=== PATIENT | female | born 1940 | race Caucasian/White ===

== ENCOUNTER → 2019-11-22 11:28 | Outpatient (BNVA) | payer MEDICARE, MEDICAID, SELFPAY | PROVIDERS: PCP Internal Medicine; Referring Provider Internal Medicine; Visit Provider Nurse Practitioner | DX: K52.9 Noninfective gastroenteritis and colitis, unspecified (principal); N18.30 Chronic kidney disease, stage 3 unspecified | CPT/HCPCS: 99213 ==

== ENCOUNTER → 2020-02-03 08:48 | Outpatient (BNVA) | payer MEDICARE, MEDICAID, SELFPAY | PROVIDERS: PCP Internal Medicine; Visit Provider Nurse Practitioner | DX: Z13.89 Encounter for screening for other disorder (principal) | CPT/HCPCS: Q3014 ==

== ENCOUNTER → 2020-04-05 08:42 | Outpatient (BNVA) | payer MEDICARE, MEDICAID, SELFPAY | PROVIDERS: PCP Internal Medicine; Visit Provider Nurse Practitioner | DX: Z76.89 Persons encountering health services in other specified circumstances (principal) | CPT/HCPCS: Q3014 ==

== ENCOUNTER → 2020-05-14 12:57 | Outpatient (BNVA) | payer MEDICARE, MEDICAID, SELFPAY | PROVIDERS: PCP Internal Medicine; Visit Provider Internal Medicine Cardiovascular Disease | DX: I48.0 Paroxysmal atrial fibrillation (principal); I25.10 Atherosclerotic heart disease of native coronary artery without angina pectoris; Z79.899 Other long term (current) drug therapy | CPT/HCPCS: 99212 ==

== ENCOUNTER 2020-06-15 06:22 | Emergency (ER) | payer MEDICARE, MEDICAID, SELFPAY ==
--- NOTE | ~2020-06-15 | US_ITS ---
EXAMINATION: US ABDOMEN LIMITED CLINICAL INFORMATION: Evaluate gallbladder only. Pain. COMPARISON: CT abdomen from earlier today. TECHNIQUE: Real-time imaging of the gallbladder. FINDINGS: Gallbladder is distended, there is debris/gravel/calculi within the gallbladder lumen. Gallbladder wall measures 0.25 cm. No pericholecystic fluid. Sonographic Roche's sign could not be evaluated, patient on pain medications. CBD measures 0.7 cm. US/US abdomen limited IMPRESSION: Distended gallbladder containing debris/gravel/calculi. No gallbladder wall thickening or pericholecystic fluid. Sonographic Roche's sign could not be evaluated, patient on pain medications. Sonographic findings are equivocal. Early or evolving cholecystitis cannot be excluded. Please clinically correlate. Consider short-term follow up ultrasound or HIDA scan for further evaluation as clinically warranted.
--- NOTE | ~2020-06-15 | CT_ITS ---
EXAMINATION: CT OF THE CHEST, ABDOMEN AND PELVIS WITHOUT CONTRAST CLINICAL INFORMATION: Difficulty swallowing. Abdominal and chest pain. Nausea and vomiting. COMPARISON: Previous CT of the abdomen and pelvis September 2014 and renal ultrasound June 2015 and CTA of the chest July 2013 TECHNIQUE: Axial images through the chest, abdomen and pelvis without oral or IV contrast. Sagittal and coronal reconstructions on the technologist workstation were performed. Patient dose 396+102 0 mg/cm. This CT examination was performed using dose optimization techniques as appropriate, variously including the following: *Automated exposure control *Adjustment of mA and/or kV according to patient size (this includes techniques or standardized protocols for targeted exams where dose is matched to indication/reason for exam; i.e. extremities or head) *Use of iterative reconstruction technique FINDINGS: Chest: There is a small calcified right upper lobe nodule measuring 2 mm axial image 99 series 8 that is stable. The lungs are otherwise clear. The heart is enlarged. There is coronary artery and aortic valve calcification. There is mitral annular calcification. There is no pericardial effusion. The thoracic aorta is normal in caliber. There are no enlarged hilar or mediastinal lymph nodes. The esophagus is unremarkable. There is no pleural effusion or pleural thickening. No chest wall mass or enlarged axillary lymph nodes are seen. Abdomen and pelvis: The liver is unremarkable. The gallbladder is distended. There are small gallstones in the gallbladder. The gallbladder wall appears slightly indistinct. Possible cholecystitis should be considered. No pericholecystic fluid is seen. Intra and extrahepatic bile ducts are normal in caliber. Lesion is unremarkable. There is a fatty infiltration and atrophic changes of the pancreas. The pancreas is otherwise unremarkable. The adrenal glands are unremarkable. There is mild left hydronephrosis. There is a small 2 mm stone in the lower pole of the left kidney. There is mild left proximal ureteral dilatation. There is bilateral perinephric stranding. This is slightly greater on the left. There is a small 3 mm calcification in the bladder probably representing a recently passed stone. There is diverticulosis of the colon. Small and large bowel is otherwise unremarkable. There is a 2.7 cm left adnexal cyst. This is unchanged from 2015 exam. The uterus and adnexa are otherwise unremarkable. There is evidence of atherosclerotic disease. No aneurysm is seen. No ascites or adenopathy is seen. There is a small umbilical hernia containing fat. There are degenerative changes of the spine. There is a left hip replacement. There is a mild lumbar scoliosis. There is a lucent lesion in the T11 vertebral body probably representing a hemangioma. CT/CT abdomen pelvis wo con IMPRESSION: Chest: No acute findings. Enlarged heart, coronary artery artery and aortic valve calcification. Abdomen and pelvis: Mild left hydronephrosis. Small 2 to 3 mm calcification in the bladder probably representing a recently passed stone. Small nonobstructing left lower pole renal stone. Distended gallbladder and gallstones. The gallbladder wall appears indistinct. Possible cholecystitis should be considered. If there is clinical suspicion of cholecystitis, gallbladder ultrasound or HIDA scan should be considered. Diverticulosis of the colon. No evidence of diverticulitis. Stable 2.7 cm left adnexal cyst.
--- NOTE | 2020-06-15 06:36 | ED.ABDPAIN ---
HPI - Abdominal Pain General Chief Complaint: Abdominal Pain Stated Complaint: NAUSEA/ABD PAIN Time Seen by Provider: 06/15/20 06:36 Source: patient and family Mode of arrival: EMS Limitations: no limitations History of Present Illness MD elicited complaint: abdominal pain and other (nausea, diff swallowing) Pertinent past history: other (IBS) Onset (ago): week(s) (2) Pain Consistency: intermittent Location: diffuse Severity: moderate Quality: cramping Radiation: none Migration to: no migration Exacerbating factors: eating Relieving factors: nothing Context: other (reports 10lb weight loss) Associated symptoms: nausea, vomiting and diarrhea Related Data Home Medications Medication Instructions Recorded Confirmed atenolol 100 mg tablet 100 mg PO DAILY 11/19/19 06/15/20 blood sugar diagnostic #10 ea 11/19/19 05/14/20 isosorbide mononitrate 30 mg 30 mg PO QAM 11/19/19 05/14/20 tablet,extended release 24 hr lisinopril 10 mg tablet 10 mg PO DAILY 11/19/19 05/14/20 lorazepam 0.5 mg tablet 0.5 mg PO TID PRN 11/19/19 05/14/20 loperamide 2 mg tablet 2 mg PO Q6H PRN 11/22/19 05/14/20 insulin glargine 100 unit/mL (3 unit SUBCUT 04/05/20 05/14/20 mL) subcutaneous pen mecobalamin (vitamin B12) 1,000 1,000 mcg PO BID tab 04/05/20 05/14/20 mcg chewable tablet metformin 850 mg tablet 850 mg PO BID tab 04/05/20 05/14/20 oxycodone-acetaminophen 5 mg-325 1 tab PO BID PRN 04/05/20 05/14/20 mg tablet pen needle, diabetic 31 gauge x #50 ea 04/05/20 05/14/20 1/ Previous Rx's Medication Instructions Recorded rivaroxaban 15 mg tablet 15 mg PO DAILY #90 tab 03/23/20 simethicone 180 mg capsule 180 mg PO TID PRN 30 Days #90 cap 04/05/20 eluxadoline 75 mg tablet 75 mg PO BID #60 tab 06/04/20 ondansetron 4 mg PO Q8H PRN #20 tab 06/15/20 Allergies Allergy/AdvReac Type Severity Reaction Status Date / Time No Known Allergies Allergy Verified 06/15/20 06:43 [No Known Allergies*] Review of Systems Review of Systems Constitutional : No Weight loss, No Fever, No Chills ENT/Mouth : No sore throat, No Rhinorrhea Eyes: No Swelling, No Redness Cardiovascular : No Chest Pain, No SOB, NoEdema Respiratory : No Cough, No Sputum, No Wheezing Gastrointestinal : Positive Nausea, Positive Vomiting, positive Diarrhea, positive abdominal Pain, No Hematochezia, No Melena Genitourinary : No Dysuria, No Urinary Frequency, No Hematuria, No Urgency Musculoskeletal : No joint pain, No Myalgias, No Joint Swelling Skin : No Skin Lesions, No rash Neuro : No Weakness, No Numbness, No Dizziness, No Headache Psych : No Anxiety/Panic, No Depression Heme/Lymph: No Bruising, No Lymphadenopathy Endocrine : No Polyuria, No Polydipsia All other systems reviewed and are negative. Physical Exam Vital Signs: Vital Signs: Last Vital Signs Temp 97.8 F 06/15/20 06:40 Pulse 64 06/15/20 12:50 Resp 16 06/15/20 12:50 BP 145/51 H 06/15/20 12:50 Pulse Ox 99 06/15/20 12:50 Body Mass Index 36.6 Appearance: Alert. Oriented X3. No acute distress. Eyes: Pupils equal, round and reactive to light. ENT: Pharynx normal. Neck: Normal inspection. Neck supple. CVS: Normal heart rate and rhythm. Pulses normal. Respiratory: No respiratory distress. Breath sounds normal. Abdomen: Soft and mildly distended ttp no rebound or guarding Skin: Skin warm and dry. Normal skin color. Normal skin turgor. Extremities: No lower extremity edema. No calf ttp Neuro: Oriented X 3. No motor deficit. No sensory deficit. Course Course Course Narrative: call to Dr. Bueno given US and CT scan findings, patient does have RUQ ttp with palpation and + Roche;s sign but feels much better with IV morphine Dr. Bueno did see the patient the patient wants to go home, declines admission MDM - Abdominal Pain MDM Narrative Medical decision making narrative: 79 yo female with DM, afib on xarelto, HTN, HPL here with c/o 2 weeks of 10lb weight loss, n/v/d x 7 stools a day, labs, CT scan of abdomen/chest to r/o mass, IV morphine for pain, dispo per resuls and improvement Differential Diagnosis Differential diagnosis: Likely abdominal pain, renal colic and small bowel obstruction Lab Data Result diagrams: 06/15/20 07:36 06/15/20 07:36 Labs: Lab Results 06/15/20 06/15/20 06/15/20 Range/Units 07:36 07:36 07:36 WBC 11.7 H (4.8-10.8) X10*3/uL RBC 4.21 (4.20-5.50) X10*6/uL Hgb 12.3 (12.0-16.0) g/dl Hct 38.5 (37-47) % MCV 91.4 (80-98) fL MCH 29.2 (27.0-33.0) pg MCHC 31.9 (31.0-35.0) g/dl RDW 14.5 (11.0-16.0) % Plt Count 248 (160-400) X10*3/uL MPV 10.3 (9.4-12.3) fL Immature Gran % (Auto) 0.4 (0.0-0.4) % Neut % (Auto) 76.4 H (45-73) % Lymph % (Auto) 12.9 L (20-40) % [place] % (Auto) 8.5 (2-11) % Eos % (Auto) 1.6 (0-4) % Baso % (Auto) 0.2 (0-2) % Lymph # (Auto) 1.5 (1.2-4.9) X10*3/uL [place] # (Auto) 1.0 (0.1-1.2) X10*3/uL Eos # (Auto) 0.2 (0.0-0.4) X10*3/uL Baso # (Auto) 0.0 (0.0-0.2) X10*3/uL Abs Immat Gran (auto) 0.05 H (0.00-0.03) X10*3/uL Absolute Neuts (auto) 9.0 H (2.0-8.3) X10*3/uL Absolute Nucleated RBC 0.000 (0.0-0.012) X10*3/uL Nucleated RBC % (auto) 0.0 (0.0-0.2) /100WBC PT (10.8-13.0) SEC INR (0.9-1.1) APTT (24.1-38.0) SEC Sodium 140 (135-145) mmol/L Potassium 5.0 (3.3-5.1) mmol/L Chloride 106 (96-108) mmol/L Carbon Dioxide 25 (22-29) mmol/L Anion Gap 14 (12-20) BUN 30 H (9-16) mg/dL Creatinine 1.33 (0.5-1.4) mg/dL Estim Creat Clear Calc 35.3 Estimated GFR 38 Random Glucose 136 H (60-115) mg/dL Calcium 9.2 (8.4-10.2) mg/dL Magnesium (1.6-2.6) mg/dL Total Bilirubin (0.0-1.0) mg/dL Direct Bilirubin (0.0-0.5) mg/dL AST (5-31) U/L ALT (0-31) U/L Alkaline Phosphatase (39-117) U/L Total Protein (6.5-8.0) g/dL Albumin (3.5-5.0) g/dL Lipase (8-78) U/L Urine Color Urine Appearance Urine pH (5.0-8.0) Ur Specific [place] (1.005-1.025) Urine Protein (NEG-TRACE) MG/DL Urine Glucose (UA) (NEG) MG/DL Urine Ketones (NEG) MG/DL Urine Blood (NEG) Urine Nitrite (NEG) Ur Leukocyte Esterase (NEG) COVID-19 (BECKY) Negative (Negative) COVID-19 Clin Com See Note 06/15/20 06/15/20 06/15/20 Range/Units 07:36 07:36 13:53 WBC (4.8-10.8) X10*3/uL RBC (4.20-5.50) X10*6/uL Hgb (12.0-16.0) g/dl Hct (37-47) % MCV (80-98) fL MCH (27.0-33.0) pg MCHC (31.0-35.0) g/dl RDW (11.0-16.0) % Plt Count (160-400) X10*3/uL MPV (9.4-12.3) fL Immature Gran % (Auto) (0.0-0.4) % Neut % (Auto) (45-73) % Lymph % (Auto) (20-40) % [place] % (Auto) (2-11) % Eos % (Auto) (0-4) % Baso % (Auto) (0-2) % Lymph # (Auto) (1.2-4.9) X10*3/uL [place] # (Auto) (0.1-1.2) X10*3/uL Eos # (Auto) (0.0-0.4) X10*3/uL Baso # (Auto) (0.0-0.2) X10*3/uL Abs Immat Gran (auto) (0.00-0.03) X10*3/uL Absolute Neuts (auto) (2.0-8.3) X10*3/uL Absolute Nucleated RBC (0.0-0.012) X10*3/uL Nucleated RBC % (auto) (0.0-0.2) /100WBC PT 19.5 H (10.8-13.0) SEC INR 1.6 H (0.9-1.1) APTT 39.2 H (24.1-38.0) SEC Sodium (135-145) mmol/L Potassium (3.3-5.1) mmol/L Chloride (96-108) mmol/L Carbon Dioxide (22-29) mmol/L Anion Gap (12-20) BUN (9-16) mg/dL Creatinine (0.5-1.4) mg/dL Estim Creat Clear Calc Estimated GFR Random Glucose (60-115) mg/dL Calcium (8.4-10.2) mg/dL Magnesium 1.7 (1.6-2.6) mg/dL Total Bilirubin 0.9 (0.0-1.0) mg/dL Direct Bilirubin 0.3 (0.0-0.5) mg/dL AST 13 (5-31) U/L ALT 8 (0-31) U/L Alkaline Phosphatase 55 (39-117) U/L Total Protein 5.9 L (6.5-8.0) g/dL Albumin 3.8 (3.5-5.0) g/dL Lipase 6 L (8-78) U/L Urine Color YELLOW Urine Appearance HAZY Urine pH 5.5 (5.0-8.0) Ur Specific [place] 1.025 (1.005-1.025) Urine Protein NEG (NEG-TRACE) MG/DL Urine Glucose (UA) NEG (NEG) MG/DL Urine Ketones NEG (NEG) MG/DL Urine Blood NEG (NEG) Urine Nitrite NEG (NEG) Ur Leukocyte Esterase NEG (NEG) COVID-19 (BECKY) (Negative) COVID-19 Clin Com ECG Data Attestation: I personally reviewed and interpreted this ECG as follows: ECG interpretation date: 06/15/20 ECG interpretation time: 07:46 Interpretation: Rate: 75 Rhythm: NSR [place]: left Normal P waves. Normal SRINIVASA. Normal QRS complex. ST T wave : normal, no FELISA qTC: normal prior studies: no acute ischemia The study has been interpreted contemporaneously by me. . Discharge Plan Discharge Clinical Impression: Abdominal pain, Vomiting, Biliary colic Patient Disposition: Home, Self-Care Instructions: Biliary Colic (ED), Acute Nausea and Vomiting (ED) Additional Instructions: return to ED for any worsening symptoms or concerns if you change your mind come back at any time Prescriptions: New ondansetron 4 mg tablet,disintegrating 4 mg PO Q8H PRN (Reason: nausea and vomiting) Qty: 20 RF: 0 No Action rivaroxaban 15 mg tablet 15 mg PO DAILY Qty: 90 RF: 1 Viberzi 75 mg tablet 75 mg PO BID Qty: 60 RF: 0 lisinopril 10 mg tablet 10 mg PO DAILY RF: 0 lorazepam 0.5 mg tablet 0.5 mg PO TID PRN (Reason: Anxiety) RF: 0 isosorbide mononitrate 30 mg tablet extended release 24 hr 30 mg PO QAM RF: 0 atenolol 100 mg tablet 100 mg PO DAILY RF: 0 (DME) [employer] Ultra Blue Test Strip Strip See Rx Instructions strip .ROUTE TID Qty: 10 RF: 0 loperamide [Imodium A-D] 2 mg tablet 2 mg PO Q6H PRN (Reason: Diarrhea) RF: 0 metformin 850 mg tablet 850 mg PO BID RF: 0 Lantus Solostar U-100 Insulin 100 unit/mL (3 mL) insulin pen subcut RF: 0 oxycodone-acetaminophen 5-325 mg tablet 1 tab PO BID PRN (Reason: Pain) RF: 0 (DME) pen needle, diabetic 31 gauge x 1/4 needle See Rx Instructions ea .ROUTE DAILY Qty: 50 RF: 0 mecobalamin (vitamin B12) 1,000 mcg tablet,chewable 1,000 mcg PO BID RF: 0 simethicone 180 mg capsule 180 mg PO TID PRN (Reason: abdominal distention) 30 Days Qty: 90 RF: 3 Referrals: Sandra Bueno MD [Physician] - 1 week [facility] Past Medical History Attestation statement: The following information was validated with the patient. Medical History CAD (coronary artery disease) CKD (chronic kidney disease) stage 3, GFR 30-59 ml/min GERD (gastroesophageal reflux disease) High cholesterol Hypertension Irritable bowel syndrome with diarrhea Paroxysmal atrial fibrillation Surgical History History of cardiac cath Hx of colonoscopy Family History Family History Father No problems noted. Mother Diabetes Sister Diabetes Daughter Anemia Diabetes Social History Social History Alcohol intake: never Smoking Status: Never smoker Use of substances other than those prescribed or required for medical reasons: No Advance Directives: No Advance Directives Information Provided: No
[2020-06-15 06:40] VITALS: BP 115/80; PULSE 78; RESP 19; TEMP 36.6; O2SAT 97; BMI 36.6
--- NOTE | 2020-06-15 06:42 | ECG_ITS ---
Test Reason : CHEST PAIN Blood Pressure : / mmHG Vent. Rate : 075 BPM Atrial Rate : 075 BPM P-R Int : 128 ms QRS Dur : 086 ms QT Int : 394 ms P-R-T Axes : -09 -46 025 degrees QTc Int : 439 ms Normal sinus rhythm Left anterior fascicular block Abnormal ECG When compared with ECG of 09-AUG-2013 09:37, Premature atrial complexes are no longer Present Referred By: Raven Rivera Electronically Signed By:JUAN STILL MD
[2020-06-15] MEDS: Morphine Sulfate 4 MG/ML CARTRIDGE IVPUSH (07:47)
[2020-06-15] MEDS: ondansetron HCL 4 MG/2 ML VIAL IVPUSH (07:47)
[2020-06-15 07:48] LABS: MANUAL DIFF FLAG NO
[2020-06-15 07:52] LABS: Basophils Percent Auto 0.2 % (0-2); Eosinophils Absolute Auto 0.2 X10*3/uL (0.0-0.4); Eosinophils Percent Auto 1.6 % (0-4); Hematocrit 38.5 % (37-47); Hemoglobin 12.3 g/dl (12.0-16.0); Imm Gran Abs Auto 0.05 X10*3/uL (0.00-0.03); Imm Gran Pct Auto 0.4 % (0.0-0.4); Lymphocytes Absolute Auto 1.5 X10*3/uL (1.2-4.9); Lymphocytes Percent Auto 12.9 % (20-40); Mean Corpuscular HGB Conc 31.9 g/dl (31.0-35.0); Mean Corpuscular Hemoglobin 29.2 pg (27.0-33.0); Mean Corpuscular Volume 91.4 fL (80-98); Mean Platelet Volume 10.3 fL (9.4-12.3); Monocytes Percent Auto 8.5 % (2-11); Neutrophils Percent Auto 76.4 % (45-73); Platelet Count 248 X10*3/uL (160-400); Red Blood Count 4.21 X10*6/uL (4.20-5.50); Red Cell Distribution Width 14.5 % (11.0-16.0); White Blood Count 11.7 X10*3/uL (4.8-10.8)
[2020-06-15 07:56] LABS: INTERNATIONAL NORM RATIO 1.6 (0.9-1.1); Prothrombin Time 19.5 SEC (10.8-13.0)
[2020-06-15 08:02] LABS: Partial Thromboplastin Time 39.2 SEC (24.1-38.0)
[2020-06-15 08:07] LABS: COVID-19 Test Negative (Negative)
[2020-06-15 08:17] LABS: Anion Gap 14 (12-20); Blood Urea Nitrogen 30 mg/dL (9-16); Calcium 9.2 mg/dL (8.4-10.2); Carbon Dioxide 25 mmol/L (22-29); Chloride 106 mmol/L (96-108); Creatinine Clr Calc Pharmacy 35.3; Estimated Glomerular Filt Rate 38; Glucose Random 136 mg/dL (60-115); Sodium 140 mmol/L (135-145)
[2020-06-15 08:20] LABS: Alanine Aminotransferase 8 U/L (0-31); Albumin Level 3.8 g/dL (3.5-5.0); Alkaline Phosphatase 55 U/L (39-117); Aspartate Amino Transferase 13 U/L (5-31); Bilirubin Direct 0.3 mg/dL (0.0-0.5); Bilirubin Total 0.9 mg/dL (0.0-1.0); Lipase 6 U/L (8-78); Magnesium 1.7 mg/dL (1.6-2.6); Total Protein 5.9 g/dL (6.5-8.0)
[2020-06-15 11:38] VITALS: BP 145/51; PULSE 64; RESP 16; O2SAT 99
[2020-06-15 12:50] VITALS: BP 145/51; PULSE 64; RESP 16; O2SAT 99
[2020-06-15 14:02] LABS: Glucose Urine UA NEG (NEG); Leukocyte Esterase Urine NEG (NEG); Nitrite Urine NEG (NEG); PH 5.5 (5.0-8.0); Specific Gravity - Urine 1.025 (1.005-1.025); Urine Blood NEG (NEG); Urine Ketones NEG (NEG); Urine Protein NEG (NEG-TRACE)
[2020-06-15 14:03] LABS: Appearance Urine HAZY; Color Urine YELLOW
[2020-06-15 14:42] VITALS: BP 176/75; PULSE 71; RESP 16; O2SAT 95
--- NOTE | 2020-06-15 15:00 | P.CONGS_ITS ---
History of Present Illness Consult details Consult date: 06/15/20 Reason for consult: gallstones Requesting physician: Raven Rivera Narrative: This is an 79 y/o female who presented to the emergency department early this morning for evaluation of severe left lower quadrant abdominal pain. She reports a several day history of left lower quadrant pain that became acutely worse and radiated across the midline toward the right early today. She did not have fever, chills, dysuria or urinary frequency. She does give a history of kidney stones. She also reports a 2 month history of difficulty eating. Her appetite has been poor. She has frequent episodes of nausea associated with eating and has lost about 10 lb. She has a long history of irritable bowel syndrome and is scheduled to see Sofía Edward NP, on June 26. Workup in the emergency room revealed mild left hydronephrosis and mild dilatation of the left proximal ureter. A 2 mm stone was noted in the lower pole of the left kidney. The gallbladder was distended and contained stones raising the possibility of acute cholecystitis. An ultrasound was obtained subsequently and revealed similar findings of distended gallbladder with stones. There was no thickening of the gallbladder wall and no pericholecystic fluid. Assessment for sonographic Roche sign was not completed as she had received morphine prior to her examination. White blood count was mildly elevated at 11.7. Liver function studies were normal except for a slightly low total protein level of 5.9. Currently, she reports that her abdominal pain essentially has resolved. She has some very mild generalized discomfort. Past history is significant for diabetes mellitus, irritable bowel syndrome, atrial fibrillation chronically anticoagulated on Xarelto. Review of Systems Constitutional: Constitutional: Reports poor appetite and Reports weight loss Eyes: Eyes: Reports requires corrective lenses Cardiovascular: Cardiovascular: Denies chest pain and Reports dyspnea on exertion Respiratory: Respiratory: Denies cough, Reports dyspnea on exertion and Denies wheezing Gastrointestinal: Gastrointestinal: Reports as per HPI and Reports loose stools Genitourinary: Genitourinary: Denies dysuria, Denies flank pain and Denies urinary incontinence Musculoskeletal: Musculoskeletal: Reports arthralgias (Generalized, bilateral knee pain is most bothersome) Psychiatric: Psychiatric: Reports anxiety Endocrine: Endocrine: Reports cold intolerance Hematologic/Lymphatic: Comments: on Xarelto Allergic/Immunologic: Allergic/Immunologic: Denies wheezing PMFSH Past Medical History Medical History CAD (coronary artery disease) CKD (chronic kidney disease) stage 3, GFR 30-59 ml/min GERD (gastroesophageal reflux disease) High cholesterol Hypertension Irritable bowel syndrome with diarrhea Paroxysmal atrial fibrillation Family History Family History Father No problems noted. Mother Diabetes Sister Diabetes Daughter Anemia Diabetes Surgical History Surgical History (Updated 06/15/20 @ 15:11 by Sandra Bueno MD) History of cardiac cath History of total left knee replacement Hx of colonoscopy Social History Social History Alcohol intake: never Smoking Status: Never smoker Use of substances other than those prescribed or required for medical reasons: No Advance Directives: No Advance Directives Information Provided: No Meds Allergies Allergy/AdvReac Type Severity Reaction Status Date / Time No Known Allergies Allergy Verified 06/15/20 06:43 [No Known Allergies*] Home Medications Medication Instructions Recorded Confirmed Last Taken Type atenolol 100 mg tablet 100 mg PO DAILY 11/19/19 06/15/20 Unknown History blood sugar diagnostic #10 ea 11/19/19 05/14/20 Unknown History isosorbide mononitrate 30 mg 30 mg PO QAM 11/19/19 05/14/20 Unknown History tablet,extended release 24 hr lisinopril 10 mg tablet 10 mg PO DAILY 11/19/19 05/14/20 Unknown History lorazepam 0.5 mg tablet 0.5 mg PO TID PRN 11/19/19 05/14/20 Unknown History loperamide 2 mg tablet 2 mg PO Q6H PRN 11/22/19 05/14/20 Unknown History insulin glargine 100 unit/mL (3 unit SUBCUT 04/05/20 05/14/20 Unknown History mL) subcutaneous pen mecobalamin (vitamin B12) 1,000 1,000 mcg PO BID tab 04/05/20 05/14/20 Unknown History mcg chewable tablet metformin 850 mg tablet 850 mg PO BID tab 04/05/20 05/14/20 Unknown History oxycodone-acetaminophen 5 mg-325 1 tab PO BID PRN 04/05/20 05/14/20 Unknown History mg tablet pen needle, diabetic 31 gauge x #50 ea 04/05/20 05/14/20 Unknown History 02/19 Physical Exam Vital Signs: Vital Signs: Last Vital Signs Temp 97.8 F 06/15/20 06:40 Pulse 71 06/15/20 14:42 Resp 16 06/15/20 14:42 BP 176/75 H 06/15/20 14:42 Pulse Ox 95 06/15/20 14:42 Body Mass Index 36.6 Const: General: cooperative, alert and awake HENMT: Head: Yes normocephalic and Yes atraumatic Eyes: Conjunctivae: conjunctivae normal Sclerae: sclerae normal Neck: Neck: Yes trachea midline and Yes supple Carotids: no bruits Resp: Effort & Inspection: normal respiratory effort Auscultation: clear to auscultation bilaterally Cardio: Rate: regular rate Rhythm: regular rhythm Peripheral pulses: dorsalis pedis present bilateral GI: Other: Nondistended, active bowel sounds, mild generalized tenderness, negative Roche sign, no obvious organomegaly Rectal Exam - Female: deferred Skin: Other: Normal color, warm and dry Extrem: General: No edema Results Labs Result diagrams: 06/15/20 07:36 06/15/20 07:36 Labs: Abnormal lab results 06/15/20 06/15/20 06/15/20 Range/Units 07:36 07:36 07:36 WBC 11.7 H (4.8-10.8) X10*3/uL Neut % (Auto) 76.4 H (45-73) % Lymph % (Auto) 12.9 L (20-40) % Abs Immat Gran (auto) 0.05 H (0.00-0.03) X10*3/uL Absolute Neuts (auto) 9.0 H (2.0-8.3) X10*3/uL PT 19.5 H (10.8-13.0) SEC INR 1.6 H (0.9-1.1) APTT 39.2 H (24.1-38.0) SEC BUN 30 H (9-16) mg/dL Random Glucose 136 H (60-115) mg/dL Total Protein (6.5-8.0) g/dL Lipase (8-78) U/L 06/15/20 Range/Units 07:36 WBC (4.8-10.8) X10*3/uL Neut % (Auto) (45-73) % Lymph % (Auto) (20-40) % Abs Immat Gran (auto) (0.00-0.03) X10*3/uL Absolute Neuts (auto) (2.0-8.3) X10*3/uL PT (10.8-13.0) SEC INR (0.9-1.1) APTT (24.1-38.0) SEC BUN (9-16) mg/dL Random Glucose (60-115) mg/dL Total Protein 5.9 L (6.5-8.0) g/dL Lipase 6 L (8-78) U/L Short CBC 06/15/20 Range/Units 07:36 WBC 11.7 H (4.8-10.8) X10*3/uL Hgb 12.3 (12.0-16.0) g/dl Hct 38.5 (37-47) % Plt Count 248 (160-400) X10*3/uL BMP 06/15/20 07:36 Sodium 140 Potassium 5.0 Chloride 106 Carbon Dioxide 25 BUN 30 H Creatinine 1.33 Calcium 9.2 Liver Function 06/15/20 Range/Units 07:36 Total Bilirubin 0.9 (0.0-1.0) mg/dL Direct Bilirubin 0.3 (0.0-0.5) mg/dL AST 13 (5-31) U/L ALT 8 (0-31) U/L Alkaline Phosphatase 55 (39-117) U/L Albumin 3.8 (3.5-5.0) g/dL Urine 06/15/20 Range/Units 13:53 Urine Color YELLOW Urine Appearance HAZY Urine pH 5.5 (5.0-8.0) Ur Specific [place] 1.025 (1.005-1.025) Urine Protein NEG (NEG-TRACE) MG/DL Urine Glucose (UA) NEG (NEG) MG/DL All other labs normal. Assessment and Plan (1) Abdominal pain: Qualifiers: Abdominal location: generalized Qualified Code(s): R10.84 - Generalized abdominal pain Status: Acute 79-year-old female presenting with recent onset left lower quadrant abdominal pain, now resolved. She has mild hydronephrosis and proximal hydroureter on the left and may have passed a kidney stone. Workup also revealed a distended gallbladder and gallstones. She has a 2 month history of poor appetite, nausea associated with eating and weight loss. This may be be related to gallbladder disease, but further evaluation with Gastroenterology would be helpful. We discussed admission based upon her symptoms, but as she is feeling better, she has elected to be discharged home. She will follow up in the office with Sofía Edward NP and with surgery if needed depending upon her GI evaluation. She will return to the emergency department if she has recurrence of severe pain.
== END 2020-06-15 15:08 | disposition home or self-care (01) ==
PROVIDERS: Emergency Provider Emergency Medicine; PCP Internal Medicine
DX: K80.50 Calculus of bile duct without cholangitis or cholecystitis without obstruction (principal); R11.2 Nausea with vomiting, unspecified; R10.84 Generalized abdominal pain; Z20.822 Contact with and (suspected) exposure to COVID-19; E11.9 Type 2 diabetes mellitus without complications; I48.91 Unspecified atrial fibrillation; I10 Essential (primary) hypertension; E78.5 Hyperlipidemia, unspecified; Z79.01 Long term (current) use of anticoagulants
CPT/HCPCS: 36415; 71250; 74176; 76705; 80048; 80076; 81003; 83690; 83735; 85025; 85610; 85730; 87635; 93005; 96374; 96375; 99285; J2270; J2405

== ENCOUNTER → 2020-06-26 14:44 | Outpatient (BNVA) | payer MEDICARE, MEDICAID, SELFPAY | PROVIDERS: PCP Internal Medicine; Visit Provider Nurse Practitioner | DX: R14.0 Abdominal distension (gaseous) (principal); R19.7 Diarrhea, unspecified; K80.20 Calculus of gallbladder without cholecystitis without obstruction; N20.0 Calculus of kidney | CPT/HCPCS: 99212 ==

== ENCOUNTER → 2020-07-19 10:32 | Outpatient (REF) | payer MEDICARE, MEDICAID, SELFPAY ==
--- NOTE | ~2020-07-19 | NM_ITS ---
EXAMINATION: HIDA SCAN WITH CCK. CLINICAL INFORMATION: Calculus of gallbladder without cholecystitis. COMPARISON: None TECHNIQUE: Following intravenous administration of 5 mCi of 99m technetium mebrofenin, imaging over the right upper quadrant was obtained. Subsequently 1.8 mcg of CCK was administered at 2 hours with imaging obtained up to 30 minutes. FINDINGS: On initial scan there is normal hepatic uptake with no focal defects seen. There is slow excretion of isotope activity after 60 minutes with visualization of gallbladder and small bowel. Post CCK at 30 minutes imaging, the gallbladder ejection fraction is 21%. NM/NM hepatobiliary w pharm IMPRESSION: Normal hepatic uptake. Delayed visualization of gallbladder after 60 minutes. The common bile duct is patent. Dyskinetic gallbladder with ejection fraction of 21% at 30 minutes post CCK.
== END ==
LOC: HO.NUCMED 10:32
PROVIDERS: Visit Provider Nurse Practitioner
DX: K80.20 Calculus of gallbladder without cholecystitis without obstruction (principal)
CPT/HCPCS: 78227; A9537; J2805

== ENCOUNTER 2020-08-01 06:38 | Inpatient (IN) | payer MEDICARE, MEDICAID, SELFPAY ==
[2020-08-01] VITALS (13 sets, daily range): BP systolic 148–226; BP diastolic 67–92; PULSE 68–104; RESP 18–20; TEMP 35.7–37; O2SAT 94–97; BMI 35.4
--- NOTE | ~2020-08-01 | CT_ITS ---
EXAMINATION: CT CHEST WITH CONTRAST CLINICAL INFORMATION: EVAL FOR POSSIBLE MASS W 2/2 VARICES; COMPARISON: CT chest 06/15/2020 TECHNIQUE: Multidetector volumetric CT imaging of the chest was obtained after the administration of 65 mL of Omnipaque 350 intravenous contrast without immediate adverse reactions. Axial MIP volume rendering provided. Sagittal and coronal reformatted images were obtained. This CT examination was performed using dose optimization techniques as appropriate, variously including the following: *Automated exposure control *Adjustment of mA and/or kV according to patient size (this includes techniques or standardized protocols for targeted exams where dose is matched to indication/reason for exam; i.e. extremities or head) *Use of iterative reconstruction technique DLP: 202 mGy-cm FINDINGS: LUNGS: No acute airways disease. No interstitial lung disease. No bronchiectasis. The central bronchial airways are open. There is linear parenchymal scarring at lung bases. Lung nodules: No suspicious lung nodules. MEDIASTINUM: No mediastinal mass or significant lymphadenopathy. Heart size is normal. There are heavy calcification of coronary arteries. There are calcifications of the mitral valve annulus. There are vascular wall calcifications of thoracic aorta and origin of great vessels. There is no aneurysm of aorta. PLEURA: There is no pleural effusion. No pleural mass or thickening. AXILLA: No lymphadenopathy. UPPER ABDOMEN: There are vascular calcifications of aorta and splenic artery. No suspicious lesion the visualized portions of liver, spleen, pancreas, kidneys or the adrenal glands. OSSEOUS STRUCTURES: Multilevel degenerative spondylosis of spine. CT/CT chest w con IMPRESSION: 1. No acute abnormality of chest. 2. No suspicious lung nodules.
--- NOTE | 2020-08-01 07:17 | ED.ABDPAIN ---
HPI - Abdominal Pain General Chief Complaint: Abdominal Pain Stated Complaint: dizziness, abd pain for months Time Seen by Provider: 08/01/20 07:17 Source: patient, family and old records reviewed Mode of arrival: ambulatory Limitations: no limitations History of Present Illness HPI narrative: 79 yo female with hx of longstanding hard to control IBS, DM, HTN, PAF on xarelto comes in with persistent complaints of months of weight loss, pain, diarrhea, nausea and vomiting had HIDA scan that showed biliary dyskinesia came today becasue she can no longer stand the nausea and pain at this time, followed by JOHNNIE Edward MD elicited complaint: abdominal pain Pertinent past history: other (IBS) Onset (ago): year(s) Pain Consistency: constant Location: diffuse Severity: moderate Quality: cramping and fullness Migration to: no migration Exacerbating factors: eating Relieving factors: nothing Context: history of similar episodes and other (recent HIDA scan abnormal ) Associated symptoms: nausea, vomiting, diarrhea and anorexia Treatments prior to arrival: other (on multiple medications from GI) Related Data Home Medications Medication Instructions Recorded Confirmed atenolol 100 mg tablet 100 mg PO DAILY 11/19/19 08/01/20 blood sugar diagnostic #10 ea 11/19/19 05/14/20 isosorbide mononitrate 30 mg 30 mg PO QAM 11/19/19 08/01/20 tablet,extended release 24 hr lisinopril 10 mg tablet 10 mg PO DAILY 11/19/19 08/01/20 lorazepam 0.5 mg tablet 0.5 mg PO BID PRN 11/19/19 08/01/20 insulin glargine 100 unit/mL (3 30 unit SUBCUT BEDTIME 04/05/20 08/01/20 mL) subcutaneous pen mecobalamin (vitamin B12) 1,000 1,000 mcg PO DAILY tab 04/05/20 08/01/20 mcg chewable tablet metformin 850 mg tablet 850 mg PO BID tab 04/05/20 08/01/20 oxycodone-acetaminophen 5 mg-325 1 tab PO BID PRN 04/05/20 08/01/20 mg tablet pen needle, diabetic 31 gauge x #50 ea 04/05/20 05/14/20 1/4 omega-3 fatty acids 1,000 mg 1,000 mg PO DAILY 06/26/20 08/01/20 capsule eluxadoline [Viberzi] 75 mg PO QD-BID 08/01/20 08/01/20 [id number] [Creon] 1 cap PO TID-QID 08/01/20 08/01/20 rivaroxaban 15 mg PO QPM 08/01/20 08/01/20 Allergies Allergy/AdvReac Type Severity Reaction Status Date / Time No Known Allergies Allergy Verified 07/27/20 13:22 [No Known Allergies*] Review of Systems Review of Systems Constitutional : pos Weight loss, No Fever, No Chills, pos fatigue, pos malaise ENT/Mouth : No sore throat, No Rhinorrhea Eyes: No Swelling, No Redness Cardiovascular : No Chest Pain, No SOB, NoEdema Respiratory : No Cough, No Sputum, No Wheezing Gastrointestinal : Positive Nausea, Positive Vomiting, positive Diarrhea, positive abdominal Pain, No Hematochezia, No Melena Genitourinary : No Dysuria, No Urinary Frequency, No Hematuria, No Urgency Musculoskeletal : No joint pain, No Myalgias, No Joint Swelling Skin : No Skin Lesions, No rash Neuro : pos Weakness, No Numbness, No Dizziness, No Headache Psych : No Anxiety/Panic, No Depression Heme/Lymph: No Bruising, No Lymphadenopathy Endocrine : No Polyuria, No Polydipsia All other systems reviewed and are negative. Physical Exam Vital Signs: Vital Signs: Last Vital Signs Temp 97.8 F 08/01/20 10:57 Pulse 71 08/01/20 12:17 Resp 18 08/01/20 12:17 BP 148/67 H 08/01/20 12:17 Pulse Ox 96 08/01/20 08:50 Body Mass Index 35.4 Appearance: Alert. Oriented X3. No acute distress. Anxious, visibly frustrated Eyes: Pupils equal, round and reactive to light. ENT: Pharynx normal. Neck: Normal inspection. Neck supple. CVS: Normal heart rate and rhythm. Pulses normal. Respiratory: No respiratory distress. Breath sounds normal. Abdomen: Soft and diffuse ttp, localized more so LLQ Skin: Skin warm and dry. pale skin color. Normal skin turgor. Extremities: No lower extremity edema. No calf ttp Neuro: Oriented X 3. No motor deficit. No sensory deficit. Course Course Course Narrative: call to surgery regarding HIDA scan 928am Dr. Hays feels she needs EGD and GI workup, offered hospitalist admission patient only agrees to admission if EGD done, texts sent out to [facility] [employer] group discussion with Dr. Levi about possible admission for EGD tomorrow 159pm - okay to admit, will add her on EGD schedule hold xarelto, will repeat labs tomorrow, clears and prep overnight for scoping MDM - Abdominal Pain MDM Narrative Medical decision making narrative: 79 yo female with hx of longstanding hard to control IBS, DM, HTN, PAF on xarelto comes in with persistent complaints of months of weight loss, pain, diarrhea, nausea and vomiting had HIDA scan that showed biliary dyskinesia came today because she can no longer stand the nausea and pain at this time, followed by JOHNNIE Edward at this time the patient will need repeat labs, IVF, symptom control, has had US and CT scan alongside HIDA concerning for biliary dyskinesia - at this time will likely discuss with surgery, I do not see a need to repeat imaging on her unless there is significant lab abnormalities, likely admit Lab Data Result diagrams: 08/01/20 07:42 08/01/20 07:42 Labs: Lab Results 08/01/20 08/01/20 08/01/20 Range/Units 07:42 07:42 07:42 WBC 7.9 (4.8-10.8) X10*3/uL RBC 4.24 (4.20-5.50) X10*6/uL Hgb 12.2 (12.0-16.0) g/dl Hct 38.3 (37-47) % MCV 90.3 (80-98) fL MCH 28.8 (27.0-33.0) pg MCHC 31.9 (31.0-35.0) g/dl RDW 14.3 (11.0-16.0) % Plt Count 283 (160-400) X10*3/uL MPV 10.5 (9.4-12.3) fL Immature Gran % (Auto) 0.3 (0.0-0.4) % Neut % (Auto) 56.1 (45-73) % Lymph % (Auto) 30.8 (20-40) % [place] % (Auto) 8.7 (2-11) % Eos % (Auto) 3.7 (0-4) % Baso % (Auto) 0.4 (0-2) % Lymph # (Auto) 2.4 (1.2-4.9) X10*3/uL [place] # (Auto) 0.7 (0.1-1.2) X10*3/uL Eos # (Auto) 0.3 (0.0-0.4) X10*3/uL Baso # (Auto) 0.0 (0.0-0.2) X10*3/uL Abs Immat Gran (auto) 0.02 (0.00-0.03) X10*3/uL Absolute Neuts (auto) 4.4 (2.0-8.3) X10*3/uL Absolute Nucleated RBC 0.000 (0.0-0.012) X10*3/uL Nucleated RBC % (auto) 0.0 (0.0-0.2) /100WBC PT 17.3 H (10.8-13.0) SEC INR 1.5 H (0.9-1.1) APTT 40.7 H (24.1-38.0) SEC Sodium (135-145) mmol/L Potassium (3.3-5.1) mmol/L Chloride (96-108) mmol/L Carbon Dioxide (22-29) mmol/L Anion Gap (12-20) BUN (9-16) mg/dL Creatinine (0.5-1.4) mg/dL Estim Creat Clear Calc Estimated GFR Random Glucose (60-115) mg/dL Calcium (8.4-10.2) mg/dL Magnesium (1.6-2.6) mg/dL Total Bilirubin (0.0-1.0) mg/dL Direct Bilirubin (0.0-0.5) mg/dL AST (5-31) U/L ALT (0-31) U/L Alkaline Phosphatase (39-117) U/L Total Protein (6.5-8.0) g/dL Albumin (3.5-5.0) g/dL Lipase (8-78) U/L Urine Color Urine Appearance Urine pH (5.0-8.0) Ur Specific [place] (1.005-1.025) Urine Protein (NEG-TRACE) MG/DL Urine Glucose (UA) (NEG) MG/DL Urine Ketones (NEG) MG/DL Urine Blood (NEG) Urine Nitrite (NEG) Ur Leukocyte Esterase (NEG) COVID-19 (BECKY) Negative (Negative) COVID-19 Clin Com See Note 08/01/20 08/01/20 Range/Units 07:42 08:56 WBC (4.8-10.8) X10*3/uL RBC (4.20-5.50) X10*6/uL Hgb (12.0-16.0) g/dl Hct (37-47) % MCV (80-98) fL MCH (27.0-33.0) pg MCHC (31.0-35.0) g/dl RDW (11.0-16.0) % Plt Count (160-400) X10*3/uL MPV (9.4-12.3) fL Immature Gran % (Auto) (0.0-0.4) % Neut % (Auto) (45-73) % Lymph % (Auto) (20-40) % [place] % (Auto) (2-11) % Eos % (Auto) (0-4) % Baso % (Auto) (0-2) % Lymph # (Auto) (1.2-4.9) X10*3/uL [place] # (Auto) (0.1-1.2) X10*3/uL Eos # (Auto) (0.0-0.4) X10*3/uL Baso # (Auto) (0.0-0.2) X10*3/uL Abs Immat Gran (auto) (0.00-0.03) X10*3/uL Absolute Neuts (auto) (2.0-8.3) X10*3/uL Absolute Nucleated RBC (0.0-0.012) X10*3/uL Nucleated RBC % (auto) (0.0-0.2) /100WBC PT (10.8-13.0) SEC INR (0.9-1.1) APTT (24.1-38.0) SEC Sodium 139 (135-145) mmol/L Potassium 4.6 (3.3-5.1) mmol/L Chloride 107 (96-108) mmol/L Carbon Dioxide 23 (22-29) mmol/L Anion Gap 14 (12-20) BUN 20 H (9-16) mg/dL Creatinine 1.07 (0.5-1.4) mg/dL Estim Creat Clear Calc 43.2 Estimated GFR 49 Random Glucose 104 (60-115) mg/dL Calcium 9.2 (8.4-10.2) mg/dL Magnesium 1.5 L (1.6-2.6) mg/dL Total Bilirubin 0.9 (0.0-1.0) mg/dL Direct Bilirubin 0.3 (0.0-0.5) mg/dL AST 14 (5-31) U/L ALT 7 (0-31) U/L Alkaline Phosphatase 68 D (39-117) U/L Total Protein 5.8 L (6.5-8.0) g/dL Albumin 3.7 (3.5-5.0) g/dL Lipase 5 L (8-78) U/L Urine Color YELLOW Urine Appearance HAZY Urine pH 6.0 (5.0-8.0) Ur Specific [place] 1.015 (1.005-1.025) Urine Protein NEG (NEG-TRACE) MG/DL Urine Glucose (UA) NEG (NEG) MG/DL Urine Ketones NEG (NEG) MG/DL Urine Blood NEG (NEG) Urine Nitrite NEG (NEG) Ur Leukocyte Esterase NEG (NEG) COVID-19 (BECKY) (Negative) COVID-19 Clin Com ECG Data Attestation: I personally reviewed and interpreted this ECG as follows: ECG interpretation date: 08/01/20 ECG interpretation time: 08:27 Interpretation: Rate: 72 Rhythm: NSR [place]: left Normal P waves. Normal SRINIVASA. Normal QRS complex. ST T wave : normal no FELISA qTC: normal prior studies: no acute ischemia The study has been interpreted contemporaneously by me. . Discharge Plan Discharge Clinical Impression: Abdominal pain, Nausea & vomiting, Hypomagnesemia, Biliary dyskinesia Prescriptions: No Action Creon 24,000-76,000 -120,000 unit capsule,delayed release(DR/EC) 1 cap PO TID-QID RF: 0 rivaroxaban 15 mg tablet 15 mg PO QPM RF: 0 Viberzi 75 mg tablet 75 mg PO QD-BID RF: 0 lisinopril 10 mg tablet 10 mg PO DAILY RF: 0 lorazepam 0.5 mg tablet 0.5 mg PO BID PRN (Reason: Anxiety) RF: 0 isosorbide mononitrate 30 mg tablet extended release 24 hr 30 mg PO QAM RF: 0 atenolol 100 mg tablet 100 mg PO DAILY RF: 0 (DME) OneTouch Ultra Blue Test Strip Strip See Rx Instructions strip .ROUTE TID Qty: 10 RF: 0 metformin 850 mg tablet 850 mg PO BID RF: 0 Lantus Solostar U-100 Insulin 100 unit/mL (3 mL) insulin pen 30 unit subcut BEDTIME RF: 0 oxycodone-acetaminophen 5-325 mg tablet 1 tab PO BID PRN (Reason: Pain) RF: 0 (DME) pen needle, diabetic 31 gauge x 1/4 needle See Rx Instructions ea .ROUTE DAILY Qty: 50 RF: 0 mecobalamin (vitamin B12) 1,000 mcg tablet,chewable 1,000 mcg PO DAILY RF: 0 PMFSH Past Medical History Attestation statement: The following information was validated with the patient. Medical History CAD (coronary artery disease) CKD (chronic kidney disease) stage 3, GFR 30-59 ml/min GERD (gastroesophageal reflux disease) High cholesterol Hypertension Irritable bowel syndrome with diarrhea Paroxysmal atrial fibrillation Surgical History History of cardiac cath History of total left knee replacement Hx of colonoscopy Family History Family History Father No problems noted. Mother Diabetes Sister Diabetes Daughter Anemia Diabetes Social History Social History Alcohol intake: never Patient Tobacco Use Status: Never used Tobacco Second Hand Smoke Exposure: No Use of substances other than those prescribed or required for medical reasons: No Advance Directives: No Advance Directives Information Provided: No
--- NOTE | 2020-08-01 07:32 | ECG_ITS ---
Test Reason : AB PAIN Blood Pressure : / mmHG Vent. Rate : 072 BPM Atrial Rate : 072 BPM P-R Int : 136 ms QRS Dur : 088 ms QT Int : 410 ms P-R-T Axes : 052 -41 020 degrees QTc Int : 448 ms Normal sinus rhythm Left axis deviation Abnormal ECG When compared with ECG of 15-JUN-2020 07:29, No significant change was found Referred By: Raven Rivera Electronically Signed By:CARLYN MCKEON
[2020-08-01 07:47] LABS: MANUAL DIFF FLAG NO
[2020-08-01] MEDS: Metoclopramide HCl 10 MG/2 ML VIAL 5 MG IVPUSH (07:48)
[2020-08-01] MEDS: diphenhydrAMINE HCL 50 MG/ML VIAL 25 MG IVPUSH (07:48)
[2020-08-01] MEDS: 0.9 % Sodium Chloride 500 ML IV (07:48)
[2020-08-01 07:52] LABS: Basophils Percent Auto 0.4 % (0-2); Eosinophils Absolute Auto 0.3 X10*3/uL (0.0-0.4); Eosinophils Percent Auto 3.7 % (0-4); Hematocrit 38.3 % (37-47); Hemoglobin 12.2 g/dl (12.0-16.0); Imm Gran Abs Auto 0.02 X10*3/uL (0.00-0.03); Imm Gran Pct Auto 0.3 % (0.0-0.4); Lymphocytes Absolute Auto 2.4 X10*3/uL (1.2-4.9); Lymphocytes Percent Auto 30.8 % (20-40); Mean Corpuscular HGB Conc 31.9 g/dl (31.0-35.0); Mean Corpuscular Hemoglobin 28.8 pg (27.0-33.0); Mean Corpuscular Volume 90.3 fL (80-98); Mean Platelet Volume 10.5 fL (9.4-12.3); Monocytes Absolute Auto 0.7 X10*3/uL (0.1-1.2); Monocytes Percent Auto 8.7 % (2-11); Neutrophils Absolute Auto 4.4 X10*3/uL (2.0-8.3); Neutrophils Percent Auto 56.1 % (45-73); Platelet Count 283 X10*3/uL (160-400); Red Blood Count 4.24 X10*6/uL (4.20-5.50); Red Cell Distribution Width 14.3 % (11.0-16.0); White Blood Count 7.9 X10*3/uL (4.8-10.8)
[2020-08-01 07:59] LABS: INTERNATIONAL NORM RATIO 1.5 (0.9-1.1); Prothrombin Time 17.3 SEC (10.8-13.0)
[2020-08-01 08:02] LABS: Partial Thromboplastin Time 40.7 SEC (24.1-38.0)
[2020-08-01 08:09] LABS: COVID-19 Test Negative (Negative); IDNOW Serial# 9DD0AD1C
[2020-08-01 08:15] LABS: Alanine Aminotransferase 7 U/L (0-31); Albumin Level 3.7 g/dL (3.5-5.0); Alkaline Phosphatase 68 U/L (39-117); Aspartate Amino Transferase 14 U/L (5-31); Bilirubin Direct 0.3 mg/dL (0.0-0.5); Bilirubin Total 0.9 mg/dL (0.0-1.0); Lipase 5 U/L (8-78); Magnesium 1.5 mg/dL (1.6-2.6); Total Protein 5.8 g/dL (6.5-8.0)
--- NOTE | 2020-08-01 08:44 | PC.NURSE ---
pt reports feeling a little better the nausea subsided.
--- NOTE | 2020-08-01 08:47 | PHA.MEDREC ---
Pharmacy Consult ? Medication Reconciliation Pharmacy has completed the medication reconciliation .
[2020-08-01] MEDS: Magnesium Sulfate/H2O 2 GM/50 ML PIGGYBACK IV (08:49)
[2020-08-01 09:15] LABS: Glucose Urine UA NEG (NEG); Leukocyte Esterase Urine NEG (NEG); Nitrite Urine NEG (NEG); Specific Gravity - Urine 1.015 (1.005-1.025); Urine Blood NEG (NEG); Urine Ketones NEG (NEG); Urine Protein NEG (NEG-TRACE)
[2020-08-01 09:16] LABS: Appearance Urine HAZY; Color Urine YELLOW
[2020-08-01 09:31] LABS: Anion Gap 14 (12-20); Blood Urea Nitrogen 20 mg/dL (9-16); Calcium 9.2 mg/dL (8.4-10.2); Carbon Dioxide 23 mmol/L (22-29); Chloride 107 mmol/L (96-108); Creatinine Clr Calc Pharmacy 43.2; Estimated Glomerular Filt Rate 49; Glucose Random 104 mg/dL (60-115); Potassium 4.6 mmol/L (3.3-5.1); Sodium 139 mmol/L (135-145)
--- NOTE | 2020-08-01 12:18 | PC.NURSE ---
pt resting comfortably awaiting the general surgeon to come down and see the pt bp improved, still having the abd pain but nausea improved
--- NOTE | 2020-08-01 13:05 | PC.NURSE ---
dr hobbs at bedside evaluating pt
--- NOTE | 2020-08-01 14:43 | P.CONGS_ITS ---
History of Present Illness Consult details Consult date: 08/01/20 Narrative: [age] year female who came to the emergency room this morning because of vague abdominal pains and dizziness. She says that she has had this periodic abdominal pain for several months now. She describes this as mostly on the left side extending to the left side of the back. She also says that she has early satiety with meals and states that she has been losing weight steadily. She claims have poor appetite as well She says that she has been following the gastroenterology office and a CT scan and HIDA scan were done in the past showing what appears to be sludge in the gallbladder. She also had a HIDA scan showing some low ejection fraction. She states that she really has not seen a supervisor blueprinting and photocopy in person as she says that all her appointments have been by telehealth visit. She states that she has been wanting to be seen in person to able to discuss her symptoms in detail. She has a little frustrated about this. She denies vomiting although says that once in a while she may have some nausea. She denies any pain on the right upper quadrant. She also says she has had IBS for about 15 years. She denies any bloody bowel movements. Review of Systems Constitutional: Constitutional: Denies chills, Denies fever(s), Reports poor appetite and Reports weight loss Cardiovascular: Cardiovascular: Denies chest pain, Denies dyspnea and Denies dyspnea on exertion Respiratory: Respiratory: Denies cough, Denies dyspnea and Denies dyspnea on exertion Gastrointestinal: Gastrointestinal: Denies hematochezia and Denies change in bowel habits Genitourinary: Genitourinary: Denies hematuria Musculoskeletal: Musculoskeletal: Denies back pain and Denies limited range of motion Neurologic: Denies focal weakness and Denies convulsions Psychiatric: Psychiatric: Denies depression and Denies mood swings [facility] Past Medical History Medical History CAD (coronary artery disease) CKD (chronic kidney disease) stage 3, GFR 30-59 ml/min GERD (gastroesophageal reflux disease) High cholesterol Hypertension Irritable bowel syndrome with diarrhea Paroxysmal atrial fibrillation Family History Family History Father No problems noted. Mother Diabetes Sister Diabetes Daughter Anemia Diabetes Surgical History Surgical History History of cardiac cath History of total left knee replacement Hx of colonoscopy Social History Social History Alcohol intake: never Patient Tobacco Use Status: Never used Tobacco Second Hand Smoke Exposure: No Use of substances other than those prescribed or required for medical reasons: No Advance Directives: No Advance Directives Information Provided: No Meds Allergies Allergy/AdvReac Type Severity Reaction Status Date / Time No Known Allergies Allergy Verified 07/27/20 13:22 [No Known Allergies*] Active Medications: Current Medications Generic Name Dose Route Start Last Admin Trade Name Freq PRN Reason Stop Dose Admin Pharmacy Consult 1 each 08/01/20 07:32 Consult Rx Perform Med Rec MISCELLANE ONCE PRN Consult order Home Medications Medication Instructions Recorded Confirmed Last Taken Type atenolol 100 mg tablet 100 mg PO DAILY 11/19/19 08/01/20 07/31/20 History blood sugar diagnostic #10 ea 11/19/19 05/14/20 Unknown History isosorbide mononitrate 30 mg 30 mg PO QAM 11/19/19 08/01/20 07/31/20 History tablet,extended release 24 hr lisinopril 10 mg tablet 10 mg PO DAILY 11/19/19 08/01/20 07/31/20 History lorazepam 0.5 mg tablet 0.5 mg PO BID PRN 11/19/19 08/01/20 Unknown History insulin glargine 100 unit/mL (3 30 unit SUBCUT BEDTIME 04/05/20 08/01/20 07/31/20 History mL) subcutaneous pen mecobalamin (vitamin B12) 1,000 1,000 mcg PO DAILY tab 04/05/20 08/01/20 Unknown History mcg chewable tablet metformin 850 mg tablet 850 mg PO BID tab 04/05/20 08/01/20 07/31/20 History oxycodone-acetaminophen 5 mg-325 1 tab PO BID PRN 04/05/20 08/01/20 Unknown History mg tablet pen needle, diabetic 31 gauge x #50 ea 04/05/20 05/14/20 Unknown History 1/4 omega-3 fatty acids 1,000 mg 1,000 mg PO DAILY 06/26/20 08/01/20 Unknown History capsule eluxadoline [Viberzi] 75 mg PO QD-BID 08/01/20 08/01/20 07/31/20 History [id number] [Creon] 1 cap PO TID-QID 08/01/20 08/01/20 07/31/20 Hist ory rivaroxaban 15 mg PO QPM 08/01/20 08/01/20 07/31/20 History Physical Exam Vital Signs: Vital Signs: Last Vital Signs Temp 97.8 F 08/01/20 10:57 Pulse 71 08/01/20 12:17 Resp 18 08/01/20 12:17 BP 148/67 H 08/01/20 12:17 Pulse Ox 96 08/01/20 08:50 Body Mass Index 35.4 Const: Other: Appears anxious General: no acute distress O rientation/consciousness: patient oriented x3 Neck: Neck: Yes no lymphadenopathy Resp: Auscultation: clear to auscultation bilaterally Cardio: Rhythm: regular rhythm GI: Other: No tenderness on the right upper quadrant Palpation (GI): Soft to palpation, nontender and no guarding Neuro: General: patient oriented x3 Results Labs Result diagrams: 08/01/20 07:42 08/01/20 07:42 Labs: Abnormal lab results 08/01/20 08/01/20 Range/Units 07:42 07:42 PT 17.3 H (10.8-13.0) SEC INR 1.5 H (0.9-1.1) APTT 40.7 H (24.1-38.0) SEC BUN 20 H (9-16) mg/dL Magnesium 1.5 L (1.6-2.6) mg/dL Total Protein 5.8 L (6.5-8.0) g/dL Lipase 5 L (8-78) U/L Short CBC 08/01/20 Range/Units 07:42 WBC 7.9 (4.8-10.8) X10*3/uL Hgb 12.2 (12.0-16.0) g/dl Hct 38.3 (37-47) % Plt Count 283 (160-400) X10*3/uL BMP 08/01/20 07:42 Sodium 139 Potassium 4.6 Chloride 107 Carbon Dioxide 23 BUN 20 H Creatinine 1.07 Calcium 9.2 Liver Function 08/01/20 Range/Units 07:42 Total Bilirubin 0.9 (0.0-1.0) mg/dL Direct Bilirubin 0.3 (0.0-0.5) mg/dL AST 14 (5-31) U/L ALT 7 (0-31) U/L Alkaline Phosphatase 68 D (39-117) U/L Albumin 3.7 (3.5-5.0) g/dL Urine 08/01/20 Range/Units 08:56 Urine Color YELLOW Urine Appearance HAZY Urine pH 6.0 (5.0-8.0) Ur Specific [place] 1.015 (1.005-1.025) Urine Protein NEG (NEG-TRACE) MG/DL Urine Glucose (UA) NEG (NEG) MG/DL All other labs normal. Imaging Abdomen CT scan report/results: report reviewed and image reviewed CT scan - pelvis: report reviewed and image reviewed Assessment and Plan (1) Abdominal pain: Qualifiers: Abdominal location: generalized Qualified Code(s): R10.84 - Generalized abdominal pain Status: Acute She describes vague abdominal pains for the past few months now. She does state that this seems to be more prominent on the left flank area the way to the left back. She describes weight loss with early satiety as well. Despite her imaging study showing sludge in the gallbladder and a low ejection fraction, it does not appear that her symptoms are secondary to a gallbladder disease at this time. She actually stated that she supposed to see me few weeks ago but cancel this as she did not feel that it was her gallbladder that was bothering her. I would recommend Gastroenterology to see her. She may need to have an EGD and gastric emptying studies in view of her symptoms. She does have diabetes for many years so she may have gastroparesis as among her differentials. She does not have acute cholecystitis at this time. Her blood tests are all within normal. If she gets admitted to the hospital, I will follow along. She understands the plan and is agreeable to this. Her daughter was with her during our discussion. I spent about 40 minutes with the patient during this interview in the emergency room. Procedures Date of Service Date of Service: 08/01/20
--- NOTE | 2020-08-01 15:11 | PC.NURSE ---
hospitalist at bedside
--- NOTE | 2020-08-01 15:30 | P.HPHOSP_ITS ---
History of Present Illness Date of Service: 08/01/20 Chief Complaint: Weight loss, decreased appetite, abdominal pain, intractable nausea An 79 years old lady with PMH of diabetes, AFib, HTN, anxiety who presents to the hospital with complaints of intractable nausea and decreased oral intake. The patient reports that her symptoms started months ago with feeling of early satiety associated with nausea and reflux. The patient has lost almost 15 lb over the last 2 months secondary to grease oral intake. Her symptoms associated with burning and reflux feeling up on eating small amount of food or drinking some water. That has been associated with left lower quadrant cramping pain on occasions mainly after having food associated with watery diarrhea as well. She denies any fever, chills, rash, shortness of breath or chest pain. Images were done previously concerning for possible gallbladder source of abd ominal pain. Evaluated by surgical team today in the emergency who did not feel the patient pain sources the gallbladder. Discussed with Gastroenterology who will do upper and lower endoscopy tomorrow for further evaluation and treatment. Admitted for further evaluation. Review of Systems Review of Systems: No fever, chills but reports feeling dizzy upon standing No chest pain, palpitation No shortness of breath or coughing Lower abdominal pain, associated with nausea or vomiting No urinary symptoms No any rash or wounds PMFSH Medical History CAD (coronary artery disease) CKD (chronic kidney disease) stage 3, GFR 30-59 ml/min GERD (gastroesophageal reflux disease) High cholesterol Hypertension Irritable bowel syndrome with diarrhea Paroxysmal atrial fibrillation Family History Father No problems noted. Mother Diabetes Sister Diabetes Daughter Anemia Diabetes Surgical History History of cardiac cath History of total left knee replacement Hx of colonoscopy Social History Alcohol intake: never Patient Tobacco Use Status: Never used Tobacco Second Hand Smoke Exposure: No Use of substances other than those prescribed or required for medical reasons: No Advance Directives: No Advance Directives Information Provided: No Meds Allergies Allergy/AdvReac Type Severity Reaction Status Date / Time No Known Allergies Allergy Verified 07/27/20 13:22 [No Known Allergies*] Active Medications: Current Medications Generic Name Dose Route Start Last Admin Trade Name Samir PRN Reason Stop Dose Admin Pharmacy Consult 1 each 08/01/20 07:32 Consult Rx Perform Med Rec MISCELLANE ONCE PRN Consult order Home Medications Medication Instructions Recorded Confirmed Last Taken Type atenolol 100 mg tablet 100 mg PO DAILY 11/19/19 08/01/20 07/31/20 History blood sugar diagnostic #10 ea 11/19/19 05/14/20 Unknown History isosorbide mononitrate 30 mg 30 mg PO QAM 11/19/19 08/01/20 07/31/20 History tablet,extended release 24 hr lisinopril 10 mg tablet 10 mg PO DAILY 11/19/19 08/01/20 07/31/20 History lorazepam 0.5 mg tablet 0.5 mg PO BID PRN 11/19/19 08/01/20 Unknown History insulin glargine 100 unit/mL (3 30 unit SUBCUT BEDTIME 04/05/20 08/01/20 07/31/20 History mL) subcutaneous pen mecobalamin (vitamin B12) 1,000 1,000 mcg PO DAILY tab 04/05/20 08/01/20 Unknown History mcg chewable tablet metformin 850 mg tablet 850 mg PO BID tab 04/05/20 08/01/20 07/31/20 History oxycodone-acetaminophen 5 mg-325 1 tab PO BID PRN 04/05/20 08/01/20 Unknown History mg tablet pen needle, diabetic 31 gauge x #50 ea 04/05/20 05/14/20 Unknown History 1/4 omega-3 fatty acids 1,000 mg 1,000 mg PO DAILY 06/26/20 08/01/20 Unknown History capsule eluxadoline [Viberzi] 75 mg PO QD-BID 08/01/20 08/01/20 07/31/20 History petzvt-txfloxor-cgmange [Creon] 1 cap PO TID-QID 08/01/20 08/01/20 07/31/20 History rivaroxaban 15 mg PO QPM 08/01/20 08/01/20 07/31/20 History Physical Exam Vital Signs and Narrative: Vital Signs: Last Vital Signs Temp 97.8 F 08/01/20 10:57 Pulse 74 06/16/21 15:25 Resp 18 08/01/20 15:25 BP 198/80 H 08/01/20 15:25 Pulse Ox 94 08/01/20 15:25 Body Mass Index 35.4 Const: Other: Constitutional : Alert, oriented, not in distress Neck : Normal inspection, Supple Cardiovascular : RRR, S1 S2, no lower extremity edema Respiratory : Good bilateral air entry, no crackles, wheezes or rhonchi Gastrointestinal: soft, lax, Normal bowel sounds, no tenderness noted on exam Skin : Warm/Dry, No rash Neurological : Alert & oriented x3, No focal deficit Results Labs CBC and Chem 7: 08/01/20 07:42 08/01/20 07:42 Labs: Laboratory Results - last 24 hr 08/01/20 08/01/20 08/01/20 07:42 07:42 07:42 MCV 90.3 MCH 28.8 MCHC 31.9 RDW 14.3 Plt Count 283 MPV 10.5 Immature Gran % (Auto) 0.3 Neut % (Auto) 56.1 Lymph % (Auto) 30.8 [place] % (Auto) 8.7 Eos % (Auto) 3.7 Baso % (Auto) 0.4 Lymph # (Auto) 2.4 [place] # (Auto) 0.7 Eos # (Auto) 0.3 Baso # (Auto) 0.0 Abs Immat Gran (auto) 0.02 Absolute Neuts (auto) 4.4 Absolute Nucleated RBC 0.000 Nucleated RBC % (auto) 0.0 PT 17.3 H INR 1.5 H APTT 40.7 H Anion Gap Estim Creat Clear Calc Estimated GFR Random Glucose Calcium Magnesium Total Bilirubin Direct Bilirubin AST ALT Alkaline Phosphatase Total Protein Albumin Lipase Urine Color Urine Appearance Urine pH Ur Specific [place] Urine Protein Urine Glucose (UA) Urine Ketones Urine Blood Urine Nitrite Ur Leukocyte Esterase COVID-19 (BECKY) Negative COVID-19 Clin Com See Note 08/01/20 08/01/20 07:42 08:56 MCV MCH MCHC RDW Plt Count MPV Immature Gran % (Auto) Neut % (Auto) Lymph % (Auto) [place] % (Auto) Eos % (Auto) Baso % (Auto) Lymph # (Auto) [place] # (Auto) Eos # (Auto) Baso # (Auto) Abs Immat Gran (auto) Absolute Neuts (auto) Absolute Nucleated RBC Nucleated RBC % (auto) PT INR APTT Anion Gap 14 Estim Creat Clear Calc 43.2 Estimated GFR 49 Random Glucose 104 Calcium 9.2 Magnesium 1.5 L Total Bilirubin 0.9 Direct Bilirubin 0.3 AST 14 ALT 7 Alkaline Phosphatase 68 D Total Protein 5.8 L Albumin 3.7 Lipase 5 L Urine Color YELLOW Urine Appearance HAZY Urine pH 6.0 Ur Specific [place] 1.015 Urine Protein NEG Urine Glucose (UA) NEG Urine Ketones NEG Urine Blood NEG Urine Nitrite NEG Ur Leukocyte Esterase NEG COVID-19 (BECKY) COVID-19 Clin Com Assessment and Plan (1) Abdominal pain: Qualifiers: Abdominal location: generalized Qualified Code(s): R10.84 - Generalized abdominal pain Status: Acute (2) Nausea & vomiting: Qualifiers: Vomiting Intractability: intractable Vomiting type: unspecified Qualified Code(s): R11.2 - Nausea with vomiting, unspecified Status: Acute (3) Weight loss: Status: Acute (4) Hypomagnesemia: Status: Acute An 79 years old lady with PMH of diabetes, AFib, HTN, anxiety who presents to the hospital with complaints of intractable nausea and decreased oral intake. Intractable nausea Early satiety Symptoms could be secondary to gastritis, gastroparesis Plan to do endoscopy To do lower endoscopy Consider gastric emptying study Use Maalox as needed Lower abdominal pain Diarrhea, Weight loss Patient reports history of IBS, with weight loss is more concerning for possible celiac disease or IBD Gastroenterology consulted Plan for colonoscopy, to prepare with G[place] Hypomagnesemia Replacement given Type 2 diabetes decrease insulin Lantus 15 Hold metformin Atrial fibrillation Hold Xarelto continue atenolol DVT PPX SCDs Quality Stroke Does the patient have a stroke diagnosis?: No VTE Prior VTE?: No VTE Risk Level:: Medical - moderate - high VTE Device Contraindication: N/A - Device Ordered VTE Drug Contraindication: Treatment Not Indicated
--- NOTE | 2020-08-01 15:42 | P.CNGI_ITS ---
History of Present Illness Data of Consult Service Date: 08/01/20 Requesting physician: Ela Aviles Primary Care Provider: Kam Grady MD HPI Reason for consult: nausea, abdominal pain 79 yo female with hx of IBS, DM, HTN, PAF on xarelto who I am asked to see for assessment for abdominal pain. She has had 2-3 months of crampy lower abdominal pain 7/10 in severity worse with food. She also noted worsening nausea and bilious non bloody emesis. She also has early satiety and poor appetite with weight loss of 15#. She has noted tete difficulty in swallowing even fluids. She denies any fever, chills, rash, shortness of breath or chest pain. She has longstanding diarrhea with 5-6 loose stools daily attributed to 'IBS'. She is on daily oxycodone for back pain and metformin and tried on creon and viberzi for diarrhea with variable effect. She did have work up by Sofía Edward in the GI office with imaging suggestive of chronic cholecystitis and GB dyskinsia, mild hydronephrosis, enlarged heart and coronary calcification. Review of Systems Review of Systems: Constitutional : + Weight loss, No Fever, No Chills ENT/Mouth : No sore throat, No Rhinorrhea Eyes: No Swelling, No Redness Cardiovascular : No Chest Pain, No SOB, No Edema Respiratory : No Cough, No Sputum, No Wheezing Gastrointestinal : see HPI Genitourinary : NO Dysuria, No Urinary Frequency, No Hematuria, No Urgency Musculoskeletal :+ joint pain, No Myalgias, No Joint Swelling Skin : No Skin Lesions, No rash Neuro : No Weakness, No Numbness, No Dizziness, No Headache Psych : No Anxiety/Panic, No Depression Heme/Lymph: No Bruising, No Lymphadenopathy Endocrine : No Polyuria, No Polydipsia All other systems reviewed and are negative. Constitutional: Constitutional: Denies chills, Denies fever(s), Reports poor appetite and Reports weight loss Cardiovascular: Cardiovascular: Denies chest pain, Denies dyspnea and Denies dyspnea on exertion Respiratory: Respiratory: Denies cough, Denies dyspnea and Denies dyspnea on exertion Gastrointestinal: Gastrointestinal: Denies hematochezia and Denies change in bowel habits Musculoskeletal: Musculoskeletal: Denies back pain and Denies limited range of motion Neurologic: Denies focal weakness and Denies convulsions Psychiatric: Psychiatric: Denies depression and Denies mood swings [facility] Past Medical History Medical History CAD (coronary artery disease) CKD (chronic kidney disease) stage 3, GFR 30-59 ml/min GERD (gastroesophageal reflux disease) High cholesterol Hypertension Irritable bowel syndrome with diarrhea Paroxysmal atrial fibrillation Family History Family History Father No problems noted. Mother Diabetes Sister Diabetes Daughter Anemia Diabetes Surgical History Surgical History History of cardiac cath History of total left knee replacement Hx of colonoscopy Social History Social History Alcohol intake: never Patient Tobacco Use Status: Never used Tobacco Second Hand Smoke Exposure: No Use of substances other than those prescribed or required for medical reasons: No Advance Directives: No Advance Directives Information Provided: No Meds Allergies Allergy/AdvReac Type Severity Reaction Status Date / Time No Known Allergies Allergy Verified 07/27/20 13:22 [No Known Allergies*] Active Medications: Current Medications Generic Name Dose Route Start Last Admin Trade Name Freq PRN Reason Stop Dose Admin Acetaminophen 650 mg 08/01/20 15:30 Acetaminophen 325 Mg Tablet PO Q6H PRN Pain, Mild (Pain Scale 1-3) Al Hydroxide/Mg Hydroxide 30 ml 08/01/20 15:30 Magnesium Hydrox/Alum Hydrox 30 Ml Oral.Susp PO Q4H PRN Heartburn/Nausea Lipase/Protease/Amylase 1 cap 08/01/20 17:00 Lipase/Prot/Amylase 24/76/120k 1 Cap Capsule. PO QIDWMHS DIONI Atenolol 100 mg 08/02/20 09:00 Atenolol 100 Mg Tablet PO DAILY [facility] Protocol Sodium Chloride 1,000 mls @ 60 mls/hr 08/01/20 15:30 Ns IVCONT .[id number] DIONI Insulin Glargine 15 unit 08/01/20 21:00 Insulin Glargine,Hum.Rec.Anlog 100 Unit/Ml 10 Ml Vial SUBCUT BEDTIME [facility] Isosorbide Mononitrate 30 mg 08/01/20 15:30 Isosorbide Mononitrate 30 Mg Tab.Er.24h PO DAILY [facility] Protocol Lorazepam 0.5 mg 08/01/20 16:00 Lorazepam 0.5 Mg Tablet PO RQ8H [facility] Ondansetron HCl 4 mg 08/01/20 15:30 Ondansetron Hcl 4 Mg/2 Ml Vial IVPUSH Q8H PRN Nausea and Vomiting Pharmacy Consult 1 each 08/01/20 07:32 Consult Rx Perform Med Rec MISCELLANE ONCE PRN Consult order Sodium Chloride 3 ml 08/01/20 16:00 0.9 % Sodium Chloride Flush 3 Ml Syringe IVFLUSH QSHIFT [facility] Home Medications Medication Instructions Recorded Confirmed Last Taken Type atenolol 100 mg tablet 100 mg PO DAILY 11/19/19 08/01/20 07/31/20 History blood sugar diagnostic #10 ea 11/19/19 05/14/20 Unknown History isosorbide mononitrate 30 mg 30 mg PO QAM 11/19/19 08/01/20 07/31/20 History tablet,extended release 24 hr lisinopril 10 mg tablet 10 mg PO DAILY 11/19/19 08/01/20 07/31/20 History lorazepam 0.5 mg tablet 0.5 mg PO BID PRN 11/19/19 08/01/20 Unknown History insulin glargine 100 unit/mL (3 30 unit SUBCUT BEDTIME 04/05/20 08/01/20 07/31/20 History mL) subcutaneous pen mecobalamin (vitamin B12) 1,000 1,000 mcg PO DAILY tab 04/05/20 08/01/20 Unknown History mcg chewable tablet metformin 850 mg tablet 850 mg PO BID tab 04/05/20 08/01/20 07/31/20 History oxycodone-acetaminophen 5 mg-325 1 tab PO BID PRN 04/05/20 08/01/20 Unknown History mg tablet pen needle, diabetic 31 gauge x #50 ea 04/05/20 05/14/20 Unknown History 1/4 omega-3 fatty acids 1,000 mg 1,000 mg PO DAILY 06/26/20 08/01/20 Unknown History capsule eluxadoline [Viberzi] 75 mg PO QD-BID 08/01/20 08/01/20 07/31/20 History xzouny-nvaqlwhz-hjyexfv [Creon] 1 cap PO TID-QID 08/01/20 08/01/20 07/31/20 History rivaroxaban 15 mg PO QPM 08/01/20 08/01/20 07/31/20 History Physical Exam Vital Signs: Vital Signs: Last Vital Signs Temp 97.8 F 08/01/20 10:57 Pulse 74 08/01/20 15:25 Resp 18 08/01/20 15:25 BP 198/80 H 08/01/20 15:25 Pulse Ox 94 08/01/20 15:25 Body Mass Index 35.4 Const: Other: EXAM: GENERAL: The patient is well developed and nontoxic. VITAL SIGNS:see workflow HEENT: Nonicteric sclerae, PERRLA, EOMI. Oropharynx clear. Moist mucous membranes. Conjunctivae appear well perfused. No thyroid mass. CHEST: Chest wall is nontender. HEART: Regular rate and rhythm without murmurs. LUNGS: Clear to auscultation bilaterally. ABDOMEN: Soft, positive bowel sounds, tender lower abdomen, no organomegaly.no flank tenderness SKIN: No rash, no excessive bruising, petechiae, or purpura. NEUROLOGIC: Cranial nerves II-XII intact without motor/sensory deficit. General: no acute distress Orientation/consciousness: patient oriented x3 Neck: Neck: Yes no lymphadenopathy Resp: Auscultation: clear to auscultation bilaterally Cardio: Rhythm: regular rhythm GI: Other: No tenderness on the right upper quadrant Palpation (GI): Soft to palpation, nontender and no guarding Neuro: General: patient oriented x3 Results Labs CBC & Chem 7: 08/01/20 07:42 08/01/20 07:42 Labs: Short CBC 08/01/20 Range/Units 07:42 WBC 7.9 (4.8-10.8) X10*3/uL Hgb 12.2 (12.0-16.0) g/dl Hct 38.3 (37-47) % Plt Count 283 (160-400) X10*3/uL BMP 08/01/20 07:42 Sodium 139 Potassium 4.6 Chloride 107 Carbon Dioxide 23 BUN 20 H Creatinine 1.07 Calcium 9.2 Liver Function 08/01/20 Range/Units 07:42 Total Bilirubin 0.9 (0.0-1.0) mg/dL Direct Bilirubin 0.3 (0.0-0.5) mg/dL AST 14 (5-31) U/L ALT 7 (0-31) U/L Alkaline Phosphatase 68 D (39-117) U/L Albumin 3.7 (3.5-5.0) g/dL Urine 08/01/20 Range/Units 08:56 Urine Color YELLOW Urine Appearance HAZY Urine pH 6.0 (5.0-8.0) Ur Specific [place] 1.015 (1.005-1.025) Urine Protein NEG (NEG-TRACE) MG/DL Urine Glucose (UA) NEG (NEG) MG/DL Assessment and Plan (1) Abdominal pain: Qualifiers: Abdominal location: generalized Qualified Code(s): R10.84 - Generalized abdominal pain Status: Acute (2) Nausea & vomiting: Qualifiers: Vomiting Intractability: intractable Vomiting type: unspecified Qualified Code(s): R11.2 - Nausea with vomiting, unspecified Status: Acute (3) Weight loss: Status: Acute (4) Hypomagnesemia: Status: Acute 1/ Worsening GI symptoms with weight loss, diarrhea, nausea and abdominal pain, need to exclude neoplasia ddx: crohns, microscopic colitis, celiac disease, panc insuff, medication SE from opiate use and metformin or DM itself causing gastroparesis, SIBO, bile acid malabsorption. SHE may have overlap between these and may have more than etiology to her sx Plan: 1/ Stool studies incl c diff and calprotectin, fecal fat, stool elastae 2/ EGD and colonoscopy with bx, clears today with prep tonight, half dose of bedtime insulin 3/ hold xarelto 4/ may need gastric emptying study Procedures Date of Service Date of Service: 08/01/20
[2020-08-01] MEDS: 0.9 % Sodium Chloride 1,000 ML 60 ML IVCONT (16:29)
[2020-08-01] MEDS: Isosorbide Mononitrate 30 MG TAB.ER.24H PO (16:30)
[2020-08-01] MEDS: LORazepam 0.5 MG TABLET PO (16:30)
[2020-08-01] MEDS: 0.9 % Sodium Chloride Flush 3 ML SYRINGE IVFLUSH (16:38)
[2020-08-01] MEDS: PEG 3350/Na Sulf,Bicarb,Cl/KCL 4,000 ML SOLN.RECON 4000 ML PO (16:53)
--- NOTE | 2020-08-01 18:12 | MHC.CM.PN ---
CM met with pt pending bed assignment. Pt Admitted. IMM reviewed and signed per protocol. No HCP on file. HCP reviewed, completed, and signed per protocol. Uploaded into [employer] [facility]. HCP/daughter Margarita Chowdary cell([phone]) and home ([phone]). Pt lives with daughter. Uses a cane and wheeled walker. Does not have any home services. Expect d/c home without services. Transportation by daughter. CM to follow for d/c needs.
[2020-08-01 20:56] LABS: Glucose, Whole Blood 110 mg/dL (60-115)
[2020-08-01] MEDS: lisinopriL 10 MG TABLET PO (21:23)
[2020-08-01] MEDS: Lipase/Prot/Amylase 24/76/120K 1 CAP CAPSULE.DR PO (21:23)
[2020-08-01] MEDS: hydrALAZINE HCl 20 MG/ML VIAL 5 MG IVPUSH (21:24)
[2020-08-01] MEDS: Insulin Glargine,Hum.rec.anlog 100 UNIT/ML 10 ML VIAL 15 UNIT SUBCUT (21:24)
[2020-08-02] VITALS (8 sets, daily range): BP systolic 113–198; BP diastolic 48–89; PULSE 64–97; RESP 16–19; TEMP 36.1–36.8; O2SAT 92–97
[2020-08-02] MEDS: LORazepam 0.5 MG TABLET PO ×3 (00:46→17:09)
[2020-08-02 06:21] LABS: MANUAL DIFF FLAG NO
[2020-08-02 07:01] LABS: Basophils Absolute Auto 0.1 X10*3/uL (0.0-0.2); Basophils Percent Auto 0.5 % (0-2); Eosinophils Absolute Auto 0.2 X10*3/uL (0.0-0.4); Imm Gran Abs Auto 0.03 X10*3/uL (0.00-0.03); Imm Gran Pct Auto 0.3 % (0.0-0.4); Lymphocytes Absolute Auto 2.4 X10*3/uL (1.2-4.9); Lymphocytes Percent Auto 24.5 % (20-40); Mean Corpuscular HGB Conc 32.5 g/dl (31.0-35.0); Mean Corpuscular Hemoglobin 28.7 pg (27.0-33.0); Mean Corpuscular Volume 88.3 fL (80-98); Mean Platelet Volume 10.6 fL (9.4-12.3); Monocytes Absolute Auto 0.9 X10*3/uL (0.1-1.2); Monocytes Percent Auto 9.4 % (2-11); Neutrophils Absolute Auto 6.1 X10*3/uL (2.0-8.3); Neutrophils Percent Auto 63.3 % (45-73); Platelet Count 289 X10*3/uL (160-400); Red Blood Count 4.53 X10*6/uL (4.20-5.50); Red Cell Distribution Width 14.1 % (11.0-16.0); White Blood Count 9.7 X10*3/uL (4.8-10.8)
[2020-08-02 07:06] LABS: Anion Gap 13 (12-20); Blood Urea Nitrogen 13 mg/dL (9-16); Carbon Dioxide 26 mmol/L (22-29); Chloride 107 mmol/L (96-108); Creatinine Clr Calc Pharmacy 54.3; Estimated Glomerular Filt Rate > 60; Glucose Random 105 mg/dL (60-115); Potassium 4.6 mmol/L (3.3-5.1); Sodium 141 mmol/L (135-145)
[2020-08-02 07:10] LABS: INTERNATIONAL NORM RATIO 1.2 (0.9-1.1); Prothrombin Time 14.1 SEC (10.8-13.0)
[2020-08-02] MEDS: ondansetron HCL 4 MG/2 ML VIAL IVPUSH (07:24)
[2020-08-02] MEDS: atenoloL 100 MG TABLET PO (07:25)
[2020-08-02] MEDS: Isosorbide Mononitrate 30 MG TAB.ER.24H PO (07:25)
[2020-08-02] MEDS: lisinopriL 10 MG TABLET PO (07:25)
[2020-08-02 08:10] LABS: Glucose, Whole Blood 116 mg/dL (60-115)
[2020-08-02] MEDS: 0.9 % Sodium Chloride 1,000 ML 60 ML IVCONT (08:32)
[2020-08-02 11:04] LABS: Glucose, Whole Blood 150 mg/dL (60-115)
[2020-08-02 13:16] LABS: Glucose, Whole Blood 135 mg/dL (60-115)
--- NOTE | 2020-08-02 13:22 | P.PNIM_ITS ---
Subjective Subjective Date of Service: 08/02/20 <Ela Aviles MD - Last Filed: 08/02/20 13:25> 08/02/20 <Jose Alfredo Chiang MD - Last Filed: 08/02/20 13:25> Interval History: the patient was seen and evaluated this morning Laying in bed, feels comfortable Abdominal pain and nausea improved Denies any fever, chills or shortness of breath No reported other overnight events. <Ela Aviles MD - Last Filed: 08/02/20 13:25> Review of Systems No fever, chills but reports feeling dizzy upon standing No chest pain, palpitation No shortness of breath or coughing Lower abdominal pain, associated with nausea or vomiting No urinary symptoms No any rash or wounds <Ela Aviles MD - Last Filed: 08/02/20 13:25> Physical Exam Vital Signs: Vital Signs: Last Vital Signs Temp 98.3 F 08/02/20 13:00 Pulse 73 08/02/20 13:00 Resp 18 08/02/20 13:00 BP 183/80 H 08/02/20 13:08 Pulse Ox 96 08/02/20 13:00 Body Mass Index 35.4 <Ela Aviles MD - Last Filed: 08/02/20 13:25> Const: Other: Constitutional : Alert, oriented, not in distress Neck : Normal inspection, Supple Cardiovascular : RRR, S1 S2, no lower extremity edema Respiratory : Good bilateral air entry, no crackles, wheezes or rhonchi Gastrointestinal: soft, lax, Normal bowel sounds, no tenderness noted on exam Skin : Warm/Dry, No rash Neurological : Alert & oriented x3, No focal deficit <Ela Aviles MD - Last Filed: 08/02/20 13:25> Objective Data Current Medications Generic Name Dose Route Start Last Admin Trade Name Freq PRN Reason Stop Dose Admin Acetaminophen 650 mg 08/01/20 15:30 Acetaminophen 325 Mg Tablet PO Q6H PRN Pain, Mild (Pain Scale 1-3) Al Hydroxide/Mg Hydroxide 30 ml 08/01/20 15:30 Magnesium Hydrox/Alum Hydrox 30 Ml Oral.Susp PO Q4H PRN Heartburn/Nausea Lipase/Protease/Amylase 1 cap 08/01/20 17:00 08/02/20 11:38 Lipase/Prot/Amylase 24/76/120k 1 Cap Capsule.Dr PO Not Given QIDWMHS [facility] Atenolol 100 mg 08/02/20 09:00 08/02/20 07:25 Atenolol 100 Mg Tablet PO 100 mg DAILY [facility] Administration Protocol Sodium Chloride 1,000 mls @ 60 mls/hr 08/01/20 15:30 08/02/20 08:32 Ns IVCONT 60 mls/hr .[id number] [facility] Administration Insulin Glargine 15 unit 08/01/20 21:00 08/01/20 21:24 Insulin Glargine,Hum.Rec.Anlog 100 Unit/Ml 10 Ml Vial SUBCUT 15 unit BEDTIME [facility] Administration Isosorbide Mononitrate 30 mg 08/01/20 15:30 08/02/20 07:25 Isosorbide Mononitrate 30 Mg Tab.Er.24h PO 30 mg DAILY [facility] Administration Protocol Lisinopril 10 mg 08/01/20 21:00 08/02/20 07:25 Lisinopril 10 Mg Tablet PO 10 mg DAILY [facility] Administration Protocol Lorazepam 0.5 mg 08/01/20 16:00 08/02/20 07:25 Lorazepam 0.5 Mg Tablet PO 0.5 mg RQ8H [facility] Administration Ondansetron HCl 4 mg 08/01/20 15:30 08/02/20 07:24 Ondansetron Hcl 4 Mg/2 Ml Vial IVPUSH 4 mg Q8H PRN Administration Nausea and Vomiting Oxycodone HCl 1 mg 08/01/20 20:58 Oxycodone Hcl Immed Release 5 Mg Tablet PO BID PRN Pain Pharmacy Consult 1 each 08/01/20 07:32 Consult Rx Perform Med Rec MISCELLANE ONCE PRN Consult order Rivaroxaban 15 mg 08/01/20 21:00 08/01/20 21:25 Rivaroxaban 15 Mg Tablet PO Not Given DAILY@1700 [facility] Sodium Chloride 3 ml 08/01/20 16:00 08/02/20 07:27 0.9 % Sodium Chloride Flush 3 Ml Syringe IVFLUSH Not Given QSHIFT [facility] <Ela Aviles MD - Last Filed: 08/02/20 13:25> Labs CBC & Chem 7: : 08/02/20 05:49 08/02/20 05:49 <Ela Aviles MD - Last Filed: 08/02/20 13:25> Labs: Laboratory Results - last 24 hr 08/01/20 08/02/20 08/02/20 20:52 05:49 05:49 WBC 9.7 RBC 4.53 Hgb 13.0 Hct 40.0 MCV 88.3 MCH 28.7 MCHC 32.5 RDW 14.1 Plt Count 289 MPV 10.6 Immature Gran % (Auto) 0.3 Neut % (Auto) 63.3 Lymph % (Auto) 24.5 [place] % (Auto) 9.4 Eos % (Auto) 2.0 Baso % (Auto) 0.5 Lymph # (Auto) 2.4 [place] # (Auto) 0.9 Eos # (Auto) 0.2 Baso # (Auto) 0.1 Abs Immat Gran (auto) 0.03 Absolute Neuts (auto) 6.1 Absolute Nucleated RBC 0.000 Nucleated RBC % (auto) 0.0 PT 14.1 H INR 1.2 H Sodium Potassium Chloride Carbon Dioxide Anion Gap BUN Creatinine Estim Creat Clear Calc Estimated GFR POC Glucose 110 Random Glucose Calcium 08/02/20 08/02/20 08/02/20 05:49 07:32 11:00 WBC RBC Hgb Hct MCV MCH MCHC RDW Plt Count MPV Immature Gran % (Auto) Neut % (Auto) Lymph % (Auto) [place] % (Auto) Eos % (Auto) Baso % (Auto) Lymph # (Auto) [place] # (Auto) Eos # (Auto) Baso # (Auto) Abs Immat Gran (auto) Absolute Neuts (auto) Absolute Nucleated RBC Nucleated RBC % (auto) PT INR Sodium 141 Potassium 4.6 Chloride 107 Carbon Dioxide 26 Anion Gap 13 BUN 13 Creatinine 0.85 Estim Creat Clear Calc 54.3 Estimated GFR > 60 POC Glucose 116 H 150 H Random Glucose 105 Calcium 9.0 08/02/20 13:11 WBC RBC Hgb Hct MCV MCH MCHC RDW Plt Count MPV Immature Gran % (Auto) Neut % (Auto) Lymph % (Auto) [place] % (Auto) Eos % (Auto) Baso % (Auto) Lymph # (Auto) [place] # (Auto) Eos # (Auto) Baso # (Auto) Abs Immat Gran (auto) Absolute Neuts (auto) Absolute Nucleated RBC Nucleated RBC % (auto) PT INR Sodium Potassium Chloride Carbon Dioxide Anion Gap BUN Creatinine Estim Creat Clear Calc Estimated GFR POC Glucose 135 H Random Glucose Calcium <Ela Aviles MD - Last Filed: 08/02/20 13:25> Quality Stroke Does the patient have a stroke diagnosis?: No <Ela Aviles MD - Last Filed: 08/02/20 13:25> VTE Prior VTE?: No <Ela Aviles MD - Last Filed: 08/02/20 13:25> VTE Risk Level:: Medical - moderate - high <Ela Aviles MD - Last Filed: 08/02/20 13:25> VTE Device Contraindication: N/A - Device Ordered <Ela Aviles MD - Last Filed: 08/02/20 13:25> VTE Drug Contraindication: Treatment Not Indicated <Ela Aviles MD - Last Filed: 08/02/20 13:25> Assessment and Plan (1) Abdominal pain: Status: Acute <Ela Aviles MD - Last Filed: 08/02/20 13:25> (2) Nausea & vomiting: Status: Acute <Ela Aviles MD - Last Filed: 08/02/20 13:25> (3) Weight loss: Status: Acute <Ela Aviles MD - Last Filed: 08/02/20 13:25> (4) Hypomagnesemia: Status: Acute <Ela Aviles MD - Last Filed: 08/02/20 13:25> Assessment and Plan: An 79 years old lady with PMH of diabetes, AFib, HTN, anxiety who presents to the hospital with complaints of intractable nausea and decreased oral intake. Intractable nausea Early satiety Symptoms could be secondary to gastritis, gastroparesis Plan to do endoscopy and colonoscopy today Consider gastric emptying study Use Maalox as needed GI input appreciated, stool studies ordered Lower abdominal pain Diarrhea, Weight loss Patient reports history of IBS, with weight loss is more concerning for possible celiac disease or IBD Gastroenterology input appreciated Plan for colonoscopy Hypomagnesemia Replacement given Type 2 diabetes decrease insulin Lantus 15 Hold metformin Atrial fibrillation Hold Xarelto continue atenolol DVT PPX SCDs <Ela Aviles MD - Last Filed: 08/02/20 13:25>
--- NOTE | 2020-08-02 13:25 | HO.ANESPROP2 ---
[facility] Active Problems Active Problems: All Active Problems (Updated 08/01/20 @ 15:36 by Ela Aviles MD) Weight loss (Acute) Abdominal pain (Acute) Nausea & vomiting (Acute) Hypomagnesemia (Acute) Biliary dyskinesia (Acute) Dyskinesia of gallbladder (Acute) Nephrolithiasis (Acute) Gallstones (Acute) Paroxysmal atrial fibrillation (Acute) Abdominal bloating (Acute) Diarrhea (Acute) Nephrolithiasis (Acute) NIDDY (non-insulin dependent diabetes mellitus in young) (Acute) Past Medical History Medical History CAD (coronary artery disease) CKD (chronic kidney disease) stage 3, GFR 30-59 ml/min GERD (gastroesophageal reflux disease) High cholesterol Hypertension Irritable bowel syndrome with diarrhea Paroxysmal atrial fibrillation Family History Family History Father No problems noted. Mother Diabetes Sister Diabetes Daughter Anemia Diabetes Surgical History Surgical History History of cardiac cath History of total left knee replacement Hx of colonoscopy Social History Social History Household Members: Family Housing: House Do you presently have visiting nurse or other home services: No Alcohol intake: never Patient Tobacco Use Status: Never used Tobacco Second Hand Smoke Exposure: No Advance Directives Date on File: 08/01/20 service: No Current occupational status: retired [employer] Allergies Allergy/AdvReac Type Severity Reaction Status Date / Time No Known Allergies Allergy Verified 07/27/20 13:22 [No Known Allergies*] Active Medications: Current Medications Generic Name Dose Route Start Last Admin Trade Name Freq PRN Reason Stop Dose Admin Acetaminophen 650 mg 08/01/20 15:30 Acetaminophen 325 Mg Tablet PO Q6H PRN Pain, Mild (Pain Scale 1-3) Al Hydroxide/Mg Hydroxide 30 ml 08/01/20 15:30 Magnesium Hydrox/Alum Hydrox 30 Ml Oral.Susp PO Q4H PRN Heartburn/Nausea Lipase/Protease/Amylase 1 cap 08/01/20 17:00 08/02/20 11:38 Lipase/Prot/Amylase 24/76/120k 1 Cap Capsule.Dr PO Not Given QIDWMHS [facility] Atenolol 100 mg 08/02/20 09:00 08/02/20 07:25 Atenolol 100 Mg Tablet PO 100 mg DAILY [facility] Administration Protocol Sodium Chloride 1,000 mls @ 60 mls/hr 08/01/20 15:30 08/02/20 08:32 Ns IVCONT 60 mls/hr .[id number] [facility] Administration Insulin Glargine 15 unit 08/01/20 21:00 08/01/20 21:24 Insulin Glargine,Hum.Rec.Anlog 100 Unit/Ml 10 Ml Vial SUBCUT 15 unit BEDTIME [facility] Administration Isosorbide Mononitrate 30 mg 08/01/20 15:30 08/02/20 07:25 Isosorbide Mononitrate 30 Mg Tab.Er.24h PO 30 mg DAILY [facility] Administration Protocol Lisinopril 10 mg 08/01/20 21:00 08/02/20 07:25 Lisinopril 10 Mg Tablet PO 10 mg DAILY [facility] Administration Protocol Lorazepam 0.5 mg 08/01/20 16:00 08/02/20 07:25 Lorazepam 0.5 Mg Tablet PO 0.5 mg RQ8H [facility] Administration Ondansetron HCl 4 mg 08/01/20 15:30 08/02/20 07:24 Ondansetron Hcl 4 Mg/2 Ml Vial IVPUSH 4 mg Q8H PRN Administration Nausea and Vomiting Oxycodone HCl 1 mg 08/01/20 20:58 Oxycodone Hcl Immed Release 5 Mg Tablet PO BID PRN Pain Pharmacy Consult 1 each 08/01/20 07:32 Consult Rx Perform Med Rec MISCELLANE ONCE PRN Consult order Rivaroxaban 15 mg 08/01/20 21:00 08/01/20 21:25 Rivaroxaban 15 Mg Tablet PO Not Given DAILY@1700 [facility] Sodium Chloride 3 ml 08/01/20 16:00 08/02/20 07:27 0.9 % Sodium Chloride Flush 3 Ml Syringe IVFLUSH Not Given QSHIFT [facility] Home Medications Medication Instructions Recorded Confirmed Last Taken Type atenolol 100 mg tablet 100 mg PO DAILY 11/19/19 08/01/20 07/31/20 History blood sugar diagnostic #10 ea 11/19/19 05/14/20 Unknown History isosorbide mononitrate 30 mg 30 mg PO QAM 11/19/19 08/01/20 07/31/20 History tablet,extended release 24 hr lisinopril 10 mg tablet 10 mg PO DAILY 11/19/19 08/01/20 07/31/20 History lorazepam 0.5 mg tablet 0.5 mg PO BID PRN 11/19/19 08/01/20 Unknown History insulin glargine 100 unit/mL (3 30 unit SUBCUT BEDTIME 04/05/20 08/01/20 07/31/20 History mL) subcutaneous pen mecobalamin (vitamin B12) 1,000 1,000 mcg PO DAILY tab 04/05/20 08/01/20 Unknown History mcg chewable tablet metformin 850 mg tablet 850 mg PO BID tab 04/05/20 08/01/20 07/31/20 History oxycodone-acetaminophen 5 mg-325 1 tab PO BID PRN 04/05/20 08/01/20 Unknown History mg tablet pen needle, diabetic 31 gauge x #50 ea 04/05/20 05/14/20 Unknown History 1/4 omega-3 fatty acids 1,000 mg 1,000 mg PO DAILY 06/26/20 08/01/20 Unknown History capsule eluxadoline [Viberzi] 75 mg PO QD-BID 08/01/20 08/01/20 07/31/20 History [id number] [Creon] 1 cap PO TID-QID 08/01/20 08/01/20 07/31/20 History rivaroxaban 15 mg PO QPM 08/01/20 08/01/20 07/31/20 History Exam Exam Date and Time: August 02, 2020 1325 Height,Weight and Vital Signs: Height 5 ft 2 in Weight 194 lb Last Vital Signs Temp 98.3 F 08/02/20 13:00 Pulse 73 08/02/20 13:00 Resp 18 08/02/20 13:00 BP 183/80 H 08/02/20 13:08 Pulse Ox 96 08/02/20 13:00 Pertinent Lab Results Pertinent Lab Results: Laboratory Tests 08/01/20 08/01/20 08/01/20 07:42 07:42 07:42 WBC 7.9 RBC 4.24 Hgb 12.2 Hct 38.3 MCV 90.3 MCH 28.8 MCHC 31.9 RDW 14.3 Plt Count 283 MPV 10.5 Immature Gran % (Auto) 0.3 Neut % (Auto) 56.1 Lymph % (Auto) 30.8 [place] % (Auto) 8.7 Eos % (Auto) 3.7 Baso % (Auto) 0.4 Lymph # (Auto) 2.4 [place] # (Auto) 0.7 Eos # (Auto) 0.3 Baso # (Auto) 0.0 Abs Immat Gran (auto) 0.02 Absolute Neuts (auto) 4.4 Absolute Nucleated RBC 0.000 Nucleated RBC % (auto) 0.0 PT 17.3 H INR 1.5 H APTT 40.7 H Sodium Potassium Chloride Carbon Dioxide Anion Gap BUN Creatinine Estim Creat Clear Calc Estimated GFR POC Glucose Random Glucose Calcium Magnesium Total Bilirubin Direct Bilirubin AST ALT Alkaline Phosphatase Total Protein Albumin Lipase Urine Color Urine Appearance Urine pH Ur Specific [place] Urine Protein Urine Glucose (UA) Urine Ketones Urine Blood Urine Nitrite Ur Leukocyte Esterase COVID-19 (BECKY) Negative COVID-19 Clin Com See Note 08/01/20 08/01/20 08/01/20 07:42 08:56 20:52 WBC RBC Hgb Hct MCV MCH MCHC RDW Plt Count MPV Immature Gran % (Auto) Neut % (Auto) Lymph % (Auto) [place] % (Auto) Eos % (Auto) Baso % (Auto) Lymph # (Auto) [place] # (Auto) Eos # (Auto) Baso # (Auto) Abs Immat Gran (auto) Absolute Neuts (auto) Absolute Nucleated RBC Nucleated RBC % (auto) PT INR APTT Sodium 139 Potassium 4.6 Chloride 107 Carbon Dioxide 23 Anion Gap 14 BUN 20 H Creatinine 1.07 Estim Creat Clear Calc 43.2 Estimated GFR 49 POC Glucose 110 Random Glucose 104 Calcium 9.2 Magnesium 1.5 L Total Bilirubin 0.9 Direct Bilirubin 0.3 AST 14 ALT 7 Alkaline Phosphatase 68 D Total Protein 5.8 L Albumin 3.7 Lipase 5 L Urine Color YELLOW Urine Appearance HAZY Urine pH 6.0 Ur Specific [place] 1.015 Urine Protein NEG Urine Glucose (UA) NEG Urine Ketones NEG Urine Blood NEG Urine Nitrite NEG Ur Leukocyte Esterase NEG COVID-19 (BECKY) COVID-19 Clin Com 08/02/20 08/02/2008/02/21 05:49 05:49 05:49 WBC 9.7 RBC 4.53 Hgb 13.0 Hct 40.0 MCV 88.3 MCH 28.7 MCHC 32.5 RDW 14.1 Plt Count 289 MPV 10.6 Immature Gran % (Auto) 0.3 Neut % (Auto) 63.3 Lymph % (Auto) 24.5 [place] % (Auto) 9.4 Eos % (Auto) 2.0 Baso % (Auto) 0.5 Lymph # (Auto) 2.4 [place] # (Auto) 0.9 Eos # (Auto) 0.2 Baso # (Auto) 0.1 Abs Immat Gran (auto) 0.03 Absolute Neuts (auto) 6.1 Absolute Nucleated RBC 0.000 Nucleated RBC % (auto) 0.0 PT 14.1 H INR 1.2 H APTT Sodium 141 Potassium 4.6 Chloride 107 Carbon Dioxide 26 Anion Gap 13 BUN 13 Creatinine 0.85 Estim Creat Clear Calc 54.3 Estimated GFR > 60 POC Glucose Random Glucose 105 Calcium 9.0 Magnesium Total Bilirubin Direct Bilirubin AST ALT Alkaline Phosphatase Total Protein Albumin Lipase Urine Color Urine Appearance Urine pH Ur Specific [place] Urine Protein Urine Glucose (UA) Urine Ketones Urine Blood Urine Nitrite Ur Leukocyte Esterase COVID-19 (BECKY) COVID-19 [place] Com 08/02/20 08/02/20 08/02/20 07:32 11:00 13:11 WBC RBC Hgb Hct MCV MCH MCHC RDW Plt Count MPV Immature Gran % (Auto) Neut % (Auto) Lymph % (Auto) [place] % (Auto) Eos % (Auto) Baso % (Auto) Lymph # (Auto) [place] # (Auto) Eos # (Auto) Baso # (Auto) Abs Immat Gran (auto) Absolute Neuts (auto) Absolute Nucleated RBC Nucleated RBC % (auto) PT INR APTT Sodium Potassium Chloride Carbon Dioxide Anion Gap BUN Creatinine Estim Creat Clear Calc Estimated GFR POC Glucose 116 H 150 H 135 H Random Glucose Calcium Magnesium Total Bilirubin Direct Bilirubin AST ALT Alkaline Phosphatase Total Protein Albumin Lipase Urine Color Urine Appearance Urine pH Ur Specific [place] Urine Protein Urine Glucose (UA) Urine Ketones Urine Blood Urine Nitrite Ur Leukocyte Esterase COVID-19 (BECKY) COVID-19 Clin Com Airway Mallampati Class: II TM Dist: >3cm Neck ROM: Full Partial: Upper and Lower Loose/Missing/Broken Teeth: Yes Heart: afib Assessment and Plan Assessment Anesthesia Assessment: Anesthesia Plan Discussed and Chart Reviewed Final Anesthetic Review NPO: Yes ASA Class: III Final Preanesthetic Review: No Changes in Pt Med Stat, Meds/Allgs Chart Reviewed, Consent Obtained/Reviewed and Anes Risks/Benef Reviewed Patient Risk: Intermediate Procedure Risk: Low Anesthetic Plan Disposition: Standard PACU
--- NOTE | 2020-08-02 14:13 | P.BOP_ITS ---
Brief Operative Note Date of Service: 08/02/20 Pre-op diagnosis: nausea, vomiting, abdominal pain Post-op diagnosis: same Procedure: see op note Surgeon: Soy Levi MD Anesthesia: MAC Was an Telemarketer used for this Procedure?: No Estimated blood loss (mL): 0 Condition: stable Disposition: PACU
--- NOTE | 2020-08-02 14:13 | MHC.SHP ---
Pre-Procedural Eval Section A The patient is an INPATIENT: Yes The History & Physical has been completed within 30 days and I have reviewed it.: Yes Section B Chief Complaint: Wt loss, Nausea, Abd Pain Allergies: Allergies Allergy/AdvReac Type Severity Reaction Status Date / Time No Known Allergies Allergy Verified 07/27/20 13:22 [No Known Allergies*] Plan Diagnosis/Plan: Unchanged I have reviewed the history and physical and performed a pertinent physical examination on my patient. No changes have occurred unless specified.
--- NOTE | 2020-08-02 14:36 | P.OP_ITS ---
Operative Note Operative Note Date of Service: 08/02/20 Narrative: Operative Information Procedure Description: EGD, Colonoscopy FLEXIBLE TRANSORAL UPPER GASTROINTESTINAL ENDOSCOPY AND COLONOSCOPY PROCEDURE NOTE UPPER ENDOSCOPY Consent: Indications for the procedure and potential complications of bleeding, perforation, reaction to medications and missed diagnosis were discussed with the patient and informed consent was obtained. Instrument: Olympus GIF H 190 J mid size upper endoscope Monitoring: Vital signs and clinical assessment, continuous EKG monitoring, Pulse oximetry, Carbon Dioxide monitoring and blood pressure monitoring were done throughout the procedure. Procedure: The patient was placed in the left lateral decubitis position and pre-procedure medications were administered and a bite block was placed. The endoscope was inserted into the mouth and advanced under direct vision to the third part of duodenum. A careful inspection was made as the upper endoscope was withdrawn including a retroflexed examination of the proximal stomach; Findings and interventions are described below. Findings: Larynx:normal Esophagus: GE junction at 37 cm, diaphragm hiatus at 37 cm, isolated upper esophageal varices noted Stomach:Atrophic gastritis. Biopsies were obtained. Grade 2 flap valve on retroflexed examination of the cardia. Duodenum: Moderate severe erosive duodenitis with many erosions noted, and erythema of descending duodenum compatible with peptic injury, bx taken Intervention: Biopsies as noted above COLONOSCOPY Instrument: Olympus variable stiffness pediatric scope 190L Colonoscopy Monitoring: Vital signs and clinical assessment, continuous EKG monitoring, Pulse oximetry, Carbon Dioxide monitoring and blood pressure monitoring were done throughout the procedure. Colon withdrawal time was 17 minutes. Procedure: The patient was placed in the left lateral decubitis position and pre-procedure medications were administered. After a digital rectal examination of the ano-rectum, the video colonoscope was inserted into the rectum and advanced through the colon to the cecum/TI. The colonoscope was slowly withdrawn in a retrograde panoramic fashion and the colon mucosa was carefully examined including a retroflexed view of the rectum. Findings and interventions are described below. Procedure Difficulty:easy Findings: scattered diverticulosis thru out colon TI and random colon bx taken Terminal Ileum-normal Cecum:normal Ascending Colon: normal Transverse Colon -normal Descending Colon: 6-8 mm sessile polyp removed with forceps Sigmoid Colon: normal Rectum: Retroflexion with moderate sized internal hemorrhoids, grade 1. There was a polpyoid lesion, with inflammation, on a stalk right at the anal rectal junction prolapsing into the anal and visible on external view. This was biopsied. Anorectum - Inflammed irregular tissue at the anal outlet noted. Colon preparation: [place] Bowel Preparation Scale Right colon; 3 Transverse colon: 3 Left colon; 3 (0 = Unprepared colon segment with mucosa not seen due to solid stool that cannot be cleared. 1 = Portion of mucosa of the colon segment seen, but other areas of the colon segment not well seen due to staining, residual stool and/or opaque liquid. 2 = Minor amount of residual staining, small fragments of stool and/or opaque liquid, but mucosa of colon segment seen well. 3 = Entire mucosa of colon segment seen well with no residual staining, small fragments of stool or opaque liquid) Impression and Post Procedure Diagnosis: Endoscopy Findings: erosive duodenitis atrophic gastritis upper esophageal varices Colonoscopy Findings: polyps internal hemorrhoids diverticular disease anal rectal lesion, ?inflammed skin tag, papilloma , neoplasia or adenoma Plan: Await Pathology results May need colorectal assessment depending on bx as lesions v close to anal verge hard to remove endoscopically. High fiber diet leaflet avoid straining at stool, epsom salts and sitz bath, anusol supps or cream High dose PPI e.g pantoprazole [address] chest with contrast if possible and r/o any intra thoracic mass or lesions Above findings were reviewed with the patient and relevant handouts were provided if indicated.
[2020-08-02 16:23] LABS: Glucose, Whole Blood 149 mg/dL (60-115)
[2020-08-02] MEDS: iohexoL 350 MG/ML 100 ML INFUS..BTL 65 ML IV (16:54)
[2020-08-02] MEDS: Lipase/Prot/Amylase 24/76/120K 1 CAP CAPSULE.DR PO (17:09)
[2020-08-02] MEDS: Rivaroxaban 15 MG TABLET PO (17:09)
--- NOTE | 2020-08-02 17:34 | P.DS_ITS ---
DS: Providers Provider Date of Service: 08/02/20 Date of admission: 08/01/20 15:29 Primary care physician: Kam Grady MD Consults: 08/01/20 14:06 Consult to Gastroenterology Stat Consulting Provider: Soy Levi Reason for consultation: abdominal pain n/v Has provider been notified: Yes DS: Diagnosis Discharge Diagnosis (1) Abdominal pain: Status: Acute (2) Nausea & vomiting: Status: Acute (3) Weight loss: Status: Acute (4) Hypomagnesemia: Status: Acute (5) Varices, esophageal: Status: Acute (6) Atrophic gastritis: Status: Acute (7) Duodenitis: Status: Acute (8) Anal lesion: Status: Acute DS: Medications Discharge Medications Home Medications: Home Medications Medication Instructions Recorded Confirmed atenolol 100 mg tablet 100 mg PO DAILY 11/19/19 08/01/20 blood sugar diagnostic #10 ea 11/19/19 05/14/20 isosorbide mononitrate 30 mg 30 mg PO QAM 11/19/19 08/01/20 tablet,extended release 24 hr lisinopril 10 mg tablet 10 mg PO DAILY 11/19/19 08/01/20 lorazepam 0.5 mg tablet 0.5 mg PO BID PRN 11/19/19 08/01/20 mecobalamin (vitamin B12) 1,000 1,000 mcg PO DAILY tab 04/05/20 08/01/20 mcg chewable tablet metformin 850 mg tablet 850 mg PO BID tab 04/05/20 08/01/20 oxycodone-acetaminophen 5 mg-325 1 tab PO BID PRN 04/05/20 08/01/20 mg tablet pen needle, diabetic 31 gauge x #50 ea 04/05/20 05/14/2002/19 omega-3 fatty acids 1,000 mg 1,000 mg PO DAILY 06/26/20 08/01/20 capsule Creon 1 cap PO TID-QID 08/01/20 08/01/20 Viberzi 75 mg PO QD-BID 08/01/20 08/01/20 rivaroxaban 15 mg PO QPM 08/01/20 08/01/20 Previous Rx's Medication Instructions Recorded insulin glargine 15 unit SUBCUT BEDTIME #0 ml 08/02/20 pantoprazole 40 mg PO BID #60 tab 08/02/20 DS: Summary Hospital Course Hospital Course: Admission note HPI An 79 years old lady with PMH of diabetes, AFib, HTN, anxiety who presents to the hospital with complaints of intractable nausea and decreased oral intake. The patient reports that her symptoms started months ago with feeling of early satiety associated with nausea and reflux. The patient has lost almost 15 lb over the last 2 months secondary to grease oral intake. Her symptoms associated with burning and reflux feeling up on eating small amount of food or drinking some water. That has been associated with left lower quadrant cramping pain on occasions mainly after having food associated with watery diarrhea as well. She denies any fever, chills, rash, shortness of breath or chest pain. Images were done previously concerning for possible gallbladder source of abdominal pain. Evaluated by surgical team today in the emergency who did not feel the patient pain sources the gallbladder. Discussed with Gastroenterology who will do upper and lower endoscopy tomorrow for further evaluation and treatment. Admitted for further evaluation. Hospital course The patient was admitted to the hospital and treated with antiemetic and fluids with good response. She was evaluated by merchandise executive who did endoscopy and colonoscopy. endoscopy showing inflammation of your esophagus, stomach and duodenum. Colonoscopy was also done showing polyps, internal hemorrhoids and corrected lesion. Biopsies were taken from multiple areas And results to be followed by GI clinic. A CT scan of the chest was done for a concern of varices of the esophagus but the test was negative for any acute findings or mass. Discharge plan Start pantoprazole 40 mg twice Daily To follow-up with for biopsy results Hold metformin for 1 day and started Thursday morning Decrease your Lantus insulin to 15 units at bedtime and monitor your readings for the next week. Time Spent with Patient Time attestation: Total time spent providing and/or coordinating discharge services: Discharge coordination time: Greater than 30 minutes Quality: Stroke Does the patient have a stroke diagnosis?: No Physical Exam Vital Signs: Vital Signs: Last Vital Signs Temp 97.0 F 08/02/20 15:45 Pulse 73 08/02/20 15:45 Resp 19 08/02/20 15:45 BP 136/80 08/02/20 15:45 Pulse Ox 95 08/02/20 15:45 Body Mass Index 35.4 Const: Other: Constitutional : Alert, oriented, not in distress Neck : Normal inspection, Supple Cardiovascular : RRR, S1 S2, no lower extremity edema Respiratory : Good bilateral air entry, no crackles, wheezes or rhonchi Gastrointestinal: soft, lax, Normal bowel sounds, no tenderness noted on exam Skin : Warm/Dry, No rash Neurological : Alert & oriented x3, No focal deficit DS: Data Data Completed and Pending Pending studies at discharge: Pending at discharge 08/02/20 14:41 Surgical [PTH] Routine Labs on day of discharge: Laboratory Results - last 24 hr 08/01/20 08/02/20 08/02/20 20:52 05:49 05:49 WBC 9.7 RBC 4.53 Hgb 13.0 Hct 40.0 MCV 88.3 MCH 28.7 MCHC 32.5 RDW 14.1 Plt Count 289 MPV 10.6 Immature Gran % (Auto) 0.3 Neut % (Auto) 63.3 Lymph % (Auto) 24.5 Chester % (Auto) 9.4 Eos % (Auto) 2.0 Baso % (Auto) 0.5 Lymph # (Auto) 2.4 Chester # (Auto) 0.9 Eos # (Auto) 0.2 Baso # (Auto) 0.1 Abs Immat Gran (auto) 0.03 Absolute Neuts (auto) 6.1 Absolute Nucleated RBC 0.000 Nucleated RBC % (auto) 0.0 PT 14.1 H INR 1.2 H Sodium Potassium Chloride Carbon Dioxide Anion Gap BUN Creatinine Estim Creat Clear Calc Estimated GFR POC Glucose 110 Random Glucose Calcium 08/02/20 08/02/20 08/02/20 05:49 07:32 11:00 WBC RBC Hgb Hct MCV MCH MCHC RDW Plt Count MPV Immature Gran % (Auto) Neut % (Auto) Lymph % (Auto) Chester % (Auto) Eos % (Auto) Baso % (Auto) Lymph # (Auto) Chester # (Auto) Eos # (Auto) Baso # (Auto) Abs Immat Gran (auto) Absolute Neuts (auto) Absolute Nucleated RBC Nucleated RBC % (auto) PT INR Sodium 141 Potassium 4.6 Chloride 107 Carbon Dioxide 26 Anion Gap 13 BUN 13 Creatinine 0.85 Estim Creat Clear Calc 54.3 Estimated GFR > 60 POC Glucose 116 H 150 H Random Glucose 105 Calcium 9.0 08/02/20 08/02/20 13:11 16:20 WBC RBC Hgb Hct MCV MCH MCHC RDW Plt Count MPV Immature Gran % (Auto) Neut % (Auto) Lymph % (Auto) Chester % (Auto) Eos % (Auto) Baso % (Auto) Lymph # (Auto) Chester # (Auto) Eos # (Auto) Baso # (Auto) Abs Immat Gran (auto) Absolute Neuts (auto) Absolute Nucleated RBC Nucleated RBC % (auto) PT INR Sodium Potassium Chloride Carbon Dioxide Anion Gap BUN Creatinine Estim Creat Clear Calc Estimated GFR POC Glucose 135 H 149 H Random Glucose Calcium Discharge Plan Discharge Patient Disposition: Home, Self-Care Discharge Diagnosis: Erosive duodenitis Atrophic gastritis Esophageal varices Polyps Internal hemorrhoids Referrals: Kam Grady MD [Primary Care Provider] - 1 Week Discharge Medications: New pantoprazole 40 mg tablet,delayed release (DR/EC) 40 mg PO BID Qty: 60 RF: 1 Continued Creon 24,000-76,000 -120,000 unit capsule,delayed release(DR/EC) 1 cap PO TID-QID RF: 0 rivaroxaban 15 mg tablet 15 mg PO QPM RF: 0 Viberzi 75 mg tablet 75 mg PO QD-BID RF: 0 lisinopril 10 mg tablet 10 mg PO DAILY RF: 0 lorazepam 0.5 mg tablet 0.5 mg PO BID PRN (Reason: Anxiety) RF: 0 isosorbide mononitrate 30 mg tablet extended release 24 hr 30 mg PO QAM RF: 0 atenolol 100 mg tablet 100 mg PO DAILY RF: 0 (DME) blood sugar diagnostic Strip See Rx Instructions strip .ROUTE TID Qty: 10 RF: 0 metformin 850 mg tablet 850 mg PO BID RF: 0 oxycodone-acetaminophen 5-325 mg tablet 1 tab PO BID PRN (Reason: Pain) RF: 0 (DME) pen needle, diabetic 31 gauge x 1/4 needle See Rx Instructions ea .ROUTE DAILY Qty: 50 RF: 0 mecobalamin (vitamin B12) 1,000 mcg tablet,chewable 1,000 mcg PO DAILY RF: 0 Changed insulin glargine 100 unit/mL (3 mL) insulin pen 15 unit subcut BEDTIME Qty: 0 RF: 0 Discharge Orders: Discharge Order (Routine); Ordered 08/02/20 Ordered By: Khaled Abuhashmeh Diet: advance to usual diet Activity on Discharge: As tolerated Stand Alone Forms: Patient Portal Discharge page Care Plan Goals: Read below Health Concerns: Read below Plan of Treatment: You were admitted to the hospital for evaluation of abdominal pain, nausea and vomiting. You were evaluated by upper endoscopy showing inflammation of your esophagus, stomach and duodenum. Colonoscopy was also done showing polyps, i nternal hemorrhoids and corrected lesion. Biopsies were taken from multiple areas and will need few days for results to come back. A CT scan of your chest was done showing no acute abnormalities. Assessment: Start pantoprazole 40 mg twice Daily To follow-up with for biopsy results Hold metformin for 1 day and started Thursday morning Decrease your Lantus insulin to 15 units at bedtime and monitor your readings for the next week.
== END 2020-08-02 17:58 | disposition home or self-care (01) | DRG 392 ==
LOC: HO.ED 14:41 → HO.EDOVER 16:08 → HO.S3 19:21
PROVIDERS: Internal Medicine Gastroenterology; Admitting Provider Student in an Organized Health Care Education/Training Program; Emergency Provider Emergency Medicine; PCP Internal Medicine; Visit Provider Student in an Organized Health Care Education/Training Program
PROC: 0DB98ZX Excision of Duodenum, Via Natural or Artificial Opening Endoscopic, Diagnostic (ICD-10-PCS; principal; 2020-08-02 14:20)
DX: K29.80 Duodenitis without bleeding (principal); I85.00 Esophageal varices without bleeding; E83.42 Hypomagnesemia; E11.9 Type 2 diabetes mellitus without complications; I48.0 Paroxysmal atrial fibrillation; I25.10 Atherosclerotic heart disease of native coronary artery without angina pectoris; F41.9 Anxiety disorder, unspecified; K62.9 Disease of anus and rectum, unspecified; K29.40 Chronic atrophic gastritis without bleeding; K44.9 Diaphragmatic hernia without obstruction or gangrene; K64.0 First degree hemorrhoids; Z20.822 Contact with and (suspected) exposure to COVID-19; Z79.4 Long term (current) use of insulin; Z79.01 Long term (current) use of anticoagulants; Z79.891 Long term (current) use of opiate analgesic; Z79.899 Other long term (current) drug therapy
CPT/HCPCS: 36415; 71260; 80048; 80076; 81003; 82947; 83690; 83735; 85025; 85610; 85730; 87635; 88305; 88342; 93005; 99285; J1200; J2405; J2765; J3475; Q9967

== ENCOUNTER → 2020-08-03 15:08 | Outpatient (BNVA) | payer MEDICARE, MEDICAID, SELFPAY | PROVIDERS: PCP Internal Medicine; Visit Provider Nurse Practitioner | DX: K80.20 Calculus of gallbladder without cholecystitis without obstruction (principal); K58.0 Irritable bowel syndrome with diarrhea; R11.2 Nausea with vomiting, unspecified; R10.84 Generalized abdominal pain | CPT/HCPCS: Q3014 ==

== ENCOUNTER 2020-08-07 08:32 | Outpatient (REF) | payer MEDICARE, MEDICAID, SELFPAY ==
[2020-08-07 09:23] LABS: MANUAL DIFF FLAG NO
[2020-08-07 09:39] LABS: Basophils Percent Auto 0.5 % (0-2); Eosinophils Absolute Auto 0.3 X10*3/uL (0.0-0.4); Eosinophils Percent Auto 3.1 % (0-4); Hematocrit 38.3 % (37-47); Hemoglobin 12.3 g/dl (12.0-16.0); Imm Gran Abs Auto 0.03 X10*3/uL (0.00-0.03); Imm Gran Pct Auto 0.3 % (0.0-0.4); Lymphocytes Percent Auto 22.9 % (20-40); Mean Corpuscular HGB Conc 32.1 g/dl (31.0-35.0); Mean Corpuscular Hemoglobin 28.8 pg (27.0-33.0); Mean Corpuscular Volume 89.7 fL (80-98); Mean Platelet Volume 10.7 fL (9.4-12.3); Monocytes Absolute Auto 0.6 X10*3/uL (0.1-1.2); Monocytes Percent Auto 7.3 % (2-11); Neutrophils Absolute Auto 5.7 X10*3/uL (2.0-8.3); Neutrophils Percent Auto 65.9 % (45-73); Platelet Count 258 X10*3/uL (160-400); Red Blood Count 4.27 X10*6/uL (4.20-5.50); Red Cell Distribution Width 14.5 % (11.0-16.0); White Blood Count 8.6 X10*3/uL (4.8-10.8)
[2020-08-07 09:55] LABS: Estimated Average Glucose 154 mg/dL
[2020-08-07 10:09] LABS: Creatinine Urine 144.29 mg/dL
[2020-08-07 10:16] LABS: Alanine Aminotransferase 10 U/L (0-31); Albumin Level 3.8 g/dL (3.5-5.0); Alkaline Phosphatase 64 U/L (39-117); Anion Gap 13 (12-20); Aspartate Amino Transferase 13 U/L (5-31); Blood Urea Nitrogen 22 mg/dL (9-16); Carbon Dioxide 23 mmol/L (22-29); Chloride 109 mmol/L (96-108); Cholesterol 161 mg/dL; Estimated Glomerular Filt Rate 43; Glucose Fasting 176 mg/dL (60-99); HDL Cholesterol 31 mg/dL; LDL Cholesterol Calculated 110 mg/dl; Potassium 4.5 mmol/L (3.3-5.1); Sodium 140 mmol/L (135-145); Total Protein 5.8 g/dL (6.5-8.0); Triglycerides 104 mg/dL
[2020-08-07 10:21] LABS: Thyroid Stimulating Hormone 0.61 uIU/mL (0.32-4.0)
== END 2020-08-07 08:33 | disposition home or self-care (01) ==
LOC: HO.LAB 08:32
PROVIDERS: PCP Internal Medicine; Visit Provider Internal Medicine
DX: Z00.00 Encounter for general adult medical examination without abnormal findings (principal); E03.9 Hypothyroidism, unspecified; E11.9 Type 2 diabetes mellitus without complications
CPT/HCPCS: 36415; 80053; 80061; 82043; 83036; 84443; 85025

== ENCOUNTER → 2020-08-27 10:17 | Outpatient (BNVA) | payer MEDICARE, MEDICAID, SELFPAY | PROVIDERS: PCP Internal Medicine; Visit Provider Internal Medicine Gastroenterology | CPT/HCPCS: Q3014 ==

== ENCOUNTER 2020-09-13 14:10 | Outpatient (REF) | payer MEDICARE, MEDICAID, SELFPAY ==
--- NOTE | ~2020-09-13 | XR_ITS ---
EXAMINATION: XR CHEST CLINICAL INFORMATION: Cough COMPARISON: Previous chest CT TECHNIQUE: 2 views of the chest were obtained. FINDINGS: The cardiac and mediastinal contours are normal. The lungs are clear. There is no pleural effusion or pneumothorax. There are degenerative changes of the spine. XR/XR chest 2V IMPRESSION: Unremarkable examination.
[2020-09-13 14:54] LABS: Estimated Average Glucose 174 mg/dL; Hemoglobin A1c % 7.7 %
[2020-09-13 15:01] LABS: Cholesterol 151 mg/dL; HDL Cholesterol 30 mg/dL; LDL Cholesterol Calculated 96 mg/dl; Triglycerides 125 mg/dL
== END 2020-09-13 14:11 | disposition home or self-care (01) ==
LOC: HO.LAB 14:10
PROVIDERS: PCP Internal Medicine; Visit Provider Internal Medicine
DX: Z20.822 Contact with and (suspected) exposure to COVID-19 (principal); R05 Cough; R09.89 Other specified symptoms and signs involving the circulatory and respiratory systems; E11.9 Type 2 diabetes mellitus without complications
CPT/HCPCS: 71046; 80061; 83036; U0003; U0005

== ENCOUNTER → 2020-09-18 09:43 | Outpatient (BNVA) | payer MEDICARE, MEDICAID, SELFPAY | PROVIDERS: PCP Internal Medicine; Referring Provider Internal Medicine; Visit Provider Urology | DX: N20.0 Calculus of kidney (principal) | CPT/HCPCS: 99202 ==

== ENCOUNTER 2020-11-14 10:50 | Outpatient (REF) | payer MEDICARE, MEDICAID, SELFPAY ==
[2020-11-14 11:39] LABS: Appearance Urine CLEAR; Color Urine YELLOW; Glucose Urine UA NEG (NEG); Leukocyte Esterase Urine NEG (NEG); Nitrite Urine NEG (NEG); Specific Gravity - Urine 1.025 (1.005-1.025); Urine Blood NEG (NEG); Urine Ketones NEG (NEG); Urine Protein NEG (NEG-TRACE)
[2020-11-14 11:49] LABS: MANUAL DIFF FLAG NO
[2020-11-14 11:54] LABS: Basophils Percent Auto 0.5 % (0-2); Eosinophils Absolute Auto 0.3 X10*3/uL (0.0-0.4); Eosinophils Percent Auto 3.2 % (0-4); Hematocrit 37.4 % (37-47); Hemoglobin 11.8 g/dl (12.0-16.0); Imm Gran Abs Auto 0.02 X10*3/uL (0.00-0.03); Imm Gran Pct Auto 0.2 % (0.0-0.4); Lymphocytes Absolute Auto 2.4 X10*3/uL (1.2-4.9); Lymphocytes Percent Auto 29.7 % (20-40); Mean Corpuscular HGB Conc 31.6 g/dl (31.0-35.0); Mean Corpuscular Hemoglobin 28.9 pg (27.0-33.0); Mean Corpuscular Volume 91.7 fL (80-98); Mean Platelet Volume 10.7 fL (9.4-12.3); Monocytes Absolute Auto 0.8 X10*3/uL (0.1-1.2); Monocytes Percent Auto 9.9 % (2-11); Neutrophils Absolute Auto 4.6 X10*3/uL (2.0-8.3); Neutrophils Percent Auto 56.5 % (45-73); Platelet Count 258 X10*3/uL (160-400); Red Blood Count 4.08 X10*6/uL (4.20-5.50); Red Cell Distribution Width 14.8 % (11.0-16.0); White Blood Count 8.1 X10*3/uL (4.8-10.8)
[2020-11-14 12:09] LABS: Creatinine Urine 99.32 mg/dL
[2020-11-14 12:22] LABS: Anion Gap 13 (12-20); Blood Urea Nitrogen 23 mg/dL (9-16); Calcium 9.2 mg/dL (8.4-10.2); Carbon Dioxide 24 mmol/L (22-29); Chloride 107 mmol/L (96-108); Cholesterol 159 mg/dL; Estimated Glomerular Filt Rate 43; Glucose Random 112 mg/dL (60-115); HDL Cholesterol 33 mg/dL; LDL Cholesterol Calculated 108 mg/dl; Potassium 4.8 mmol/L (3.3-5.1); Sodium 139 mmol/L (135-145); Triglycerides 90 mg/dL
== END 2020-11-14 10:51 | disposition home or self-care (01) ==
LOC: HO.LAB 10:50
PROVIDERS: PCP Internal Medicine; Visit Provider Internal Medicine
DX: I48.0 Paroxysmal atrial fibrillation (principal); E11.9 Type 2 diabetes mellitus without complications; I10 Essential (primary) hypertension; I25.10 Atherosclerotic heart disease of native coronary artery without angina pectoris; E66.9 Obesity, unspecified; Z68.34 Body mass index [BMI] 34.0-34.9, adult; Z79.01 Long term (current) use of anticoagulants; Z79.899 Other long term (current) drug therapy
CPT/HCPCS: 36415; 80048; 80061; 81003; 82043; 84443; 85025; 99212

== ENCOUNTER 2020-12-04 09:26 | Outpatient (REF) | payer MEDICARE, MEDICAID, SELFPAY ==
[2020-12-05 13:36] LABS: IgA 117 mg/dL (70-320); IgG 731 mg/dL (600-1540); IgM 36 mg/dL (50-300)
[2020-12-06 07:16] LABS: Transglutaminase Ab IgG <1.0 U/mL; Transglutaminase IgA <1.0 U/mL
[2020-12-07 17:42] LABS: Histamine Plasma <1.5 ng/mL (< OR = 1.8)
== END 2020-12-04 09:27 | disposition home or self-care (01) ==
LOC: HO.LAB 09:26
PROVIDERS: PCP Internal Medicine; Referring Provider Internal Medicine; Visit Provider Internal Medicine Gastroenterology
DX: R10.33 Periumbilical pain (principal); G89.29 Other chronic pain; R19.7 Diarrhea, unspecified
CPT/HCPCS: 36415; 82784; 83088; 83516; 83520; 86003; 99212

== ENCOUNTER 2020-12-06 12:44 | Outpatient (REF) | payer MEDICARE, MEDICAID, SELFPAY ==
[2020-12-06 14:45] LABS: CDiff Gene PCR NEGATIVE (Negative)
[2020-12-11 18:57] LABS: Pancreatic Elastase-1 156 mcg/g
[2020-12-11 22:16] LABS: Calprotectin, Fecal 90 mcg/g
== END 2020-12-06 12:45 | disposition home or self-care (01) ==
LOC: HO.LNP 12:44
PROVIDERS: Visit Provider Internal Medicine Gastroenterology
DX: R19.7 Diarrhea, unspecified (principal)
CPT/HCPCS: 82656; 83993; 87329; 87493

== ENCOUNTER → 2021-03-05 09:45 | Outpatient (BNVA) | payer MEDICARE, MEDICAID, SELFPAY | PROVIDERS: PCP Internal Medicine; Referring Provider Internal Medicine; Visit Provider Internal Medicine Gastroenterology | DX: K29.80 Duodenitis without bleeding (principal); K29.40 Chronic atrophic gastritis without bleeding | CPT/HCPCS: 99212 ==

== ENCOUNTER 2021-03-07 11:03 | Outpatient (REF) | payer MEDICARE, MEDICAID, SELFPAY ==
--- NOTE | ~2021-03-07 | US_ITS ---
EXAMINATION: US RETROPERITONEAL LIMITED (RENAL ONLY) CLINICAL INFORMATION: Calculus of kidney. COMPARISON: Ultrasound abdomen limited 06/15/2020. Renal ultrasound 06/19/2015. CT chest, abdomen and pelvis 06/15/2020. TECHNIQUE: Real-time imaging of the kidneys. FINDINGS: RIGHT KIDNEY: 9.9 x 5.8 x 6.0 cm (SAG x AP x TRV). The kidney is normal in size, contour, and echogenicity. Renal cortical thickness is normal. No calculi or focal parenchymal lesions. No hydronephrosis. Multiple tiny echogenic foci probably tiny nonobstructing stones. LEFT KIDNEY: 10.3 x 5.0 x 4.4 cm (SAG x AP x TRV). The kidney is normal in size, contour, and echogenicity. Renal cortical thickness is normal. No focal parenchymal lesions or hydronephrosis. Echogenic 4 mm structure lower pole probably nonobstructing stone. Several other smaller echogenic foci present. US/US renal BI IMPRESSION: *There are bilateral small echogenic foci probably nonobstructing stones. *No ultrasound evidence of renal obstruction or hydronephrosis..
== END 2021-03-07 11:04 | disposition home or self-care (01) ==
LOC: HO.US 11:03
PROVIDERS: PCP Internal Medicine; Visit Provider Urology
DX: N20.0 Calculus of kidney (principal)
CPT/HCPCS: 76775

== ENCOUNTER → 2021-03-21 11:19 | Outpatient (BNVA) | payer MEDICARE, MEDICAID, SELFPAY | PROVIDERS: PCP Internal Medicine; Visit Provider Urology | DX: Z13.89 Encounter for screening for other disorder (principal) | CPT/HCPCS: Q3014 ==

== ENCOUNTER → 2021-05-02 12:13 | Outpatient (BNVA) | payer MEDICARE, MEDICAID, SELFPAY | PROVIDERS: PCP Internal Medicine; Referring Provider Internal Medicine; Visit Provider Internal Medicine Cardiovascular Disease | DX: I25.10 Atherosclerotic heart disease of native coronary artery without angina pectoris (principal); I48.0 Paroxysmal atrial fibrillation; I10 Essential (primary) hypertension; R06.02 Shortness of breath | CPT/HCPCS: 99212 ==

== ENCOUNTER 2021-05-07 10:36 | Outpatient (REF) | payer MEDICARE, MEDICAID, SELFPAY ==
[2021-05-07 12:00] LABS: Hematocrit 36.9 % (37.0-47.0); Hemoglobin 11.7 g/dl (12.0-16.0); Mean Corpuscular HGB Conc 31.7 g/dl (31.0-35.0); Mean Corpuscular Hemoglobin 29.5 pg (27.0-33.0); Mean Corpuscular Volume 92.9 fL (80.0-98.0); Mean Platelet Volume 10.8 fL (9.4-12.3); Platelet Count 307 X10*3/uL (160-400); Red Blood Count 3.97 X10*6/uL (4.20-5.50); Red Cell Distribution Width 14.8 % (11.0-16.0)
[2021-05-07 12:34] LABS: Anion Gap 15 (12-20); Blood Urea Nitrogen 17 mg/dL (9-16); Calcium 9.7 mg/dL (8.4-10.2); Carbon Dioxide 24 mmol/L (22-29); Chloride 106 mmol/L (96-108); Estimated Glomerular Filt Rate 40; Glucose Random 127 mg/dL (60-115); Potassium 5.5 mmol/L (3.3-5.1); Sodium 139 mmol/L (135-145)
[2021-05-07 12:42] LABS: B Type Natriuretic Peptide 296 pg/mL (<100)
== END 2021-05-07 10:37 | disposition home or self-care (01) ==
LOC: HO.LAB 10:36
PROVIDERS: PCP Internal Medicine; Visit Provider Internal Medicine Cardiovascular Disease
DX: R06.02 Shortness of breath (principal)
CPT/HCPCS: 36415; 80048; 83880; 85027

== ENCOUNTER 2021-05-14 10:01 | Outpatient (REF) | payer MEDICARE, MEDICAID, SELFPAY ==
[2021-05-14 10:15] LABS: MANUAL DIFF FLAG NO
[2021-05-14 10:33] LABS: Basophils Percent Auto 0.5 % (0-2); Eosinophils Absolute Auto 0.2 X10*3/uL (0.0-0.4); Hematocrit 35.7 % (37.0-47.0); Hemoglobin 11.3 g/dl (12.0-16.0); Imm Gran Abs Auto 0.03 X10*3/uL (0.00-0.03); Imm Gran Pct Auto 0.4 % (0.0-0.4); Lymphocytes Absolute Auto 2.5 X10*3/uL (1.2-4.9); Lymphocytes Percent Auto 33.6 % (20-40); Mean Corpuscular HGB Conc 31.7 g/dl (31.0-35.0); Mean Corpuscular Volume 91.8 fL (80.0-98.0); Mean Platelet Volume 10.7 fL (9.4-12.3); Monocytes Absolute Auto 0.6 X10*3/uL (0.1-1.2); Monocytes Percent Auto 8.1 % (2-11); Neutrophils Absolute Auto 4.1 x10*3/uL (2.0-8.3); Neutrophils Percent Auto 54.4 % (45-73); Platelet Count 264 X10*3/uL (160-400); Red Blood Count 3.89 X10*6/uL (4.20-5.50); Red Cell Distribution Width 15.3 % (11.0-16.0); White Blood Count 7.6 X10*3/uL (4.8-10.8)
[2021-05-14 11:02] LABS: Alanine Aminotransferase 46 U/L (0-31); Albumin Level 3.6 g/dL (3.5-5.0); Alkaline Phosphatase 219 U/L (39-117); Anion Gap 13 (12-20); Aspartate Amino Transferase 29 U/L (5-31); Bilirubin Total 0.9 mg/dL (0.0-1.0); Blood Urea Nitrogen 20 mg/dL (9-16); Calcium 9.3 mg/dL (8.4-10.2); Carbon Dioxide 23 mmol/L (22-29); Chloride 110 mmol/L (96-108); Cholesterol 145 mg/dL; Estimated Glomerular Filt Rate 38; Glucose Fasting 148 mg/dL (60-99); HDL Cholesterol 30 mg/dL; LDL Cholesterol Calculated 97 mg/dl; Potassium 5.6 mmol/L (3.3-5.1); Sodium 140 mmol/L (135-145); Total Protein 5.9 g/dL (6.5-8.0); Triglycerides 90 mg/dL
== END 2021-05-14 10:02 | disposition home or self-care (01) ==
LOC: HO.LAB 10:01
PROVIDERS: PCP Internal Medicine; Visit Provider Internal Medicine Cardiovascular Disease
DX: Z00.00 Encounter for general adult medical examination without abnormal findings (principal); R51.9 Headache, unspecified; E11.9 Type 2 diabetes mellitus without complications; Z13.0 Encounter for screening for diseases of the blood and blood-forming organs and certain disorders involving the immune mechanism
CPT/HCPCS: 36415; 80053; 80061; 84443; 85025

== ENCOUNTER 2021-05-14 15:17 | Outpatient (REF) | payer MEDICARE, MEDICAID, SELFPAY ==
[2021-05-14 15:49] LABS: Creatinine Urine 93.48 mg/dL; Microalbum/Creatinine Ratio Ur 19.2 ug/mg cr
== END 2021-05-14 15:18 | disposition home or self-care (01) ==
LOC: HO.LNP 15:17
PROVIDERS: Visit Provider Internal Medicine
DX: Z00.00 Encounter for general adult medical examination without abnormal findings (principal); R51.9 Headache, unspecified; E11.9 Type 2 diabetes mellitus without complications; Z13.0 Encounter for screening for diseases of the blood and blood-forming organs and certain disorders involving the immune mechanism
CPT/HCPCS: 36415; 80053; 80061; 82043; 84443; 85025

== ENCOUNTER 2021-05-23 10:48 | Outpatient (REF) | payer MEDICARE, MEDICAID, SELFPAY ==
[2021-05-23 12:15] LABS: Anion Gap 11 (12-20); Blood Urea Nitrogen 28 mg/dL (9-16); Calcium 9.4 mg/dL (8.4-10.2); Carbon Dioxide 26 mmol/L (22-29); Chloride 106 mmol/L (96-108); Estimated Glomerular Filt Rate 39; Glucose Random 134 mg/dL (60-115); Potassium 5.5 mmol/L (3.3-5.1); Sodium 137 mmol/L (135-145)
== END 2021-05-23 10:49 | disposition home or self-care (01) ==
LOC: HO.LAB 10:48
PROVIDERS: Absent Provider Internal Medicine; PCP Internal Medicine; Visit Provider Internal Medicine Cardiovascular Disease
DX: I25.10 Atherosclerotic heart disease of native coronary artery without angina pectoris (principal)
CPT/HCPCS: 36415; 80048

== ENCOUNTER → 2021-06-10 12:27 | Outpatient (REF) | payer MEDICARE, MEDICAID, SELFPAY ==
--- NOTE | 2021-06-10 12:31 | CA_ITS ---
Transthoracic Echocardiogram Patient (Last, First, Middle): Shirlene Chowdary, Gender: Female Date of : 1940 Age: 80 Procedure Date: 06/10/2021 Procedure Type: Transthoracic Echocardiogram Location: OP Height: 154.94 cm Weight: 82.56 kg BSA: 1.81 m2 Heart Rate: bpm BP: 147 / 66 mmHg Podiatry Assistant: STEPHANIE Referring MD: Fransisco Doss MD Symptoms: R06.02 - Shortness of breath Study Quality: Adequate ECG Rhythm: Sinus Conclusions: - The left ventricular systolic function is normal. The calculated ejection fraction is 67% by biplane method. - Evidence suggests grade III (severe) diastolic dysfunction. - Mildly increased right ventricular cavity size. - The left atrium is moderately dilated. - There is mild calcification of the aortic valve. - Moderate pulmonary hypertension is present. - Small plaque is seen in the sino tubular ridge. Findings Left Ventricle Normal left ventricular cavity size. There is normal left ventricular wall thickness. The left ventricular systolic function is normal. The calculated ejection fraction is 67% by biplane method. E/E prime ratio is >15, consistent with elevated filling pressures. Evidence suggests grade III (severe) diastolic dysfunction. LV peak GLS -14.5%. Right Ventricle Mildly increased right ventricular cavity size. There is normal right ventricular systolic function. Atria The left atrium is moderately dilated. The right atrium is normal in size. Aortic Valve There is a normal trileaflet aortic valve. There is mild calcification of the aortic valve. There is no aortic valve stenosis. There is no aortic valve regurgitation. Mitral Valve There is severe mitral annular calcification. There is no mitral valve regurgitation. There is no mitral valve stenosis. Pulmonic Valve The pulmonic valve was not well visualized. There is trace pulmonic valve regurgitation. Tricuspid Valve There is mild tricuspid valve regurgitation. The right ventricular systolic pressure is 55 mmHg. Moderate pulmonary hypertension is present. Great Vessels The aortic annulus, sinuses of valsalva, and asc aorta are normal in size. Small plaque is seen in the sino tubular ridge. Venous The inferior vena cava is normal in size and collapses greater than 50% with inspiration. Pericardium/Pleural There is no evidence of pericardial effusion. Prior Study Comparison Changes noted compared to prior study dated: 10/13/2017. Progression of diastolic dysfunction. Measurements 2D Linear Measurements IVSd: 1.20 0.6-0.9/0.6-1.0 cm LVIDd: 4.88 3.9-5.3/4.2-5.9 cm LVIDd Index: 2.70 2.4-3.2/2.2-3.1 cm/m2 LVIDs: 3.27 2.0-3.6 cm LVPWd: 0.81 0.7-1.1 cm LA Diam: 4.30 2.7-3.8/3.0-4.0 cm LAIDs Index: 2.38 1.5-2.3 cm/m2 LV Mass: 218.71 67-162/88-224 g LV Mass Index: 120.83 43-95/49-115 g/m2 LVOT Diam: 2.40 3.0+(-)1.3 cm 2D Systolic Function EF 4C: 75.40 >55% EF 2C: 52.80 >55% EF BiP: 66.90 >55% Mitral Valve MV VTI: 0.37 MV Pk Ronnie: 1.42 MV Mn Ronnie: 0.67 MV Pk Grad: 8.00 MV Mn Grad: 2.00 MV Pk E: 1.54 MV PK A: 0.65 MV Decel Time: 178.00 E/A: 2.40 E'Lateral: 8.49 E'Medial: 4.79 E/E' Med: 32.20 E/E' Lat: 18.10 PHT: 52.00 MVA PHT: 4.23 MVA Continuity: 3.11 Decel Patrick: 8.62 Aortic Valve AoV Pk Ronnie: 1.41 AoV Mn Ronnie: 0.94 AoV VTI: 0.32 AoV Pk Grad: 8.00 Aov Mn Grad: 4.00 KENDELL Cont.VTI: 3.53 LVOT LVOT Pk Ronnie: 0.98 LVOT Mn Ronnie: 0.66 LVOT VTI: 0.25 LVOT Pk Grad: 4.00 LVOT Mn Grad: 2.00 LVOT Diam: 2.40 LVOT Area: 4.52 Diastolic Function MV Pk E: 1.54 MV Pk A: 0.65 E/A: 2.40 E'Medial: 4.79 E/E' Med: 32.20 E' Laterial: 8.49 E/E' Lat: 18.10 Right Ventricle TAPSE (mm): 23.90 TVS' Ronnie: 13.50 Tricuspid Valve TR Pk Ronnie: 3.62 TR Pk Grad: 52.00 RA Press: 3.00 RVSP: 55.00 Great Vessels Aorta Sinus of Valsalva: 2.90 2.0-3.[address] Ridge: 2.50 1.7-3.4 cm Ao Asc: 2.90 2.1-3.4 cm Pulmonary Veins Pulm Vein S/D 0.70 Pulmonary Valve PV Pk Ronnie: 0.66 Peak PV Grad: 2.00 Updated in Other Vendor System with Status of Final Adryan Moreno MD electronically signed on 06/11/2021 11:58:59 AM with status of Final
== END ==
LOC: HO.CARD 12:27
PROVIDERS: PCP Internal Medicine; Visit Provider Internal Medicine Cardiovascular Disease
DX: R06.02 Shortness of breath (principal)
CPT/HCPCS: 93306

== ENCOUNTER 2021-08-27 10:35 | Outpatient (REF) | payer MEDICARE, MEDICAID, SELFPAY ==
[2021-08-27 11:17] LABS: Estimated Average Glucose 154 mg/dL
[2021-08-27 11:56] LABS: Anion Gap 12 (12-20); Blood Urea Nitrogen 22 mg/dL (9-16); Carbon Dioxide 22 mmol/L (22-29); Chloride 111 mmol/L (96-108); Estimated Glomerular Filt Rate 40; Glucose Random 111 mg/dL (60-115); Potassium 4.5 mmol/L (3.3-5.1); Sodium 140 mmol/L (135-145)
== END 2021-08-27 10:36 | disposition home or self-care (01) ==
LOC: HO.LAB 10:35
PROVIDERS: PCP Internal Medicine; Visit Provider Internal Medicine
DX: E11.9 Type 2 diabetes mellitus without complications (principal); R51.9 Headache, unspecified
CPT/HCPCS: 36415; 80048; 83036

== ENCOUNTER 2021-09-02 10:57 | Outpatient (REF) | payer MEDICARE, MEDICAID, SELFPAY ==
--- NOTE | ~2021-09-02 | US_ITS ---
EXAMINATION: US RETROPERITONEAL LIMITED (RENAL ONLY) CLINICAL INFORMATION: Calculus of kidney. COMPARISON: Renal ultrasound 03/07/2021 and 06/19/2015. CT abdomen and pelvis 06/15/2020. TECHNIQUE: Real-time imaging of the kidneys. FINDINGS: RIGHT KIDNEY: 10 x 5.7 x 4.8 cm (SAG x AP x TRV). The kidney is normal in size, contour, and echogenicity. Renal cortical thickness is normal. No focal parenchymal lesions or hydronephrosis. Nonobstructive 0.7 cm calculus in the lower pole. LEFT KIDNEY: 10.8 x 4.7 x 5.1 cm (SAG x AP x TRV). The kidney is normal in size, contour, and echogenicity. Renal cortical thickness is normal. No calculi or focal parenchymal lesions. No hydronephrosis. Multiple sub-5 mm echogenic foci in the cortex could represent stones and/or vascular calcifications. US/US renal BI IMPRESSION: 1. Nonobstructive 0.7 cm calculus in the right kidney. 2. Multiple sub-5 mm echogenic foci in the left kidney, likely stones with vascular calcifications as well. 3. No hydronephrosis.
== END 2021-09-02 10:58 | disposition home or self-care (01) ==
LOC: HO.US 10:57
PROVIDERS: Visit Provider Urology
DX: N20.0 Calculus of kidney (principal)
CPT/HCPCS: 76775

== ENCOUNTER 2021-09-06 08:38 | Outpatient (REF) | payer MEDICARE, MEDICAID, SELFPAY ==
[2021-09-06 10:40] LABS: Iron 78 mcg/dL (30-160); Magnesium 1.3 mg/dL (1.6-2.6); Percent Iron Saturation 30 % (15-50); Total Iron Binding Capacity 258 mcg/dL (228-428); Unsaturated Iron Binding 180 ug/dL
[2021-09-06 10:42] LABS: Ferritin 92 ng/mL (10-250); Vitamin D 25-OH Total 19.8 ng/mL (>30)
[2021-09-06 11:52] LABS: Folate 11.2 ng/mL (> or = 4.0); Vitamin B12 > 2000 pg/mL (200-900)
[2021-09-11 12:52] LABS: Zinc 71 mcg/dL (60-130)
[2021-09-11 17:22] LABS: Vitamin C 0.2 mg/dL (0.3-2.7)
[2021-09-12 19:12] LABS: Nicotinamide <20 ng/mL; Vit B3 - Nicotinic Acid <20 ng/mL; Vitamin B5 (Pantothenic Acid) 48 ng/mL (<275)
[2021-09-14 04:51] LABS: Vitamin B6 77.7 ng/mL (2.1-21.7)
== END 2021-09-06 08:39 | disposition home or self-care (01) ==
LOC: HO.LAB 08:38
PROVIDERS: PCP Internal Medicine; Referring Provider Internal Medicine; Visit Provider Internal Medicine Gastroenterology
DX: K58.0 Irritable bowel syndrome with diarrhea (principal); K29.40 Chronic atrophic gastritis without bleeding; R19.7 Diarrhea, unspecified
CPT/HCPCS: 36415; 82180; 82306; 82607; 82728; 82746; 83540; 83735; 84207; 84591; 84630; 99212

== ENCOUNTER → 2021-09-20 10:33 | Outpatient (BNVA) | payer MEDICARE, MEDICAID, SELFPAY | PROVIDERS: PCP Internal Medicine; Visit Provider Urology | DX: N20.0 Calculus of kidney (principal) | CPT/HCPCS: 99212 ==

== ENCOUNTER → 2021-10-29 12:41 | Outpatient (BNVA) | payer MEDICARE, MEDICAID, SELFPAY | PROVIDERS: PCP Internal Medicine; Referring Provider Internal Medicine; Visit Provider Internal Medicine Cardiovascular Disease | DX: I51.89 Other ill-defined heart diseases (principal); I25.10 Atherosclerotic heart disease of native coronary artery without angina pectoris; I50.30 Unspecified diastolic (congestive) heart failure; I48.0 Paroxysmal atrial fibrillation; Z79.01 Long term (current) use of anticoagulants; Z79.899 Other long term (current) drug therapy | CPT/HCPCS: 36415; 80048; 83735; 85027; 93005; 99212 ==

== ENCOUNTER 2021-10-29 13:25 | Outpatient (REF) | payer MEDICARE, MEDICAID, SELFPAY ==
[2021-10-29 14:46] LABS: Hematocrit 35.6 % (37.0-47.0); Hemoglobin 11.4 g/dl (12.0-16.0); Mean Corpuscular Hemoglobin 30.2 pg (27.0-33.0); Mean Corpuscular Volume 94.2 fL (80.0-98.0); Mean Platelet Volume 11.1 fL (9.4-12.3); Platelet Count 298 X10*3/uL (160-400); Red Blood Count 3.78 X10*6/uL (4.20-5.50); Red Cell Distribution Width 15.5 % (11.0-16.0); White Blood Count 10.2 X10*3/uL (4.8-10.8)
[2021-10-29 15:25] LABS: Anion Gap 14 (12-20); Blood Urea Nitrogen 17 mg/dL (9-16); Calcium 9.2 mg/dL (8.4-10.2); Carbon Dioxide 23 mmol/L (22-29); Chloride 108 mmol/L (96-108); Estimated Glomerular Filt Rate 41; Glucose Random 124 mg/dL (60-115); Magnesium 1.4 mg/dL (1.6-2.6); Potassium 4.9 mmol/L (3.3-5.1); Sodium 140 mmol/L (135-145)
== END 2021-10-29 13:26 | disposition home or self-care (01) ==
LOC: HO.LAB 13:25
PROVIDERS: PCP Internal Medicine; Visit Provider Internal Medicine Cardiovascular Disease
DX: Z13.89 Encounter for screening for other disorder (principal)
CPT/HCPCS: 36415; 80048; 83735; 85027

== ENCOUNTER 2021-11-13 09:17 | Outpatient (REF) | payer MEDICARE, MEDICAID, SELFPAY ==
[2021-11-13 10:19] LABS: Anion Gap 13 (12-20); Blood Urea Nitrogen 25 mg/dL (9-16); Calcium 9.3 mg/dL (8.4-10.2); Carbon Dioxide 26 mmol/L (22-29); Chloride 105 mmol/L (96-108); Estimated Glomerular Filt Rate 41; Glucose Random 136 mg/dL (60-115); Potassium 5.2 mmol/L (3.3-5.1); Sodium 139 mmol/L (135-145)
== END 2021-11-13 09:18 | disposition home or self-care (01) ==
LOC: HO.LAB 09:17
PROVIDERS: PCP Internal Medicine; Visit Provider Internal Medicine Cardiovascular Disease
DX: I48.0 Paroxysmal atrial fibrillation (principal)
CPT/HCPCS: 36415; 80048

== ENCOUNTER → 2022-02-21 11:22 | Outpatient (BNVA) | payer MEDICARE, MEDICAID, SELFPAY | PROVIDERS: PCP Internal Medicine; Visit Provider Internal Medicine Gastroenterology | DX: K29.80 Duodenitis without bleeding (principal); K29.70 Gastritis, unspecified, without bleeding; R19.7 Diarrhea, unspecified | CPT/HCPCS: 99212 ==

== ENCOUNTER 2022-03-17 12:38 | Outpatient (REF) | payer MEDICARE, MEDICAID, SELFPAY ==
--- NOTE | ~2022-03-17 | US_ITS ---
EXAMINATION: US RETROPERITONEAL LIMITED (RENAL ONLY) CLINICAL INFORMATION: Calculus of kidney. COMPARISON: Ultrasound renal 09/02/2021 and 03/07/2021. CT abdomen pelvis 06/15/2020. TECHNIQUE: Real-time imaging of the kidneys. FINDINGS: RIGHT KIDNEY: 9.4 x 5.0 x 5.8 cm (SAG x AP x TRV). The kidney is normal in size, contour, and echogenicity. Renal cortical thickness is normal. No calculi or focal parenchymal lesions. Previously seen right lower pole 7 mm calculus is not seen on the current study. No hydronephrosis. LEFT KIDNEY: 9.2 x 5.1 x 5.0 cm (SAG x AP x TRV). The kidney is normal in size, contour, and echogenicity. Renal cortical thickness is normal. No renal calculi or hydronephrosis. There is a tiny 7 mm lateral renal cyst present, which contains a tiny bit of echogenic material posteriorly, possibly milk of calcium or adjacent vascular interface. Incidental note made of a distended gallbladder containing sludge and stones. US/US renal BI IMPRESSION: Previously seen right lower pole renal calculus is not seen on the current study. Tiny benign left renal cyst. Incidental note made of a distended gallbladder with sludge and stones.
== END 2022-03-17 12:39 | disposition home or self-care (01) ==
LOC: HO.US 12:38
PROVIDERS: PCP Internal Medicine; Visit Provider Urology
DX: N20.0 Calculus of kidney (principal)
CPT/HCPCS: 76775

== ENCOUNTER → 2022-03-25 11:09 | Outpatient (BNVA) | payer MEDICARE, MEDICAID, SELFPAY | PROVIDERS: PCP Internal Medicine; Visit Provider Urology | DX: N20.0 Calculus of kidney (principal); Z79.01 Long term (current) use of anticoagulants | CPT/HCPCS: Q3014 ==

== ENCOUNTER 2022-05-06 12:24 | Outpatient (REF) | payer MEDICARE, MEDICAID, SELFPAY ==
[2022-05-06 14:32] LABS: Anion Gap 15 (12-20); Blood Urea Nitrogen 27 mg/dL (9-16); Calcium 8.8 mg/dL (8.4-10.2); Carbon Dioxide 24 mmol/L (22-29); Chloride 108 mmol/L (96-108); Estimated Glomerular Filt Rate 36; Glucose Random 197 mg/dL (60-115); Potassium 5.4 mmol/L (3.3-5.1); Sodium 142 mmol/L (135-145)
== END 2022-05-06 12:25 | disposition home or self-care (01) ==
LOC: HO.LAB 12:24
PROVIDERS: PCP Internal Medicine; Referring Provider Internal Medicine; Visit Provider Internal Medicine Cardiovascular Disease
DX: I48.0 Paroxysmal atrial fibrillation (principal); I51.89 Other ill-defined heart diseases; I25.10 Atherosclerotic heart disease of native coronary artery without angina pectoris; Z79.899 Other long term (current) drug therapy
CPT/HCPCS: 36415; 80048; 99212

== ENCOUNTER 2022-06-11 11:01 | Outpatient (REF) | payer MEDICARE, MEDICAID, SELFPAY ==
--- NOTE | 2022-06-11 12:38 | ECG_ITS ---
Test Reason : preproc Blood Pressure : / mmHG Vent. Rate : 064 BPM Atrial Rate : 064 BPM P-R Int : 150 ms QRS Dur : 090 ms QT Int : 422 ms P-R-T Axes : 048 -45 039 degrees QTc Int : 435 ms Normal sinus rhythm Left anterior fascicular block Abnormal ECG When compared with ECG of 01-AUG-2020 08:16, No significant change was found Referred By: Salima Aponte Electronically Signed By:Randall Lr
[2022-06-11 12:43] LABS: Anion Gap 11 (12-20); Blood Urea Nitrogen 25 mg/dL (9-16); Calcium 8.8 mg/dL (8.4-10.2); Carbon Dioxide 26 mmol/L (22-29); Chloride 108 mmol/L (96-108); Estimated Glomerular Filt Rate 40; Glucose Random 175 mg/dL (60-115); Potassium 5.2 mmol/L (3.3-5.1); Sodium 140 mmol/L (135-145)
[2022-06-11 13:56] LABS: INTERNATIONAL NORM RATIO 1.6 (0.9-1.1); Prothrombin Time 18.8 SEC (10.0-13.1)
[2022-06-11 14:01] LABS: Hematocrit 35.1 % (37.0-47.0); Hemoglobin 10.9 g/dl (12.0-16.0); Mean Corpuscular HGB Conc 31.1 g/dl (31.0-35.0); Mean Corpuscular Hemoglobin 28.9 pg (27.0-33.0); Mean Corpuscular Volume 93.1 fL (80.0-98.0); Mean Platelet Volume 10.7 fL (9.4-12.3); Platelet Count 261 X10*3/uL (160-400); Red Blood Count 3.77 X10*6/uL (4.20-5.50); Red Cell Distribution Width 14.6 % (11.0-16.0)
[2022-06-11 14:12] LABS: Estimated Average Glucose 148 mg/dL; Hemoglobin A1c % 6.8 %
== END 2022-06-11 11:02 | disposition home or self-care (01) ==
LOC: HO.LAB 11:01
PROVIDERS: Absent Provider Nurse Practitioner Family; PCP Internal Medicine; Visit Provider Internal Medicine Cardiovascular Disease
DX: Z01.818 Encounter for other preprocedural examination (principal); E87.5 Hyperkalemia
CPT/HCPCS: 36415; 80048; 83036; 85027; 85610; 93005

== ENCOUNTER 2022-06-13 15:18 | Outpatient (REF) | payer MEDICARE, MEDICAID, SELFPAY ==
--- NOTE | ~2022-06-13 | XR_ITS ---
EXAMINATION: XR knee LT 4V CLINICAL INFORMATION: Reason for Exam M25.562 - Pain in left knee COMPARISON: None available at the time of this dictation. TECHNIQUE: frontal, lateral, tunnel and patella sunrise views FINDINGS: BONES: No fracture or dislocation is present. JOINTS: Narrowing of joint spaces and developed osteophytes from the edges of articular surfaces suggest degenerative osteoarthritis. SOFT TISSUE: There are heavy vascular calcifications. XR/XR knee LT 4V IMPRESSION: Early advanced tricompartment degenerative osteoarthritis. Heavy vascular calcifications.
== END 2022-06-13 15:19 | disposition home or self-care (01) ==
LOC: HO.HMGCX 15:18
PROVIDERS: PCP Internal Medicine; Visit Provider Physician Assistant Medical
DX: M25.562 Pain in left knee (principal)
CPT/HCPCS: 73564

== ENCOUNTER 2022-08-22 10:44 | Outpatient (REF) | payer MEDICARE, MEDICAID, SELFPAY ==
[2022-08-26 18:29] LABS: Vitamin K1 60 pg/mL (130-1500)
[2022-08-27 00:52] LABS: Zinc 65 mcg/dL (60-130)
[2022-08-27 05:17] LABS: Alpha-Tocopherol 11.7 mg/L (5.7-19.9); Beta-Gamma Tocopherol <1.0 mg/L (<=4.3)
[2022-08-27 11:38] LABS: Vitamin B6 33.7 ng/mL (2.1-21.7)
[2022-08-27 13:34] LABS: Vitamin A 10 mcg/dL (38-98)
[2022-08-27 14:53] LABS: Vitamin B1 6 nmol/L (8-30)
[2022-08-28 17:27] LABS: Vitamin C 1.2 mg/dL (0.3-2.7)
[2022-08-28 23:38] LABS: Nicotinamide <20 ng/mL; Vit B3 - Nicotinic Acid <20 ng/mL
[2022-09-03 11:33] LABS: Vitamin B5 (Pantothenic Acid) 61 ng/mL (<275)
== END 2022-08-22 10:45 | disposition home or self-care (01) ==
LOC: CF 10:44
PROVIDERS: PCP Internal Medicine; Visit Provider Internal Medicine Gastroenterology
DX: K29.40 Chronic atrophic gastritis without bleeding (principal); K86.81 Exocrine pancreatic insufficiency; R19.7 Diarrhea, unspecified; R14.0 Abdominal distension (gaseous); E66.9 Obesity, unspecified; I15.2 Hypertension secondary to endocrine disorders; E11.59 Type 2 diabetes mellitus with other circulatory complications; E11.69 Type 2 diabetes mellitus with other specified complication
CPT/HCPCS: 36415; 80053; 80061; 82180; 82306; 82607; 82728; 82746; 82947; 83036; 83735; 84207; 84425; 84446; 84590; 84591; 84597; 84630; 85025; 99212

== ENCOUNTER 2022-09-10 13:20 | Inpatient (IN) | payer MEDICARE, MEDICAID, SELFPAY ==
--- NOTE | ~2022-09-10 | MR_ITS ---
EXAMINATION: MR ABDOMEN WITHOUT CONTRAST CLINICAL INFORMATION: Irregular distal common bile duct, follow-up. COMPARISON: CT scan of the abdomen and pelvis dated 09/10/2022. TECHNIQUE: MRI of the abdomen before and after the IV administration of 6 mL of Gadavist was obtained using routine sequences. MRCP was also performed with 3-D reconstructed images on a separate workstation. FINDINGS: Inferior chest: Unremarkable. Liver: Unremarkable. Biliary: Mild to moderate intra and nectar hepatic biliary ductal dilatation is seen. The common hepatic duct measures up to 1.7 cm (image 8, series 3). In the common bile duct measures up to 1.3 cm. 2 low signal intraluminal filling defects distally measuring 1.2 cm and 0.6 cm (image 10, series 3). At this level is a focal stricture with luminal narrowing decreased to 0.5 cm from 1.3 cm proximally (image 10, series 3). Moderate bladder distention with mild dependent sludge towards the neck. The cystic duct appears patent. Pancreas: Generalized mild to moderate atrophy. No focal mass. The pancreatic duct is not dilated. No peripancreatic abnormality. Spleen: Unremarkable. Adrenal glands: Unremarkable. Kidneys/proximal ureters: Unremarkable. Bowel: The stomach, visualized small bowel and visualized colon are unremarkable. Vascular: Unremarkable. Lymph Nodes: No lymphadenopathy. Musculoskeletal: Moderate to severe multilevel degenerative changes in the lumbar spine. Mild grade 1 anterolisthesis of L4 over L5. Probable vertebral body hemangioma superiorly in T11. No acute/suspicious abnormality. Soft tissues: Small fat-containing umbilical hernia without associated abnormality. MRCP: See biliary comments detailed above. MR/MR MRCP IMPRESSION: 1. Probable choledocholithiasis with 2 calculi distally in the common bile duct as detailed above. There is a focal stricture in this region as well at the level the pancreatic head is smooth margins, possibly benign. Associated biliary ductal and gallbladder dilatation. Mild sludge in the gallbladder without evidence for acute cholecystitis. GI consultation is recommended. 2. Mild to moderate generalized pancreatic atrophy without overt focal abnormality.
--- NOTE | ~2022-09-10 | CT_ITS ---
EXAMINATION: CT ABDOMEN AND PELVIS WITH CONTRAST CLINICAL INFORMATION: Jaundice, diarrhea, nausea/vomiting. COMPARISON: CT abdomen/pelvis 06/15/2020. TECHNIQUE: Multidetector volumetric images were obtained from the superior aspect of the liver through the pubic symphysis following administration 85 mL of Omnipaque 350 intravenous contrast. Sagittal and coronal reformatted images were obtained on the technologist's workstation. Oral contrast: No This CT examination was performed using dose optimization techniques as appropriate, variously including the following: *Automated exposure control *Adjustment of mA and/or kV according to patient size (this includes techniques or standardized protocols for targeted exams where dose is matched to indication/reason for exam; i.e. extremities or head) *Use of iterative reconstruction technique DLP: 793 mGy-cm FINDINGS: LUNG BASES: No focal consolidation or pleural effusion. Partially imaged extensive coronary artery calcifications as well as aortic and mitral valve calcifications. LIVER, GALLBLADDER, AND BILIARY TREE: The liver is normal in size, shape and attenuation without discrete focal mass. There is moderate to severe intra and extrahepatic biliary ductal dilatation, transitioning into abrupt luminal narrowing at the level of the lower/periduodenal CBD, where there is irregular heterogeneous enhancement with mild surrounding fat stranding. The gallbladder is hydropic with trace pericholecystic free fluid. There is a noncalcified 0.8 cm hyperattenuating observation on the posterior aspect of the gallbladder axial image 41, series 3 that could represent a stone, sludge or a polyp. PANCREAS: Atrophic. No significant peripancreatic fat stranding or free fluid. The main pancreatic duct is nondilated. SPLEEN: Unremarkable. ADRENAL GLANDS: No adrenal mass. KIDNEYS AND URETERS: Combination of nonobstructive bilateral renal calculi and vascular calcifications. Symmetric nephrograms. No hydronephrosis. Mild symmetric perinephric fat stranding. A few too small to characterize cortical hypodensities bilaterally are statistically likely to represent simple cysts, for which no imaging follow-up is recommended. BLADDER: Partially obscured by streak artifacts from a left hip arthroplasty without discrete focal abnormality. GASTROINTESTINAL TRACT: Multiple hyperemic and wall thickened loops of the small bowel, for instance as identified in the left abdomen on coronal image 37 series 7 with associated mild diffuse mesenteric fatty haziness and mesenteric vasculature engorgement. Normal appendix. Background of colonic diverticulosis without significant pericolonic fat stranding. No evidence of bowel obstruction. No pneumoperitoneum. ABDOMINAL WALL: Mild anasarca. Small umbilical hernia containing fat, trace volume of free fluid and some engorged vessels. LYMPH NODES: Periportal and proximal peripancreatic lymphadenopathy. Retroperitoneal lymphadenopathy, for instance a 1.3 cm aortocaval lymph node on axial image 40 series 3. VASCULAR: Advanced atherosclerotic disease. Abdominal aorta is normal in caliber. PELVIC VISCERA: Significant uterine and adnexal vascular calcifications, as well as myometrial calcifications that are likely associated with degenerative fibroids. There is a 1.4 cm water density cyst in the left ovary, stable compared to 06/15/2020, almost certainly benign and for which no imaging follow-up is recommended. OSSEOUS STRUCTURES: Left hip replacement. Advanced thoracolumbar spondylosis. Stable heterogeneity of the bone marrow as well as lytic osseous lesions, for instance at L4 and T11 compared to 06/15/2020. CT/CT abdomen pelvis w IV con IMPRESSION: Moderate to severe intra and extrahepatic biliary ductal dilatation, transitioning into abrupt luminal narrowing at the level of the lower/periduodenal CBD, where there is irregular heterogeneous enhancement with mild surrounding fat stranding. There is associated periportal, peripancreatic and retroperitoneal lymphadenopathy. Constellation of findings are worrisome for a malignant stricture or malignant biliary/periampullary neoplasm. GI oncology consultation and evaluation with MRCP/ERCP is recommended. Gallbladder is hydropic with trace pericholecystic free fluid. Findings are nonspecific and could be related with upstream obstruction in the setting of the lower CBD narrowing, however acute cholecystitis cannot be excluded for which clinical correlation is advised. A 0.8 cm hyperattenuating focus in the posterior gallbladder wall could be related with sludge, stone or polyp. Further evaluation could be obtained with an abdominal ultrasound. Multiple hyperemic and wall thickened loops of small bowel with associated mesenteric fatty haziness and engorgement of the mesenteric vasculature, raising the possibility of an infectious/inflammatory enteritis. No evidence of bowel obstruction. This critical result was discussed with JASPER Padgett at 09/10/2022 7:36 PM and it was ascertained that the content and urgency of the report was understood at the time of direct communication.
--- NOTE | ~2022-09-10 | FL_ITS ---
PROCEDURE: INTRAOPERATIVE FLUOROSCOPY INDICATION: ERCP FLUOROSCOPY: Fluoroscopy Time: 372.7 seconds Dose/air kerma: 142.41 mGy Images saved: 9 FINDINGS: Multiple fluoroscopic images are submitted status post reported ERCP performed by the gastroenterology services. Correlation with operative report. FL/FL guidance in OR IMPRESSION: Status post reported ERCP. Fluoroscopy was provided by radiology for this procedure. Please refer to the full gastroenterology report.
[2022-09-10 13:34] VITALS: BP 176/77; PULSE 75; RESP 18; TEMP 36.8; O2SAT 97; BMI 32.1
--- NOTE | 2022-09-10 13:35 | ED_ITS ---
HPI - Nausea/Vomiting/Diarrhea General Chief complaint: Nausea/Vomiting/Diarrhea Stated complaint: yellow skin, trouble urinating, vomiting Time Seen by Provider: 09/10/22 16:04 Source: patient, family, RN notes reviewed and old records reviewed Mode of arrival: wheelchair History of Present Illness HPI Narrative: 82-year-old female with a past medical history of CHF, CAD, HTN, obesity, diabetes, IBS with diarrhea, atrophic gastritis, chronic cholecystitis and gallbladder dyskinesia, AFib on Xarelto, presenting to the ED complaining of acute on chronic nonbloody diarrhea, worsening nausea and decreased p.o. intake x 2 weeks. Reports jaundice x1 week and 30 lb weight loss over the past year. Patient recently saw outpatient GI on 08/22, they did outpatient labs which showed transaminitis. Also reports low-grade fever. Denies abdominal pain, chills, vomiting, dysuria/hematuria, CP/SOB, new or worsening pedal edema, recent travel, suspicious food intake. Reports chronic dark stools from taking Pepto-Bismol, unchanged MD elicited complaint: nausea and diarrhea Pertinent past history: anorexia Related Data Home Medications Medication Instructions Recorded Confirmed mecobalamin (vitamin B12) 1,000 1,000 mcg PO DAILY 04/05/20 09/10/22 mcg chewable tablet omega-3 fatty acids 1,000 mg 1,000 mg PO DAILY 06/26/20 09/10/22 capsule (Fish Oil Concentrate) cholecalciferol (vitamin D3) 25 25 mcg PO DAILY 02/21/22 09/10/22 mcg (1,000 unit) tablet Lactobacillus rhamnosus GG 10 1 cap PO DAILY PRN Diarrhea 09/10/22 09/10/22 billion cell capsule (Culturelle) latanoprostene bunod 0.024 % eye 1 drp ophthalmic (eye) DAILY 09/10/22 09/10/22 drops (Vyzulta) loperamide 2 mg capsule 2 mg PO Q4H PRN Loose Stool 09/10/22 09/10/22 magnesium 250 mg tablet 250 mg PO DAILY 09/10/22 09/10/22 Previous Rx's Medication Instructions Recorded pen needle, diabetic 31 gauge x #100 ea 05/14/21 1/4 ascorbate calcium (vitamin C) 500 1 g PO DAILY #90 tabs 09/17/21 mg tablet amlodipine 5 mg tablet 5 mg PO DAILY #90 tabs 10/31/21 isosorbide mononitrate 30 mg 30 mg PO QAM #90 tabs 11/12/21 tablet,extended release 24 hr blood sugar diagnostic (OneTouch #100 ea 02/17/22 Ultra Test strips) atenolol 100 mg tablet 100 mg PO DAILY #90 tabs 02/20/22 rivaroxaban 15 mg tablet 15 mg PO QPM 90 days #90 tabs 03/12/22 pyridoxine (vitamin B6) 50 mg 50 mg PO DAILY 90 days #90 tabs 03/25/22 tablet pantoprazole 40 mg tablet,delayed 40 mg PO BID #180 tabs 06/04/22 release lorazepam 0.5 mg tablet 0.5 mg PO BID PRN Anxiety #60 tabs 06/13/22 insulin glargine 100 unit/mL (3 15 unit (0.15 mL) subcut BEDTIME 07/12/22 mL) subcutaneous pen 30 days #5 mL metformin 850 mg tablet 850 mg PO BID #120 tabs 07/12/22 eluxadoline 75 mg tablet (Viberzi) 75 mg PO BID 30 days #60 tabs 07/25/22 oxycodone 5 mg tablet 5 mg PO BID PRN pain #20 tabs 08/20/22 Allergies Allergy/AdvReac Type Severity Reaction Status Date / Time No Known Allergies Allergy Verified 09/10/22 13:34 [No Known Allergies*] Review of Systems Review of Systems: Constitutional: + Weight loss, + Fever, No Chills, No Fatigue, No Malaise ENT/Mouth: No Hearing loss, No Ear Pain, No Nasal Congestion, No sore throat, No Rhinorrhea, No Swallowing Difficulty Eyes: No Eye Pain, No Swelling, No Redness,o Vision Changes Cardiovascular: No Chest Pain, No SOB, No Edema, No Palpitations Respiratory: No Cough, No Sputum, No Wheezing, No Smoke Exposure, No Dyspnea Gastrointestinal: + Nausea, No Vomiting, No Diarrhea, No Constipation, No Abdominal pain, No Hematochezia, No Melena Genitourinary: No irregular bleeding, No Dysuria, No Hematuria, No Flank Pain Musculoskeletal: No joint pain, No Myalgias, No Joint Swelling Skin: No Skin Lesions, No rash Neuro: No Weakness, No Numbness, No Headache Yes all other systems are reviewed and are negative Constitutional: Constitutional: Reports as per [facility] Past Medical History Attestation statement: The following information was validated with the patient. Source: old records reviewed Medical History Biliary dyskinesia CAD (coronary artery disease) CKD (chronic kidney disease) stage 3, GFR 30-59 ml/min Diabetes mellitus with coincident hypertension GERD (gastroesophageal reflux disease) High cholesterol Hypertension Hypertension Irritable bowel syndrome with diarrhea Obesity Obesity, diabetes, and hypertension syndrome Paroxysmal atrial fibrillation Weight loss Surgical History H/O bilateral hip replacements History of cardiac cath History of esophagogastroduodenoscopy (EGD) Hx of colonoscopy Family History Family History Father No problems noted. Mother Diabetes Sister Diabetes Daughter Anemia Diabetes Social History Social History Household Members: Family Housing: House Do you presently have visiting nurse or other home services: No Alcohol intake: never Patient Tobacco Use Status: Never used Tobacco Smoked in Last 30 Days: No e-Cigarette/Vaping Use: Never Used Second Hand Smoke Exposure: No Use of substances other than those prescribed or required for medical reasons: No Advance Directives: Yes Advance Directives on File: Yes Advance Directives Date on File: 08/01/20 service: No Current occupational status: retired Cognitive needs: No Hearing needs: No Vision needs: Yes Physical Exam Vital Signs: Vital Signs: Last Vital Signs Temp 98.6 F 09/10/22 23:33 Pulse 69 09/10/22 23:33 Resp 17 09/10/22 23:33 BP 144/68 H 09/10/22 23:33 Pulse Ox 97 09/10/22 23:33 O2 Del Method Room Air 09/10/22 23:33 BMI result Body Mass Index 32.1 Const: Other: Jaundice, scleral icterus General: cooperative and no acute distress Orientation/consciousness: patient oriented x3 Limitations: no limitations HEENT: Head: Yes normal to inspection and Yes atraumatic Ears: hearing grossly normal bilaterally General nose exam: Normal external nose present Face and sinus: Yes normal facial exam Eyes: General: appearance normal, both eyes and all related structures EOM: EOMs intact bilaterally Neck: Neck: Yes normal visual inspection and Yes no meningeal signs Resp: Effort & Inspection: normal respiratory effort and no respiratory distress Auscultation: clear to auscultation bilaterally and no wheezes Cardio: Rate: regular rate Heart sounds: S1 normal heart sound present and S2 normal heart sound present GI: Inspection: Yes normal to inspection Palpation (GI): Soft to palpation, nontender, no guarding and not rigid Skin: Rashes: no rashes Wounds: no wounds Neuro: General: patient oriented x3, tone normal and no meningeal signs Extrem: Other: Chronic bilateral LE nonpitting edema > LLE (baseline per patient from prior hip replacement) Course Course Course Narrative: RME - 82 yo female iwth history of DM, HTN, CAD, paroxysmal afib on Xarelto, CKD, IBS w/ diarrhea who is currently being seen by Dr. Levi in GI here - found to have chronic cholecystitis, gallbladder dyskinsia, weight loss who pre sents to the ER for evaluation of ongoing nausea, intermittent diarrhea, poor PO intake for the last 2 weeks. Had labs done on 08/22 but was never called with the results. (showed elevated LFTs). She is jaundice in triage. Plan: repeat labs, needs abd imaging, CT with con vs U/S depending on renal f unction -mild leukocytosis of 14.4. H&H at patient's baseline, + significantly elevated T and D bilirubin, AST/ALT, and alk-phos. Lipase WNL CT abdomen pelvis w IV con IMPRESSION: Moderate to severe intra and extrahepatic biliary ductal dilatation, transitioning into abrupt luminal narrowing at the level of the lower/periduodenal CBD, where there is irregular heterogeneous enhancement with mild surrounding fat stranding. There is associated periportal, peripancreatic and retroperitoneal lymphadenopathy. Constellation of findings are worrisome for a malignant stricture or malignant biliary/periampullary neoplasm. GI oncology consultation and evaluation with MRCP/ERCP is recommended. ? Gallbladder is hydropic with trace pericholecystic free fluid. Findings are nonspecific and could be related with upstream obstruction in the setting of the lower CBD narrowing, however acute cholecystitis cannot be excluded for which clinical correlation is advised. ? A 0.8 cm hyperattenuating focus in the posterior gallbladder wall could be related with sludge, stone or polyp. Further evaluation could be obtained with an abdominal ultrasound. ? Multiple hyperemic and wall thickened loops of small bowel with associated mesenteric fatty haziness and engorgement of the mesenteric vasculature, raising the possibility of an infectious/inflammatory enteritis. No evidence of bowel obstruction. ? This critical result was discussed with? JASPER Padgett at 09/10/2022 7:36 PM and it was ascertained that the content and urgency of the report was understood at the time of direct communication. >193-- GI, Dr. Cipriano owen, recommended MRCP tonight, likely ERCP in the morning, NPO at midnight and admission. Case discussed with hospitalist Dr. Ryan Medications Administered Generic Name Dose Route Start Last Admin Trade Name Freq PRN Reason Stop Dose Admin Insulin Glargine 15 unit 09/10/22 22:45 09/10/22 23:23 Insulin Glargine,Hum.Rec.Anlog 100 Unit/Ml 10 Ml Vial SUBCUT 15 unit BEDTIME DIONI Administration Sodium Chloride 3 ml 09/11/22 00:00 09/11/22 01:01 0.9 % Sodium Chloride Flush 3 Ml Syringe IVFLUSH Not Given QSHIFT DIONI Discontinued Medications Generic Name Dose Route Start Last Admin Trade Name Freq PRN Reason Stop Dose Admin Sodium Chloride 1,000 mls @ 999 mls/hr 09/10/22 16:30 09/10/22 18:38 Ns IV 09/10/22 17:30 Infused .Q1H1M DIONI Infusion Iohexol 85 ml 09/10/22 17:24 09/10/22 17:25 Iohexol 350 Mg/Ml 100 Ml Infus..Btl IV 09/10/22 17:25 85 ml ONCE ONE Administration Ketorolac Tromethamine 15 mg 09/10/22 16:56 09/10/22 17:49 Ketorolac Tromethamine 15 Mg/Ml Vial IVPUSH 09/10/22 16:57 15 mg ONCE ONE Administration Medical Decision Making Medical Decision Making MDM Narrative: 82-year-old female with a past medical history of CHF, CAD, HTN, obesity, diabetes, IBS with diarrhea, atrophic gastritis, chronic cholecystitis and gallbladder dyskinesia, AFib on Xarelto, presenting to the ED complaining of acute on chronic nonbloody diarrhea, worsening nausea and decreased p.o. intake x 2 weeks. Reports jaundice x1 week and 30 lb weight loss over the past year. On exam vital signs stable, NAD, nontoxic appearing, abdomen soft/nontender, jaundice with scleral icterus. Concern for pancreatic mass/malignancy vs obstructing stone/pathology vs cholangitis vs cholecystitis/lithiasis or choledocholithiasis. Low suspicion for severe sepsis at this time Plan: Labs including hepatitis panel and acetaminophen, UA, CT AP, admission Please refer to course for remaining clinical decision making, interpretation of labs/imaging results, and discussions with consultants and/or family members. Differential Diagnosis Differential Diagnoses: The differential diagnosis associated with the presentation includes As above Admission/Observation Consideration of admission/observation: Escalation of care including admission/observation considered Consult Healthcare Provider Management of the patient was discussed with: [employer]er Lab Data MDM Lab Attestation statement: I reviewed the patient's lab results. 09/10/22 13:53 09/10/22 Unknown Labs: Lab Results 09/10/22 09/10/22 09/10/22 Range/Units 13:53 13:53 19:04 WBC 14.4 H (4.8-10.8) X10*3/uL RBC 3.56 L (4.20-5.50) X10*6/uL Hgb 10.5 L (12.0-16.0) g/dl Hct 30.8 L (37.0-47.0) % MCV 86.5 (80.0-98.0) fL MCH 29.5 (27.0-33.0) pg MCHC 34.1 (31.0-35.0) g/dl RDW 18.7 H (11.0-16.0) % Plt Count 355 (160-400) X10*3/uL MPV 11.5 (9.4-12.3) fL Immature Gran % (Auto) 1.3 H (0.0-0.4) % Neut % (Auto) 86.5 H (45-73) % Lymph % (Auto) 5.0 L (20-40) % [place] % (Auto) 7.0 (2-11) % Eos % (Auto) 0.0 (0-4) % Baso % (Auto) 0.2 (0-2) % Lymph # (Auto) 0.7 L (1.2-4.9) X10*3/uL [place] # (Auto) 1.0 (0.1-1.2) X10*3/uL Eos # (Auto) 0.0 (0.0-0.4) X10*3/uL Baso # (Auto) 0.0 (0.0-0.2) X10*3/uL Abs Immat Gran (auto) 0.19 H (0.00-0.03) X10*3/uL Absolute Neuts (auto) 12.5 H (2.0-8.3) x10*3/uL Absolute Nucleated RBC 0.000 (0.0-0.012) X10*3/uL Nucleated RBC % (auto) 0.0 (0.0-0.2) /100WBC PT 26.8 H (11.1-13.3) SEC INR 2.2 H (0.9-1.1) APTT 36.1 (26.0-36.4) SEC Urine Color Dark Yellow Urine Appearance Clear Urine pH 5.5 (5.0-9.0) Ur Specific [place] >= 1.030 H (1.005-1.025) Urine Protein Trace (Neg-Trace) mg/dL Urine Glucose (UA) Negative (Negative) mg/dL Urine Ketones Negative (Negative) mg/dL Urine Blood Negative (Negative) Urine Nitrite Negative (Negative) Ur Leukocyte Esterase Negative (Negative) Radiology Impression Discussion of test interpretation with radiology: I have reviewed the radiologist's reading. Independent Historian Clinical information obtained from an independent historian. History obtained from or confirmed by: Other (sister) External Record Review External record reviewed: Inpatient record, Office record, Outpatient record, Prior outpatient labs, Prior outpatient radiology, Primary care record and Outside ED record Tests considered The following testing was considered but not selected: As above Prescription Management I considered prescription management with: Pain Medication and Antibiotic Chronic Conditions Patient?s care impacted by: Diabetes Critical Care Time Critical Care Time Critical Care Time: Yes Total Critical Care Time: 40 Attestation: I have personally provided critical care time exclusive of time spent on separately billable procedures. Time includes review of lab data, radiology results, discussion with consultants, and monitoring for potential decompensation. Intervention performed as documented. Discharge Plan Discharge Clinical Impression: Dilated intrahepatic bile duct, Painless jaundice, Transaminitis Patient Disposition: Admitted As Inpatient
[2022-09-10 14:34] LABS: INTERNATIONAL NORM RATIO 2.2 (0.9-1.1); Prothrombin Time 26.8 SEC (11.1-13.3)
[2022-09-10 14:37] LABS: Partial Thromboplastin Time 36.1 SEC (26.0-36.4)
[2022-09-10 14:53] LABS: MANUAL DIFF FLAG NO
[2022-09-10 15:01] LABS: Basophils Percent Auto 0.2 % (0-2); Hematocrit 30.8 % (37.0-47.0); Hemoglobin 10.5 g/dl (12.0-16.0); Imm Gran Abs Auto 0.19 X10*3/uL (0.00-0.03); Imm Gran Pct Auto 1.3 % (0.0-0.4); Lymphocytes Absolute Auto 0.7 X10*3/uL (1.2-4.9); Mean Corpuscular HGB Conc 34.1 g/dl (31.0-35.0); Mean Corpuscular Hemoglobin 29.5 pg (27.0-33.0); Mean Corpuscular Volume 86.5 fL (80.0-98.0); Mean Platelet Volume 11.5 fL (9.4-12.3); Neutrophils Absolute Auto 12.5 x10*3/uL (2.0-8.3); Neutrophils Percent Auto 86.5 % (45-73); Platelet Count 355 X10*3/uL (160-400); Red Blood Count 3.56 X10*6/uL (4.20-5.50); Red Cell Distribution Width 18.7 % (11.0-16.0); White Blood Count 14.4 X10*3/uL (4.8-10.8)
[2022-09-10 15:35] LABS: Alanine Aminotransferase 73 U/L (0-31); Alkaline Phosphatase 741 U/L (39-117); Anion Gap 12 (12-20); Aspartate Amino Transferase 125 U/L (5-31); Bilirubin Direct 7.5 mg/dL (0.0-0.5); Bilirubin Total 9.6 mg/dL (0.0-1.0); Blood Urea Nitrogen 19 mg/dL (9-16); Carbon Dioxide 22 mmol/L (22-29); Chloride 107 mmol/L (96-108); Creatinine Clr Calc Pharmacy 38.6; Estimated Glomerular Filt Rate 48; Glucose Random 257 mg/dL (60-115); Lipase < 4 U/L (8-78); Magnesium 1.6 mg/dL (1.6-2.6); Potassium 5.1 mmol/L (3.3-5.1); Sodium 136 mmol/L (135-145); Total Protein 5.9 g/dL (6.5-8.0)
[2022-09-10 15:57] VITALS: BP 176/57; PULSE 70; RESP 18; TEMP 37.6; O2SAT 98
[2022-09-10 16:00] VITALS: BP 152/60; PULSE 70; RESP 16; O2SAT 97
[2022-09-10] MEDS: 0.9 % Sodium Chloride 1,000 ML 999 ML IV (16:41)
--- NOTE | 2022-09-10 17:22 | PHA.MEDREC ---
Pharmacy Consult ? Medication Reconciliation Pharmacy has completed the medication reconciliation. Patient has update list of medication,. Reports hasn't take OTC medication in 2 week due to not feeling well. Velia Vasquez, PharmD
[2022-09-10] MEDS: iohexoL 350 MG/ML 100 ML INFUS..BTL 85 ML IV (17:25)
[2022-09-10] MEDS: Ketorolac Tromethamine 15 MG/ML VIAL IVPUSH (17:49)
[2022-09-10 19:02] VITALS: BP 136/55; PULSE 77; RESP 18; TEMP 37.2; O2SAT 95
[2022-09-10 19:14] LABS: Appearance Urine Clear; Color Urine Dark Yellow; Glucose Urine UA Negative (Negative); Leukocyte Esterase Urine Negative (Negative); Nitrite Urine Negative (Negative); PH 5.5 (5.0-9.0); Specific Gravity - Urine >= 1.030 (1.005-1.025); Urine Blood Negative (Negative); Urine Ketones Negative (Negative); Urine Protein Trace mg/dL (Neg-Trace)
--- NOTE | 2022-09-10 21:40 | P.HPHOSP_ITS ---
History of Present Illness Date of Service: 09/10/22 Chief Complaint: Nausea, poor oral intake, This is an 82 year old female with past medical history of CAD, CKD, GERD, diabetes, HLD, HTN, IBS for 20 years, paroxysmal AFib, history of duodenitis, comes into the hospital with complaints of nausea, vomiting,, poor oral intake, decreased urine output, change in color of urine, noisy stomache, diarrhea, for the past 1 week. Patient reports that she has also experienced more than 30 lb weight loss over the last year. She denies any abdominal pain or discomfort, reports no fever or chills, no chest pain, no dysuria or urgency. No lower extremity edema. She states that she follows up with Gastroenterology, had a colonoscopy about 4 years ago with no significant findings. All other review of system negative On arrival to the ED patient hemodynamically stable with no significant abnormal vitals Labs are significant for WBC count of 14.4, hemoglobin of 10.5, hematocrit 30.8, INR of 2.2, BUN of 19, creatinine of 1.08, bilirubin of 9.6 which increased from 2.7 on 08/22, direct bili of 7.5, AST of 125, ALT of 73, which is slightly lower than 7 7, alk-phos of 741, lipase negative, albumin of 3.0, UA negative Abdominal pelvic CT shows multiple abnormalities including moderate to severe intra and extrahepatic biliary ductal dilatation, transitioning into abrupt luminal narrowing at the level of the low. Duodenal CBD this is concerning for malignant stricture or malignant biliary cl[place] ampullary neoplasm Patient will be admitted for further management Review of Systems Review of Systems: Yes all other systems are reviewed and are negative [facility] Medical History Biliary dyskinesia CAD (coronary artery disease) CKD (chronic kidney disease) stage 3, GFR 30-59 ml/min Diabetes mellitus with coincident hypertension GERD (gastroesophageal reflux disease) High cholesterol Hypertension Hypertension Irritable bowel syndrome with diarrhea Obesity Obesity, diabetes, and hypertension syndrome Paroxysmal atrial fibrillation Weight loss Family History Father No problems noted. Mother Diabetes Sister Diabetes Daughter Anemia Diabetes Surgical History H/O bilateral hip replacements History of cardiac cath History of esophagogastroduodenoscopy (EGD) Hx of colonoscopy Social History Household Members: Family Housing: House Do you presently have visiting nurse or other home services: No Alcohol intake: never Patient Tobacco Use Status: Never used Tobacco Smoked in Last 30 Days: No e-Cigarette/Vaping Use: Never Used Second Hand Smoke Exposure: No Use of substances other than those prescribed or required for medical reasons: No Advance Directives: Yes Advance Directives on File: Yes Advance Directives Date on File: 08/01/20 service: No Current occupational status: retired Cognitive needs: No Hearing needs: No Vision needs: Yes Meds Allergies Allergy/AdvReac Type Severity Reaction Status Date / Time No Known Allergies Allergy Verified 09/10/22 13:34 [No Known Allergies*] Home Medications Medication Instructions Recorded Confirmed Last Taken Type mecobalamin (vitamin B12) 1,000 1,000 mcg PO DAILY 04/05/20 09/10/22 2 Weeks Ago History mcg chewable tablet ~08/27/22 omega-3 fatty acids 1,000 mg 1,000 mg PO DAILY 06/26/20 09/10/22 2 Weeks Ago History capsule (Fish Oil Concentrate) ~08/27/22 cholecalciferol (vitamin D3) 25 25 mcg PO DAILY 02/21/22 09/10/22 2 Weeks Ago History mcg (1,000 unit) tablet ~08/27/22 Lactobacillus rhamnosus GG 10 1 cap PO DAILY PRN Diarrhea 09/10/22 09/10/22 Unknown History billion cell capsule (Culturelle) latanoprostene bunod 0.024 % eye 1 drp ophthalmic (eye) DAILY 09/10/22 09/10/22 09/10/22 History drops (Vyzulta) loperamide 2 mg capsule 2 mg PO Q4H PRN Loose Stool 09/10/22 09/10/22 Unknown History magnesium 250 mg tablet 250 mg PO DAILY 09/10/22 09/10/22 2 Weeks Ago History ~08/27/22 Physical Exam Vital Signs and Narrative: Vital Signs: Last Vital Signs Temp 99.0 F 09/10/22 19:02 Pulse 77 09/10/22 19:02 Resp 18 09/10/22 19:02 BP 136/55 L 09/10/22 19:02 Pulse Ox 95 09/10/22 19:02 O2 Del Method Room Air 09/10/22 19:02 BMI result Body Mass Index 32.1 Const: General: cooperative and no acute distress Orientation/consciousness: patient oriented x3 Eyes: General: appearance normal, both eyes and all related structures Resp: Effort & Inspection: normal respiratory effort Auscultation: clear to auscultation bilaterally Cardio: Rate: regular rate Rhythm: regular rhythm GI: Other: Abdomen is soft, nontender, no rebound or guarding Palpation (GI): Soft to palpation Auscultation: normal bowel sounds Skin: General skin exam: no rashes or lesions noted Neuro: General: patient oriented x3 Cognition (Neuro): normal cognition Extrem: General: Yes normal to inspection and Yes no pedal edema Results Labs 09/10/22 13:53 09/10/22 Unknown Labs: Laboratory Results - last 24 hr 09/10/22 09/10/22 09/10/22 13:53 13:53 19:04 MCV 86.5 MCH 29.5 MCHC 34.1 RDW 18.7 H Plt Count 355 MPV 11.5 Immature Gran % (Auto) 1.3 H Neut % (Auto) 86.5 H Lymph % (Auto) 5.0 L [place] % (Auto) 7.0 Eos % (Auto) 0.0 Baso % (Auto) 0.2 Lymph # (Auto) 0.7 L [place] # (Auto) 1.0 Eos # (Auto) 0.0 Baso # (Auto) 0.0 Abs Immat Gran (auto) 0.19 H Absolute Neuts (auto) 12.5 H Absolute Nucleated RBC 0.000 Nucleated RBC % (auto) 0.0 PT 26.8 H INR 2.2 H APTT 36.1 Anion Gap Estim Creat Clear Calc Estimated GFR Random Glucose Calcium Magnesium Total Bilirubin Direct Bilirubin AST ALT Alkaline Phosphatase Total Protein Albumin Lipase Urine Color Dark Yellow Urine Appearance Clear Urine pH 5.5 Ur Specific [place] >= 1.030 H Urine Protein Trace Urine Glucose (UA) Negative Urine Ketones Negative Urine Blood Negative Urine Nitrite Negative Ur Leukocyte Esterase Negative 09/10/22 Unknown MCV MCH MCHC RDW Plt Count MPV Immature Gran % (Auto) Neut % (Auto) Lymph % (Auto) [place] % (Auto) Eos % (Auto) Baso % (Auto) Lymph # (Auto) [place] # (Auto) Eos # (Auto) Baso # (Auto) Abs Immat Gran (auto) Absolute Neuts (auto) Absolute Nucleated RBC Nucleated RBC % (auto) PT INR APTT Anion Gap 12 Estim Creat Clear Calc 38.6 Estimated GFR 48 Random Glucose 257 H Calcium 9.0 Magnesium 1.6 Total Bilirubin 9.6 H Direct Bilirubin 7.5 H AST 125 H ALT 73 H Alkaline Phosphatase 741 H Total Protein 5.9 L Albumin 3.0 L Lipase < 4 L Urine Color Urine Appearance Urine pH Ur Specific [place] Urine Protein Urine Glucose (UA) Urine Ketones Urine Blood Urine Nitrite Ur Leukocyte Esterase Imaging Radiologist's Impressions: Impressions Abdomen/Pelvis CT 09/10/22 17:32 IMPRESSION: Moderate to severe intra and extrahepatic biliary ductal dilatation, transitioning into abrupt luminal narrowing at the level of the lower/periduodenal CBD, where there is irregular heterogeneous enhancement with mild surrounding fat stranding. There is associated periportal, peripancreatic and retroperitoneal lymphadenopathy. Constellation of findings are worrisome for a malignant stricture or malignant biliary/periampullary neoplasm. GI oncology consultation and evaluation with MRCP/ERCP is recommended. Gallbladder is hydropic with trace pericholecystic free fluid. Findings are nonspecific and could be related with upstream obstruction in the setting of the lower CBD narrowing, however acute cholecystitis cannot be excluded for which clinical correlation is advised. A 0.8 cm hyperattenuating focus in the posterior gallbladder wall could be related with sludge, stone or polyp. Further evaluation could be obtained with an abdominal ultrasound. Multiple hyperemic and wall thickened loops of small bowel with associated mesenteric fatty haziness and engorgement of the mesenteric vasculature, raising the possibility of an infectious/inflammatory enteritis. No evidence of bowel obstruction. This critical result was discussed with JASPER Padgett at 09/10/2022 7:36 PM and it was ascertained that the content and urgency of the report was understood at the time of direct communication. Assessment and Plan (1) Dilated intrahepatic bile duct: Status: Acute (2) Painless jaundice: Status: Acute (3) Transaminitis: Status: Acute (4) Diarrhea: Qualifiers: Diarrhea type: unspecified type Qualified Code(s): R19.7 - Diarrhea, unspecified Status: Acute (5) Malignancy: Status: Acute Plan 82-year-old female with mentioned past medical history above who presents the hospital with various acute complaints including poor oral intake, yeah, nausea vomiting, and jaundice found to have significant abnormality # dilated intrahepatic bile duct, with structure the seen in CT abdomen concerning for malignancy - has elevated LFTs - with more than 30 lb weight loss within the last 6 months - history of IBS - MRCP ordered - likely ERCP in the morning, GI consult, patient will be made NPO after midnight # transaminitis - likely secondary to above with concern for malignant stricture/malignant biliary periampullary neoplasm - liver panel daily - GI consulted # diarrhea - secondary to above - will rule out infectious etiology, C diff and GI panel order # persistent AFib - continue anticoagulation, continue rate control meds # diabetes - hold oral antihyperglycemics - will add low-dose sliding scale insulin - diabetic diet - continue home insulin # hypertension - stable - continue home antihypertensives DVT prophylaxis: Eliquis Given patient's need for further workup patient require minimum 2 nights inpatient hospital stay for further management and monitoring Time Spent With Patient Time: Total time managing care of this patient today ____ minutes. Quality Stroke Does the patient have a stroke diagnosis?: No VTE Prior VTE?: No VTE Risk Level:: Medical - moderate - high VTE Device Contraindication: Treatment Not Indicated VTE Drug Contraindication: N/A - Med Ordered
[2022-09-10] MEDS: Insulin Glargine,Hum.rec.anlog 100 UNIT/ML 10 ML VIAL 15 UNIT SUBCUT (23:23)
[2022-09-10 23:28] LABS: Glucose, Whole Blood 150 mg/dL (60-115)
[2022-09-10 23:33] VITALS: BP 144/68; PULSE 69; RESP 17; TEMP 37; O2SAT 97
[2022-09-11] VITALS (8 sets, daily range): BP systolic 135–196; BP diastolic 61–94; PULSE 66–83; RESP 17–18; TEMP 36.1–36.7; O2SAT 95–99; BMI 32.1
[2022-09-11 04:46] LABS: MANUAL DIFF FLAG NO
[2022-09-11 04:49] LABS: Basophils Percent Auto 0.2 % (0-2); Eosinophils Absolute Auto 0.1 X10*3/uL (0.0-0.4); Eosinophils Percent Auto 1.2 % (0-4); Hematocrit 27.4 % (37.0-47.0); Hemoglobin 9.2 g/dl (12.0-16.0); Imm Gran Abs Auto 0.09 X10*3/uL (0.00-0.03); Imm Gran Pct Auto 0.7 % (0.0-0.4); Lymphocytes Absolute Auto 1.5 X10*3/uL (1.2-4.9); Lymphocytes Percent Auto 12.5 % (20-40); Mean Corpuscular HGB Conc 33.6 g/dl (31.0-35.0); Mean Corpuscular Hemoglobin 28.9 pg (27.0-33.0); Mean Corpuscular Volume 86.2 fL (80.0-98.0); Mean Platelet Volume 11.4 fL (9.4-12.3); Monocytes Absolute Auto 1.2 X10*3/uL (0.1-1.2); Monocytes Percent Auto 10.1 % (2-11); Neutrophils Absolute Auto 9.1 x10*3/uL (2.0-8.3); Neutrophils Percent Auto 75.3 % (45-73); Platelet Count 307 X10*3/uL (160-400); Red Blood Count 3.18 X10*6/uL (4.20-5.50); Red Cell Distribution Width 18.7 % (11.0-16.0); White Blood Count 12.1 X10*3/uL (4.8-10.8)
[2022-09-11 05:04] LABS: Anion Gap 14 (12-20); Blood Urea Nitrogen 17 mg/dL (9-16); Calcium 8.4 mg/dL (8.4-10.2); Carbon Dioxide 20 mmol/L (22-29); Chloride 107 mmol/L (96-108); Creatinine Clr Calc Pharmacy 46.2; Estimated Glomerular Filt Rate 60; Glucose Random 118 mg/dL (60-115); Potassium 4.5 mmol/L (3.3-5.1); Sodium 136 mmol/L (135-145)
[2022-09-11] MEDS: Omeprazole 20 MG CAPSULE.DR PO ×2 (05:39→17:41)
[2022-09-11] MEDS: LORazepam 0.5 MG TABLET PO (05:43)
--- NOTE | 2022-09-11 06:04 | PC.NURSE ---
pt oob with standby assist to the bathroom, medicated with 0.5mg of ativan po
[2022-09-11 07:30] LABS: Glucose, Whole Blood 89 mg/dL (60-115)
[2022-09-11 08:05] LABS: Alanine Aminotransferase 61 U/L (0-31); Albumin Level 2.5 g/dL (3.5-5.0); Alkaline Phosphatase 600 U/L (39-117); Aspartate Amino Transferase 95 U/L (5-31); Bilirubin Direct 6.9 mg/dL (0.0-0.5); Lipase < 4 U/L (8-78)
--- NOTE | 2022-09-11 08:10 | P.CNHO_ITS ---
Subjective - Subjective Chief complaint: Consult for: Biliary obstruction. Patient: new to practice Consult date: 09/11/22 Requesting Physician: Selvin Primary Care Provider: Unknown Physician Medical Summary: DIAGNOSIS: Biliary obstruction. HPI - Consult Narrative Reason for consult: Consult for: Biliary obstruction, ? Malignancy. Narrative: Shirlene Chowdary is a 82 year old lady, who presented to the hospital with abdominal pain, nausea, vomiting, poor oral intake, decreased urine output, change in color of urine, noisy stomach, and diarrhea, for the past week. Patient reports that she has also experienced more than 30 lb weight loss over the last year. She denies any abdominal pain or discomfort, reports no fever or chills, no chest pain, no dysuria or urgency. No lower extremity edema. She states that she follows up with Gastroenterology. She actually had LFTs checked on 08/22: 2.7/378/199/133. She had a colonoscopy about 4 years ago with no significant findings. On arrival to the ED she was hemodynamically stable with no abnormal vitals. Labs were significant for: WBC count of 14.4, hemoglobin of 10.5, hematocrit 30.8, INR of 2.2, BUN of 19, creatinine of 1.08. LFTs: bilirubin of 9.6 which increased from 2.7 on 08/22, direct bili of 7.5, AST of 125, ALT of 73, alk-phos of 741. Lipase negative, Albumin of 3.0. UA negative Abdominal pelvic CT shows: Moderate to severe intra and extrahepatic biliary ductal dilatation, transitioning into abrupt luminal narrowing at the level of the low. Duodenal CBD this is concerning for malignant stricture or malignant biliary clinton ampullary neoplasm. Past medical history of: CAD, CKD, GERD, diabetes, HLD, HTN, IBS for 20 years, Paroxysmal AFib, History of duodenitis. FAMILY HISTORY: Several family members including Mom have diabetes. No known cancer in the family. 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 She is . She has 2 daughters. She denies smoking. Denies alcohol. ROS: Lately she has been very tired. She has had fevers and chills over the past week or so. She did not have an appetite. She lost weight. She lost 30 lb over the past year. Denies headache no dizziness. No chest pain or trouble breathing. She has had abdominal pain and nausea. She felt crappy. She did not feel like eating. She has IBS so has diarrhea ultimate and leave accompanied by constipation. She has been noted to have jaundice over the past week. Urine color has been dark. The she has joint pains. She has rheumatoid arthritis. She denies any skin rashes or pruritus. Review of Systems - Constitutional Reports system reviewed and no additional complaints, except as documented, Reports anorexia, Reports fatigue, Reports lack of energy, Reports malaise, Reports poor appetite, Reports weight loss - Eyes Reports system reviewed and no additional complaints, except as documented - ENT Reports system reviewed and no additional complaints, except as documented - Cardiovascular Reports system reviewed and no additional complaints, except as documented - Respiratory Reports no additional respiratory complaints - Gastrointestinal Reports system reviewed and no additional complaints, except as documented - Genitourinary Reports no additional female genitourinary complaints - Musculoskeletal Reports system reviewed and no additional complaints, except as documented - Integumentary/Breasts Skin/Breast: Reports no additional skin complaints - Neurologic Reports system reviewed and no additional complaints, except as documented - Psychiatric Reports system reviewed and no additional complaints, except as documented - Endocrine Reports no additional endocrine complaints - Hematologic/Lymphatic Reports system reviewed and no additional complaints, except as documented - Allergic/Immunologic Reports system reviewed and no additional complaints, except as documented Oncology Screenings - ECOG Performance Status ECOG Performance Status: 1 [facility] Medical History: Medical History (Last Reviewed 09/10/22 @ 22:40 by Aneudy Ryan MD) Biliary dyskinesia CAD (coronary artery disease) CKD (chronic kidney disease) stage 3, GFR 30-59 ml/min Diabetes mellitus with coincident hypertension GERD (gastroesophageal reflux disease) High cholesterol Hypertension Hypertension Irritable bowel syndrome with diarrhea Obesity Obesity, diabetes, and hypertension syndrome Paroxysmal atrial fibrillation Weight loss Functional capacity: uses cane/walker Patient : No Family History: Family History (Last Reviewed 09/10/22 @ 22:40 by Aneudy Ryan MD) Father No problems noted. Mother Diabetes Sister Diabetes Daughter Anemia Diabetes Surgical History: Surgical History (Last Updated 09/12/22 @ 09:00 by Gilda Ruiz) History of cardiac cath History of esophagogastroduodenoscopy (EGD) History of hip replacement, total Hx of colonoscopy Social History: Social History (Last Reviewed 09/10/22 @ 22:40 by Aneudy Ryan MD) Living Situation History: Household Members: Children Household Members Other:: daughter and her fiancee Housing: House Do you presently have visiting nurse or other home services: No Tobacco History: Patient Tobacco Use Status: Never used Tobacco e-Cigarette/Vaping Use: Never Used Second Hand Smoke Exposure: No Advance Directives: Advance Directives Date on File: 08/01/20 Occupation Assessmet: service: No Current occupational status: retired Home Medications and Allergies Current Medications: Current Medications Acetaminophen (Acetaminophen 325 Mg Tablet) 650 mg PO Q6H PRN PRN Reason: Pain, Mild (Pain Scale 1-3) Amlodipine Besylate (Amlodipine Besylate 5 Mg Tablet) 5 mg PO DAILY [facility]IONI; Protocol Atenolol (Atenolol 100 Mg Tablet) 100 mg PO DAILY [facility]; Protocol Cyanocobalamin (Cyanocobalamin (Vitamin B-12) 1,000 Mcg Tablet) 1,000 mcg PO DAILY [facility] Dextrose (Dextrose 50 % 25 Gm/50 Ml Syringe) 25 gm IVPUSH Q15M PRN; Protocol PRN Reason: per Hypoglycemia Standing Ord. Glucose (Glucose Gel 15 Gm Gel..Gram.) 15 gm PO Q15M PRN; Protocol PRN Reason: per Hypoglycemia Standing Ord. Insulin Glargine (Insulin Glargine,Hum.Rec.Anlog 100 Unit/Ml 10 Ml Vial) 15 unit SUBCUT BEDTIME DIONI Last Admin: 09/10/22 23:23 Dose: 15 unit Insulin Human Lispro (Insulin Lispro 100 Unit/Ml 3 Ml Vial) 0 unit SUBCUT QIDACHS [facility]; Protocol Last Admin: 09/11/22 07:41 Dose: Not Given Isosorbide Mononitrate (Isosorbide Mononitrate 30 Mg Tab.Er.24h) 30 mg PO DAILY [facility]; Protocol Lorazepam (Lorazepam 0.5 Mg Tablet) 0.5 mg PO BID PRN PRN Reason: Anxiety Last Admin: 09/11/22 05:43 Dose: 0.5 mg Non-Formulary Medication (Eluxadoline [Viberzi]) 75 mg PO BID [facility] Non-Formulary Medication (Latanoprostene Bunod [Vyzulta]) 1 drop EYE-BOTH DAILY [facility] Omeprazole (Omeprazole 20 Mg Capsule.Dr) 20 mg PO BID@0630,1630 [facility] Last Admin: 09/11/22 05:39 Dose: 20 mg Ondansetron HCl (Ondansetron Hcl 4 Mg/2 Ml Vial) 4 mg IVPUSH Q8H PRN PRN Reason: Nausea and Vomiting Oxycodone HCl (Oxycodone Hcl Immed Release 5 Mg Tablet) 5 mg PO BID PRN PRN Reason: Pain, Severe (Pain Scale 7-10) Pyridoxine HCl (Pyridoxine Hcl (Vitamin B6) 50 Mg Tablet) 50 mg PO DAILY [facility] Rivaroxaban (Rivaroxaban 15 Mg Tablet) 15 mg PO DAILY [facility] Sodium Chloride (0.9 % Sodium Chloride Flush 3 Ml Syringe) 3 ml IVFLUSH QSHIFT [facility] Last Admin: 09/11/22 01:01 Dose: Not Given Home Medications Medication Instructions Recorded Confirmed Type mecobalamin (vitamin B12) 1,000 1,000 mcg PO DAILY 04/05/20 09/10/22 History mcg chewable tablet omega-3 fatty acids 1,000 mg 1,000 mg PO DAILY 06/26/20 09/10/22 History capsule (Fish Oil Concentrate) cholecalciferol (vitamin D3) 25 25 mcg PO DAILY 02/21/22 09/10/22 History mcg (1,000 unit) tablet Lactobacillus rhamnosus GG 10 1 cap PO DAILY PRN Diarrhea 09/10/22 09/10/22 History billion cell capsule (Culturelle) latanoprostene bunod 0.024 % eye 1 drp ophthalmic (eye) DAILY 09/10/22 09/10/22 History drops (Vyzulta) loperamide 2 mg capsule 2 mg PO Q4H PRN Loose Stool 09/10/22 09/10/22 History magnesium 250 mg tablet 250 mg PO DAILY 09/10/22 09/10/22 History Allergies Allergy/AdvReac Type Severity Reaction Status Date / Time No Known Allergies Allergy Verified 09/12/22 09:00 [No Known Allergies*] Physical Exam Vital signs: Vital Signs Temp 97.6 F 09/11/22 06:02 Pulse 74 09/11/22 06:02 Resp 18 09/11/22 06:02 BP 154/74 H 09/11/22 06:02 Pulse Ox 96 09/11/22 06:02 O2 Del Method Room Air 09/11/22 06:02 Intake & Output 09/10/22 09/11/22 09/11/22 18:59 06:59 18:59 Intake Total 1000 / 1000 Balance 1000 / 1000 Intake: Intake, IV Amount 1000 / 1000 0.9 % Sodium Chloride 1,000 ml 1000 / 1000 @ 999 mls/hr IV .Q1H1M [facility] Rx#: [id number] Other: Weight 79.7 kg Weight 79.7 kg - Constitutional Present: mild distress - Routine HEENT Exam Head: Present: normal inspection, normocephalic ENT: Present: mucous membranes moist - Routine Neck Exam Present: supple - Routine Respiratory Exam Present: CTAB - Routine Cardiovascular Exam Cardiovascular: Present: RRR, S1, S2 - Routine Abdominal Exam Present: soft, tenderness. Absent: nontender - Routine Extremities Exam Present: nontender Hem/Onc Consult Result - Labs CBC & Chem 7: 09/13/22 06:04 09/12/22 05:35 Labs: Short CBC 09/10/22 09/11/22 Range/Units 13:53 04:18 WBC 14.4 H 12.1 H (4.8-10.8) X10*3/uL Hgb 10.5 L 9.2 L (12.0-16.0) g/dl Hct 30.8 L 27.4 L (37.0-47.0) % Plt Count 355 307 (160-400) X10*3/uL BMP 09/10/22 09/11/22 Unknown 04:18 Sodium 136 136 Potassium 5.1 4.5 Chloride 107 107 Carbon Dioxide 22 20 L BUN 19 H 17 H Creatinine 1.08 0.90 Calcium 9.0 8.4 D Liver Function 09/10/22 09/11/22 Range/Units Unknown 04:18 Total Bilirubin 9.6 H 9.0 H (0.0-1.0) mg/dL Direct Bilirubin 7.5 H 6.9 H (0.0-0.5) mg/dL AST 125 H 95 H (5-31) U/L ALT 73 H 61 H (0-31) U/L Alkaline Phosphatase 741 H 600 H (39-117) U/L Albumin 3.0 L 2.5 L (3.5-5.0) g/dL Urine 09/10/22 Range/Units 19:04 Urine Color Dark Yellow Urine Appearance Clear Urine pH 5.5 (5.0-9.0) Ur Specific [place] >= 1.030 H (1.005-1.025) Urine Protein Trace (Neg-Trace) mg/dL Urine Glucose (UA) Negative (Negative) mg/dL Assessment and Plan Patient Active problem list reviewed?: Yes (1) Biliary tract neoplasm Status: Acute Assessment and plan: This is a pleasant 82-year-old lady who presented with abdominal pain nausea vomiting, failure to thrive, weight loss and jaundice. LFTs: 9.6/741/125/73. LFTs today: 9/600/95/61. Cat Scan of the abdomen revealed: Moderate to severe intra and extrahepatic biliary ductal dilatation, transitioning into abrupt luminal narrowing at the level of the lower/periduodenal CBD, where there is irregular heterogeneous enhancement with mild surrounding fat stranding. There is associated periportal, peripancreatic and retroperitoneal lymphadenopathy. Constellation of findings are worrisome for a malignant stricture or malignant biliary/periampullary neoplasm. GI oncology consultation and evaluation with MRCP/ERCP is recommended. Gallbladder is hydropic with trace pericholecystic free fluid. Findings are nonspecific and could be related with upstream obstruction in the setting of the lower CBD narrowing, however acute cholecystitis cannot be excluded for which clinical correlation is advised. A 0.8 cm hyperattenuating focus in the posterior gallbladder wall could be related with sludge, stone or polyp. Further evaluation could be obtained with an abdominal ultrasound. Multiple hyperemic and wall thickened loops of small bowel with associated mesenteric fatty haziness and engorgement of the mesenteric vasculature, raising the possibility of an infectious/inflammatory enteritis. No evidence of bowel obstruction. PLAN: MRI/MRCP of the abdomen to look for any associated pancreatic mass. This was done on 09/11 and revealed: 1. Probable choledocholithiasis with 2 calculi distally in the common bile duct as detailed above. There is a focal stricture in this region as well at the level the pancreatic head is smooth margins, possibly benign. Associated biliary ductal and gallbladder dilatation. Mild sludge in the gallbladder without evidence for acute cholecystitis. GI consultation is recommended. 2. Mild to moderate generalized pancreatic atrophy without overt focal abnormality. To proceed with ERCP for definitive diagnosis and stenting. This was done on 09/12 and revealed: Stones in the CBD and a stricture. Sphincterotomy was done. Brushings taken from the distal CBD. (results pending.) LFTs improved. Will check tumor marker: CA 19-9. Further plan will be made in light of the above findings. Thank you for the consult, I will follow along with you, Cc: Dr. Cota. - Time Spent With Patient Time Spent with Patient (in minutes): 30
--- NOTE | 2022-09-11 09:22 | PC.NURSE ---
pt off unit to MRI
--- NOTE | 2022-09-11 09:48 | MHC.CM.PN ---
Attempted to meet with patient in regards to discharge planning. Patient is currently in MRI. No family present. Will attempt to meet again. Continue to monitor for d/c needs.
--- NOTE | 2022-09-11 09:52 | PM.EVENT ---
Event Note Date of Service: 09/12/22 Event Note: GI consult dictated ERCP planned for 09/12 to evaluate biliary obstruction. (last dose of Xarelto 09/09 PM per pt, need >48 hrs off it prior to sphincterotomy) MRI to better evaluate distal cbd pathology, no definite pancreatic mass on CT. Reg diet ok for today, NPO after 2400. INR elevated, vit k ordered. Time Spent With Patient Time: Total time managing care of this patient today ____ minutes.
[2022-09-11] MEDS: atenoloL 100 MG TABLET PO (11:17)
[2022-09-11] MEDS: amLODIPine Besylate 5 MG TABLET PO (11:18)
[2022-09-11] MEDS: Isosorbide Mononitrate 30 MG TAB.ER.24H PO (11:18)
[2022-09-11] MEDS: 0.9 % Sodium Chloride Flush 3 ML SYRINGE IVFLUSH ×3 (11:19→21:35)
[2022-09-11 12:21] LABS: Glucose, Whole Blood 114 mg/dL (60-115)
--- NOTE | 2022-09-11 12:41 | CONS_ITS ---
DATE OF SERVICE: 09/11/2022 REFERRING PHYSICIAN: Mary Padgett REASON FOR CONSULTATION: Biliary obstruction. HISTORY OF PRESENT ILLNESS: The patient is a pleasant 82-year-old woman who was admitted to the hospital after presenting to the emergency room complaining of about 2 weeks of nausea, vomiting, and diarrhea. Symptoms began gradually over this time. She describes feeling of anorexia with nausea and intermittent nonbloody vomiting as well as some chronic diarrheal symptoms and a diagnosis of underlying irritable bowel syndrome. She also reports about 30 pounds of weight loss over a year. She noticed her urine turned dark 3 days prior to admission and because of her symptoms, came to the emergency department. She denies any fevers, chills, or right upper quadrant pain. Evaluation in the emergency department showed elevated liver function tests and obstructive pattern, and she subsequently underwent CT scanning, which is reviewed and appears to show a distal biliary obstruction, suggestive of neoplasm. No definite pancreatic mass is identified. Gallbladder hydrops was also noted. PAST MEDICAL HISTORY: 1. Irritable bowel syndrome with diarrhea. 2. Atrial fibrillation, on Xarelto, last dose 25 p.m. 3. Coronary artery disease. 4. Chronic kidney disease. 5. Diabetes. 6. Hypertension. 7. Elevated body mass. 8. Hyperlipidemia. CURRENT MEDICATIONS: Her current medication list is reviewed in the chart. ALLERGIES: THERE ARE NONE REPORTED. FAMILY HISTORY: This is reviewed with the patient and is negative for GI malignancy. SOCIAL HISTORY: There is no current tobacco, alcohol, or substance abuse. REVIEW OF SYSTEMS: SKIN: No pruritus. HEENT: Negative. CARDIOPULMONARY: No shortness of breath or chest pain. GASTROINTESTINAL: As above. GENITOURINARY: Negative. NEUROPSYCHIATRIC: Negative. PHYSICAL EXAMINATION: GENERAL: Shows a pleasant female, sitting in a chair in the emergency department. VITAL SIGNS: Reviewed in the electronic medical record and are stable. There has been no recorded fever. SKIN: Mildly icteric. HEENT: Shows mild scleral icterus. Neck is without lymphadenopathy or thyromegaly. LUNGS: Clear. HEART: Shows an irregular S1, S2. No murmur. ABDOMEN: Soft without focal masses or tenderness. Bowel sounds are present. No organomegaly is noted. EXTREMITIES: Without edema. LABORATORY DATA: Including CT scanning and chemistries are reviewed. Previous abdominal ultrasound from 2020 showed gallbladder debris/gravel/calculi. IMPRESSION: Biliary obstruction. Her CT findings are concerning for biliary stricture, which would likely require ERCP with stent placement. No definite pancreatic mass is identified, but a small lesion in the proximal pancreas at the periampullary region could be missed. MRI has been ordered for further evaluation and to try to better define her anatomy. I have tentatively scheduled her for ERCP tomorrow as she needs to be off Xarelto for more than 48 hours and her last dose was Thursday evening by her report. I would recommend correcting her elevated INR with vitamin K. she can have a regular diet today and then nothing after midnight for her procedure tomorrow. The patient expressed some equivocation about undergoing further evaluation based on her age and we will discuss this following the results of her MRI. CA 19-9 has been ordered. Thanks for asking me to see her. I will follow her in the hospital with you. MD CHASTITY Carvajal/QUE / [id number] MTDD
[2022-09-11] MEDS: Phytonadione (Vit K1) 10 MG in 0.9 % Sodium Chloride 50 ML 51 MG IV (14:25)
--- NOTE | 2022-09-11 15:11 | HO.PM.IMPN ---
Subjective Subjective Date of Service: 09/11/22 Interval History: seen and examined this morning follow up for jaundice MRCP showing probable choledocholithiasis with 2 calculi distally in the CBD as well as a focal stricture denies abdominal pain Review of Systems Review of Systems: Yes all other systems are reviewed and are negative Constitutional Constitutional: Denies chills and Denies fever(s) Cardiovascular Cardiovascular: Denies chest pain, Denies palpitations and Denies dyspnea Respiratory Respiratory: Denies cough and Denies dyspnea Gastrointestinal Gastrointestinal: Denies abdominal pain Endocrine Endocrine: Denies palpitations Physical Exam Vital Signs: Vital Signs: Last Vital Signs Temp 97.2 F 09/11/22 12:11 Pulse 83 09/11/22 12:11 Resp 17 09/11/22 12:11 BP 196/94 H 09/11/22 12:11 Pulse Ox 97 09/11/22 12:11 O2 Del Method Room Air 09/11/22 12:11 BMI result Body Mass Index 32.1 Const: General: cooperative, comfortable, no acute distress, alert and awake Nutritional Appearance: overweight Orientation/consciousness: patient oriented x3 Eyes: Sclerae: scleral abnormal (scleral icterus ) Resp: Effort & Inspection: normal respiratory effort, able to speak in complete sentences, no respiratory distress and no use of accessory muscles Cardio: Rate: regular rate Heart sounds: S1 normal heart sound present and S2 normal heart sound present GI: Inspection: No distended Palpation (GI): Soft to palpation Skin: General skin exam: jaundice Neuro: General: patient oriented x3, moves all extremities and CN's II-XI intact bilaterally Extrem: General: Yes no pedal edema Objective Data Active Medications Acetaminophen (Acetaminophen 325 Mg Tablet) 650 mg PO Q6H PRN PRN Reason: Pain, Mild (Pain Scale 1-3) Amlodipine Besylate (Amlodipine Besylate 5 Mg Tablet) 5 mg PO DAILY [facility]; Protocol Last Admin: 09/11/22 11:18 Dose: 5 mg Documented By: LIZ Atenolol (Atenolol 100 Mg Tablet) 100 mg PO DAILY [facility]; Protocol Last Admin: 09/11/22 11:17 Dose: 100 mg Documented By: LIZ Cyanocobalamin (Cyanocobalamin (Vitamin B-12) 1,000 Mcg Tablet) 1,000 mcg PO DAILY [facility] Last Admin: 09/11/22 11:16 Dose: Not Given Documented By: LIZ Non-Admin Reason: Patient Refused Dextrose (Dextrose 50 % 25 Gm/50 Ml Syringe) 25 gm IVPUSH Q15M PRN; Protocol PRN Reason: per Hypoglycemia Standing Ord. Glucose (Glucose Gel 15 Gm Gel..Gram.) 15 gm PO Q15M PRN; Protocol PRN Reason: per Hypoglycemia Standing Ord. Insulin Glargine (Insulin Glargine,Hum.Rec.Anlog 100 Unit/Ml 10 Ml Vial) 15 unit SUBCUT BEDTIME [facility] Last Admin: 09/10/22 23:23 Dose: 15 unit Documented By: ISABELA Insulin Human Lispro (Insulin Lispro 100 Unit/Ml 3 Ml Vial) 0 unit SUBCUT QIDACHS [facility]; Protocol Last Admin: 09/11/22 14:21 Dose: Not Given Documented By: JORGE A Non-Admin Reason: not given in the ER Isosorbide Mononitrate (Isosorbide Mononitrate 30 Mg Tab.Er.24h) 30 mg PO DAILY [facility]; Protocol Last Admin: 09/11/22 11:18 Dose: 30 mg Documented By: LIZ Lorazepam (Lorazepam 0.5 Mg Tablet) 0.5 mg PO BID PRN PRN Reason: Anxiety Last Admin: 09/11/22 05:43 Dose: 0.5 mg Documented By: ISABELA Non-Formulary Medication (Latanoprostene Bunod [Vyzulta]) 1 drop EYE-BOTH DAILY [facility] Omeprazole (Omeprazole 20 Mg Capsule.Dr) 20 mg PO BID@0630,1630 [facility] Last Admin: 09/11/22 05:39 Dose: 20 mg Documented By: ISABELA Ondansetron HCl (Ondansetron Hcl 4 Mg/2 Ml Vial) 4 mg IVPUSH Q8H PRN PRN Reason: Nausea and Vomiting Oxycodone HCl (Oxycodone Hcl Immed Release 5 Mg Tablet) 5 mg PO BID PRN PRN Reason: Pain, Severe (Pain Scale 7-10) Pyridoxine HCl (Pyridoxine Hcl (Vitamin B6) 50 Mg Tablet) 50 mg PO DAILY [facility] Last Admin: 09/11/22 11:16 Dose: Not Given Documented By: LIZ Non-Admin Reason: Patient Refused Rivaroxaban (Rivaroxaban 15 Mg Tablet) 15 mg PO DAILY [facility] Last Admin: 09/11/22 10:17 Dose: Not Given Documented By: LIZ Non-Admin Reason: Physician Held Med Sodium Chloride (0.9 % Sodium Chloride Flush 3 Ml Syringe) 3 ml IVFLUSH QSHIFT [facility] Last Admin: 09/11/22 11:19 Dose: 3 ml Documented By: LIZ Labs 09/11/22 04:18 09/11/22 04:18 Labs: Laboratory Results - last 24 hr 09/10/22 09/10/22 09/10/22 19:04 23:10 Unknown MCV MCH MCHC RDW Plt Count MPV Immature Gran % (Auto) Neut % (Auto) Lymph % (Auto) [place] % (Auto) Eos % (Auto) Baso % (Auto) Lymph # (Auto) [place] # (Auto) Eos # (Auto) Baso # (Auto) Abs Immat Gran (auto) Absolute Neuts (auto) Absolute Nucleated RBC Nucleated RBC % (auto) Anion Gap 12 Estim Creat Clear Calc 38.6 Estimated GFR 48 POC Glucose 150 H Random Glucose 257 H Calcium 9.0 Magnesium 1.6 Total Bilirubin 9.6 H Direct Bilirubin 7.5 H AST 125 H ALT 73 H Alkaline Phosphatase 741 H Total Protein 5.9 L Albumin 3.0 L Lipase < 4 L Urine Color Dark Yellow Urine Appearance Clear Urine pH 5.5 Ur Specific [place] >= 1.030 H Urine Protein Trace Urine Glucose (UA) Negative Urine Ketones Negative Urine Blood Negative Urine Nitrite Negative Ur Leukocyte Esterase Negative 09/11/22 09/11/22 09/11/22 04:18 04:18 07:27 MCV 86.2 MCH 28.9 MCHC 33.6 RDW 18.7 H Plt Count 307 MPV 11.4 Immature Gran % (Auto) 0.7 H Neut % (Auto) 75.3 H Lymph % (Auto) 12.5 L [place] % (Auto) 10.1 Eos % (Auto) 1.2 Baso % (Auto) 0.2 Lymph # (Auto) 1.5 [place] # (Auto) 1.2 Eos # (Auto) 0.1 Baso # (Auto) 0.0 Abs Immat Gran (auto) 0.09 H Absolute Neuts (auto) 9.1 H Absolute Nucleated RBC 0.000 Nucleated RBC % (auto) 0.0 Anion Gap 14 Estim Creat Clear Calc 46.2 Estimated GFR 60 POC Glucose 89 Random Glucose 118 H Calcium 8.4 D Magnesium Total Bilirubin 9.0 H Direct Bilirubin 6.9 H AST 95 H ALT 61 H Alkaline Phosphatase 600 H Total Protein 5.0 L Albumin 2.5 L Lipase < 4 L Urine Color Urine Appearance Urine pH Ur Specific [place] Urine Protein Urine Glucose (UA) Urine Ketones Urine Blood Urine Nitrite Ur Leukocyte Esterase 09/11/22 12:16 MCV MCH MCHC RDW Plt Count MPV Immature Gran % (Auto) Neut % (Auto) Lymph % (Auto) [place] % (Auto) Eos % (Auto) Baso % (Auto) Lymph # (Auto) [place] # (Auto) Eos # (Auto) Baso # (Auto) Abs Immat Gran (auto) Absolute Neuts (auto) Absolute Nucleated RBC Nucleated RBC % (auto) Anion Gap Estim Creat Clear Calc Estimated GFR POC Glucose 114 Random Glucose Calcium Magnesium Total Bilirubin Direct Bilirubin AST ALT Alkaline Phosphatase Total Protein Albumin Lipase Urine Color Urine Appearance Urine pH Ur Specific [place] Urine Protein Urine Glucose (UA) Urine Ketones Urine Blood Urine Nitrite Ur Leukocyte Esterase Assessment and Plan (1) Choledocholithiasis: Status: Acute Plan 82-year-old female with mentioned past medical history above who presents the hospital with various acute complaints including poor oral intake, nausea vomiting, and jaundice found to have elevated LFTs and changes on CT concerning for malignancy choledocolithiasis without evidence of cholangitis dilated intrahepatic bile duct, with structure seen on CT abdomen concerning for malignancy MRCP showing focal stricture and likely 2 stones seen by GI, needs to be off xarelto x 48 hours - ERCP in the morning, GI consult,NPO after midnight trend LFTs diarrhea seems to be chronic h/o IBD with diarrhea on Viberzi at baseline, NF med on hold paroxysmal AFib hold xarelto for planned procedure continue BB diabetes hba1c from earlier this month 6.2 hold metformin hold baseline Lantus due to decreased po intake and planned procedure in am SSI, POCs hypertension continue atenolol, norvasc CAD continue imdur DVT prophylaxis: on xarelto at baseline, will d/c due to planned procedure in am. attending - dr. delgado Given patient's need for further workup patient require minimum 2 nights inpatient hospital stay for further management and monitoring Time Spent With Patient Time: Total time managing care of this patient today ____ minutes. Quality Stroke Does the patient have a stroke diagnosis?: No VTE Prior VTE?: No VTE Risk Level:: Medical - moderate - high VTE Device Contraindication: Treatment Not Indicated VTE Drug Contraindication: N/A - Med Ordered
[2022-09-11 16:19] LABS: Glucose, Whole Blood 142 mg/dL (60-115)
[2022-09-11] MEDS: Indomethacin 50 MG SUPP.RECT 100 MG PR (16:58)
[2022-09-11 20:51] LABS: Glucose, Whole Blood 200 mg/dL (60-115)
[2022-09-11] MEDS: Insulin Lispro 100 UNIT/ML 3 ML VIAL SUBCUT (21:32)
[2022-09-12] VITALS (10 sets, daily range): BP systolic 118–186; BP diastolic 64–85; PULSE 62–82; RESP 16–20; TEMP 36–36.8; O2SAT 96–100
[2022-09-12] MEDS: Omeprazole 20 MG CAPSULE.DR PO ×2 (05:03→16:32)
[2022-09-12 06:20] LABS: MANUAL DIFF FLAG NO
[2022-09-12 06:23] LABS: Basophils Percent Auto 0.4 % (0-2); Eosinophils Absolute Auto 0.3 X10*3/uL (0.0-0.4); Eosinophils Percent Auto 2.5 % (0-4); Hematocrit 30.6 % (37.0-47.0); Hemoglobin 10.6 g/dl (12.0-16.0); Imm Gran Abs Auto 0.11 X10*3/uL (0.00-0.03); Imm Gran Pct Auto 1.1 % (0.0-0.4); Lymphocytes Absolute Auto 1.5 X10*3/uL (1.2-4.9); Lymphocytes Percent Auto 15.2 % (20-40); Mean Corpuscular HGB Conc 34.6 g/dl (31.0-35.0); Mean Corpuscular Hemoglobin 29.4 pg (27.0-33.0); Mean Platelet Volume 11.4 fL (9.4-12.3); Monocytes Absolute Auto 0.8 X10*3/uL (0.1-1.2); Monocytes Percent Auto 8.5 % (2-11); Neutrophils Absolute Auto 7.2 x10*3/uL (2.0-8.3); Neutrophils Percent Auto 72.3 % (45-73); Platelet Count 352 X10*3/uL (160-400); Red Cell Distribution Width 18.8 % (11.0-16.0); White Blood Count 9.9 X10*3/uL (4.8-10.8)
[2022-09-12 06:28] LABS: INTERNATIONAL NORM RATIO 1.2 (0.9-1.1); Prothrombin Time 14.2 SEC (11.1-13.3)
[2022-09-12 06:46] LABS: Alanine Aminotransferase 55 U/L (0-31); Albumin Level 2.8 g/dL (3.5-5.0); Alkaline Phosphatase 620 U/L (39-117); Anion Gap 14 (12-20); Aspartate Amino Transferase 71 U/L (5-31); Bilirubin Direct 6.4 mg/dL (0.0-0.5); Bilirubin Total 8.3 mg/dL (0.0-1.0); Blood Urea Nitrogen 19 mg/dL (9-16); Calcium 8.8 mg/dL (8.4-10.2); Carbon Dioxide 21 mmol/L (22-29); Chloride 105 mmol/L (96-108); Creatinine Clr Calc Pharmacy 44.8; Estimated Glomerular Filt Rate 58; Glucose Random 129 mg/dL (60-115); Potassium 4.4 mmol/L (3.3-5.1); Sodium 136 mmol/L (135-145); Total Protein 5.6 g/dL (6.5-8.0)
--- NOTE | 2022-09-12 07:09 | PC.NURSE ---
pt is sitting in chair and refused chair alarm she was educated of importance - safety but she stated she dosnt want to be treated like a child
[2022-09-12] MEDS: 0.9 % Sodium Chloride Flush 3 ML SYRINGE IVFLUSH ×3 (07:11→23:52)
[2022-09-12 07:24] LABS: Glucose, Whole Blood 135 mg/dL (60-115)
--- NOTE | 2022-09-12 07:31 | PC.NURSE ---
refusing fall risk interventions and alarms, agrees to ring appropriately for assistance.
[2022-09-12] MEDS: Isosorbide Mononitrate 30 MG TAB.ER.24H PO (07:45)
[2022-09-12] MEDS: amLODIPine Besylate 5 MG TABLET PO (07:46)
[2022-09-12] MEDS: atenoloL 100 MG TABLET PO (07:46)
[2022-09-12 09:17] LABS: Glucose, Whole Blood 154 mg/dL (60-115)
--- NOTE | 2022-09-12 10:02 | PC.NURSE ---
Dr. Cota aware that patient received Indomethacin NE yesterday on the floor. This medication still requested for todays procedure. Pharmacy made aware and medication brought to preop. Clarice FRONT END [employer]UPAL DEVELOPER made aware.
--- NOTE | 2022-09-12 10:33 | MHC.CLN ---
NUTRITION REVIEW OF WEIGHT HX DOES NOT SHOW SIGNIFICANT WEIGHT LOSS. WEIGHT LOSS X 6 MONTHS=-3.5%; WEIGHT LOSS X ONE YEAR=-4%; WEIGHT LOSS X 2 YEARS=-10%. CURRENTLY NPO FOR PROCEDURE. REPORTED HX OF POOR PO PRIOR TO ADMIT.
--- NOTE | 2022-09-12 12:24 | P.BOP_ITS ---
Brief Operative Note Date of Service: 09/12/22 Pre-op diagnosis: biliary obstruction Post-op diagnosis: same Procedure: ercp Surgeon: Orestes Cota Anesthesia: GETA Was an [employer] Specialist used for this Procedure?: No Estimated blood loss (mL): 5 Pathology: other Condition: stable Disposition: PACU
--- NOTE | 2022-09-12 12:25 | PM.EVENT ---
Event Note Date of Service: 09/12/22 Event Note: ERCP note dictated 2 CBD stones extracted with balloons and sphinctertome after sphincterotomy distal biliary stricture, cytology brushings taken 10F 5cm stent placed with good drainage of dark bile. Rec: advance diet f/u brushings recheck lfts Time Spent With Patient Time: Total time managing care of this patient today ____ minutes.
[2022-09-12 13:29] LABS: Glucose, Whole Blood 219 mg/dL (60-115)
--- NOTE | 2022-09-12 13:36 | PC.NURSE ---
Pt back from ERCP, A&Ox3, no c/o pain, no resp distress, BP elevated, PA notified, did not want lunch, no c/o n/v, call acevedo within reach, will continue to monitor for needs.
--- NOTE | 2022-09-12 14:33 | HO.PM.IMPN ---
Subjective Subjective Date of Service: 09/12/22 Interval History: seen and examined this morning follow up for choledocolithiasis seen after ERCP tired, appears frustrated. denies abdominal pain Review of Systems Review of Systems: Yes all other systems are reviewed and are negative Constitutional Constitutional: Denies chills and Denies fever(s) Cardiovascular Cardiovascular: Denies chest pain and Denies palpitations Gastrointestinal Gastrointestinal: Denies abdominal pain Endocrine Endocrine: Denies palpitations Physical Exam Vital Signs: Vital Signs: Last Vital Signs Temp 97.6 F 09/12/22 13:32 Pulse 82 09/12/22 13:32 Resp 16 09/12/22 13:32 BP 182/80 H 09/12/22 13:32 Pulse Ox 97 09/12/22 13:32 O2 Del Method Room Air 09/12/22 13:32 O2 Flow Rate 3 09/12/22 12:28 BMI result Body Mass Index 32.1 Const: General: cooperative, comfortable, no acute distress, alert and awake Nutritional Appearance: overweight Orientation/consciousness: patient oriented x3 Eyes: Sclerae: scleral abnormal (scleral icterus ) Resp: Effort & Inspection: normal respiratory effort, able to speak in complete sentences, no respiratory distress and no use of accessory muscles Cardio: Rate: regular rate Heart sounds: S1 normal heart sound present and S2 normal heart sound present GI: Inspection: No distended Palpation (GI): Soft to palpation Skin: General skin exam: jaundice Neuro: General: patient oriented x3, moves all extremities and CN's II-XI intact bilaterally Extrem: General: Yes no pedal edema Objective Data Active Medications Acetaminophen (Acetaminophen 325 Mg Tablet) 650 mg PO Q6H PRN PRN Reason: Pain, Mild (Pain Scale 1-3) Amlodipine Besylate (Amlodipine Besylate 5 Mg Tablet) 5 mg PO DAILY [facility]; Protocol Last Admin: 09/12/22 07:46 Dose: 5 mg Documented By: JORGE A Atenolol (Atenolol 100 Mg Tablet) 100 mg PO DAILY [facility]; Protocol Last Admin: 09/12/22 07:46 Dose: 100 mg Documented By: JORGE A Cyanocobalamin (Cyanocobalamin (Vitamin B-12) 1,000 Mcg Tablet) 1,000 mcg PO DAILY [facility] Last Admin: 09/12/22 07:50 Dose: Not Given Documented By: JORGE A Non-Admin Reason: hold per op Dextrose (Dextrose 50 % 25 Gm/50 Ml Syringe) 25 gm IVPUSH Q15M PRN; Protocol PRN Reason: per Hypoglycemia Standing Ord. Glucose (Glucose Gel 15 Gm Gel..Gram.) 15 gm PO Q15M PRN; Protocol PRN Reason: per Hypoglycemia Standing Ord. Insulin Glargine (Insulin Glargine,Hum.Rec.Anlog 100 Unit/Ml 10 Ml Vial) 15 unit SUBCUT BEDTIME [facility] Last Admin: 09/10/22 23:23 Dose: 15 unit Documented By: ISABELA Insulin Human Lispro (Insulin Lispro 100 Unit/Ml 3 Ml Vial) 0 unit SUBCUT QIDACHS [facility]; Protocol Last Admin: 09/12/22 13:33 Dose: Not Given Documented By: JORGE A Non-Admin Reason: Does not want to have lunch. Isosorbide Mononitrate (Isosorbide Mononitrate 30 Mg Tab.Er.24h) 30 mg PO DAILY [facility]; Protocol Last Admin: 09/12/22 07:45 Dose: 30 mg Documented By: JORGE A Lorazepam (Lorazepam 0.5 Mg Tablet) 0.5 mg PO BID PRN PRN Reason: Anxiety Last Admin: 09/11/22 05:43 Dose: 0.5 mg Documented By: ISABELA Non-Formulary Medication (Latanoprostene Bunod [Vyzulta]) 1 drop EYE-BOTH DAILY [facility] Omeprazole (Omeprazole 20 Mg Capsule.Dr) 20 mg PO BID@0630,1630 [facility] Last Admin: 09/12/22 05:03 Dose: 20 mg Documented By: JESUS Ondansetron HCl (Ondansetron Hcl 4 Mg/2 Ml Vial) 4 mg IVPUSH Q8H PRN PRN Reason: Nausea and Vomiting Oxycodone HCl (Oxycodone Hcl Immed Release 5 Mg Tablet) 5 mg PO BID PRN PRN Reason: Pain, Severe (Pain Scale 7-10) Pyridoxine HCl (Pyridoxine Hcl (Vitamin B6) 50 Mg Tablet) 50 mg PO DAILY [facility] Last Admin: 09/12/22 07:50 Dose: Not Given Documented By: JORGE A Non-Admin Reason: hold pre op Sodium Chloride (0.9 % Sodium Chloride Flush 3 Ml Syringe) 3 ml IVFLUSH QSHIFT [facility] Last Admin: 09/12/22 07:11 Dose: 3 ml Documented By: JORGE A Labs 09/12/22 05:35 09/12/22 05:35 Labs: Laboratory Results - last 24 hr 09/11/22 09/11/22 09/12/22 16:15 20:43 05:35 MCV MCH MCHC RDW Plt Count MPV Immature Gran % (Auto) Neut % (Auto) Lymph % (Auto) [place] % (Auto) Eos % (Auto) Baso % (Auto) Lymph # (Auto) [place] # (Auto) Eos # (Auto) Baso # (Auto) Abs Immat Gran (auto) Absolute Neuts (auto) Absolute Nucleated RBC Nucleated RBC % (auto) PT 14.2 H D INR 1.2 H Anion Gap Estim Creat Clear Calc Estimated GFR POC Glucose 142 H 200 H Random Glucose Calcium Total Bilirubin Direct Bilirubin AST ALT Alkaline Phosphatase Total Protein Albumin 09/12/22 09/12/22 09/12/22 05:35 05:35 07:20 MCV 85.0 MCH 29.4 MCHC 34.6 RDW 18.8 H Plt Count 352 MPV 11.4 Immature Gran % (Auto) 1.1 H Neut % (Auto) 72.3 Lymph % (Auto) 15.2 L [place] % (Auto) 8.5 Eos % (Auto) 2.5 Baso % (Auto) 0.4 Lymph # (Auto) 1.5 [place] # (Auto) 0.8 Eos # (Auto) 0.3 Baso # (Auto) 0.0 Abs Immat Gran (auto) 0.11 H Absolute Neuts (auto) 7.2 Absolute Nucleated RBC 0.000 Nucleated RBC % (auto) 0.0 PT INR Anion Gap 14 Estim Creat Clear Calc 44.8 Estimated GFR 58 POC Glucose 135 H Random Glucose 129 H Calcium 8.8 Total Bilirubin 8.3 H Direct Bilirubin 6.4 H AST 71 H ALT 55 H Alkaline Phosphatase 620 H Total Protein 5.6 L Albumin 2.8 L 09/12/22 09/12/22 09:14 13:24 MCV MCH MCHC RDW Plt Count MPV Immature Gran % (Auto) Neut % (Auto) Lymph % (Auto) [place] % (Auto) Eos % (Auto) Baso % (Auto) Lymph # (Auto) [place] # (Auto) Eos # (Auto) Baso # (Auto) Abs Immat Gran (auto) Absolute Neuts (auto) Absolute Nucleated RBC Nucleated RBC % (auto) PT INR Anion Gap Estim Creat Clear Calc Estimated GFR POC Glucose 154 H 219 H Random Glucose Calcium Total Bilirubin Direct Bilirubin AST ALT Alkaline Phosphatase Total Protein Albumin Assessment and Plan (1) Choledocholithiasis: Status: Acute Plan 82-year-old female with mentioned past medical history above who presents the hospital with various acute complaints including poor oral intake, nausea vomiting, and jaundice found to have elevated LFTs and changes on CT concerning for malignancy choledocolithiasis without evidence of cholangitis dilated intrahepatic bile duct, with structure seen on CT abdomen concerning for malignancy MRCP showing focal stricture and likely 2 stones s/p ERCP with removal of stones and stent placement - follow up pathology of biliary brushing advance diet trend LFTs diarrhea seems to be chronic h/o IBD with diarrhea on Viberzi at baseline, NF med on hold paroxysmal AFib hold xarelto for planned procedure - resume when safe from GI perspective continue BB diabetes hba1c from earlier this month 6.2 hold metformin resume baseline Lantus SSI, POCs hypertension bp elevated continue atenolol, norvasc follow bp, consider increasing norvasc if remains high CAD continue imdur DVT prophylaxis: on xarelto at baseline, on hold for ERCP attending - dr. delgado Requires ongoing inpatient hospitalization for management of choledocholithiasis, monitoring of LFTs Time Spent With Patient Time: Total time managing care of this patient today ____ minutes. Quality Stroke Does the patient have a stroke diagnosis?: No VTE Prior VTE?: No VTE Risk Level:: Medical - moderate - high VTE Device Contraindication: Treatment Not Indicated VTE Drug Contraindication: N/A - Med Ordered
--- NOTE | 2022-09-12 16:26 | MHC.CM.PN ---
PT REPORTS SHE LIVES WITH HER DAUGHTER AND IS INDEPENDENT WITH CARE SHE HAS NO SERVICES AND USES A CANE TO AMBULATE PT BELIEVES SHE MAY HAVE COMPLETED A HCP IN THE PAST BUT DOES NOT WANT TO DISCUSS ONE NOW PCP: SANDY NICKERSON IMM DELIVERED DCP: HOME NO SERVICES DAUGHTER TO TRANSPORT
[2022-09-12 16:28] LABS: Glucose, Whole Blood 277 mg/dL (60-115)
[2022-09-12] MEDS: Insulin Lispro 100 UNIT/ML 3 ML VIAL SUBCUT ×2 (16:33→21:16)
[2022-09-12 20:49] LABS: Glucose, Whole Blood 285 mg/dL (60-115)
[2022-09-12] MEDS: Insulin Glargine,Hum.rec.anlog 100 UNIT/ML 10 ML VIAL 15 UNIT SUBCUT (21:17)
[2022-09-12] MEDS: LORazepam 0.5 MG TABLET PO (21:17)
--- NOTE | 2022-09-12 22:43 | PC.NURSE ---
Patient continues to refuse bed alarm; high fall risk precautions. Patient re-educated on importance of high fall risk safety precautions. Patient agrees to use callbell for assistance when necessary. Callbell within reach. All needs met at this time.
--- NOTE | 2022-09-12 22:51 | OP_ITS ---
DATE OF SERVICE: 09/12/2022 SURGEON: Orestes Cota MD PREOPERATIVE DIAGNOSIS: POSTOPERATIVE DIAGNOSIS: PROCEDURE PERFORMED: ERCP with sphincterotomy, extraction of common duct stones and stent placement. Cytology brushings were also obtained. ESTIMATED BLOOD LOSS: COMPLICATIONS: ANESTHESIA: General anesthesia. ASSISTANTS: SPECIMENS: DESCRIPTION OF PROCEDURE: A history and physical were performed. The risks and benefits of the procedure were explained to the patient. Informed consent was obtained. The patient was placed in the prone position with a wedge under the right shoulder. The Olympus therapeutic duodenoscope was introduced into the esophagus, stomach, and duodenum. Examination was performed. The scope was removed. She tolerated the procedure well and was taken to recovery area in stable condition. FINDINGS: Limited examination. The esophagus, stomach and duodenum were normal. There was a moderate-sized periampullary diverticulum, which made the procedure challenging. The major papilla was identified with bile staining in the duodenum. No mass or lesion was identified. Cholangiography was performed after access to the common bile duct was obtained with a guidewire passed through a sphincterotome. This showed 2 filling defects in the distal common duct with stricturing over the last 2 cm of the common bile duct. The stones were soft and were able to be extracted with a sphincterotome and balloon catheter. Multiple sweeps of the duct showed no further filling defects. A cytology brush was advanced into the distal common bile duct and cytology brushings were obtained to rule out malignancy. Attempts to advance a biopsy forceps into the distal common bile duct were unsuccessful. Following this, a 10-Kazakh 5 cm biliary stent was placed with no immediate complications and excellent drainage of dark bile. No pancreatogram was attempted or obtained. IMPRESSION: 1. Common bile duct stones. 2. Biliary stricture. RECOMMENDATIONS: 1. Follow up the brushing results. 2. Monitor LFTs. 3. She will need eventual removal of the plastic stent and either replacement with a metal stent or balloon dilation if the stricture is benign. MD CHASTITY Carvajal/CASSIL / [id number]
[2022-09-13 04:00] VITALS: BP 142/69; PULSE 73; RESP 18; TEMP 36; O2SAT 98
[2022-09-13] MEDS: Omeprazole 20 MG CAPSULE.DR PO (05:15)
[2022-09-13 06:19] LABS: Hematocrit 29.2 % (37.0-47.0); Hemoglobin 10.2 g/dl (12.0-16.0); Mean Corpuscular HGB Conc 34.9 g/dl (31.0-35.0); Mean Corpuscular Hemoglobin 29.3 pg (27.0-33.0); Mean Corpuscular Volume 83.9 fL (80.0-98.0); Mean Platelet Volume 11.1 fL (9.4-12.3); Platelet Count 322 X10*3/uL (160-400); Red Blood Count 3.48 X10*6/uL (4.20-5.50); Red Cell Distribution Width 18.5 % (11.0-16.0); White Blood Count 11.1 X10*3/uL (4.8-10.8)
[2022-09-13 06:42] LABS: Alanine Aminotransferase 42 U/L (0-31); Albumin Level 2.5 g/dL (3.5-5.0); Alkaline Phosphatase 497 U/L (39-117); Aspartate Amino Transferase 43 U/L (5-31); Bilirubin Direct 3.2 mg/dL (0.0-0.5); Total Protein 5.3 g/dL (6.5-8.0)
--- NOTE | 2022-09-13 07:04 | PC.NURSE ---
Patient refusing bed alarm despite education on protocols and risk. Does ring but does not wait long before getting herself up. Also does not allow staff to assist in BR.
[2022-09-13 07:43] LABS: Glucose, Whole Blood 264 mg/dL (60-115)
[2022-09-13] MEDS: Insulin Lispro 100 UNIT/ML 3 ML VIAL SUBCUT (07:57)
[2022-09-13 08:00] VITALS: BP 158/70; PULSE 72; RESP 16; TEMP 36; O2SAT 99
[2022-09-13] MEDS: Isosorbide Mononitrate 30 MG TAB.ER.24H PO (09:04)
[2022-09-13] MEDS: atenoloL 100 MG TABLET PO (09:04)
[2022-09-13] MEDS: Cyanocobalamin (Vitamin B-12) 1,000 MCG TABLET 1000 MCG PO (09:04)
[2022-09-13] MEDS: Pyridoxine HCl (Vitamin B6) 50 MG TABLET PO (09:04)
[2022-09-13] MEDS: 0.9 % Sodium Chloride Flush 3 ML SYRINGE IVFLUSH (09:04)
[2022-09-13] MEDS: amLODIPine Besylate 5 MG TABLET PO (09:04)
--- NOTE | 2022-09-13 10:28 | PM.DS ---
DS: Providers Provider Date of Service: 09/13/22 Date of admission: 09/10/22 21:32 Date of discharge: 09/13/22 Primary care physician: Unknown Physician Consults: 09/10/22 20:09 Consult to Gastroenterology Stat Consulting Provider: Soy Levi Reason for consultation: Suspected new malignancy Has provider been notified: No 09/10/22 21:36 Consult to Hematology / Oncology Routine Consulting Provider: Sue Starr Reason for consultation: New malignancy Has provider been notified: No Attending physician on discharge: Ela Aviles Discharging clinician: Sarah Montalvo DS: Diagnosis Discharge Diagnosis (1) Choledocholithiasis: Status: Acute DS: Summary Hospital Course Hospital Course: From H&P on the day of admission This is an 82 year old female with past medical history of CAD, CKD, GERD, diabetes, HLD, HTN, IBS for 20 years, paroxysmal AFib, history of duodenitis, comes into the hospital with complaints of nausea, vomiting,, poor oral intake, decreased urine output, change in color of urine, noisy stomache, diarrhea, for the past 1 week.? Patient reports that she has also experienced more than 30 lb weight loss over the last year.? She denies any abdominal pain or discomfort, reports no fever or chills, no chest pain, no dysuria or urgency.? No lower extremity edema.? She states that she follows up with Gastroenterology, had a colonoscopy about 4 years ago with no significant findings.? All other review of system negative On arrival to the ED patient hemodynamically stable with no significant abnormal vitals Labs are significant for WBC count of 14.4, hemoglobin of 10.5, hematocrit 30.8, INR of 2.2, BUN of 19, creatinine of 1.08, bilirubin of 9.6 which increased from 2.7 on 08/22, direct bili of 7.5, AST of 125, ALT of 73, which is slightly lower than 7 7, alk-phos of 741, lipase negative, albumin of 3.0, UA negative Abdominal pelvic CT shows multiple abnormalities including moderate to severe intra and extrahepatic biliary ductal dilatation, transitioning into abrupt luminal narrowing at the level of the low.? Duodenal CBD this is concerning for malignant stricture or malignant biliary clinton ampullary neoplasm Patient will be admitted for further management choledocolithiasis no evidence of cholangitis. Initial CT scan showed dilated intrahepatic bile duct, with structure concerning for malignancy. MRCP was obtained showing focal stricture and likely 2 stones. She underwent ERCP on 09/[address] Cota with removal of 2 stones and stent placement? - biliary brushings were obtained to rule out malignancy and are pending at the time of discharge. following stone removal, or LFTs have begun to trend down. Patient is tolerating a regular diet. She will need outpatient follow-up with GI to review results of biliary brushings and will need eventual plastic stent removal with metal stent replacement versus balloon dilation if strictures benign. CA 19-9 is pending at the time of discharge. Repeat LFTs will be ordered for next week. Time Spent with Patient Time attestation: Total time managing care of this patient today ____ minutes. Discharge coordination time: Greater than 30 minutes Quality: Safe Use of Opioids Does Pt have an Active Cancer Diagnosis on the Problem List?: No Quality: Stroke Does the patient have a stroke diagnosis?: No Physical Exam Vital Signs: Vital Signs: Last Vital Signs Temp 96.8 F 09/13/22 08:00 Pulse 72 09/13/22 08:00 Resp 16 09/13/22 08:00 BP 158/70 H 09/13/22 08:00 Pulse Ox 99 09/13/22 08:00 O2 Del Method Room Air 09/13/22 08:00 O2 Flow Rate 3 09/12/22 12:28 BMI result Body Mass Index 32.1 Const: General: cooperative, comfortable, no acute distress, alert and awake Nutritional Appearance: overweight Orientation/consciousness: patient oriented x3 Resp: Effort & Inspection: normal respiratory effort, able to speak in complete sentences, no respiratory distress and no use of accessory muscles Cardio: Rate: regular rate Heart sounds: S1 normal heart sound present and S2 normal heart sound present GI: Inspection: No distended Palpation (GI): Soft to palpation Skin: General skin exam: jaundice (mild, improving ) Neuro: General: patient oriented x3, moves all extremities and CN's II-XI intact bilaterally Extrem: General: Yes no pedal edema DS: Data Data Completed and Pending Completed studies during hospitalization [Text1]: Procedures Excision of Descending Colon, Via Natural or Artificial Opening Endoscopic, Diagnostic (08/01/20) Excision of Duodenum, Via Natural or Artificial Opening Endoscopic, Diagnostic (08/01/20) Excision of Ileum, Via Natural or Artificial Opening Endoscopic, Diagnostic (08/01/20) Excision of Rectum, Via Natural or Artificial Opening Endoscopic, Diagnostic (08/01/20) Excision of Stomach, Pylorus, Via Natural or Artificial Opening Endoscopic, Diagnostic (08/01/20) Labs on day of discharge: Laboratory Results - last 24 hr 09/12/22 09/12/22 09/12/22 13:24 16:17 20:39 WBC RBC Hgb Hct MCV MCH MCHC RDW Plt Count MPV Absolute Nucleated RBC Nucleated RBC % (auto) POC Glucose 219 H 277 H 285 H Total Bilirubin Direct Bilirubin AST ALT Alkaline Phosphatase Total Protein Albumin 09/13/22 09/13/22 09/13/22 06:04 06:04 07:40 WBC 11.1 H RBC 3.48 L Hgb 10.2 L Hct 29.2 L MCV 83.9 MCH 29.3 MCHC 34.9 RDW 18.5 H Plt Count 322 MPV 11.1 Absolute Nucleated RBC 0.000 Nucleated RBC % (auto) 0.0 POC Glucose 264 H Total Bilirubin 5.0 H Direct Bilirubin 3.2 H AST 43 H ALT 42 H Alkaline Phosphatase 497 H Total Protein 5.3 L Albumin 2.5 L Discharge Plan Discharge Anticipated Discharge Date/Time: 09/13/22 10:18 Patient Disposition: Home, Self-Care Discharge Diagnosis: choledocolithiasis biliary stricture elevated LFTs Referrals: Orestes Cota [Physician] - 1 Week Physician,Navjot J [Primary Care Provider] - 1 Week Discharge Medications: Continued ascorbate calcium (vitamin C) 500 mg tablet 1 g PO DAILY Qty: 90 1RF amlodipine 5 mg tablet 5 mg PO DAILY Qty: 90 3RF isosorbide mononitrate 30 mg tablet extended release 24 hr 30 mg PO QAM Qty: 90 8RF rivaroxaban 15 mg tablet 15 mg PO QPM 90 Days Qty: 90 2RF Rx Instructions: with supper pantoprazole 40 mg tablet,delayed release (DR/EC) 40 mg PO BID Qty: 180 1RF lorazepam 0.5 mg tablet 0.5 mg PO BID PRN (Reason: Anxiety) Qty: 60 2RF metformin 850 mg tablet 850 mg PO BID Qty: 120 8RF insulin glargine 100 unit/mL (3 mL) insulin pen 15 unit subcut BEDTIME 30 Days Qty: 5 8RF Viberzi 75 mg tablet 75 mg PO BID 30 Days Qty: 60 1RF Rx Instructions: must administer with a meal/food loperamide 2 mg Capsule 2 mg PO Q4H PRN (Reason: Loose Stool) Rx Instructions: administer after each loose stool until symptoms controlled; do not exceed 8 mg per 24 hrs magnesium 250 mg Tablet 250 mg PO DAILY Culturelle 10 billion cell Capsule 1 cap PO DAILY PRN (Reason: Diarrhea) Vyzulta 0.024 % drops 1 drp ophthalmic (eye) DAILY atenolol 100 mg tablet 100 mg PO DAILY Qty: 90 3RF oxycodone 5 mg tablet 5 mg PO BID PRN (Reason: pain) Qty: 20 0RF Rx Instructions: Partial Fill upon patient request. mecobalamin (vitamin B12) 1,000 mcg tablet,chewable 1,000 mcg PO DAILY omega-3 fatty acids [Fish Oil Concentrate] 1,000 mg capsule 1,000 mg PO DAILY cholecalciferol (vitamin D3) 25 mcg (1,000 unit) tablet 25 mcg PO DAILY pyridoxine (vitamin B6) 50 mg tablet 50 mg PO DAILY 90 Days Qty: 90 3RF No Action (DME) pen needle, diabetic 31 gauge x 1/4 needle See Rx Instructions .Route Qty: 100 8RF Rx Instructions: Once a day (DME) OneTouch Ultra Test Strip See Rx Instructions .Route Qty: 100 1RF Rx Instructions: Test 3 times daily Discharge Orders: Discharge Order (Routine); Ordered 09/13/22 Ordered By: Sarah Montalvo Activity on Discharge: As tolerated Stand Alone Forms: Patient Portal Discharge page Other Ambulatory Orders: Liver Panel (Routine) Timeframe: [id number] Facility: [facility] - Location: Laboratory Ordered By: Sarah Montalvo Care Plan Goals: see below Health Concerns: common bile duct stones biliary stricture Plan of Treatment: you had ERCP during hospitalization - common bile duct stones were removed and a plastic stent was placed in the common bile duct, cytology brushings were obtained you will need outpatient follow up with GI to review results of cytology brushings - depending on results further work up may be necessary you will need eventual removal of plastic stent call to schedule follow up appointment in GI office repeat liver function tests next week to make sure levels continue to trend down Assessment: see discharge summary
--- NOTE | 2022-09-13 12:47 | MHC.CM.PN ---
PT CLEARED TO DC HOME TODAY WITH NO SERVICES DAUGHTER TO TRANSPORT
--- NOTE | 2022-09-13 12:50 | HO.POSTANES ---
Post Anesthesia Evaluation Post Anesthesia Evaluation Date of Service: 09/13/22 Vital Signs: Vital Signs Temp Pulse Resp BP Pulse Ox O2 Del Method 09/13/22 08:00 96.8 F 72 16 158/70 H 99 Room Air 09/13/22 04:00 96.8 F 73 18 142/69 H 98 Room Air Anesthesia: General Endotracheal-GETA Mental Status: Awake Pain Control: Satisfactory Nausea/Vomiting: None Hydration: Adequate Anesthesia-Related Issues: No Anes. Related Issues
[2022-09-16 11:33] LABS: Carbohydrate Antigen 19-9 180 U/mL (<34)
== END 2022-09-13 12:27 | disposition home or self-care (01) | DRG 436 ==
LOC: HO.ED 20:13 → HO.EDOVER 21:48 → HO.S3 09-11 11:05
PROVIDERS: Internal Medicine Gastroenterology; Physician Assistant; Admitting Provider Internal Medicine; Emergency Provider Internal Medicine; PCP Internal Medicine; Visit Provider Physician Assistant Medical
PROC: 0F798DZ Dilation of Common Bile Duct with Intraluminal Device, Via Natural or Artificial Opening Endoscopic (ICD-10-PCS; CPT 43260; principal; 2022-09-12 09:40)
DX: C24.0 Malignant neoplasm of extrahepatic bile duct (principal); I48.19 Other persistent atrial fibrillation; K80.50 Calculus of bile duct without cholangitis or cholecystitis without obstruction; I25.10 Atherosclerotic heart disease of native coronary artery without angina pectoris; K58.0 Irritable bowel syndrome with diarrhea; Z79.01 Long term (current) use of anticoagulants; Z79.84 Long term (current) use of oral hypoglycemic drugs; Z79.899 Other long term (current) drug therapy
CPT/HCPCS: 36415; 74177; 74181; 80048; 80076; 81003; 82947; 83690; 83735; 85025; 85027; 85610; 85730; 86301; 88112; 88305; 99285; C1769; C2617; J1100; J1610; J1885; J1956; J2250; J2370; J2371; J3010; J3430; Q9967

== ENCOUNTER → 2022-09-10 21:32 | Outpatient (BNV) | payer MEDICARE, MEDICAID, SELFPAY | PROVIDERS: Admitting Provider Internal Medicine; Emergency Provider Internal Medicine; Visit Provider Internal Medicine | DX: K80.50 Calculus of bile duct without cholangitis or cholecystitis without obstruction (principal) | CPT/HCPCS: 99223; 99233; 99239 ==

== ENCOUNTER → 2022-09-10 21:32 | Outpatient (BNV) | payer MEDICARE, MEDICAID, SELFPAY | PROVIDERS: Admitting Provider Internal Medicine; Emergency Provider Internal Medicine; Visit Provider Internal Medicine Medical Oncology | DX: D37.6 Neoplasm of uncertain behavior of liver, gallbladder and bile ducts (principal) | CPT/HCPCS: 99222 ==

== ENCOUNTER 2022-09-16 13:56 | Outpatient (AMB) | payer MEDICARE, MEDICAID, SELFPAY ==
--- NOTE | 2022-09-16 13:50 | MHC.PC.OV ---
Vital Signs 09/16/22 13:51 Height 5 ft 2 in Weight 172 lb 5 oz BMI 31.5 BP 120/59 L Position Sitting Pulse 70 Pulse Source Pulse Oximeter Intake Visit Reasons: Discharge f/u 09/13/22 Intake Note: Patient is here for hospital discharge follow up. Patient was discharged from [facility]/13/22. Pt tested positive for covid 09/15/22. Material Carrier Required: No Health Underwriter: Present Accompanied by: Daughter Allergies No Known Allergies [No Known Allergies*] Allergy (Verified 09/16/22 13:52) Medication List - Last Reconciled 09/16/22 by Kam Grady MD amlodipine 5 mg PO DAILY ascorbate calcium (vitamin C) 1 g (2 x 500 mg) PO DAILY atenolol 100 mg PO DAILY blood sugar diagnostic ([employer] Ultra Test strips) Test 3 times daily cholecalciferol (vitamin D3) 25 mcg PO DAILY eluxadoline (Viberzi) 75 mg PO BID 30 days insulin glargine 15 units (0.15 mL) subcut BEDTIME 30 days isosorbide mononitrate ER 30 mg PO QAM Lactobacillus rhamnosus GG (Culturelle) 1 cap PO DAILY PRN latanoprostene bunod 0.024% (Vyzulta) 1 drp ophthalmic (eye) DAILY loperamide 2 mg PO Q4H PRN lorazepam 0.5 mg PO BID PRN magnesium 250 mg PO DAILY mecobalamin (vitamin B12) 1,000 mcg PO DAILY metformin 850 mg PO BID nirmatrelvir-ritonavir 300 mg (150 mg x 2)-100 mg (Paxlovid) take TWO 150 mg tablets of nirmatrelvir with ONE 100 mg tablet of ritonavir twice daily for 5 days PO omega-3 fatty acids (Fish Oil Concentrate) 1,000 mg PO DAILY oxycodone 5 mg PO BID PRN pantoprazole 40 mg PO BID pen needle, diabetic Once a day pyridoxine (vitamin B6) 50 mg PO DAILY 90 days rivaroxaban 15 mg PO QPM 90 days Tobacco use date assessed: 06/11/22 Fall risk assessment: No Falls in past year Last assessed Fall Risk: 09/16/22 Dental Screening Dental Screen Date: 09/16/22 Did you have a dental visit in the last 12 months?: No Did you have a dental problem in the last 6 months where you did not have access to dental care?: No Was dental information given to patient?: No HPI Discharge f/u 09/13/22 HPI Details admitted with jaundice due to CBD stones; has ERCP and stone removal and stent placement; did well; developed covid yesterday with a mild cough; has HTN [facility] Medical History (Updated 09/16/22 @ 14:15 by Kam Grady MD) Biliary dyskinesia CAD (coronary artery disease) CKD (chronic kidney disease) stage 3, GFR 30-59 ml/min Diabetes mellitus with coincident hypertension GERD (gastroesophageal reflux disease) High cholesterol Hypertension Hypertension Irritable bowel syndrome with diarrhea Obesity Obesity, diabetes, and hypertension syndrome Paroxysmal atrial fibrillation Weight loss Surgical History (Updated 09/14/22 @ 14:33 by Sue Starr MD) History of cardiac cath History of esophagogastroduodenoscopy (EGD) History of hip replacement, total Hx of colonoscopy Family History Father No problems noted. Mother Diabetes Sister Diabetes Daughter Anemia Diabetes Social History Household Members: Children Household Members Other:: daughter and her fiancee Housing: House Do you presently have visiting nurse or other home services: No Alcohol intake: never Patient Tobacco Use Status: Never used Tobacco e-Cigarette/Vaping Use: Never Used Second Hand Smoke Exposure: No Advance Directives Date on File: 08/01/20 service: No Current occupational status: retired Cognitive needs: No Hearing needs: No Vision needs: Yes Questionnaire Thrive Questionnaire Date Thrive assessed: 09/12/22 SOLEDAD-7 AMB Questionnaire SOLEDAD-7 Date SOLEDAD - 7 assessed: 02/20/22 Source: Developed by Drs. Ruben Aleman, Siena Dougherty, Spencer De La Fuente and colleagues, with an educational jessica from [employer]. Review of Systems Const Denies chills, Denies fatigue, Denies headache(s) and Denies weight loss Eyes Denies change in vision, Denies diplopia and Denies eye pain ENT Reports Normal hearing present, Denies vertigo, Denies dizziness, Denies headache(s) and Denies nasal discharge Card Denies chest pain, Denies rapid heart rate and Denies dyspnea on exertion Resp Denies chest congestion, Denies cough, Denies pain with cough and Denies dyspnea on exertion GI Denies abdominal pain, Denies hematochezia and Denies change in bowel habits Musc Denies myalgias, Denies arthralgias and Denies joint swelling Skin/Breast Denies lesions and Denies unusual bruising Neuro Reports Normal hearing present, Denies vertigo, Denies dizziness, Denies headache(s) and Denies focal weakness Endo Denies fatigue Physical exam (Primary Care) Vital Signs: Last Vital Signs Pulse 70 09/16/22 13:51 BP 120/59 L 09/16/22 13:51 BMI result Body Mass Index 31.5 Tobacco/Smoking Status: Tobacco use Status Tobacco use date assessed 06/11/22 09/16/22 13:55 Patient Tobacco Use Status Never used Tobacco 09/16/22 13:55 e-Cigarette/Vaping Use Never Used 09/16/22 13:55 Thrive Assessment: Date of Thrive Assessment Date Thrive assessed 09/12/22 09/16/22 13:55 Neuro Cranial nerves: Yes Normal hearing present Telehealth Telehealth Location of provider rendering services: practice address Location of patient: address on file Patient Identification confirmed using: Name, : Yes Telehealth method: voice only Patient verbally consented to treatment: Yes Patient verbally consented to billing insurance company: Yes Patient informed of any privacy concerns related to visit: Yes Minutes spent on Phone/Video with Pt.: 20 (minutes) Assessment and Plan Assessment & Plan (1) Choledocholithiasis: Code(s): K80.50 - Calculus of bile duct without cholangitis or cholecystitis without obstruction Plan: ref gi (2) Hypertension: Code(s): I10 - Essential (primary) hypertension Plan: same rx (3) COVID-19: Code(s): U07.1 - COVID-19 Plan: rx sent Orders: Referrals Gastroenterology Referral K80.50 - Calculus of bile duct without cholangitis or cholecystitis without obstruction Medications: New nirmatrelvir-ritonavir 300 mg (150 mg x 2)-100 mg (Paxlovid) take TWO 150 mg tablets of nirmatrelvir with ONE 100 mg tablet of ritonavir twice daily for 5 days PO 30 tabs 0RF Refilled oxycodone Partial Fill upon patient request. 5 mg PO BID PRN 20 tabs 0RF pain Coding Level of Care Code Tele Est Pt Level 4 (23032) Diagnoses Choledocholithiasis K80.50 Hypertension I10 COVID-19 U07.1
[2022-09-16 13:51] VITALS: BP 120/59; PULSE 70; BMI 31.5
== END 2022-09-16 14:37 | disposition home or self-care (01) ==
LOC: HO.HMGH 13:56
PROVIDERS: PCP Internal Medicine; Visit Provider Internal Medicine
DX: K80.50 Calculus of bile duct without cholangitis or cholecystitis without obstruction (principal); I10 Essential (primary) hypertension; U07.1 COVID-19
CPT/HCPCS: 99442

== ENCOUNTER 2022-10-22 13:19 | Outpatient (AMB) | payer MEDICARE, MEDICAID, SELFPAY ==
[2022-10-22 13:21] VITALS: BP 138/80; PULSE 67; O2SAT 98; BMI 31.3
--- NOTE | 2022-10-22 13:21 | MHC.PC.OV ---
Vital Signs 10/22/22 13:21 Height 5 ft 2 in Weight 171 lb 4 oz BMI 31.3 BP 138/80 Blood Pressure Location Lt brachial Position Sitting Pulse 67 Pulse Source Pulse Oximeter Pulse Oximetry (%) 98 Oxygen Delivery Method Room Air Intake Visit Reasons: Cataract surgery L eye- 11/12 Finish Off Operator Required: No Sanforizer: Not Required per policy Accompanied by: Self / Same As Patient Allergies No Known Allergies [No Known Allergies*] Allergy (Verified 10/22/22 13:22) Medication List - Last Reconciled 10/22/22 by Kam Grady MD amlodipine 5 mg PO DAILY ascorbate calcium (vitamin C) 1 g (2 x 500 mg) PO DAILY atenolol 100 mg PO DAILY blood sugar diagnostic ([employer] Ultra Test strips) USE 1 STRIP TO CHECK GLUCOSE THREE TIMES DAILY cholecalciferol (vitamin D3) 25 mcg PO DAILY colesevelam (WelChol) 3,750 mg PO DAILY eluxadoline (Viberzi) 75 mg PO BID 30 days insulin glargine 15 units (0.15 mL) subcut BEDTIME 30 days isosorbide mononitrate ER 30 mg PO QAM Lactobacillus rhamnosus GG (Culturelle) 1 cap PO DAILY PRN latanoprostene bunod 0.024% (Vyzulta) 1 drp ophthalmic (eye) DAILY loperamide 2 mg PO Q4H PRN lorazepam 0.5 mg PO BID PRN magnesium 250 mg PO DAILY mecobalamin (vitamin B12) 1,000 mcg PO DAILY metformin 850 mg PO BID omega-3 fatty acids (Fish Oil Concentrate) 1,000 mg PO DAILY oxycodone 5 mg PO BID PRN pantoprazole 40 mg PO BID pen needle, diabetic Once a day pyridoxine (vitamin B6) 50 mg PO DAILY 90 days rivaroxaban 15 mg PO QPM 90 days Tobacco use date assessed: 06/11/22 Fall risk assessment: No Falls in past year Last assessed Fall Risk: 10/22/22 Dental Screening Dental Screen Date: 10/22/22 Did you have a dental visit in the last 12 months?: No Did you have a dental problem in the last 6 months where you did not have access to dental care?: No Was dental information given to patient?: Patient has dentist HPI Cataract surgery L eye- 11/12 HPI Details having a cataract repair; has DM on insulin; stable CAD and Afib, has a CBD stent for impacted gallstones [facility] Medical History Biliary dyskinesia CAD (coronary artery disease) CKD (chronic kidney disease) stage 3, GFR 30-59 ml/min Diabetes mellitus with coincident hypertension Diarrhea GERD (gastroesophageal reflux disease) High cholesterol Hypertension Hypertension Irritable bowel syndrome with diarrhea Obesity Obesity, diabetes, and hypertension syndrome Paroxysmal atrial fibrillation Weight loss Surgical History History of cardiac cath History of esophagogastroduodenoscopy (EGD) History of hip replacement, total Hx of colonoscopy Family History Father No problems noted. Mother Diabetes Sister Diabetes Daughter Anemia Diabetes Social History Household Members: Children Household Members Other:: daughter and her fiancee Housing: House Do you presently have visiting nurse or other home services: No Alcohol intake: never Patient Tobacco Use Status: Never used Tobacco e-Cigarette/Vaping Use: Never Used Second Hand Smoke Exposure: No Advance Directives Date on File: 08/01/20 service: No Current occupational status: retired Cognitive needs: Yes Hearing needs: No Vision needs: Yes Questionnaire PHQ-9 Over the last 2 weeks, how often have you been bothered by any of the following problems? 1. Little interest or pleasure in doing things: several days 2. Feeling down, depressed, or hopeless: several days 3. Trouble falling or staying asleep, or sleeping too much: several days 4. Feeling tired or having little energy: several days 5. Poor appetite or overeating: several days 6. Feeling bad about yourself - or that you are a failure or have let yourself or your family down: several days 7. Trouble concentrating on things, such as reading the newspaper or watching television: several days 8. Moving or speaking so slowly that other people could have noticed. Or the opposite - being so fidgety or restless that you have been moving around a lot more than usual: several days 9. Thoughts that you would be better off or of hurting yourself in some way: several days Total score: 9 Depression Screening Interpretation: Positive 31834 - PHQ-9 Billing: Yes Source: Developed by Drs. Ruben Aleman, Spencer Vila and colleagues, with an educational jessica from [employer] Thrive Questionnaire Date Thrive assessed: 09/12/22 AUDIT C Alcohol Use Questionnaire (AUDIT-C) 1. How often do you have a drink containing alcohol?: Never 3. How often do you have six or more drinks on one occasion?: Never Total Score: 0 Score Reviewed/Action Taken: No SOLEDAD-7 AMB Questionnaire SOLEDAD-7 Date SOLEDAD - 7 assessed: 02/20/22 Source: Developed by Drs. Ruben Aleman, Spencer Vila and colleagues, with an educational jessica from [employer] Review of Systems Const Denies chills, Denies fatigue, Denies headache(s) and Denies weight loss Eyes Denies change in vision, Denies diplopia and Denies eye pain ENT Denies vertigo, Denies dizziness, Denies headache(s) and Denies nasal discharge Card Denies chest pain, Denies rapid heart rate and Denies dyspnea on exertion Resp Denies chest congestion, Denies cough, Denies pain with cough and Denies dyspnea on exertion GI Denies abdominal pain, Denies hematochezia and Denies change in bowel habits Musc Denies myalgias, Denies arthralgias and Denies joint swelling Skin/Breast Denies lesions and Denies unusual bruising Neuro Denies vertigo, Denies dizziness, Denies headache(s) and Denies focal weakness Endo Denies fatigue Physical exam (Primary Care) Vital Signs: Last Vital Signs Pulse 67 10/22/22 13:21 BP 138/80 10/22/22 13:21 Pulse Ox 98 10/22/22 13:21 Oxygen Delivery Method Room Air 10/22/22 13:21 BMI result Body Mass Index 31.3 Tobacco/Smoking Status: Tobacco use Status Tobacco use date assessed 06/11/22 10/22/22 13:28 Patient Tobacco Use Status Never used Tobacco 10/22/22 13:28 e-Cigarette/Vaping Use Never Used 10/22/22 13:28 PHQ-9: PHQ-9 Score PHQ-9: Total score 9 10/22/22 13:28 Depression Screening Interpretation: Positive Thrive Assessment: Date of Thrive Assessment Date Thrive assessed 09/12/22 10/22/22 13:28 Const General: cooperative, healthy appearing and no acute distress Orientation/consciousness: oriented to person, oriented to place and oriented to time HENMT Head: Yes normal to inspection, Yes normocephalic and Yes atraumatic Mouth: Normal oral and palatal mucosa present and tongue normal Throat: Yes posterior oropharynx normal and Yes uvula midline Eyes General: appearance normal, both eyes and all related structures Neck Neck: Yes normal visual inspection, Yes full ROM and Yes no lymphadenopathy Thyroid: Thyroid normal Carotids: normal carotid upstroke Chest Chest palpation & inspection: normal inspection of the chest Resp Effort & Inspection: normal respiratory effort and able to speak in complete sentences Auscultation: clear to auscultation bilaterally Cardio Jugular venous distension: no JVD Palpation: normal PMI Rate: regular rate Rhythm: regular rhythm Heart sounds: S1 normal heart sound present and S2 normal heart sound present GI Inspection: Yes normal to inspection Palpation (GI): Soft to palpation and No hepatosplenomegaly present Auscultation: normal bowel sounds General: Yes no CVA tenderness Back/Spine/Pelvis Back: no CVA tenderness Skin General skin exam: no rashes or lesions noted Neuro General: oriented to person, oriented to place and oriented to time Extrem General: Yes normal to inspection and Yes full ROM Assessment and Plan Assessment & Plan (1) Preoperative clearance: Code(s): Z01.818 - Encounter for other preprocedural examination Plan: low risk for cardiovascular complications; cleared for surgery (2) Diabetes mellitus with coincident hypertension: Code(s): E11.9 - Type 2 diabetes mellitus without complications; I10 - Essential (primary) hypertension Plan: stable; same rx (3) Paroxysmal atrial fibrillation: Code(s): I48.0 - Paroxysmal atrial fibrillation Plan: stable; same rx (4) CAD (coronary artery disease): Code(s): I25.10 - Atherosclerotic heart disease of [place] coronary artery without angina pectoris Plan: stable (5) Choledocholithiasis: Code(s): K80.50 - Calculus of bile duct without cholangitis or cholecystitis without obstruction Plan: stable Coding Level of Care Code Est Pt Level 4 (63389) Diagnoses Preoperative clearance Z01.818 Diabetes mellitus with coincident hypertension E11.9; I10 Paroxysmal atrial fibrillation I48.0 CAD (coronary artery disease) I25.10 Choledocholithiasis K80.50
== END 2022-10-22 13:42 | disposition home or self-care (01) ==
PROVIDERS: PCP Internal Medicine; Visit Provider Internal Medicine
DX: Z01.818 Encounter for other preprocedural examination (principal); E11.9 Type 2 diabetes mellitus without complications; I10 Essential (primary) hypertension; I48.0 Paroxysmal atrial fibrillation; I25.10 Atherosclerotic heart disease of native coronary artery without angina pectoris; K80.50 Calculus of bile duct without cholangitis or cholecystitis without obstruction
CPT/HCPCS: 99214

== ENCOUNTER 2022-10-29 14:44 | Outpatient (REF) | payer MEDICARE, MEDICAID, SELFPAY ==
[2022-10-29 15:03] LABS: MANUAL DIFF FLAG NO
[2022-10-29 15:20] LABS: Basophils Percent Auto 0.7 % (0-2); Eosinophils Percent Auto 3.3 % (0-4); Hematocrit 33.3 % (37.0-47.0); Hemoglobin 10.5 g/dl (12.0-16.0); Imm Gran Pct Auto 0.3 % (0.0-0.4); Lymphocytes Percent Auto 32.2 % (20-40); Mean Corpuscular HGB Conc 31.5 g/dl (31.0-35.0); Mean Corpuscular Hemoglobin 28.9 pg (27.0-33.0); Mean Corpuscular Volume 91.7 fL (80.0-98.0); Mean Platelet Volume 10.2 fL (9.4-12.3); Monocytes Percent Auto 8.5 % (2-11); Neutrophils Absolute Auto 4.9 x10*3/uL (2.0-8.3); Platelet Count 310 X10*3/uL (160-400); Red Blood Count 3.63 X10*6/uL (4.20-5.50); Red Cell Distribution Width 14.9 % (11.0-16.0); White Blood Count 8.9 X10*3/uL (4.8-10.8)
[2022-10-29 15:21] LABS: Basophils Absolute Auto 0.1 X10*3/uL (0.0-0.2); Eosinophils Absolute Auto 0.3 X10*3/uL (0.0-0.4); Imm Gran Abs Auto 0.03 X10*3/uL (0.00-0.03); Lymphocytes Absolute Auto 2.9 X10*3/uL (1.2-4.9); Monocytes Absolute Auto 0.8 X10*3/uL (0.1-1.2)
[2022-10-29 15:37] LABS: Estimated Average Glucose 134 mg/dL; Hemoglobin A1c % 6.3 % (<6.0)
[2022-10-29 15:49] LABS: Alanine Aminotransferase 11 U/L (0-31); Albumin Level 3.6 g/dL (3.5-5.0); Alkaline Phosphatase 70 U/L (39-117); Anion Gap 11 (12-20); Aspartate Amino Transferase 21 U/L (5-31); Bilirubin Direct 0.4 mg/dL (0.0-0.5); Bilirubin Total 0.8 mg/dL (0.0-1.0); Blood Urea Nitrogen 18 mg/dL (9-16); Calcium 9.3 mg/dL (8.4-10.2); Carbon Dioxide 25 mmol/L (22-29); Chloride 107 mmol/L (96-108); Estimated Glomerular Filt Rate 44; Glucose Random 128 mg/dL (60-115); Lipase 5 U/L (8-78); Potassium 4.4 mmol/L (3.3-5.1); Sodium 139 mmol/L (135-145); Total Protein 6.1 g/dL (6.5-8.0)
== END 2022-10-29 14:45 | disposition home or self-care (01) ==
LOC: HO.LAB 14:44
PROVIDERS: Physician Assistant Medical; PCP Internal Medicine; Visit Provider Surgery
DX: I12.9 Hypertensive chronic kidney disease with stage 1 through stage 4 chronic kidney disease, or unspecified chronic kidney disease (principal); E11.22 Type 2 diabetes mellitus with diabetic chronic kidney disease; N18.30 Chronic kidney disease, stage 3 unspecified; I48.0 Paroxysmal atrial fibrillation; E66.9 Obesity, unspecified; E11.59 Type 2 diabetes mellitus with other circulatory complications; K80.50 Calculus of bile duct without cholangitis or cholecystitis without obstruction; K80.20 Calculus of gallbladder without cholecystitis without obstruction; I25.10 Atherosclerotic heart disease of native coronary artery without angina pectoris
CPT/HCPCS: 36415; 80053; 80076; 82248; 83036; 83690; 84134; 85025

== ENCOUNTER 2022-11-06 12:42 | Outpatient (REF) | payer MEDICARE, MEDICAID, SELFPAY ==
[2022-11-06 14:15] LABS: MANUAL DIFF FLAG NO
[2022-11-06 15:15] LABS: Basophils Absolute Auto 0.1 X10*3/uL (0.0-0.2); Basophils Percent Auto 0.6 % (0-2); Eosinophils Absolute Auto 0.3 X10*3/uL (0.0-0.4); Eosinophils Percent Auto 2.9 % (0-4); Hematocrit 33.1 % (37.0-47.0); Hemoglobin 10.5 g/dl (12.0-16.0); Imm Gran Abs Auto 0.02 X10*3/uL (0.00-0.03); Imm Gran Pct Auto 0.2 % (0.0-0.4); Lymphocytes Absolute Auto 3.2 X10*3/uL (1.2-4.9); Lymphocytes Percent Auto 34.9 % (20-40); Mean Corpuscular HGB Conc 31.7 g/dl (31.0-35.0); Mean Corpuscular Hemoglobin 28.6 pg (27.0-33.0); Mean Corpuscular Volume 90.2 fL (80.0-98.0); Mean Platelet Volume 10.4 fL (9.4-12.3); Monocytes Absolute Auto 0.8 X10*3/uL (0.1-1.2); Monocytes Percent Auto 8.3 % (2-11); Neutrophils Absolute Auto 4.8 x10*3/uL (2.0-8.3); Neutrophils Percent Auto 53.1 % (45-73); Platelet Count 305 X10*3/uL (160-400); Red Blood Count 3.67 X10*6/uL (4.20-5.50); Red Cell Distribution Width 14.5 % (11.0-16.0)
[2022-11-06 15:46] LABS: Alanine Aminotransferase 12 U/L (0-31); Albumin Level 3.7 g/dL (3.5-5.0); Alkaline Phosphatase 63 U/L (39-117); Anion Gap 13 (12-20); Aspartate Amino Transferase 19 U/L (5-31); Bilirubin Total 0.7 mg/dL (0.0-1.0); Blood Urea Nitrogen 24 mg/dL (9-16); Calcium 9.6 mg/dL (8.4-10.2); Carbon Dioxide 25 mmol/L (22-29); Chloride 108 mmol/L (96-108); Estimated Glomerular Filt Rate 45; Glucose Random 119 mg/dL (60-115); Potassium 4.6 mmol/L (3.3-5.1); Sodium 141 mmol/L (135-145); Total Protein 6.4 g/dL (6.5-8.0)
== END 2022-11-06 12:43 | disposition home or self-care (01) ==
LOC: HO.LAB 12:42
PROVIDERS: PCP Internal Medicine; Visit Provider Surgery
DX: K83.8 Other specified diseases of biliary tract (principal); I48.0 Paroxysmal atrial fibrillation; E66.9 Obesity, unspecified; K82.8 Other specified diseases of gallbladder; K80.40 Calculus of bile duct with cholecystitis, unspecified, without obstruction; I25.10 Atherosclerotic heart disease of native coronary artery without angina pectoris; E11.22 Type 2 diabetes mellitus with diabetic chronic kidney disease; I12.9 Hypertensive chronic kidney disease with stage 1 through stage 4 chronic kidney disease, or unspecified chronic kidney disease; N18.30 Chronic kidney disease, stage 3 unspecified; R54 Age-related physical debility; E46 Unspecified protein-calorie malnutrition; Z79.01 Long term (current) use of anticoagulants
CPT/HCPCS: 36415; 80053; 84134; 85025

== ENCOUNTER 2022-11-06 12:42 | Outpatient (AMB) | payer MEDICARE, MEDICAID, SELFPAY ==
--- NOTE | 2022-11-06 13:00 | A.OFFVIS_ITS ---
Intake Vital Signs 11/06/22 13:03 Height 5 ft 1 in Weight 171 lb 1.259 oz BMI 32.3 BP 175/80 H Blood Pressure Location Lt brachial Position Sitting Pulse 68 Pulse Source Pulse Oximeter Temp 98.1 F Temp Source Tympanic Pulse Oximetry (%) 96 Oxygen Delivery Method Room Air Intake Visit Reasons: gallstones Allergies No Known Allergies [No Known Allergies*] Allergy (Verified 11/06/22 13:05) HPI HPI Comments History of Present Illness Details The patient is an 82-year-old woman with a history of atrial fibrillation maintained on Xarelto. She presented on 09/12/2022 with choledocholithiasis and such a heavy stone burden, it was unclear as to whether not she had a malignancy. She underwent [place] [facility] [place] as her regular animal therapist, Dr. Levi was away. Due to concern about possible pancreatic or bile duct malignancy, the patient was transferred to [facility] and underwent repeat ERCP with sphincterotomy, stone extraction and stent placement. Brushings and evaluations from Dr. Pickard at [facility] and brushings from here were negative for malignancy and interval cholecystectomy is recommended prior to removal of the CBD stent. The patient is accompanied by her daughter today and gave permission to discuss her care. Patient notes that she has had poor appetite and about 40 lb of weight loss due to irritable bowel syndrome with diarrhea features over the past 2 years. Patient states she is tolerating her diet but not really eating secondary to diarrhea and nausea which has been problematic for 2 years. The patient's past medical history is as stated above. Also CKD3, DM2 (HbA1C 6.3), CAD She is currently taking Xarelto. She denies intra-abdominal operations. The patient was tearful during today's visit noting that the IBS with diarrhea has been life altering and she is essentially unable to leave the house at this point. She has been limited in her diet; we discussed her protein calorie malnutrition with pre-albumin of 13 diagnosed and the patient is having difficulty with protein supplements. Patient states she has not been eating any significant type of protein for at least 2 years. The patient also notes that she is overwhelmed and confused by the number of doctors she is seeing. She requested that I include Dr. Levi in this note said that any input regarding repeat ERCP/stent removal could be considered here at [facility] PFSH Medical History CKD (chronic kidney disease) stage 3, GFR 30-59 ml/min Diarrhea Hypertension Obesity Diabetes mellitus with coincident hypertension Obesity, diabetes, and hypertension syndrome Weight loss Biliary dyskinesia Paroxysmal atrial fibrillation GERD (gastroesophageal reflux disease) Irritable bowel syndrome with diarrhea CAD (coronary artery disease) High cholesterol Hypertension Surgical History History of hip replacement, total History of esophagogastroduodenoscopy (EGD) Hx of colonoscopy History of cardiac cath Family History Father No problems noted. Mother Diabetes Sister Diabetes Daughter Anemia Diabetes Social History Household Members: Children Household Members Other:: daughter and her fiancee Housing: House Do you presently have visiting nurse or other home services: No Alcohol intake: never Patient Tobacco Use Status: Never used Tobacco e-Cigarette/Vaping Use: Never Used Second Hand Smoke Exposure: No Advance Directives Date on File: 08/01/20 service: No Current occupational status: retired Cognitive needs: Yes Hearing needs: No Vision needs: Yes Physical Exam Vital Signs: Last Vital Signs Temp 98.1 F 11/06/22 13:03 Pulse 68 11/06/22 13:03 BP 175/80 H 11/06/22 13:03 Pulse Ox 96 11/06/22 13:03 Oxygen Delivery Method Room Air 11/06/22 13:03 BMI result Body Mass Index 32.3 The patient is non-toxic & intermittently tearful She uses a walker & appears frail NC/AT, PERRLA, EOMI Mood, affect & judgment all appear appropriate Sclera anicteric conjunctiva pink and moist Oropharynx is clear with no aphthous ulcers, Mallampati class 4, mucous membranes moist Neck is supple with no masses, adenopathy or bruits Heart is regular, normal S1-S2 no rubs or murmurs Lungs are clear and equal anteriorly with no audible wheezing, rubs or dullness to percussion No CVA tenderness present Abdomen is obese with no demonstrable hernias. No HSM, rebound, rigidity, guarding, masses or bruits are present. Rectal exam is deferred Skin has good turgor and is free of rashes Extremities free of cyanosis clubbing edema Results Reviewed Results Reviewed: Diagnostic labs 10/29/2022 Pre-albumin is low at 14.0 Hemoglobin A1c 6.3 Hemoglobin 10.5 with normochromic/normocytic indices; white blood cell count 8.9, platelet count 310 K Total bilirubin 0.8, AST 21, ALT 11, alkaline phosphatase 70 BUN 18, creatinine 1.18 I reviewed the patient's CTs including 09/10/2022 which demonstrated intrahepatic and extrahepatic ductal dilation, MRCP is a around the time and ERCP reports Report from Dr. Pickard at [facility], gastroenterology notes from Dr. Cota and Dr. Levi are all reviewed Assessment & Plan Assessment & Plan (1) Dilated intrahepatic bile duct: Code(s): K83.8 - Other specified diseases of biliary tract (2) Obesity (BMI 30.0-34.9): Code(s): E66.9 - Obesity, unspecified (3) Cholecystitis: Comment: 20min reviewing chart eval pt and documeting Code(s): K81.9 - Cholecystitis, unspecified (4) Dyskinesia of gallbladder: Code(s): K82.8 - Other specified diseases of gallbladder (5) Choledocholithiasis: Code(s): K80.50 - Calculus of bile duct without cholangitis or cholecystitis without obstruction (6) CAD (coronary artery disease): Code(s): I25.10 - Atherosclerotic heart disease of [place] coronary artery without angina pectoris (7) Hypertension: Code(s): I10 - Essential (primary) hypertension (8) Paroxysmal atrial fibrillation: Code(s): I48.0 - Paroxysmal atrial fibrillation (9) NIDDY (non-insulin dependent diabetes mellitus in young): Code(s): E13.9 - Other specified diabetes mellitus without complications (10) CKD (chronic kidney disease) stage 3, GFR 30-59 ml/min: Code(s): N18.30 - Chronic kidney disease, stage 3 unspecified (11) Anticoagulated: Code(s): Z79.01 - skilled nursing (current) use of anticoagulants (12) Frailty syndrome in geriatric patient: Code(s): R54 - Age-related physical debility (13) Protein calorie malnutrition: Code(s): E46 - Unspecified protein-calorie malnutrition Plan Since the patient noted that she was overwhelmed by the events and voiced concern regarding the discussion of malignancy, I used a teaching solderer electronic to explain her choledocholithiasis , cholelithiasis and recommended a laparoscopic or open cholecystectomy and possible cholangiogram prior to the ERCP being repeated for stent removal. The inherent risks of bleeding, infection, need for open surgery, bile duct injury in, worsening of her cardiac or renal conditions due to pneumoperitoneum was also discussed. The option of follow-up in his 2nd opinion at [facility] surgery was also offered but declined by the patient. We discussed her well-controlled type 2 diabetes and I have ordered repeat labs, with the importance of addressing the patient's ongoing weight loss and protein calorie malnutrition. The patient seemed understand her options and did sign a consent for laparoscopic cholecystectomy, possibly open and possible cho langiogram which we will schedule after we have repeat labs. Options of various protein supplements were provided to the patient and her daughter. I will reach out to Dr. Doss, the patient's nib finisher regarding Xarelto management in the perioperative period. I will follow-up with the patient when her labs return. Orders: Orders Complete Blood Count Auto Diff Today E66.9 - Obesity, unspecified, K81.9 - Cholecystitis, unspecified, K82.8 - Other specified diseases of gallbladder, K83 .8 - Other specified diseases of biliary tract Comprehensive Met. Panel Today E66.9 - Obesity, unspecified, K81.9 - Cholecystitis, unspecified, K82.8 - Other specified diseases of gallbladder, K83.8 - Other specified diseases of biliary tract Prealbumin Today E66.9 - Obesity, unspecified, K81.9 - Cholecystitis, unspecified, K82.8 - Other specified diseases of gallbladder, K83.8 - Other specified diseases of biliary tract Coding Level of Care Code New Pt Level 4 (48851) Diagnoses Dilated intrahepatic bile duct K83.8 Obesity (BMI 30.0-34.9) E66.9 Cholecystitis K81.9 Dyskinesia of gallbladder K82.8 Choledocholithiasis K80.50 CAD (coronary artery disease) I25.10 Hypertension I10 Paroxysmal atrial fibrillation I48.0 NIDDY (non-insulin dependent diabetes mellitus in young) E13.9 CKD (chronic kidney disease) stage 3, GFR 30-59 ml/min N18.30 Anticoagulated Z79.01 Frailty syndrome in geriatric patient R54 Protein calorie malnutrition E46
[2022-11-06 13:03] VITALS: BP 175/80; PULSE 68; TEMP 36.7; O2SAT 96; BMI 32.3
== END 2022-11-06 15:10 | disposition home or self-care (01) ==
PROVIDERS: PCP Internal Medicine; Visit Provider Surgery
DX: K83.8 Other specified diseases of biliary tract (principal); K81.9 Cholecystitis, unspecified; I48.0 Paroxysmal atrial fibrillation; E13.9 Other specified diabetes mellitus without complications; N18.30 Chronic kidney disease, stage 3 unspecified; E66.9 Obesity, unspecified; Z68.32 Body mass index [BMI] 32.0-32.9, adult; K80.50 Calculus of bile duct without cholangitis or cholecystitis without obstruction; I25.10 Atherosclerotic heart disease of native coronary artery without angina pectoris; I10 Essential (primary) hypertension
CPT/HCPCS: 99204

== ENCOUNTER 2022-11-21 13:51 | Outpatient (AMB) | payer MEDICARE, MEDICAID, SELFPAY ==
[2022-11-21 13:54] VITALS: BP 134/66; PULSE 67; O2SAT 100; BMI 31.7
--- NOTE | 2022-11-21 13:54 | MHC.PC.OV ---
Vital Signs 11/21/22 13:54 Height 5 ft 1 in Weight 168 lb BMI 31.7 BP 134/66 Blood Pressure Location Lt brachial Position Sitting Pulse 67 Pulse Source Pulse Oximeter Pulse Oximetry (%) 100 Oxygen Delivery Method Room Air Intake Visit Reasons: 3mth f/u User Support Specialist: Present Accompanied by: Daughter Allergies No Known Allergies [No Known Allergies*] Allergy (Verified 11/21/22 13:55) Medication List - Last Reconciled 11/21/22 by Kam Grady MD amlodipine 5 mg PO DAILY ascorbate calcium (vitamin C) 1 g (2 x 500 mg) PO DAILY atenolol 100 mg PO DAILY blood sugar diagnostic (Ewirelessgearuch Ultra Test strips) USE 1 STRIP TO CHECK GLUCOSE THREE TIMES DAILY cholecalciferol (vitamin D3) 25 mcg PO DAILY colesevelam 1,250 mg PO BID colesevelam (WelChol) 3,750 mg PO DAILY eluxadoline (Viberzi) 75 mg PO BID 30 days insulin glargine 15 units (0.15 mL) subcut BEDTIME 30 days isosorbide mononitrate ER 30 mg PO QAM Lactobacillus rhamnosus GG (Culturelle) 1 cap PO DAILY PRN latanoprostene bunod 0.024% (Vyzulta) 1 drp ophthalmic (eye) DAILY loperamide 2 mg PO Q4H PRN lorazepam 0.5 mg PO BID PRN magnesium 250 mg PO DAILY mecobalamin (vitamin B12) 1,000 mcg PO DAILY metformin 850 mg PO BID omega-3 fatty acids (Fish Oil Concentrate) 1,000 mg PO DAILY oxycodone 5 mg PO BID PRN pantoprazole 40 mg PO BID pen needle, diabetic Once a day pyridoxine (vitamin B6) 50 mg PO DAILY 90 days rivaroxaban 15 mg PO QPM 90 days Tobacco use date assessed: 06/11/22 Fall risk assessment: No Falls in past year Last assessed Fall Risk: 11/21/22 Dental Screening Dental Screen Date: 11/21/22 Did you have a dental visit in the last 12 months?: No Did you have a dental problem in the last 6 months where you did not have access to dental care?: No Was dental information given to patient?: Patient has dentist HPI 3mth f/u HPI Details HTN DM and IBS; stable on rx PFSH Medical History CKD (chronic kidney disease) stage 3, GFR 30-59 ml/min Diarrhea Hypertension Obesity Diabetes mellitus with coincident hypertension Obesity, diabetes, and hypertension syndrome Weight loss Biliary dyskinesia Paroxysmal atrial fibrillation GERD (gastroesophageal reflux disease) Irritable bowel syndrome with diarrhea CAD (coronary artery disease) High cholesterol Hypertension Surgical History History of hip replacement, total History of esophagogastroduodenoscopy (EGD) Hx of colonoscopy History of cardiac cath Family History Father No problems noted. Mother Diabetes Sister Diabetes Daughter Anemia Diabetes Social History Household Members: Children Household Members Other:: daughter and her fiancee Housing: House Do you presently have visiting nurse or other home services: No Alcohol intake: never Patient Tobacco Use Status: Never used Tobacco e-Cigarette/Vaping Use: Never Used Second Hand Smoke Exposure: No Advance Directives Date on File: 08/01/20 service: No Current occupational status: retired Cognitive needs: Yes Hearing needs: No Vision needs: Yes Questionnaire PHQ-9 Over the last 2 weeks, how often have you been bothered by any of the following problems? 1. Little interest or pleasure in doing things: several days 2. Feeling down, depressed, or hopeless: several days 3. Trouble falling or staying asleep, or sleeping too much: several days 4. Feeling tired or having little energy: several days 5. Poor appetite or overeating: several days 6. Feeling bad about yourself - or that you are a failure or have let yourself or your family down: several days 7. Trouble concentrating on things, such as reading the newspaper or watching television: several days 8. Moving or speaking so slowly that other people could have noticed. Or the opposite - being so fidgety or restless that you have been moving around a lot more than usual: several days 9. Thoughts that you would be better off or of hurting yourself in some way: several days Total score: 9 Depression Screening Interpretation: Positive Depression Screening Done: Yes 32386 - PHQ-9 Billing: Yes Source: Developed by Drs. Ruben Aleman, Siena Dougherty, Spencer De La Fuente and colleagues, with an educational jessica from [employer]. Thrive Questionnaire Date Thrive assessed: 09/12/22 AUDIT C Alcohol Use Questionnaire (AUDIT-C) 1. How often do you have a drink containing alcohol?: Never 3. How often do you have six or more drinks on one occasion?: Never Total Score: 0 Score Reviewed/Action Taken: No SOLEDAD-7 AMB Questionnaire SOLEDAD-7 Date SOLEDAD - 7 assessed: 02/20/22 Source: Developed by Drs. Ruben Aleman, Spencer Vila and colleagues, with an educational jessica from [employer]. Review of Systems Const Denies chills, Denies headache(s) and Denies weight loss ENT Denies headache(s) Card Denies chest pain, Denies syncope, Denies irregular heart rhythm and Denies dyspnea Resp Denies chest congestion, Denies cough and Denies dyspnea GI Denies abdominal pain, Denies change in stool character, Denies nausea and Denies vomiting Musc Denies deformity and Denies joint swelling Neuro Denies syncope and Denies headache(s) Physical exam (Primary Care) Vital Signs: Last Vital Signs Pulse 67 11/21/22 13:54 BP 134/66 11/21/22 13:54 Pulse Ox 100 11/21/22 13:54 Oxygen Delivery Method Room Air 11/21/22 13:54 BMI result Body Mass Index 31.7 Tobacco/Smoking Status: Tobacco use Status Tobacco use date assessed 06/11/22 11/21/22 13:55 Patient Tobacco Use Status Never used Tobacco 11/21/22 13:55 e-Cigarette/Vaping Use Never Used 11/21/22 13:55 PHQ-9: PHQ-9 Score PHQ-9: Total score 9 11/21/22 14:17 Depression Screening Interpretation: Positive Thrive Assessment: Date of Thrive Assessment Date Thrive assessed 09/12/22 11/21/22 13:55 Const General: cooperative, comfortable, no acute distress and alert Neck Neck: Yes no lymphadenopathy Thyroid: Thyroid normal Resp Effort & Inspection: normal respiratory effort Auscultation: clear to auscultation bilaterally Percussion: percussion normal Cardio Jugular venous distension: no JVD Palpation: normal PMI Rate: regular rate Rhythm: regular rhythm Heart sounds: S1 normal heart sound present and S2 normal heart sound present GI Inspection: Yes normal to inspection Palpation (GI): No hepatosplenomegaly present Skin General skin exam: no rashes or lesions noted Extrem General: Yes no clubbing, cyanosis or edema Results AMB Hemoglobin A1c AMB Hemoglobin A1c 7.1 % Last Edit by RORO Casanova on 11/21/22 14:18 Results Reviewed Results Reviewed: Laboratory Last Values Hgb A1c (Clinic) 7.1 % (4.0-6.0) H 11/21/22 13:56 Assessment and Plan Assessment & Plan (1) Diabetes mellitus with coincident hypertension: Code(s): E11.9 - Type 2 diabetes mellitus without complications; I10 - Essential (primary) hypertension Plan: stable; same rx (2) Irritable bowel syndrome with diarrhea: Code(s): K58.0 - Irritable bowel syndrome with diarrhea Plan: stable; same rx (3) Hypertension: Code(s): I10 - Essential (primary) hypertension Plan: stable; same rx Orders: Orders AMB Hemoglobin A1c Today E11.9 - Type 2 diabetes mellitus without complications, I10 - Essential (primary) hypertension Lipid Panel Today E78.5 - Hyperlipidemia, unspecified Complete Blood Count Auto Diff Today D64.9 - Anemia, unspecified Comprehensive [place]. Panel Fast Today N28.9 - Disorder of kidney and ureter, unspecified Thyroid Stimulating Hormone Today E03.9 - Hypothyroidism, unspecified Hemoglobin A1c Today R73.9 - Hyperglycemia, unspecified Coding Level of Care Code Est Pt Level 4 (58681) Diagnoses Diabetes mellitus with coincident hypertension E11.9; I10 Irritable bowel syndrome with diarrhea K58.0 Hypertension I10
== END 2022-11-21 14:20 | disposition home or self-care (01) ==
PROVIDERS: PCP Internal Medicine; Visit Provider Internal Medicine
DX: E11.59 Type 2 diabetes mellitus with other circulatory complications (principal); I10 Essential (primary) hypertension; K58.0 Irritable bowel syndrome with diarrhea
CPT/HCPCS: 83036; 99214

== ENCOUNTER 2022-11-28 10:23 | Outpatient (AMB) | payer MEDICARE, MEDICAID, SELFPAY ==
--- NOTE | 2022-11-28 10:33 | A.OFFVIS_ITS ---
Intake Vital Signs 11/28/22 10:34 Height 5 ft 1 in Weight 165 lb 5.547 oz BMI 31.2 BP 210/83 H Blood Pressure Location Lt brachial Position Sitting Pulse 70 Intake Visit Reasons: 3 month follow up Intake Note: Shirlene presents in the office as a 3 month follow up. CC: Little confused as to what is happening. She is having gall bladder removed but there is a stent that needs to come out. She is confused and would like some answers. 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 She also noted worsening nausea and bilious non bloody emesis. She also has early satiety and poor appetite with weight loss of 15#. She has noted tete difficulty in swallowing even fluids. She denies any fever, chills, rash, shortness of breath or chest pain. She has longstanding diarrhea with 5-6 loose stools daily attributed to 'IBS'. She is on daily oxycodone for back pain and metformin and tried on creon and viberzi for diarrhea with variable effect. She did have work up by Sofía Edward in the GI office with imaging suggestive of chronic cholecystitis and GB dyskinsia, mild hydronephrosis, enlarged heart and coronary calcification. I did EGD/colonoscopy 07/2020: Endoscopy Findings: erosive duodenitis atrophic gastritis upper esophageal varices Colonoscopy Findings: polyps internal hemorrhoids diverticular disease anal rectal lesion, ?inflammed skin tag, papilloma , neoplasia or adenoma Path: chronic erosive duodenitis, moderate chronic inflammation, tubular adenoma CT chest done due to concern for isolated varices- no mediastinal mass, coronary calcifications noted she saw Dr Jones for her kidney stones and hydronephrosis, being monitored She was admitted with bilary obstruction and she ERCP 08/2022 with removal of stones, also had EUS at [facility] due to concern for neoplasia which was neg INTERIM: overall doing well diarrhea not as bad with BIle acid binder, goes between diarrhea and constipat ion no abdo pain appetite fair, weight stable EXAM: GENERAL: The patient is well developed and nontoxic. VITAL SIGNS:see workflow HEENT: Nonicteric sclerae, PERRLA, EOMI. Oropharynx clear. Moist mucous membranes. Conjunctivae appear well perfused. No thyroid mass. discolored tongue, sharp metal brackets CHEST: Chest wall is nontender. HEART: Regular rate and rhythm without murmurs. LUNGS: Clear to auscultation bilaterally. ABDOMEN: Soft, positive bowel sounds, nontender, no organomegaly.no flank tenderness SKIN: No rash, no excessive bruising, petechiae, or purpura. NEUROLOGIC: Cranial nerves II-XII intact without motor/sensory deficit. A/P: 1/ chronic duodenitis and gastritis, off PPI due to low Mag 2/ chronic loose stools suspected most l ikely due to high dose metformin? ddx: med effects- e.g diarrhea, CHO intolerance, BAM, SIBO, food allergies, less likely hormonal cause or IBD, IBS possible, improved now, off viberzi due to biliary issues 3/ low Mag from diarrhea and medications 4/ early satiety -probably has gastropar esis PLAN: 1/ cont with welchol 2/ ERCP 4 wks after cholecystectomy with spyglass, stent removal, chaolngiogram --stop rivaroxiban 3 d before [facility] Medical History (Updated 11/26/22 @ 12:14 by Evelyne Pena RN) White coat syndrome with hypertension History of COVID-19 Anxiety Macular degeneration Renal calculi Diarrhea Hypertension Diabetes mellitus with coincident hypertension Obesity, diabetes, and hypertension syndrome Weight loss Biliary dyskinesia Paroxysmal atrial fibrillation GERD (gastroesophageal reflux disease) Irritable bowel syndrome with diarrhea CAD (coronary artery disease) CKD (chronic kidney disease) stage 3, GFR 30-59 ml/min High cholesterol Surgical History (Updated 11/26/22 @ 11:51 by Evelyne Pena RN) Hx of bilateral cataract extraction History of ERCP History of hip replacement, total History of esophagogastroduodenoscopy (EGD) Hx of colonoscopy History of cardiac cath Family History Father No problems noted. Mother Diabetes Sister Diabetes Daughter Anemia Diabetes Social History Household Members: Children Household Members Other:: daughter and her fiancee Housing: House Are you a primary caregiver services home to a significant other at home: No Do you presently have visiting nurse or other home services: No Alcohol intake: never Patient Tobacco Use Status: Never used Tobacco e-Cigarette/Vaping Use: Never Used Second Hand Smoke Exposure: No Advance Directives Date on File: 08/01/20 service: No Current occupational status: retired Cognitive needs: Yes Hearing needs: No Vision needs: Yes Physical Exam Vital Signs: Last Vital Signs Pulse 70 11/28/22 10:34 BP 210/83 H 11/28/22 10:34 BMI result Body Mass Index 31.2 Assessment & Plan Assessment & Plan (1) Choledocholithiasis: Code(s): K80.50 - Calculus of bile duct without cholangitis or cholecystitis without obstruction (2) Dilated intrahepatic bile duct: Code(s): K83.8 - Other specified diseases of biliary tract Coding Level of Care Code Est Pt Level 3 (17694) Diagnoses Choledocholithiasis K80.50 Dilated intrahepatic bile duct K83.8
[2022-11-28 10:34] VITALS: BP 210/83; PULSE 70; BMI 31.2
== END 2022-11-28 12:33 | disposition home or self-care (01) ==
PROVIDERS: PCP Internal Medicine; Visit Provider Internal Medicine Gastroenterology
DX: K80.50 Calculus of bile duct without cholangitis or cholecystitis without obstruction (principal); K83.8 Other specified diseases of biliary tract
CPT/HCPCS: 99213

== ENCOUNTER → 2022-11-28 10:23 | Outpatient (BNVA) | payer MEDICARE, MEDICAID, SELFPAY | PROVIDERS: PCP Internal Medicine; Visit Provider Internal Medicine Gastroenterology | DX: K80.50 Calculus of bile duct without cholangitis or cholecystitis without obstruction (principal); K83.8 Other specified diseases of biliary tract | CPT/HCPCS: 99212 ==

== ENCOUNTER → 2022-12-09 05:56 | Outpatient (BNV) | payer MEDICARE, MEDICAID, SELFPAY | PROVIDERS: PCP Internal Medicine; Visit Provider Surgery | DX: K80.20 Calculus of gallbladder without cholecystitis without obstruction (principal) | CPT/HCPCS: 47562; 99024; 99499; G0180 ==

== ENCOUNTER 2022-12-09 10:34 | Inpatient (IN) | payer MEDICARE, MEDICAID, SELFPAY ==
[2022-11-26 12:00] VITALS: BP 178/76; PULSE 68; RESP 20; O2SAT 99; BMI 32.2
--- NOTE | 2022-11-26 12:21 | HO.ANESPROP2 ---
HPI - Anesthesia Eval Consult details Narrative: 82yo F for Cholecystectomy Laparoscopic,poss open,poss cholangiogram, 12/09/22 s/p ERCP 08/2022 with [facility] (repeat ERCP at [facility] 10/2022) - biliary stents in situ Follows [facility] cardiology for afib (xarelto), CAD - stable at last office visit 04/2022 Last PCP visit 11/2022 - all stable No recent illness No CP/SOB with minimal activity BP up at [facility] (white coat) - Home BP checks with systolic in 140's. Instructed to bring log DOS DM. FBS ~ 100 PMFSH Active Problems Active Problems: All Active Problems (Updated 11/26/22 @ 12:14 by Evelyne Pena RN) Protein calorie malnutrition (Acute) Frailty syndrome in geriatric patient (Acute) Anticoagulated (Acute) COVID-19 (Acute) Choledocholithiasis (Acute) Transaminitis (Acute) Dilated intrahepatic bile duct (Acute) Left knee pain (Acute) Obesity (BMI 30.0-34.9) (Acute) Macular degeneration of left eye (Acute) Cataract (Acute) Preoperative clearance (Acute) Diastolic dysfunction (Acute) Obesity, diabetes, and hypertension syndrome (Acute) Thrush (Acute) Physical exam (Acute) SOB (shortness of breath) on exertion (Acute) Obesity (Acute) Cough (Acute) Duodenitis (Acute) Cholecystitis (Acute) Irritable bowel syndrome with diarrhea (Acute) Anal lesion (Acute) Duodenitis (Acute) Atrophic gastritis (Acute) Varices, esophageal (Acute) Dyskinesia of gallbladder (Acute) Nephrolithiasis (Acute) Gallstones (Acute) Abdominal bloating (Acute) Diarrhea (Acute) Nephrolithiasis (Acute) NIDDY (non-insulin dependent diabetes mellitus in young) (Acute) CKD (chronic kidney disease) stage 3, GFR 30-59 ml/min (Acute) CAD (coronary artery disease) (Acute) Hypertension (Acute) Diabetes mellitus with coincident hypertension (Acute) Obesity, diabetes, and hypertension syndrome (Acute) Paroxysmal atrial fibrillation (Acute) Past Medical History Medical History (Updated 11/26/22 @ 12:14 by Evelyne Pena RN) White coat syndrome with hypertension History of COVID-19 Anxiety Macular degeneration Renal calculi Diarrhea Hypertension Diabetes mellitus with coincident hypertension Obesity, diabetes, and hypertension syndrome Weight loss Biliary dyskinesia Paroxysmal atrial fibrillation GERD (gastroesophageal reflux disease) Irritable bowel syndrome with diarrhea CAD (coronary artery disease) CKD (chronic kidney disease) stage 3, GFR 30-59 ml/min High cholesterol Family History Family History Father No problems noted. Mother Diabetes Sister Diabetes Daughter Anemia Diabetes Family history of problems with anesthesia: No Surgical History Surgical History (Updated 11/26/22 @ 11:51 by Evelyne Pena RN) Hx of bilateral cataract extraction History of ERCP History of hip replacement, total History of esophagogastroduodenoscopy (EGD) Hx of colonoscopy History of cardiac cath History of Problems with Anesthesia: No Social History Social History Household Members: Children Household Members Other:: daughter and her fiancee Housing: House Are you a primary rn coronary care unit to a significant other at home: No Do you presently have visiting nurse or other home services: No Alcohol intake: never Patient Tobacco Use Status: Never used Tobacco e-Cigarette/Vaping Use: Never Used Second Hand Smoke Exposure: No Use of substances other than those prescribed or required for medical reasons: No Have you been hit, kicked, punched, or otherwise hurt by someone within the past year? If so, by whom?: No Are you DNR?: No Advance Directives: Yes Advance Directives Information Provided: Yes Advance Directives on File: Yes Advance Directives Date on File: 08/01/20 Recently lost weight without trying: No Eating poorly because of decreased appetite: Yes Nutrition Risks: Surgical patient >75years Poor oral hygiene: No (full upper denture, partial lower denture) service: No Current occupational status: retired Cognitive needs: Yes Hearing needs: No Vision needs: Yes Meds Allergies Allergy/AdvReac Type Severity Reaction Status Date / Time No Known Allergies Allergy Verified 11/28/22 10:36 [No Known Allergies*] Home Medications Medication Instructions Recorded Confirmed Last Taken Type mecobalamin (vitamin B12) 1,000 1,000 mcg PO DAILY 04/05/20 12/09/22 2 Weeks Ago History mcg chewable tablet ~08/27/22 cholecalciferol (vitamin D3) 25 25 mcg PO DAILY 02/21/22 12/09/22 2 Weeks Ago History mcg (1,000 unit) tablet ~08/27/22 Lactobacillus rhamnosus GG 10 1 cap PO DAILY PRN Diarrhea 09/10/22 12/09/22 Unknown History billion cell capsule (Culturelle) latanoprostene bunod 0.024 % eye 1 drp ophthalmic (eye) DAILY 09/10/22 12/09/22 09/10/22 History drops (Vyzulta) loperamide 2 mg capsule 2 mg PO Q4H PRN Loose Stool 09/10/22 12/09/22 Unknown History magnesium 250 mg tablet 250 mg PO DAILY 09/10/22 12/09/22 2 Weeks Ago History ~08/27/22 colesevelam 625 mg tablet 1,250 mg PO BID 11/06/22 12/09/22 Unknown History Exam Exam Date and Time: November 26, 2022 1221 Height,Weight and Vital Signs: Height 5 ft 1 in Weight 77.3 kg Last Vital Signs Pulse 68 11/26/22 12:00 Resp 20 11/26/22 12:00 BP 178/76 H 11/26/22 12:00 Pulse Ox 99 11/26/22 12:00 O2 Del Method Room Air 11/26/22 12:00 Pertinent Lab Results Pertinent Lab Results: Laboratory Tests 11/06/22 14:13 WBC 9.0 Hgb 10.5 L Hct 33.1 L Plt Count 305 Sodium 141 Potassium 4.6 Chloride 108 Carbon Dioxide 25 BUN 24 H Creatinine 1.15 Narrative Narrative: EKG 05/2022 Vent. Rate : 064 BPM Atrial Rate : 064 BPM P-R Int : 150 ms QRS Dur : 090 ms QT Int : 422 ms P-R-T Axes : 048 -45 039 degrees QTc Int : 435 ms Normal sinus rhythm Left anterior fascicular block Abnormal ECG When compared with ECG of 01-AUG-2020 08:16, No significant change was found ECHO 2021 Conclusions: - The left ventricular systolic function is normal. The calculated ejection fraction is 67% by biplane method. - Evidence suggests grade III (severe) diastolic dysfunction. - Mildly increased right ventricular cavity size. - The left atrium is moderately dilated. - There is mild calcification of the aortic valve. - Moderate pulmonary hypertension is present. - Small plaque is seen in the sino tubular ridge. MR MRCP 08/2022 IMPRESSION: 1. Probable choledocholithiasis with 2 calculi distally in the common bile duct as detailed above. There is a focal stricture in this region as well at the level the pancreatic head is smooth margins, possibly benign. Associated biliary ductal and gallbladder dilatation. Mild sludge in the gallbladder without evidence for acute cholecystitis. GI consultation is recommended. 2. Mild to moderate generalized pancreatic atrophy without overt focal abnormality. Airway Mallampati Class: II TM Dist: >3cm Neck ROM: Full Denture: Upper Partial: Lower Heart: RRR Lungs: CTAB Assessment and Plan Assessment Anesthesia Assessment: Anesthesia Plan Discussed and PAT Visit Final Anesthetic Review Family History of Problems with Anesthesia: No History of Problems with Anesthesia: No
[2022-12-09] VITALS (22 sets, daily range): BP systolic 102–159; BP diastolic 47–74; PULSE 58–69; RESP 12–21; TEMP 36.1–36.8; O2SAT 93–100; BMI 32.2
--- NOTE | ~2022-12-09 | US_ITS ---
EXAMINATION: US RETROPERITONEAL LIMITED (RENAL ONLY) CLINICAL INFORMATION: Acute kidney insufficiency. COMPARISON: MR abdomen 09/11/2022. CT abdomen and pelvis 09/10/2022. Renal ultrasound 03/17/2022 and 09/02/2021. TECHNIQUE: Real-time imaging of the kidneys. FINDINGS: RIGHT KIDNEY: 9.5 x 5.1 x 5.1 cm (SAG x AP x TRV). The kidney is normal in size, contour, and echogenicity. Renal cortical thickness is normal. No calculi or focal parenchymal lesions. No hydronephrosis. LEFT KIDNEY: 9.0 x 4.7 x 4.4 cm (SAG x AP x TRV). The kidney is normal in size, contour, and echogenicity. Renal cortical thickness is normal. No calculi or focal parenchymal lesions. No hydronephrosis. ADDITIONAL FINDINGS: Small right pleural effusion. US/US renal BI IMPRESSION: 1. No hydronephrosis or nephrolithiasis. 2. Small right pleural effusion.
--- NOTE | ~2022-12-09 | CT_ITS ---
EXAMINATION: CT ABDOMEN AND PELVIS WITHOUT CONTRAST CLINICAL INFORMATION: JACQUI. COMPARISON: 09/10/2022. TECHNIQUE: Multidetector volumetric imaging was performed from the superior aspect of the liver through the pubic symphysis. Sagittal and coronal reformatted images were obtained on the technologist's workstation. This CT examination was performed using dose optimization techniques as appropriate, variously including the following: *Automated exposure control *Adjustment of mA and/or kV according to patient size (this includes techniques or standardized protocols for targeted exams where dose is matched to indication/reason for exam; i.e. extremities or head) *Use of iterative reconstruction technique DLP: 709 mGy-cm FINDINGS: LUNG BASES: There are minimal bilateral pleural effusions with bilateral associated consolidation. LIVER, GALLBLADDER, AND BILIARY TREE: The liver is normal in size, shape, and attenuation. No focal liver lesions are seen. There is intrahepatic biliary air. There are surgical clips in the gallbladder fossa. There is apparent minimal fluid within the gallbladder fossa is well. PANCREAS: The common bile duct stent is noted in place. The pancreas is atrophic. No discrete pancreatic lesions are seen. SPLEEN: Unremarkable. ADRENAL GLANDS: There is left adrenal gland nodularity. KIDNEYS AND URETERS: The kidneys are normal in size, shape, and attenuation. No hydronephrosis, hydroureter, or calculi seen. There is mild nonspecific bilateral perinephric stranding. There are scattered renal calculi and/or renal vascular calcification measuring up to 3.5 mm. There is no hydronephrosis. BLADDER: Streak artifact slightly limits evaluation. The bladder is grossly unremarkable. GASTROINTESTINAL TRACT: There is retained stool. There are diverticula of the descending and the sigmoid colon without diverticulitis. There is scattered dots of apparent free air within the upper abdomen. ABDOMINAL WALL: There is soft tissue anasarca. There is infraumbilical subcutaneous emphysema extending to the suprapubic region. LYMPH NODES: Normal. VASCULAR: There is atherosclerotic plaque throughout the abdominal aorta and branches. PELVIC VISCERA: Uterine calcifications are noted. OSSEOUS STRUCTURES: There is diffuse thoracolumbar disc degenerative change most significant in the lumbar spine. There is mild curvature of the lumbar spine convex to the left. There is also diffuse thoracolumbar facet degenerative change. There is moderate right hip degenerative change. A left hip prosthesis is noted. CT/CT abdomen pelvis wo IV con IMPRESSION: Minimal bilateral pleural effusions with associated bibasilar consolidation most consistent with atelectasis. Common bile duct stent in place with intrahepatic biliary air. Minimal soft tissue/fluid within the gallbladder fossa may be post operative. Renal calculi and/or arteriovascular calcification. There is no hydronephrosis. Diverticula of the descending and the sigmoid colon without diverticulitis. There is an infraumbilical subcutaneous emphysema extending to the pubic region may be postprocedural. Clinical correlation is needed. There is soft tissue anasarca. Small amount of free air within the upper abdomen may also be postoperative. Correlation with timing of surgical procedures needed. Fleischner guidelines were followed.
--- NOTE | ~2022-12-09 | XR_ITS ---
EXAMINATION: XR CHEST CLINICAL INFORMATION: Hypoxia COMPARISON: Chest 09/13/2020 TECHNIQUE: AP upright portable view of the chest was obtained. 8:41 AM FINDINGS: Lung volumes are low. The patient is also slightly rotated. There is increased opacity in the retrocardiac portion of the left lower lobe which may be a combination of compressive atelectasis and/or pneumonia. The low lung volumes limits accurate evaluation of the heart size. No pleural effusion. No pneumothorax. Degenerative changes of the acromioclavicular joints are noted. XR/XR chest 1V IMPRESSION: Low lung volumes with left lower lobe atelectasis and/or pneumonia.
[2022-12-09 06:32] LABS: Glucose, Whole Blood 118 mg/dL (60-115)
--- NOTE | 2022-12-09 06:51 | MHC.SHP ---
Pre-Procedural Eval Section A Date of Service: 12/09/22 The patient is an INPATIENT: No The History & Physical has been completed within 30 days and I have reviewed it.: Yes Section B Chief Complaint: specified diseases of gallbladder,Cholecystitis Allergies: Allergies Allergy/AdvReac Type Severity Reaction Status Date / Time No Known Allergies Allergy Verified 11/28/22 10:36 [No Known Allergies*] Plan I have reviewed the history and physical and performed a pertinent physical examination on my patient. No changes have occurred unless specified. Time Spent With Patient Time: Total time managing care of this patient today ____ minutes.
--- NOTE | 2022-12-09 06:53 | W.PM.OPN ---
Operative Note Operative Note Date of Service: 12/09/22 Narrative: Preop diagnosis: [Choledocholithiasis, anticoagulated on Xarelto] Postop diagnosis: [Same, Xarelto held since 12/07/22] Procedure: [Laparoscopic cholecystectomy] Surgeon: Rajesh Alford MD Assist: [Tarsha Pandya PA-C] Anesthesia: [GET, Marcaine, 0.25% with epi] Estimated blood loss: [10cc] Specimen: [Gallbladder with contents] Drain: CONNIE in Morison's pouch Intraoperative findings: [Right upper quadrant adhesions and dilated cystic duct to approximately 8 mm; CBD over 10 mm, identified and preserved. Critical view of safety demonstrated and photographed] Indications: [The patient is an 82-year-old woman with a history of atrial fibrillation maintained on Xarelto. She presented on 09/12/2022 with choledocholithiasis and such a heavy stone burden, it was unclear as to whether not she had a malignancy. She underwent [place] 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 Levi was away. Due to concern about possible pancreatic or bile duct malignancy, the patient was transferred to [facility] and underwent repeat ERCP with sphincterotomy, stone extraction and stent placement. Brushings and evaluations from Dr. Pickard at [facility] and brushings from here were negative for malignancy and interval cholecystectomy is recommended prior to removal of the CBD stent. The patient has recent weight loss in addition to frailty and protein malnutrition. After medical nutrition optimization and medical/cardiac clearance, options were reviewed with the patient and the daughter including the option of 2nd opinion at back at [facility]. This was declined. I explained the symptoms of choledocholithiasis and recommended laparoscopic cholecystectomy. I reviewed the possibility of her diarrhea worsening, but given the choledocholithiasis, and risks related to choledocholithiasis, the only other option would be a 2nd opinion. I also reviewed the inherent risks to surgery which include, but are not limited to: Bleeding that could require another operation or blood transfusion, the need for open surgery, the unlikely but possible issue of bile leak that could require an ERCP, the risk of retained common duct stones that could require an ERCP, the risk of common bile duct injury which would require transfer to a larger institution for another operation. The patient's increased risk for complications given her diabetes, frailty, protein malnutrition and Xarelto were also discussed and apparently understood.] Procedure: [The patient was identified in preoperative holding and again in the operating room and placed supine on the table. An appropriate time-out was performed and preemptive local used at all trocar insertion sites. I began at the patient's supraumbilical midline and placed a Veress needle through a transverse supraumbilical incision. An appropriate drop test was performed. The needle was connected to high flow and opening pressures were ___ mmHg. A pneumoperitoneum of 15 mmHg was then obtained using carbon dioxide. The Veress needle was then removed and I accessed the patient's abdomen through the supraumbilical midline incision using a 5 mm Optiview trocar and 30 degree/5 mm laparoscopic without incident. Next a a 5 mm epigastric and two 5 mm right subcostal ports were placed with preemptive analgesia under direct laparoscopic vision without incident and the supraumbilical trocar upsized to a 12 mm trocar under direct laparoscopic vision. The gallbladder was clearly identified and grasped by its fundus. In doing so, the gallbladder tore demonstrating gelatinous/bilious debris and a few calcified gallstones which were retrieved. It was retracted cranially and anteriorly and dissection began in the lateral cystic triangle. The cystic duct was distended as expected and identified at its junction on the gallbladder and dissection carried medially, then circumferentially using the [place] dissector and hook. The cystic artery was then carefully identified and circumferentially dissected. Once dissection of both structures was complete and the critical view of safety demonstrated, the duct and artery were double clipped proximally and once distally and sharply divided. Electrocautery was used to remove the gallbladder from its fossa on the liver. Liver bed was inspected for hemostasis and the clips were noted to be on the respective structures. The gallbladder was placed in an Endo-Catch bag and delivered through the umbilicus under direct laparoscopic vision. The abdomen was again inspected with the laparoscoped and a abdomen deflated to assess for hemostasis. The patient was returned to neutral position, the abdomen deflated and the fascia of the supraumbilical incision closed with interrupted Vicryl sutures. Skin was closed with 4-0 Monocryl subcuticular sutures. Mastisol and Steri-Strips were applied followed by Band-Aids. The patient tolerated the procedure well and was extubated recovered in stable condition. All sponge instrument counts were correct. At the patient's request I spoke with her daughter in the waiting room and apprised her of the operation, drain and post-op plan, activity restrictions, pain management & bowel regime. Will observe the patient for 6 hours or possibly overnight given the risk of bleeding due to the extensive adhesions. Questions seemed to be satisfactorily answered.]
[2022-12-09] MEDS: Lactated Ringers 1,000 ML 50 ML IVCONT (07:11)
--- NOTE | 2022-12-09 10:00 | PM.EVENT ---
Event Note Date of Service: 12/09/22 Event Note: I discussed the intraoperative findings with the patient's daughter. The patient will be monitored for the next several hours and may need to be kept overnight. Patient's daughter expressed concerns over the patient's anxiety and tendency to sundown. Will continue to monitor and re-evaluate this afternoon. Time Spent With Patient Time: Total time managing care of this patient today ____ minutes.
[2022-12-09] MEDS: HYDROmorphone HCl 0.5 MG/0.5 ML SYRINGE 0.25 MG IVPUSH ×5 (10:54→13:29)
[2022-12-09] MEDS: oxyCODONE HCl Immed Release 5 MG TABLET PO ×2 (11:08→15:49)
--- NOTE | 2022-12-09 11:08 | PHA.MEDREC ---
Pharmacy Consult ? Medication Reconciliation Pharmacy has REVIEWED the medication reconciliation.
[2022-12-09] MEDS: Lactated Ringers 1,000 ML 75 ML IVCONT (15:30)
--- NOTE | 2022-12-09 15:53 | PM.PNGS ---
Subjective Subjective Date of Service: 12/09/22 Patient reports: still having pain and tolerating liquids well Interval history: The patient reports incisional pain in right upper quadrant pain; daughter is at bedside, procedure and need to keep her overnight, drain, pain management, bowel regime and diet were discussed. Patient and her daughter's questions appeared to be satisfactorily answered. Physical Exam Vital Signs: Vital Signs: Last Vital Signs Temp 98.2 F 12/09/22 15:36 Pulse 69 12/09/22 15:36 Resp 20 12/09/22 15:36 BP 143/68 H 12/09/22 15:36 Pulse Ox 97 12/09/22 15:36 O2 Del Method Nasal Cannula 12/09/22 15:36 O2 Flow Rate 2 12/09/22 15:36 FiO2 31.5 12/09/22 10:39 BMI result Body Mass Index 32.2 On exam she is nontoxic She is having no respiratory difficulty She is awake and communicative and states that the 1 Percocet she was given about 20 minutes ago is inadequate. Plan to reassess in 1 hour discussed with the patient, daughter and nurse. CONNIE is serosang/non-bilious Objective Data Active Medications Hydromorphone HCl (Hydromorphone Hcl 0.5 Mg/0.5 Ml Syringe) 0.25 mg IVPUSH Q2H PRN; Protocol PRN Reason: Pain, Moderate(Pain Scale 4-6) Last Admin: 12/09/22 11:39 Dose: 0.25 mg Documented By: VAIBHAV Lactated Ringer's (Lr) 1,000 mls @ 50 mls/hr IVCONT .Q20H [facility] Last Infusion: 12/09/22 14:33 Dose: Infused Documented By: YAEL Lactated Ringer's (Lr) 1,000 mls @ 75 mls/hr IVCONT .[id number] [facility] Last Admin: 12/09/22 15:30 Dose: 75 mls/hr Documented By: SHI Ondansetron HCl (Ondansetron Hcl 4 Mg/2 Ml Vial) 4 mg IVPUSH Q6H PRN PRN Reason: Nausea and Vomiting Oxycodone HCl (Oxycodone Hcl Immed Release 5 Mg Tablet) 5 mg PO Q4H PRN PRN Reason: Pain, Moderate(Pain Scale 4-6) Last Admin: 12/09/22 15:49 Dose: 5 mg Documented By: SHI Sodium Chloride (0.9 % Sodium Chloride Flush 3 Ml Syringe) 3 [facility] Labs: Laboratory Results - last 24 hr 12/09/22 06:27 POC Glucose 118 H Procedures Date of Service Date of Service: 12/09/22 Progress Note: A&P Assessment and plan (1) Choledocholithiasis: Status: Acute (2) Transaminitis: Status: Acute (3) Dilated intrahepatic bile duct: Status: Acute (4) Frailty syndrome in geriatric patient: Status: Acute (5) Protein calorie malnutrition: Status: Acute (6) Anticoagulated: Status: Acute (7) Obesity, diabetes, and hypertension syndrome: Status: Acute (8) NIDDY (non-insulin dependent diabetes mellitus in young): Status: Acute (9) CKD (chronic kidney disease) stage 3, GFR 30-59 ml/min: Status: Acute (10) CAD (coronary artery disease): Status: Acute (11) S/P laparoscopic cholecystectomy: Status: Acute Plan Reassess pain within the hour See orders Plan to get out of bed with assist and work on incentive spirometry discussed with the patient and daughter Trend morning labs. Time Spent With Patient Time: Total time managing care of this patient today ____ minutes. Quality Stroke Does the patient have a stroke diagnosis?: No VTE Prior VTE?: No VTE Risk Level:: Surgical - moderate VTE Device Contraindication: N/A - Device Ordered VTE Drug Contraindication: Treatment Not Indicated
[2022-12-09] MEDS: oxyCODONE HCl Immed Release 5 MG TABLET 10 MG PO (20:02)
[2022-12-09] MEDS: Docusate Sodium 100 MG CAPSULE 200 MG PO (20:02)
[2022-12-10] VITALS (8 sets, daily range): BP systolic 108–142; BP diastolic 53–64; PULSE 62–78; RESP 15–20; TEMP 36.3–37; O2SAT 91–96
[2022-12-10] MEDS: Lactated Ringers 1,000 ML 75 ML IVCONT (03:09)
[2022-12-10] MEDS: oxyCODONE HCl Immed Release 5 MG TABLET 10 MG PO ×2 (03:25→11:05)
[2022-12-10 05:37] LABS: Glucose, Whole Blood 167 mg/dL (60-115)
[2022-12-10 06:10] LABS: MANUAL DIFF FLAG NO
[2022-12-10 06:18] LABS: Basophils Percent Auto 0.3 % (0-2); Hematocrit 29.2 % (37.0-47.0); Hemoglobin 9.1 g/dl (12.0-16.0); Imm Gran Pct Auto 0.6 % (0.0-0.4); Lymphocytes Absolute Auto 1.3 X10*3/uL (1.2-4.9); Lymphocytes Percent Auto 8.4 % (20-40); Mean Corpuscular HGB Conc 31.2 g/dl (31.0-35.0); Mean Corpuscular Hemoglobin 27.3 pg (27.0-33.0); Mean Corpuscular Volume 87.7 fL (80.0-98.0); Mean Platelet Volume 10.5 fL (9.4-12.3); Monocytes Absolute Auto 0.8 X10*3/uL (0.1-1.2); Monocytes Percent Auto 4.7 % (2-11); Neutrophils Absolute Auto 13.6 x10*3/uL (2.0-8.3); Platelet Count 241 X10*3/uL (160-400); Red Blood Count 3.33 X10*6/uL (4.20-5.50); Red Cell Distribution Width 14.5 % (11.0-16.0); White Blood Count 15.8 X10*3/uL (4.8-10.8)
[2022-12-10 06:31] LABS: Alanine Aminotransferase 16 U/L (0-31); Alkaline Phosphatase 58 U/L (39-117); Anion Gap 12 (12-20); Aspartate Amino Transferase 29 U/L (5-31); Bilirubin Total 0.8 mg/dL (0.0-1.0); Blood Urea Nitrogen 36 mg/dL (9-16); Calcium 8.8 mg/dL (8.4-10.2); Carbon Dioxide 23 mmol/L (22-29); Chloride 107 mmol/L (96-108); Creatinine Clr Calc Pharmacy 26.7; Estimated Glomerular Filt Rate 33; Glucose Random 178 mg/dL (60-115); Potassium 5.7 mmol/L (3.3-5.1); Sodium 136 mmol/L (135-145); Total Protein 5.3 g/dL (6.5-8.0)
--- NOTE | 2022-12-10 07:00 | CA_ITS ---
Transthoracic Echocardiogram Patient (Last, First, Middle): Shirlene Chowdary, Gender: Female Date of : 1940 Age: 82 Procedure Date: 12/10/2022 Procedure Type: Transthoracic Echocardiogram Location: OP Height: 154.94 cm Weight: 77.11 kg BSA: 1.76 m2 Heart Rate: bpm BP: 108 / 53 mmHg Computed Tomography Technician: KYRA Referring MD: Cherrie HUTCHINSON Semi Driver: Fransisco Doss MD Symptoms: new systolic ejection murmur post op Study Quality: Adequate with contrast ECG Rhythm: Sinus Conclusions: - 1. Normal LV systolic function with mild LVH with grade 2 diastolic dysfunction with LVEF of 60 65% 2. Moderately dilated left atrium 3. Pnfq-ic-odlqizru mitral regurgitation 4. Moderate to severe elevation of right ventricular systolic pressure 5. No gross pericardial effusion Findings Procedure Information Contrast agent, definity, is being given per protocol without apparent complications. Left Ventricle Normal left ventricular size and systolic function. There is mildly increased left ventricular wall thickness. The visually estimated ejection fraction is between 60-65%. Spectral Doppler is indicative of a pseudonormal filling pattern. E/E prime ratio is >15, consistent with elevated filling pressures. Evidence suggests grade II (moderate) diastolic dysfunction. Right Ventricle Normal right ventricular cavity size and systolic function. Atria The left atrium is moderately dilated. There is no evidence of interatrial shunt. The right atrium is mildly dilated. Aortic Valve There is mild calcification of the aortic valve. There is no aortic valve stenosis. There is no aortic valve regurgitation. Mitral Valve There is moderate anterior and severe posterior mitral leaflet thickening. There is severe mitral annular calcification. There is mild to moderate mitral valve regurgitation. There is no mitral valve stenosis. Pulmonic Valve The pulmonic valve is likely normal. Tricuspid Valve Normal tricuspid valve structure. There is mild to moderate tricuspid valve regurgitation. Normal right atrial pressure. Moderate to severe pulmonary hypertension is present. Great Vessels All visible segments of the aorta are normal in size. The pulmonary artery was not well visualized. Venous The inferior vena cava is normal in size and collapses greater than 50% with inspiration. Pericardium/Pleural There is no evidence of pericardial effusion. Prior Study Comparison Changes noted compared to prior study dated: 06/10/2021. RVSP is further increased Measurements 2D Linear Measurements IVSd: 1.16 0.6-0.9/0.6-1.0 cm LVIDd: 4.36 3.9-5.3/4.2-5.9 cm LVIDd Index: 2.48 2.4-3.2/2.2-3.1 cm/m2 LVIDs: 2.87 2.0-3.6 cm LVPWd: 1.17 0.7-1.1 cm LA Diam: 4.30 2.7-3.8/3.0-4.0 cm LAIDs Index: 2.44 1.5-2.3 cm/m2 LV Mass: 225.20 67-162/88-224 g LV Mass Index: 127.95 43-95/49-115 g/m2 LVOT Diam: 2.00 3.0+(-)1.3 cm 2D Systolic Function EF 4C: 68.30 >55% EF 2C: 57.50 >55% EF BiP: 62.70 >55% Mitral Valve MV VTI: 0.53 MV Pk Ronnie: 1.91 MV Mn Ronnie: 0.92 MV Pk Grad: 15.00 MV Mn Grad: 4.00 MV Pk E: 1.62 MV PK A: 0.93 MV Decel Time: 201.00 E/A: 1.70 E'Lateral: 8.27 E'Medial: 7.18 E/E' Med: 22.60 E/E' Lat: 19.60 PHT: 59.00 MVA PHT: 3.73 MVA Continuity: 1.41 Decel Edwards: 8.06 Aortic Valve AoV Pk Ronnie: 1.59 AoV Mn Ronnie: 1.16 AoV VTI: 0.38 AoV Pk Grad: 10.00 Aov Mn Grad: 6.00 KENDELL Cont.VTI: 1.95 LVOT LVOT Pk Ronnie: 1.05 LVOT Mn Ronnie: 0.71 LVOT VTI: 0.24 LVOT Pk Grad: 4.00 LVOT Mn Grad: 2.00 LVOT Diam: 2.00 LVOT Area: 3.14 Diastolic Function MV Pk E: 1.62 MV Pk A: 0.93 E/A: 1.70 E'Medial: 7.18 E/E' Med: 22.60 E' Laterial: 8.27 E/E' Lat: 19.60 Right Ventricle TAPSE (mm): 27.20 TVS' Ronnie: 13.50 Tricuspid Valve TR Pk Ronnie: 3.83 TR Pk Grad: 59.00 RA Press: 3.00 RVSP: 62.00 Great Vessels Aorta Sinus of Valsalva: 3.59 2.0-3.[address] Ridge: 2.10 1.7-3.4 cm Ao Asc: 3.10 2.1-3.4 cm Updated in Other Vendor System with Status of Final Fransisco Doss MD electronically signed on 12/10/2022 4:38:30 PM with status of Final
--- NOTE | 2022-12-10 07:03 | P.PNGS_ITS ---
Subjective Subjective Date of Service: 12/10/22 Patient reports: no new complaints, feels better, still having pain and tolerating liquids well Interval history: The patient reports interval improvement since I saw her postoperatively. She denies any chest pain, difficulty breathing, shortness of breath and notes that she is tolerating liquids. She states she has only voided once since yesterday. We discussed her CKD3 which she currently sees a coating machine operator once a year for; I explained that some of her kidney function numbers are elevated which can be due to surgery or medications and that I would like an official opinion from the hospitalist and Nephrology. Patient requested that I contact her daughter and is hopeful to be discharged later today. She otherwise has no nausea or vomiting and asked about her diet being advanced. Physical Exam 2 Vital Signs: Vital Signs: Last Vital Signs Temp 97.3 F 12/10/22 03:35 Pulse 76 12/10/22 03:35 Resp 19 12/10/22 03:35 BP 142/64 H 12/10/22 03:35 Pulse Ox 96 12/10/22 03:35 O2 Del Method Nasal Cannula 12/10/22 03:35 O2 Flow Rate 2 12/10/22 03:35 FiO2 31.5 12/09/22 10:39 BMI result Body Mass Index 32.2 On exam she is anicteric and nontoxic Appropriate incisional tenderness is noted and dressings are intact Non bilious, serosanguineous CONNIE drainage is present in the CONNIE bulb Objective Data Active Medications Acetaminophen (Acetaminophen 325 Mg Tablet) 975 mg PO Q6H PRN PRN Reason: Pain, Mild (Pain Scale 1-3) Docusate Sodium (Docusate Sodium 100 Mg Capsule) 200 mg PO BID [facility] Last Admin: 12/09/22 20:02 Dose: 200 mg Documented By: JESUS Hydromorphone HCl (Hydromorphone Hcl 0.5 Mg/0.5 Ml Syringe) 0.25 mg IVPUSH Q2H PRN; Protocol PRN Reason: Pain, Moderate(Pain Scale 4-6) Last Admin: 12/09/22 11:39 Dose: 0.25 mg Documented By: VAIBHAV Sodium Chloride (Sodium Chloride 0.45 %) 1,000 mls @ 50 mls/hr IVCONT .Q20H [facility] Ondansetron HCl (Ondansetron Hcl 4 Mg/2 Ml Vial) 4 mg IVPUSH Q6H PRN PRN Reason: Nausea and Vomiting Oxycodone HCl (Oxycodone Hcl Immed Release 5 Mg Tablet) 5 mg PO Q4H PRN PRN Reason: Pain, Moderate(Pain Scale 4-6) Last Admin: 12/09/22 15:49 Dose: 5 mg Documented By: SHI Oxycodone HCl (Oxycodone Hcl Immed Release 5 Mg Tablet) 10 mg PO Q4H PRN PRN Reason: Pain, Severe (Pain Scale 7-10) Last Admin: 12/10/22 03:25 Dose: 10 mg Documented By: JESUS Sodium Chloride (0.9 % Sodium Chloride Flush 3 Ml Syringe) 3 ml IVFLUSH [facility] Last Admin: 12/10/22 00:16 Dose: Not Given Documented By: JESUS Non-Admin Reason: IV Running Sodium Chloride (0.9 % Sodium Chloride Flush 3 Ml Syringe) 3 ml IVFLUSH [facility] Labs 12/10/22 05:59 12/10/22 05:59 Labs: Laboratory Results - last 24 hr 12/10/22 12/10/22 05:34 05:59 MCV 87.7 MCH 27.3 MCHC 31.2 RDW 14.5 Plt Count 241 MPV 10.5 Immature Gran % (Auto) 0.6 H Neut % (Auto) 86.0 H Lymph % (Auto) 8.4 L Jerome % (Auto) 4.7 Eos % (Auto) 0.0 Baso % (Auto) 0.3 Lymph # (Auto) 1.3 Jerome # (Auto) 0.8 Eos # (Auto) 0.0 Baso # (Auto) 0.0 Abs Immat Gran (auto) 0.10 H Absolute Neuts (auto) 13.6 H Absolute Nucleated RBC 0.000 Nucleated RBC % (auto) 0.0 Anion Gap 12 Estim Creat Clear Calc 26.7 Estimated GFR 33 POC Glucose 167 H Random Glucose 178 H Calcium 8.8 D Total Bilirubin 0.8 AST 29 ALT 16 Alkaline Phosphatase 58 Total Protein 5.3 L Albumin 3.0 L Procedures Date of Service Date of Service: 12/10/22 Progress Note: A&P Assessment and plan (1) S/P laparoscopic cholecystectomy: Status: Acute (2) Frailty syndrome in geriatric patient: Status: Acute (3) Choledocholithiasis: Status: Acute (4) NIDDY (non-insulin dependent diabetes mellitus in young): Status: Acute (5) CKD (chronic kidney disease) stage 3, GFR 30-59 ml/min: Status: Acute (6) Hypertension: Status: Acute (7) CAD (coronary artery disease): Status: Acute Plan I have advanced the patient to a low-fat diet I have consulted the hospitalist and Nephrology given the patient's elevation in her K+, BUN and creatinine. This is likely acute on chronic given her pre- existing diabetes, CKD3, vascular disease and pneumoperitoneum likely contributed to decreased renal perfusion. I have ordered her LR be stopped and half-normal saline started given the increased serum potassium. Await input from hospitalist and Nephrology regarding renal function. At the patient's request, I contacted her daughter at [phone] and explained today's plan. Her questions seemed to be satisfactorily answered. Wean O2. Time Spent With Patient Time: Total time managing care of this patient today ____ minutes. Quality Stroke Does the patient have a stroke diagnosis?: No VTE Prior VTE?: No VTE Risk Level:: Surgical - moderate VTE Device Contraindication: N/A - Device Ordered VTE Drug Contraindication: Treatment Not Indicated
[2022-12-10] MEDS: Docusate Sodium 100 MG CAPSULE 200 MG PO ×2 (08:52→22:04)
[2022-12-10] MEDS: Sodium Chloride 0.45 % 1,000 ML 50 ML IVCONT (08:53)
--- NOTE | 2022-12-10 08:55 | MHC.CM.PN ---
Esha 12/10/22, Pt lives with daughter, who assists in her care. She has a walker, wheelchair, raised toilet seat at home. She has not used home health services in the past. daughter to transport, plan is home, self care.
[2022-12-10] MEDS: oxyCODONE HCl Immed Release 5 MG TABLET PO (09:00)
--- NOTE | 2022-12-10 11:15 | HO.PM.IMCN ---
History of Present Illness Data of Consult Service Date: 12/10/22 Requesting physician: Rajesh Alford Primary Care Provider: Kam Grady MD [facility] Reason for consult: medical management, jacqui 82-year-old female with history of type 2 diabetes, hypertension, macular degeneration, CKD stage 3, GERD, IBS, hyperlipidemia, paroxysmal atrial fibrillation anticoagulated with Xarelto held since 12/07, and coronary artery disease admitted to General surgery for management of choledocholithiasis s/p laparoscopic cholecystectomy with consult placed to hospitalist service for medical management and JACQUI. Patient's baseline creatinine is around 1.15. Creatinine this morning 1.50, BUN 36, electrolytes normal except for hyperkalemia of 5.7. She tells me she does not eat much and is protein calorie deficient. Also states she does not drink enough and mouth is always dry. States diet is limited as she has irritable bowel syndrome with frequent diarrhea and has lost significant weight over the last 2 years. She is reporting moderate pain in the right upper quadrant but denies any nausea or vomiting and is tolerating small amounts of clear liquids. She is also receiving gentle IV fluids. Nephrology consult is pending. She otherwise has no complaints and denies any fevers, chills, lightheadedness, palpitations, shortness of breath, or chest pains. Does have chronic cough and sams which is unchanged per patient. She is currently living with her daughter and her daughter states she is concerned about her coming home and mobility and gait are very limited at this time even with a walker while ambulating to the bathroom. Review of Systems Review of Systems: Yes all other systems are reviewed and are negative [facility] Medical History White coat syndrome with hypertension History of COVID-19 Anxiety Macular degeneration Renal calculi Diarrhea Hypertension Diabetes mellitus with coincident hypertension Obesity, diabetes, and hypertension syndrome Weight loss Biliary dyskinesia Paroxysmal atrial fibrillation GERD (gastroesophageal reflux disease) Irritable bowel syndrome with diarrhea CAD (coronary artery disease) CKD (chronic kidney disease) stage 3, GFR 30-59 ml/min High cholesterol Family History Father No problems noted. Mother Diabetes Sister Diabetes Daughter Anemia Diabetes Surgical History Hx of bilateral cataract extraction History of ERCP History of hip replacement, total History of esophagogastroduodenoscopy (EGD) Hx of colonoscopy History of cardiac cath Social History Household Members: Children Household Members Other:: daughter and her fiancee Housing: House Are you a primary customer care assistant to a significant other at home: No Do you presently have visiting nurse or other home services: No Alcohol intake: never Patient Tobacco Use Status: Never used Tobacco e-Cigarette/Vaping Use: Never Used Second Hand Smoke Exposure: No Use of substances other than those prescribed or required for medical reasons: No Have you been hit, kicked, punched, or otherwise hurt by someone within the past year? If so, by whom?: No Are you DNR?: No Advance Directives: Yes Advance Directives Information Provided: Yes Advance Directives on File: Yes Advance Directives Date on File: 08/01/20 Recently lost weight without trying: No Eating poorly because of decreased appetite: Yes Nutrition Risks: Surgical patient >75years Poor oral hygiene: No (full upper denture, partial lower denture) service: No Current occupational status: retired Cognitive needs: Yes Hearing needs: No Vision needs: Yes Meds Allergies Allergy/AdvReac Type Severity Reaction Status Date / Time No Known Allergies Allergy Verified 11/28/22 10:36 [No Known Allergies*] Active Medications: Current Medications Acetaminophen (Acetaminophen 325 Mg Tablet) 975 mg PO Q6H PRN PRN Reason: Pain, Mild (Pain Scale 1-3) Docusate Sodium (Docusate Sodium 100 Mg Capsule) 200 mg PO BID [facility] Last Admin: 12/10/22 08:52 Dose: 200 mg Hydromorphone HCl (Hydromorphone Hcl 0.5 Mg/0.5 Ml Syringe) 0.25 mg IVPUSH Q2H PRN; Protocol PRN Reason: Pain, Moderate(Pain Scale 4-6) Last Admin: 12/09/22 11:39 Dose: 0.25 mg Sodium Chloride (Sodium Chloride 0.45 %) 1,000 mls @ 50 mls/hr IVCONT .Q20H [facility] Last Admin: 12/10/22 08:53 Dose: 50 mls/hr Ondansetron HCl (Ondansetron Hcl 4 Mg/2 Ml Vial) 4 mg IVPUSH Q6H PRN PRN Reason: Nausea and Vomiting Oxycodone HCl (Oxycodone Hcl Immed Release 5 Mg Tablet) 5 mg PO Q4H PRN PRN Reason: Pain, Moderate(Pain Scale 4-6) Last Admin: 12/10/22 09:00 Dose: 5 mg Oxycodone HCl (Oxycodone Hcl Immed Release 5 Mg Tablet) 10 mg PO Q4H PRN PRN Reason: Pain, Severe (Pain Scale 7-10) Last Admin: 12/10/22 11:05 Dose: 10 mg Sodium Chloride (0.9 % Sodium Chloride Flush 3 Ml Syringe) 3 ml IVFLUSH [facility] Last Admin: 12/10/22 08:46 Dose: Not Given Sodium Chloride (0.9 % Sodium Chloride Flush 3 Ml Syringe) 3 ml IVFLUSH [facility] Last Admin: 12/10/22 08:46 Dose: Not Given Home Medications Medication Instructions Recorded Confirmed Last Taken Type mecobalamin (vitamin B12) 1,000 1,000 mcg PO DAILY 04/05/20 12/09/22 2 Weeks Ago History mcg chewable tablet ~08/27/22 cholecalciferol (vitamin D3) 25 25 mcg PO DAILY 02/21/22 12/09/22 2 Weeks Ago History mcg (1,000 unit) tablet ~08/27/22 Lactobacillus rhamnosus GG 10 1 cap PO DAILY PRN Diarrhea 09/10/22 12/09/22 Unknown History billion cell capsule (Culturelle) latanoprostene bunod 0.024 % eye 1 drp ophthalmic (eye) DAILY 09/10/22 12/09/22 09/10/22 History drops (Vyzulta) loperamide 2 mg capsule 2 mg PO Q4H PRN Loose Stool 09/10/22 12/09/22 Unknown History magnesium 250 mg tablet 250 mg PO DAILY 09/10/22 12/09/22 2 Weeks Ago History ~08/27/22 colesevelam 625 mg tablet 1,250 mg PO BID 11/06/22 12/09/22 Unknown History Physical Exam Vital Signs and Narrative: Vital Signs: Last Vital Signs Temp 97.4 F 12/10/22 07:16 Pulse 62 12/10/22 07:16 Resp 16 12/10/22 07:16 BP 132/62 12/10/22 07:16 Pulse Ox 94 12/10/22 10:51 O2 Del Method Nasal Cannula 12/10/22 10:51 O2 Flow Rate 2 12/10/22 07:16 FiO2 31.5 12/09/22 10:39 Oxygen Flow Rate 1 12/10/22 10:51 BMI result Body Mass Index 32.2 Constitutional - Awake and Alert, No apparent distress Eyes - PERRLA, EOMI Cardiovascular - S1S2, RRR, IV/ systolic ejection murmur, No edema Respiratory - Normal lung expansion, Normal respiratory effort, No respiratory distress, scattered crackles bilaterally Extremities - no calf tenderness bilaterally, no swelling Skin - Warm/Dry Neurological - Alert & oriented x3 Psychological - Appropriate affect Results Labs 12/10/22 05:59 12/10/22 05:59 Labs: Laboratory Results - last 24 hr 12/10/22 12/10/22 05:34 05:59 MCV 87.7 MCH 27.3 MCHC 31.2 RDW 14.5 Plt Count 241 MPV 10.5 Immature Gran % (Auto) 0.6 H Neut % (Auto) 86.0 H Lymph % (Auto) 8.4 L [place] % (Auto) 4.7 Eos % (Auto) 0.0 Baso % (Auto) 0.3 Lymph # (Auto) 1.3 [place] # (Auto) 0.8 Eos # (Auto) 0.0 Baso # (Auto) 0.0 Abs Immat Gran (auto) 0.10 H Absolute Neuts (auto) 13.6 H Absolute Nucleated RBC 0.000 Nucleated RBC % (auto) 0.0 Anion Gap 12 Estim Creat Clear Calc 26.7 Estimated GFR 33 POC Glucose 167 H Random Glucose 178 H Calcium 8.8 D Total Bilirubin 0.8 AST 29 ALT 16 Alkaline Phosphatase 58 Total Protein 5.3 L Albumin 3.0 L Assessment and Plan (1) S/P laparoscopic cholecystectomy: Status: Acute (2) Systolic ejection murmur: Status: Acute (3) JACQUI (acute kidney injury): Status: Acute (4) Dehydration: Status: Acute Plan 82-year-old female with history of type 2 diabetes, hypertension, macular degeneration, CKD stage 3, GERD, IBS, hyperlipidemia, paroxysmal atrial fibrillation anticoagulated with Xarelto held since 12/07, and coronary artery disease admitted to General surgery for management of choledocholithiasis s/p laparoscopic cholecystectomy with consult placed to hospitalist service for medical management and JACQUI. #Choledocolithiasis s/p cholecystectomy POD 1 -plan per General surgery -has been weaned from supplemental O2 #Acute kidney injury- likely prerenal from poor PO intake -baseline CKD stage 3 -Cr 1.50, baseline 1.15. BUN 30 -Increase IVF rate to 80 ml/hr -Nephrology consult pending -avoid nephrotoxins -follow BMP #Systolic ejection murmur -no valvular pathology previously noted on echo or cardiology notes -?flow murmur r/t dehydration -Will check echocardiogram -No significant anemia. SAMS at baseline, no change. No lightheadness/near syncope or chest pain -Consider cardiology consult vs outpt follow up (follows with Dr. Doss) # insulin-dependent type 2 diabetes -resume dose adjusted basal insulin -POC glucose -change to diabetic diet -Humalog on sliding scale # hypertension -blood pressure soft -resume antihypertensives a.m. # paroxysmal atrial fibrillation- rate controlled -resume Xarelto -hold atenolol given soft blood pressures, resume tomorrow a.m. # IBS -resume antidiarrheals per surgery # malnutrition due to protein deficiency with gradual weight loss -refuses ensure/Glucerna -nutrition consult # weakness -PT eval DVT prophylaxis per General surgery Thank you for this consult, will continue following Time Spent With Patient Time: Total time managing care of this patient today ____ minutes.
--- NOTE | 2022-12-10 12:22 | PM.EVENT ---
Event Note Date of Service: 12/10/22 Event Note: Pt seen and examined Full consult to follow 82-year-old female with history of type 2 diabetes, hypertension, macular degeneration, CKD stage 3, GERD, IBS, hyperlipidemia, paroxysmal atrial fibrillation anticoagulated with Xarelto held since 12/07, and coronary artery disease admitted to General surgery for management of choledocholithiasis s/p laparoscopic cholecystectomy - JACQUI - Prerenal / Renla hypoperfusion - CKDstage 3 at baseline baseline cr 1.1- 1.4 - Hyperkalemia - Choledocolithiasis s/p cholecystectomy POD 1 Urine studies ordered IVF changed to NS No LRas it has K Repeat K Low K diet F/u K level later and in Am Am Check renal func in AM Lokelma 10 G if K > 5.7 if pt able to take po Time Spent With Patient Time: Total time managing care of this patient today ____ minutes.
--- NOTE | 2022-12-10 13:12 | HO.POSTANES ---
Post Anesthesia Evaluation Post Anesthesia Evaluation Date of Service: 12/10/22 Vital Signs: Vital Signs Temp Pulse Resp BP Pulse Ox O2 Del Method O2 Flow Rate 12/10/22 11:31 98.6 F 66 15 108/53 L 92 Room Air 12/10/22 10:51 94 Nasal Cannula 12/10/22 07:16 97.4 F 62 16 132/62 94 Nasal Cannula 2 12/10/22 03:35 97.3 F 76 19 142/64 H 96 Nasal Cannula 2 Anesthesia: General Endotracheal-GETA Mental Status: Awake Pain Control: Satisfactory Nausea/Vomiting: None Hydration: Adequate Anesthesia-Related Issues: No Anes. Related Issues
--- NOTE | 2022-12-10 13:48 | MHC.CLN ---
NUTRITION CONSULT FOR SIGNIFICANT WEIGHT LOSS X 2 YEARS AND PROTEIN DEFICIENT. VISITED WITH PATIENT WITH DAUGHTER PRESENT. PATIENT REPORTS THAT HAS LOST 40# X 2 YEARS DUE TO IBS. REVIEW OF WEIGHT HX SHOWS WEIGHT RELATIVELY STABLE X ONE YEAR AND -10.8% (20#) X 2 YEARS. DOES NOT QUALIFY SIGNIFICANT WEIGHT LOSS. REPORTS THAT DOES NOT EAT MEAT DUE TO IBS. WILL EAT FISH, EGGS EACH DAY, CHEESE, COTTAGE CHEESE PROTEIN SOURCES. DOES NOT WANT ENSURE TYPE SUPPLEMENT SINCE HAS TRIED MANY AND CAUSE GI CONCERNS. ADVISED THAT CAN ORDER COTTAGE CHEESE AT EACH MEAL. DISCUSSED WITH DAUGHTER ADDING POWDERED MILK TO FOODS/BEVERAGES AT HOME TO INCREASE PROTEIN INTAKE. ENCOURAGE PATIENT TO MAKE OWN FOOD CHOICES. NO ADDITIONAL NUTRITION INTERVENTIONS AT THIS TIME.
[2022-12-10 14:13] LABS: Anion Gap 13 (12-20); Blood Urea Nitrogen 39 mg/dL (9-16); Calcium 8.8 mg/dL (8.4-10.2); Carbon Dioxide 22 mmol/L (22-29); Chloride 106 mmol/L (96-108); Creatinine Clr Calc Pharmacy 22.3; Estimated Glomerular Filt Rate 27; Glucose Random 252 mg/dL (60-115); Potassium 5.6 mmol/L (3.3-5.1); Sodium 135 mmol/L (135-145)
--- NOTE | 2022-12-10 15:55 | P.PNGS_ITS ---
Subjective Subjective Date of Service: 12/10/22 Patient reports: still having pain, tolerating a regular diet, no flatus and no bowel movement Interval history: The patient is seen with her daughter at the bedside. Patient is tearful at times and anxious. Patient seems confused and does not recall me explaining that I would be back this afternoon to discuss whether not it was safe for her to be discharged. Hospitalist and Nephrology input appreciated. Explained to the patient and her daughter that for safety reasons to monitor her kidney function it safest to keep her overnight. Patient has lorazepam that have been ordered regarding her pre-existing anxiety; she will resume her Xarelto this evening. Physical Exam 2 Vital Signs: Vital Signs: Last Vital Signs Temp 98.6 F 12/10/22 11:31 Pulse 66 12/10/22 13:51 Resp 15 12/10/22 11:31 BP 108/53 L 12/10/22 13:51 Pulse Ox 92 12/10/22 13:51 O2 Del Method Room Air 12/10/22 11:31 O2 Flow Rate 2 12/10/22 07:16 FiO2 31.5 12/09/22 10:39 Oxygen Flow Rate 1 12/10/22 10:51 BMI result Body Mass Index 32.2 On exam she is anicteric and nontoxic Appropriate incisional tenderness is noted and dressings are intact Non bilious, serosanguineous CONNIE drainage is present in the CONNIE bulb Objective Data Active Medications Acetaminophen (Acetaminophen 325 Mg Tablet) 975 mg PO Q6H PRN PRN Reason: Pain, Mild (Pain Scale 1-3) Amlodipine Besylate (Amlodipine Besylate 5 Mg Tablet) 5 mg PO DAILY [facility]; Protocol Atenolol (Atenolol 100 Mg Tablet) 100 mg PO DAILY [facility]; Protocol Dextrose (Dextrose 50 % 25 Gm/50 Ml Syringe) 25 gm IVPUSH Q15M PRN; Protocol PRN Reason: per Hypoglycemia Standing Ord. Docusate Sodium (Docusate Sodium 100 Mg Capsule) 200 mg PO BID [facility] Last Admin: 12/09/22 20:02 Dose: 200 mg Documented By: JESUS Glucose (Glucose Gel 15 Gm Gel..Gram.) 15 gm PO Q15M PRN; Protocol PRN Reason: per Hypoglycemia Standing Ord. Hydromorphone HCl (Hydromorphone Hcl 0.5 Mg/0.5 Ml Syringe) 0.25 mg IVPUSH Q2H PRN; Protocol PRN Reason: Pain, Moderate(Pain Scale 4-6) Last Admin: 12/09/22 11:39 Dose: 0.25 mg Documented By: VAIBHAV Sodium Chloride (Sodium Chloride 0.45 %) 1,000 mls @ 80 mls/hr IVCONT .[id number] [facility] Last Titration: 12/10/22 12:38 Dose: 80 mls/hr Insulin Glargine (Insulin Glargine,Hum.Rec.Anlog 100 Unit/Ml 10 Ml Vial) 10 unit SUBCUT BEDTIME [facility] Insulin Human Lispro (Insulin Lispro 100 Unit/Ml 3 Ml Vial) 0 unit SUBCUT QIDACHS [facility]; Protocol Isosorbide Mononitrate (Isosorbide Mononitrate 30 Mg Tab.Er.24h) 30 mg PO DAILY [facility]; Protocol Lorazepam (Lorazepam 0.5 Mg Tablet) 0.5 mg PO BID PRN PRN Reason: Anxiety Omeprazole (Omeprazole 20 Mg Capsule.Dr) 20 mg PO BID@0630,1630 [facility] Ondansetron HCl (Ondansetron Hcl 4 Mg/2 Ml Vial) 4 mg IVPUSH Q6H PRN PRN Reason: Nausea and Vomiting Oxycodone HCl (Oxycodone Hcl Immed Release 5 Mg Tablet) 5 mg PO Q4H PRN PRN Reason: Pain, Moderate(Pain Scale 4-6) Last Admin: 12/09/22 15:49 Dose: 5 mg Documented By: SHI Oxycodone HCl (Oxycodone Hcl Immed Release 5 Mg Tablet) 10 mg PO Q4H PRN PRN Reason: Pain, Severe (Pain Scale 7-10) Last Admin: 12/10/22 03:25 Dose: 10 mg Documented By: JESUS Sodium Chloride (0.9 % Sodium Chloride Flush 3 Ml Syringe) 3 ml IVFLUSH [facility] Last Admin: 12/10/22 00:16 Dose: Not Given Documented By: JESUS Non-Admin Reason: IV Running Sodium Chloride (0.9 % Sodium Chloride Flush 3 Ml Syringe) 3 ml IVFLUSH [facility] Last Admin: 12/10/22 08:46 Dose: Not Given Labs 12/10/22 05:59 12/10/22 13:25 Labs: Laboratory Results - last 24 hr 12/10/22 12/10/22 12/10/22 05:34 05:59 13:25 MCV 87.7 MCH 27.3 MCHC 31.2 RDW 14.5 Plt Count 241 MPV 10.5 Immature Gran % (Auto) 0.6 H Neut % (Auto) 86.0 H Lymph % (Auto) 8.4 L [place] % (Auto) 4.7 Eos % (Auto) 0.0 Baso % (Auto) 0.3 Lymph # (Auto) 1.3 [place] # (Auto) 0.8 Eos # (Auto) 0.0 Baso # (Auto) 0.0 Abs Immat Gran (auto) 0.10 H Absolute Neuts (auto) 13.6 H Absolute Nucleated RBC 0.000 Nucleated RBC % (auto) 0.0 Anion Gap 12 13 Estim Creat Clear Calc 26.7 22.3 Estimated GFR 33 27 POC Glucose 167 H Random Glucose 178 H 252 H Calcium 8.8 D 8.8 Total Bilirubin 0.8 AST 29 ALT 16 Alkaline Phosphatase 58 Total Protein 5.3 L Albumin 3.0 L Procedures Date of Service Date of Service: 12/10/22 Progress Note: A&P Assessment and plan (1) S/P laparoscopic cholecystectomy: Status: Acute (2) JACQUI (acute kidney injury): Status: Acute (3) Dehydration: Status: Acute (4) Systolic ejection murmur: Status: Acute (5) Frailty syndrome in geriatric patient: Status: Acute (6) Anticoagulated: Status: Acute (7) Choledocholithiasis: Status: Acute (8) CKD (chronic kidney disease) stage 3, GFR 30-59 ml/min: Status: Acute (9) NIDDY (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 Explained the plan to trend labs and obtain input from the hospitalist and wrecker driver tomorrow to assess for safe discharge. Patient's daughter noted some concern with the patient's instability using a walker. Will continue to monitor. Nurse will administer some lorazepam and and Tylenol in reassess within an hour regarding need for oxycodone. The plan was discussed at length with the patient and her daughter. The unexpected issue regarding the patient's renal issues were discussed and apparently understood. Their questions seemed to be satisfactorily answered. Time Spent With Patient Time: Total time managing care of this patient today ____ minutes. Quality Stroke Does the patient have a stroke diagnosis?: No VTE Prior VTE?: No VTE Risk Level:: Surgical - moderate VTE Device Contraindication: N/A - Device Ordered VTE Drug Contraindication: Treatment Not Indicated
[2022-12-10] MEDS: Acetaminophen 325 MG TABLET 975 MG PO ×2 (16:20→22:04)
[2022-12-10] MEDS: LORazepam 0.5 MG TABLET PO (16:21)
[2022-12-10 16:54] LABS: Glucose, Whole Blood 220 mg/dL (60-115)
[2022-12-10] MEDS: Rivaroxaban 15 MG TABLET PO (17:42)
[2022-12-10] MEDS: Insulin Lispro 100 UNIT/ML 3 ML VIAL SUBCUT (17:43)
[2022-12-10] MEDS: Omeprazole 20 MG CAPSULE.DR PO (17:43)
[2022-12-10 21:19] LABS: Glucose, Whole Blood 133 mg/dL (60-115)
[2022-12-10] MEDS: Insulin Glargine,Hum.rec.anlog 100 UNIT/ML 10 ML VIAL 10 UNIT SUBCUT (22:05)
[2022-12-10] MEDS: ondansetron HCL 4 MG/2 ML VIAL IVPUSH (23:22)
[2022-12-11] MEDS: oxyCODONE HCl Immed Release 5 MG TABLET 10 MG PO (00:26)
--- NOTE | 2022-12-11 04:00 | PC.NURSE ---
12/10/22: Pt seen at approx 1920 with this RN and day shift RN, SHAHBAZ, to assess pain and CONNIE drain. Pt stated she did not need anything and was resting comfortably in bed. CONNIE drain emptied for 30mL serosanguineous drainage. Lights dimmed. Bed in lowest position for pt safety with HOB elevated for pt comfort. Call acevedo within reach. Bed alarm on. 12/10/22: Pt seen for 2100 med pass after c/o increased pain to abdomen. Pt's abdomen assessed - active bowel sounds x4, tender on palpation, several surgical incisions across abdomen, dsgs CDI; CONNIE drain to RUQ collecting minimal serosanguineous drainage. CONNIE drain site showing no s/s of infection and/or other issues,?dsg CDI. This RN offered pt PRN Oxycodone 10mg PO which pt refused, stating she would not be taking anything from me until a doctor came to see her because she knows something is wrong. This RN attempted to educate pt on what to expect being post op day 1, including pain and how to manage pain; pt offered ice packs for pain management alternative, which she refused. Pt stated, you don't know what you're talking about. You are not smarter than doctors. I need to see someone who knows what they are doing or I am leaving. Night hospitalist made aware, this RN was directed to general surgery. Dr. Holden contacted and spoke with RN via telephone. MD and RN agreed PRN Tylenol 975mg?PO and IV ativan 0.5mg?was the optimal medication plan. Pt was able to discuss plan of care with Dr. Holden via telephone, to which pt stated, How am I supposed to sleep with all of this pain? Dr. Holden reminded pt of medication plan, to which pt did not listen and waved the phone in the air for the RN to take back. PRN Tylenol administered at approx 2204, and one time dose of ativan?0.5mg IV push ordered by Dr. Holden. 12/10/22: This RN returned to pt room at approx 2230 to administer IV ativan, to which pt refused. She stated you just want to knock me out so you can forget about me for the night. This RN attempted to educate pt on medication plan, to which she seemed to forget about in the short period of time.? Pt then started c/o nausea and the need to vomit. Pt was offered PRN zofran to which pt refused, stating she doesn't trust any of us. ? Pt was asked by this RN if there was anything this RN or other staff could do to make her more comfortable or meet her needs, to which pt replied no. Pt was told this RN would be leaving the room, as there was nothing I could do for her at this time. Pt then agreed to take the PRN zofran. PRN zofran 4mg IV push administered at approx 2322. Pt stated she would not be taking any more medication until she spoke with her daughter. Pt was given a handheld telephone (which was tested by RN to ensure it was working) to call daughter.? Daughter did not answer. Pt left a voicemail for daughter stating to call the hospital immediately. When pt was done with voicemail message, RN took the handheld and added to the voicemail what phone number to call to reach her mother. Pt was made as comfortable as possible, call acevedo within reach, side rails up, bed in lowest position for pt safety with HOB elevated for pt comfort. Bed alarm on. 12/11/22: At approx 00:15, this RN was made aware by [employer] that pt was c/o increased pain to abdomen. This RN entered pt room and pt stated just give me some oxycodone. Abdomen assessed with no changes from previous assessment. PRN oxycodone 10mg PO administered at 00:26. Pt asked this RN if her daughter was contacted. This RN reminded pt that?we called her daughter together and are waiting for a phone call back. Pt stated she heard the door acevedo so she assumed her daughter was here for her. Pt was educated on hospital?environment. Unable to comprehend. Pt repositioned for comfort. Lights dimmed, call acevedo within reach, bed in lowest position for pt safety with HOB elevated for pt comfort, bed alarm on. 12/11/22: At approx 02:10, bed alarm in pt room indicated pt ws attempting to get up from bed. Pt assisted to bedside commode and successfully urinated. On ambulation back to bed, pt redirected herself back to the commode stating but I have to pee. Pt was reminded she had just voided. Pt confirmed she had forgot and went back to bed. Pt repositioned for comfort. Call acevedo within reach. Bed in lowest position for pt safety with HOB elevated for pt comfort. Bed alarm on. 12/11/22: At approx 02:30 pt requested to be moved to recliner. Pt placed in recliner with chair alarm on. [employer]?telesitter placed in room for pt safety. Call acevedo within reach. 12/11/22: 03:28 pt asleep in recliner. Chair alarm remains on. [employer]?telesitter in room. Call acevedo within reach.
[2022-12-11] MEDS: Sodium Chloride 0.45 % 1,000 ML 80 ML IVCONT (05:13)
[2022-12-11 05:56] LABS: MANUAL DIFF FLAG NO
[2022-12-11 06:20] LABS: Basophils Percent Auto 0.2 % (0-2); Eosinophils Percent Auto 0.3 % (0-4); Hematocrit 30.9 % (37.0-47.0); Hemoglobin 9.9 g/dl (12.0-16.0); Imm Gran Abs Auto 0.06 X10*3/uL (0.00-0.03); Imm Gran Pct Auto 0.5 % (0.0-0.4); Lymphocytes Absolute Auto 0.7 X10*3/uL (1.2-4.9); Lymphocytes Percent Auto 6.2 % (20-40); Mean Corpuscular Hemoglobin 27.6 pg (27.0-33.0); Mean Corpuscular Volume 86.1 fL (80.0-98.0); Monocytes Percent Auto 8.4 % (2-11); Neutrophils Absolute Auto 9.5 x10*3/uL (2.0-8.3); Neutrophils Percent Auto 84.4 % (45-73); Platelet Count 244 X10*3/uL (160-400); Red Blood Count 3.59 X10*6/uL (4.20-5.50); Red Cell Distribution Width 14.7 % (11.0-16.0); White Blood Count 11.3 X10*3/uL (4.8-10.8)
[2022-12-11 06:25] LABS: Alanine Aminotransferase 13 U/L (0-31); Alkaline Phosphatase 65 U/L (39-117); Anion Gap 13 (12-20); Aspartate Amino Transferase 25 U/L (5-31); Bilirubin Total 0.8 mg/dL (0.0-1.0); Blood Urea Nitrogen 49 mg/dL (9-16); Calcium 8.3 mg/dL (8.4-10.2); Carbon Dioxide 21 mmol/L (22-29); Chloride 105 mmol/L (96-108); Creatinine Clr Calc Pharmacy 19.2; Estimated Glomerular Filt Rate 23; Glucose Random 165 mg/dL (60-115); Potassium 5.5 mmol/L (3.3-5.1); Sodium 133 mmol/L (135-145); Total Protein 5.5 g/dL (6.5-8.0)
--- NOTE | 2022-12-11 07:31 | PM.PNGS ---
Subjective Subjective Date of Service: 12/11/22 Patient reports: still having pain, pain is less, tolerating a regular diet and no flatus Interval history: The patient is postop day 2 status post lap choly for choledocholithiasis. The patient's mood is improved and she is less anxious at this time, however she voiced disappointment regarding her admission. She denies any chest pain, difficulty breathing, shortness of breath or localizing neurological symptoms. Explained to the patient that her BUN and creatinine and are up a little and that I need input from both the hospitalist and coiled tubing operator before I can not consider a plan such as discharging her. We again discussed her comorbidities which are significant and that unexpected issues related to recognized or unrecognized comorbidities occur in the patient seems to be more understanding of that today. She noted that her lorazepam dosages helping with her anxiety. She is tolerating her diet but denies any flatus. She notes her right upper quadrant pain is improved but still present. We discussed that this is normal after surgery and that there are both Tylenol and oxycodone ordered. She is also on a bowel regime of docusate and her Xarelto was restarted last night. Physical Exam Vital Signs: Vital Signs: Last Vital Signs Temp 97.7 F 12/10/22 23:39 Pulse 78 12/10/22 23:39 Resp 18 12/10/22 23:39 BP 125/58 L 12/10/22 23:39 Pulse Ox 91 L 12/10/22 23:39 O2 Del Method Nasal Cannula 12/10/22 23:39 O2 Flow Rate 2 12/10/22 23:39 FiO2 31.5 12/09/22 10:39 Oxygen Flow Rate 1 12/10/22 10:51 BMI result Body Mass Index 32.2 On exam she is anicteric and nontoxic Appropriate incisional tenderness is noted and dressings are intact Non bilious, serosanguineous/clearing(more serous than sanguiinous) fluid CONNIE drainage is present in the CONNIE bulb Overnight record evaluated this morning showed 50 cc overnight. CONNIE retention suture was cut & the drain removed. I gave the patient the option of me removing her right upper quadrant/Morison's pouch drain when her daughter is here later today versus removing now, and she wanted it removed now. The possibility of ongoing serous drainage for a couple days requiring dressing changes was discussed. Patient verbalized understanding that this is normal and should resolve without intervention. I also explained that we do not suture these drain holes closed due to risk of infection and she seemed understand. Objective Data Active Medications Acetaminophen (Acetaminophen 325 Mg Tablet) 975 mg PO Q6H PRN PRN Reason: Pain, Mild (Pain Scale 1-3) Last Admin: 12/10/22 22:04 Dose: 975 mg Documented By: CAROL Amlodipine Besylate (Amlodipine Besylate 5 Mg Tablet) 5 mg PO DAILY [facility]; Protocol Atenolol (Atenolol 100 Mg Tablet) 100 mg PO DAILY [facility]; Protocol Dextrose (Dextrose 50 % 25 Gm/50 Ml Syringe) 25 gm IVPUSH Q15M PRN; Protocol PRN Reason: per Hypoglycemia Standing Ord. Docusate Sodium (Docusate Sodium 100 Mg Capsule) 200 mg PO BID [facility] Last Admin: 12/10/22 22:04 Dose: 200 mg Documented By: CAROL Glucose (Glucose Gel 15 Gm Gel..Gram.) 15 gm PO Q15M PRN; Protocol PRN Reason: per Hypoglycemia Standing Ord. Hydromorphone HCl (Hydromorphone Hcl 0.5 Mg/0.5 Ml Syringe) 0.25 mg IVPUSH Q2H PRN; Protocol PRN Reason: Pain, Moderate(Pain Scale 4-6) Last Admin: 12/09/22 11:39 Dose: 0.25 mg Documented By: VAIBHAV Sodium Chloride (Sodium Chloride 0.45 %) 1,000 mls @ 80 mls/hr IVCONT .[id number] [facility] Last Admin: 12/11/22 05:13 Dose: 80 mls/hr Documented By: CAROL Insulin Glargine (Insulin Glargine,Hum.Rec.Anlog 100 Unit/Ml 10 Ml Vial) 10 unit SUBCUT BEDTIME [facility] Last Admin: 12/10/22 22:05 Dose: 10 unit Documented By: CAROL Insulin Human Lispro (Insulin Lispro 100 Unit/Ml 3 Ml Vial) 0 unit SUBCUT QIDACHS [facility]; Protocol Last Admin: 12/10/22 22:07 Dose: Not Given Documented By: CAROL Non-Admin Reason: No Insulin Coverage Isosorbide Mononitrate (Isosorbide Mononitrate 30 Mg Tab.Er.24h) 30 mg PO DAILY [facility]; Protocol Lorazepam (Lorazepam 0.5 Mg Tablet) 0.5 mg PO BID PRN PRN Reason: Anxiety Last Admin: 12/10/22 16:21 Dose: 0.5 mg Documented By: CESAR Omeprazole (Omeprazole 20 Mg Capsule.Dr) 20 mg PO BID@0630,1630 [facility] Last Admin: 12/11/22 06:27 Dose: Not Given Documented By: CAROL Non-Admin Reason: Patient Refused Ondansetron HCl (Ondansetron Hcl 4 Mg/2 Ml Vial) 4 mg IVPUSH Q6H PRN PRN Reason: Nausea and Vomiting Last Admin: 12/10/22 23:22 Dose: 4 mg Documented By: CAROL Oxycodone HCl (Oxycodone Hcl Immed Release 5 Mg Tablet) 5 mg PO Q4H PRN PRN Reason: Pain, Moderate(Pain Scale 4-6) Last Admin: 12/10/22 09:00 Dose: 5 mg Documented By: CESAR Oxycodone HCl (Oxycodone Hcl Immed Release 5 Mg Tablet) 10 mg PO Q4H PRN PRN Reason: Pain, Severe (Pain Scale 7-10) Last Admin: 12/11/22 00:26 Dose: 10 mg Documented By: CAROL Rivaroxaban (Rivaroxaban 15 Mg Tablet) 15 mg PO DAILY@1800 [facility] Last Admin: 12/10/22 17:42 Dose: 15 mg Documented By: CESAR Sodium Chloride (0.9 % Sodium Chloride Flush 3 Ml Syringe) 3 ml IVFLUSH [facility] Last Admin: 12/11/22 00:42 Dose: Not Given Documented By: CAROL Non-Admin Reason: IV Running Sodium Chloride (0.9 % Sodium Chloride Flush 3 Ml Syringe) 3 ml IVFLUSH [facility] Last Admin: 12/11/22 00:42 Dose: Not Given Documented By: CAROL Non-Admin Reason: IV Running Labs 12/11/22 05:10 12/11/22 05:10 Labs: Laboratory Results - last 24 hr 10/25/23 10/25/23 10/25/23 13:25 16:43 21:16 MCV MCH MCHC RDW Plt Count MPV Immature Gran % (Auto) Neut % (Auto) Lymph % (Auto) [place] % (Auto) Eos % (Auto) Baso % (Auto) Lymph # (Auto) [place] # (Auto) Eos # (Auto) Baso # (Auto) Abs Immat Gran (auto) Absolute Neuts (auto) Absolute Nucleated RBC Nucleated RBC % (auto) Anion Gap 13 Estim Creat Clear Calc 22.3 Estimated GFR 27 POC Glucose 220 H 133 H Random Glucose 252 H Calcium 8.8 Total Bilirubin AST ALT Alkaline Phosphatase Total Protein Albumin 12/11/22 05:10 MCV 86.1 MCH 27.6 MCHC 32.0 RDW 14.7 Plt Count 244 MPV 11.0 Immature Gran % (Auto) 0.5 H Neut % (Auto) 84.4 H Lymph % (Auto) 6.2 L [place] % (Auto) 8.4 Eos % (Auto) 0.3 Baso % (Auto) 0.2 Lymph # (Auto) 0.7 L [place] # (Auto) 1.0 Eos # (Auto) 0.0 Baso # (Auto) 0.0 Abs Immat Gran (auto) 0.06 H Absolute Neuts (auto) 9.5 H Absolute Nucleated RBC 0.000 Nucleated RBC % (auto) 0.0 Anion Gap 13 Estim Creat Clear Calc 19.2 Estimated GFR 23 POC Glucose Random Glucose 165 H Calcium 8.3 L Total Bilirubin 0.8 AST 25 ALT 13 Alkaline Phosphatase 65 Total Protein 5.5 L Albumin 3.0 L Procedures Date of Service Date of Service: 12/11/22 Progress Note: A&P Assessment and plan (1) S/P laparoscopic cholecystectomy: Status: Acute (2) JACQUI (acute kidney injury): Status: Acute (3) Systolic ejection murmur: Status: Acute (4) Protein calorie malnutrition: Status: Acute (5) Frailty syndrome in geriatric patient: Status: Acute (6) Anticoagulated: Status: Acute (7) Choledocholithiasis: Status: Acute (8) Dilated intrahepatic bile duct: Status: Acute (9) Obesity, diabetes, and hypertension syndrome: Status: Acute (10) NIDDY (non-insulin dependent diabetes mellitus in young): Status: Acute (11) CKD (chronic kidney disease) stage 3, GFR 30-59 ml/min: Status: Acute (12) CAD (coronary artery disease): Status: Acute (13) Hypertension: Status: Acute Plan Patient is tolerating her Xarelto. Drain is removed. Expect drainage in the patient will notify nursing if the dressing becomes saturated it needs to be changed. Encourage out of bed/ambulation Await input from the hospitalist team and Nephrology regarding the patient's kidney function. At the patient's request, a message was left with the patient's daughter, Sonya Romeo at [phone] explaining that the patient's doing well overall, but the renal function has not improved yet and I need a plan from the rest of the team. Time Spent With Patient Time: Total time managing care of this patient today ____ minutes. Quality Stroke Does the patient have a stroke diagnosis?: No VTE Prior VTE?: No VTE Risk Level:: Surgical - moderate VTE Device Contraindication: N/A - Device Ordered VTE Drug Contraindication: Treatment Not Indicated
[2022-12-11 07:38] VITALS: BP 135/60; PULSE 69; RESP 20; TEMP 36.5; O2SAT 95
[2022-12-11 07:50] LABS: Glucose, Whole Blood 148 mg/dL (60-115)
[2022-12-11] MEDS: Docusate Sodium 100 MG CAPSULE 200 MG PO ×2 (08:47→20:20)
[2022-12-11] MEDS: 0.9 % Sodium Chloride Flush 3 ML SYRINGE IVFLUSH ×2 (08:47→17:29)
[2022-12-11] MEDS: Isosorbide Mononitrate 30 MG TAB.ER.24H PO (08:47)
[2022-12-11] MEDS: atenoloL 100 MG TABLET PO (08:47)
[2022-12-11] MEDS: amLODIPine Besylate 5 MG TABLET PO (08:48)
[2022-12-11] MEDS: 0.9 % Sodium Chloride 1,000 ML 75 ML IVCONT ×2 (08:53→20:23)
[2022-12-11 10:00] VITALS: O2SAT 95
--- NOTE | 2022-12-11 10:57 | HO.PM.IMPN ---
Subjective Subjective Date of Service: 12/11/22 Interval History: no complaints Review of Systems Review of Systems: Yes all other systems are reviewed and are negative Constitutional Constitutional: Denies chills and Denies fever(s) Cardiovascular Cardiovascular: Denies chest pain and Denies palpitations Gastrointestinal Gastrointestinal: Denies abdominal pain Endocrine Endocrine: Denies palpitations Physical Exam Vital Signs: Vital Signs: Last Vital Signs Temp 97.7 F 12/11/22 07:38 Pulse 69 12/11/22 07:38 Resp 20 12/11/22 07:38 BP 135/60 12/11/22 07:38 Pulse Ox 95 12/11/22 07:38 O2 Del Method Room Air 12/11/22 07:38 O2 Flow Rate 2 12/10/22 23:39 FiO2 31.5 12/09/22 10:39 Oxygen Flow Rate 1 12/10/22 10:51 BMI result Body Mass Index 32.2 General: AO X 3, no acute distress Resp: CTA bilateral, no accessory muscles used CVS: S1,S2,RRR GI: soft, non tender, non distended Neuro: motor grossly intact, alert Psych: appropriate affect, appropriate insight Objective Data Active Medications Acetaminophen (Acetaminophen 325 Mg Tablet) 975 mg PO Q6H PRN PRN Reason: Pain, Mild (Pain Scale 1-3) Last Admin: 12/10/22 22:04 Dose: 975 mg Documented By: CAROL Amlodipine Besylate (Amlodipine Besylate 5 Mg Tablet) 5 mg PO DAILY [facility]; Protocol Last Admin: 12/11/22 08:48 Dose: 5 mg Documented By: JUSTYN Atenolol (Atenolol 100 Mg Tablet) 100 mg PO DAILY [facility]; Protocol Last Admin: 12/11/22 08:47 Dose: 100 mg Documented By: JUSTYN Dextrose (Dextrose 50 % 25 Gm/50 Ml Syringe) 25 gm IVPUSH Q15M PRN; Protocol PRN Reason: per Hypoglycemia Standing Ord. Docusate Sodium (Docusate Sodium 100 Mg Capsule) 200 mg PO BID [facility] Last Admin: 12/11/22 08:47 Dose: 200 mg Documented By: JUSTYN Glucose (Glucose Gel 15 Gm Gel..Gram.) 15 gm PO Q15M PRN; Protocol PRN Reason: per Hypoglycemia Standing Ord. Hydromorphone HCl (Hydromorphone Hcl 0.5 Mg/0.5 Ml Syringe) 0.25 mg IVPUSH Q2H PRN; Protocol PRN Reason: Pain, Moderate(Pain Scale 4-6) Last Admin: 12/09/22 11:39 Dose: 0.25 mg Documented By: VAIBHAV Sodium Chloride (Ns) 1,000 mls @ 75 mls/hr IVCONT .[id number] [facility] Last Admin: 12/11/22 08:53 Dose: 75 mls/hr Documented By: JUSTYN Insulin Glargine (Insulin Glargine,Hum.Rec.Anlog 100 Unit/Ml 10 Ml Vial) 10 unit SUBCUT BEDTIME [facility] Last Admin: 12/10/22 22:05 Dose: 10 unit Documented By: CAROL Insulin Human Lispro (Insulin Lispro 100 Unit/Ml 3 Ml Vial) 0 unit SUBCUT QIDACHS [facility]; Protocol Last Admin: 12/11/22 08:46 Dose: Not Given Documented By: JUSTYN Non-Admin Reason: No Insulin Coverage Isosorbide Mononitrate (Isosorbide Mononitrate 30 Mg Tab.Er.24h) 30 mg PO DAILY [facility]; Protocol Last Admin: 12/11/22 08:47 Dose: 30 mg Documented By: JUSTYN Lorazepam (Lorazepam 0.5 Mg Tablet) 0.5 mg PO BID PRN PRN Reason: Anxiety Last Admin: 12/10/22 16:21 Dose: 0.5 mg Documented By: CESAR Omeprazole (Omeprazole 20 Mg Capsule.) 20 mg PO BID@0630,1630 [facility] Last Admin: 12/11/22 06:27 Dose: Not Given Documented By: CAROL Non-Admin Reason: Patient Refused Ondansetron HCl (Ondansetron Hcl 4 Mg/2 Ml Vial) 4 mg IVPUSH Q6H PRN PRN Reason: Nausea and Vomiting Last Admin: 12/10/22 23:22 Dose: 4 mg Documented By: CAROL Oxycodone HCl (Oxycodone Hcl Immed Release 5 Mg Tablet) 5 mg PO Q4H PRN PRN Reason: Pain, Moderate(Pain Scale 4-6) Last Admin: 12/10/22 09:00 Dose: 5 mg Documented By: CESAR Oxycodone HCl (Oxycodone Hcl Immed Release 5 Mg Tablet) 10 mg PO Q4H PRN PRN Reason: Pain, Severe (Pain Scale 7-10) Last Admin: 12/11/22 00:26 Dose: 10 mg Documented By: CAROL Rivaroxaban (Rivaroxaban 15 Mg Tablet) 15 mg PO DAILY@1800 [facility] Last Admin: 12/10/22 17:42 Dose: 15 mg Documented By: CESAR Sodium Chloride (0.9 % Sodium Chloride Flush 3 Ml Syringe) 3 ml IVFLUSH [facility] Last Admin: 12/11/22 08:47 Dose: Not Given Documented By: JUSTYN Non-Admin Reason: IV Running Sodium Chloride (0.9 % Sodium Chloride Flush 3 Ml Syringe) 3 ml IVFLUSH [facility] Last Admin: 12/11/22 08:47 Dose: 3 ml Documented By: JUSTYN Labs 12/11/22 05:10 12/11/22 05:10 Labs: Laboratory Results - last 24 hr 12/10/22 12/10/22 12/10/22 13:25 16:43 21:16 MCV MCH MCHC RDW Plt Count MPV Immature Gran % (Auto) Neut % (Auto) Lymph % (Auto) [place] % (Auto) Eos % (Auto) Baso % (Auto) Lymph # (Auto) [place] # (Auto) Eos # (Auto) Baso # (Auto) Abs Immat Gran (auto) Absolute Neuts (auto) Absolute Nucleated RBC Nucleated RBC % (auto) Anion Gap 13 Estim Creat Clear Calc 22.3 Estimated GFR 27 POC Glucose 220 H 133 H Random Glucose 252 H Calcium 8.8 Total Bilirubin AST ALT Alkaline Phosphatase Total Protein Albumin 12/11/22 12/11/22 05:10 07:41 MCV 86.1 MCH 27.6 MCHC 32.0 RDW 14.7 Plt Count 244 MPV 11.0 Immature Gran % (Auto) 0.5 H Neut % (Auto) 84.4 H Lymph % (Auto) 6.2 L [place] % (Auto) 8.4 Eos % (Auto) 0.3 Baso % (Auto) 0.2 Lymph # (Auto) 0.7 L [place] # (Auto) 1.0 Eos # (Auto) 0.0 Baso # (Auto) 0.0 Abs Immat Gran (auto) 0.06 H Absolute Neuts (auto) 9.5 H Absolute Nucleated RBC 0.000 Nucleated RBC % (auto) 0.0 Anion Gap 13 Estim Creat Clear Calc 19.2 Estimated GFR 23 POC Glucose 148 H Random Glucose 165 H Calcium 8.3 L Total Bilirubin 0.8 AST 25 ALT 13 Alkaline Phosphatase 65 Total Protein 5.5 L Albumin 3.0 L Assessment and Plan (1) S/P laparoscopic cholecystectomy: Status: Acute Assessment and Plan: 82F PMH DM, hypertension, macular degeneration, CKD stage 3, GERD, IBS, hyperlipidemia, paroxysmal atrial fibrillation , and coronary artery disease admitted to General surgery for management of choledocholithiasis s/p laparoscopic cholecystectomy with consult placed to hospitalist service for medical management and JACQUI. Choledocolithiasis s/p cholecystectomy -plan per General surgery -has been weaned from supplemental O2 Acute kidney injury- likely prerenal from poor PO intake -baseline CKD stage 3 changed to isotonic fluids -Nephrology following -avoid nephrotoxins -follow BMP, follow up imaging insulin-dependent type 2 diabetes insulin hypertension imdur, amlodipine paroxysmal atrial fibrillation- rate controlled Xarelto atenolol IBS resume antidiarrheals per surgery malnutrition due to protein deficiency with gradual weight loss refuses ensure/Glucerna nutrition consult weakness PT eval DVT prophylaxis - xarelto Time Spent With Patient Time: Total time managing care of this patient today ____ minutes. Quality Stroke Does the patient have a stroke diagnosis?: No VTE Prior VTE?: No VTE Risk Level:: Surgical - moderate VTE Device Contraindication: N/A - Device Ordered VTE Drug Contraindication: Treatment Not Indicated
[2022-12-11 11:28] LABS: Glucose, Whole Blood 148 mg/dL (60-115)
[2022-12-11 12:00] VITALS: BP 112/57; PULSE 68; RESP 18; TEMP 36.7; O2SAT 91
[2022-12-11] MEDS: oxyCODONE HCl Immed Release 5 MG TABLET PO ×2 (13:26→19:00)
[2022-12-11] MEDS: Sodium Zirconium Cyclosilicate 10 GM POWD.PACK PO (14:16)
[2022-12-11 15:32] VITALS: BP 114/75; PULSE 73; RESP 18; TEMP 36.5; O2SAT 93
[2022-12-11 15:44] LABS: Appearance Urine Clear; Color Urine Dark Yellow; Glucose Urine UA Negative (Negative); Leukocyte Esterase Urine Trace (Negative); Nitrite Urine Negative (Negative); PH 5.5 (5.0-9.0); UMIC TRIGGER UA YES; Urine Blood Negative (Negative); Urine Ketones Negative (Negative); Urine Protein 30 (1+) mg/dL (Neg-Trace)
[2022-12-11 15:53] LABS: Creatinine Urine 140.34 mg/dL; Sodium Urine Random < 20.0 mmol/L; Total Protein Urine Random 40 mg/dL (<12)
[2022-12-11 15:54] LABS: Bacteria Urine None Seen (None Seen); RBC Urine 0-2 /HPF (0-2); WBC Urine 0-5 /HPF (0-5)
[2022-12-11 16:19] LABS: Glucose, Whole Blood 160 mg/dL (60-115)
[2022-12-11] MEDS: Insulin Lispro 100 UNIT/ML 3 ML VIAL SUBCUT (17:27)
[2022-12-11] MEDS: Rivaroxaban 15 MG TABLET PO (17:29)
[2022-12-11] MEDS: Omeprazole 20 MG CAPSULE.DR PO (17:29)
[2022-12-11 19:26] VITALS: BP 103/55; PULSE 79; RESP 14; TEMP 36.9; O2SAT 95
[2022-12-11 19:58] LABS: Glucose, Whole Blood 103 mg/dL (60-115)
[2022-12-11] MEDS: Insulin Glargine,Hum.rec.anlog 100 UNIT/ML 10 ML VIAL 10 UNIT SUBCUT (20:20)
--- NOTE | 2022-12-11 22:50 | PM.PNNEP ---
Subjective Subjective Date of Service: 12/11/22 Interval history: c/o mild abd pain Cr is worse/ K is high Physical Exam Vital Signs: Vital Signs: Last Vital Signs Temp 98.5 F 12/11/22 19:26 Pulse 79 12/11/22 19:26 Resp 14 12/11/22 19:26 BP 103/55 L 12/11/22 19:26 Pulse Ox 95 12/11/22 19:26 O2 Del Method Room Air 12/11/22 19:26 O2 Flow Rate 2 12/10/22 23:39 FiO2 31.5 12/09/22 10:39 Oxygen Flow Rate 1 12/10/22 10:51 BMI result Body Mass Index 32.2 General: AO X 3, no acute distress Resp: CTA bilateral, no accessory muscles used CVS: S1,S2,RRR GI: soft, non tender, non distended Neuro: motor grossly intact, alert Psych: appropriate affect, appropriate insight Objective Data Labs 12/11/22 05:10 12/11/22 05:10 Labs: Laboratory Results - last 24 hr 12/11/22 12/11/22 12/11/22 05:10 07:41 11:21 WBC 11.3 H RBC 3.59 L Hgb 9.9 L Hct 30.9 L MCV 86.1 MCH 27.6 MCHC 32.0 RDW 14.7 Plt Count 244 MPV 11.0 Immature Gran % (Auto) 0.5 H Neut % (Auto) 84.4 H Lymph % (Auto) 6.2 L [place] % (Auto) 8.4 Eos % (Auto) 0.3 Baso % (Auto) 0.2 Lymph # (Auto) 0.7 L [place] # (Auto) 1.0 Eos # (Auto) 0.0 Baso # (Auto) 0.0 Abs Immat Gran (auto) 0.06 H Absolute Neuts (auto) 9.5 H Absolute Nucleated RBC 0.000 Nucleated RBC % (auto) 0.0 Sodium 133 L Potassium 5.5 H Chloride 105 Carbon Dioxide 21 L Anion Gap 13 BUN 49 H Creatinine 2.08 H Estim Creat Clear Calc 19.2 Estimated GFR 23 POC Glucose 148 H 148 H Random Glucose 165 H Calcium 8.3 L Total Bilirubin 0.8 AST 25 ALT 13 Alkaline Phosphatase 65 Total Protein 5.5 L Albumin 3.0 L Urine Color Urine Appearance Urine pH Ur Specific [place] Urine Protein Urine Glucose (UA) Urine Ketones Urine Blood Urine Nitrite Ur Leukocyte Esterase Urine RBC Urine WBC Ur Squamous Epith Cells Urine Bacteria Hyaline Casts U Random Total Protein Ur Random Sodium Urine Creatinine 12/11/22 12/11/22 12/11/22 15:02 16:12 19:54 WBC RBC Hgb Hct MCV MCH MCHC RDW Plt Count MPV Immature Gran % (Auto) Neut % (Auto) Lymph % (Auto) [place] % (Auto) Eos % (Auto) Baso % (Auto) Lymph # (Auto) [place] # (Auto) Eos # (Auto) Baso # (Auto) Abs Immat Gran (auto) Absolute Neuts (auto) Absolute Nucleated RBC Nucleated RBC % (auto) Sodium Potassium Chloride Carbon Dioxide Anion Gap BUN Creatinine Estim Creat Clear Calc Estimated GFR POC Glucose 160 H 103 Random Glucose Calcium Total Bilirubin AST ALT Alkaline Phosphatase Total Protein Albumin Urine Color Dark Yellow Urine Appearance Clear Urine pH 5.5 Ur Specific [place] 1.020 Urine Protein 30 (1+) H Urine Glucose (UA) Negative Urine Ketones Negative Urine Blood Negative Urine Nitrite Negative Ur Leukocyte Esterase Trace H Urine RBC 0-2 Urine WBC 0-5 Ur Squamous Epith Cells 6-10 Urine Bacteria None Seen Hyaline Casts 3-5 U Random Total Protein 40 H Ur Random Sodium < 20.0 Urine Creatinine 140.34 Procedures Date of Service Date of Service: 12/11/22 Assessment & Plan Assessment and plan (1) JACQUI (acute kidney injury): Status: Acute (2) S/P laparoscopic cholecystectomy: Status: Acute Plan 82-year-old female with history of type 2 diabetes, hypertension, macular degeneration, CKD stage 3, GERD, IBS, hyperlipidemia, paroxysmal atrial fibrillation anticoagulated with Xarelto held since 12/07, and coronary artery disease admitted to General surgery for management of choledocholithiasis s/p laparoscopic cholecystectomy - JACQUI - Prerenal / Renla hypoperfusion - CKDstage 3 at baseline baseline cr 1.1- 1.4 - Hyperkalemia - Choledocolithiasis s/p cholecystectomy POD 1 Urine studies - c/w prerenal state / No Hematuria /pyuria and proteinuria No Ione IVF changed to NS No LR as it has K Repeat K Low K diet F/u K level later and in Am Check renal func in AM Lokelma 10 G if K > 5.7 if pt able to take po d/w pt/ family/Medical and Surgical team Time Spent With Patient Time: Total time managing care of this patient today ____ minutes. Progress Note: Quality Stroke Does the patient have a stroke diagnosis?: No
[2022-12-11 23:04] VITALS: BP 121/59; PULSE 84; RESP 14; TEMP 36.8; O2SAT 94
[2022-12-12 03:43] VITALS: BP 140/64; PULSE 79; RESP 14; TEMP 37.1; O2SAT 95
[2022-12-12] MEDS: Omeprazole 20 MG CAPSULE.DR PO (05:11)
[2022-12-12] MEDS: oxyCODONE HCl Immed Release 5 MG TABLET 10 MG PO (05:52)
[2022-12-12 06:00] LABS: Hematocrit 30.2 % (37.0-47.0); Hemoglobin 9.6 g/dl (12.0-16.0); Mean Corpuscular HGB Conc 31.8 g/dl (31.0-35.0); Mean Corpuscular Hemoglobin 26.9 pg (27.0-33.0); Mean Corpuscular Volume 84.6 fL (80.0-98.0); Mean Platelet Volume 10.6 fL (9.4-12.3); Platelet Count 241 X10*3/uL (160-400); Red Blood Count 3.57 X10*6/uL (4.20-5.50); Red Cell Distribution Width 14.6 % (11.0-16.0); White Blood Count 9.8 X10*3/uL (4.8-10.8)
[2022-12-12 06:18] LABS: Anion Gap 13 (12-20); Blood Urea Nitrogen 54 mg/dL (9-16); Calcium 8.2 mg/dL (8.4-10.2); Carbon Dioxide 21 mmol/L (22-29); Chloride 105 mmol/L (96-108); Creatinine Clr Calc Pharmacy 23.1; Estimated Glomerular Filt Rate 28; Glucose Random 92 mg/dL (60-115); Potassium 4.6 mmol/L (3.3-5.1); Sodium 134 mmol/L (135-145)
--- NOTE | 2022-12-12 07:10 | P.PNGS_ITS ---
Subjective Subjective Date of Service: 12/12/22 Patient reports: tolerating a regular diet, flatus and bowel movement Interval history: Ongoing anxiety about being hospitalized but denies any chest pain, difficulty breathing, shortness of breath. She notes that her bowels are working, she is passing gas and while she is tolerating her diet with no nausea or vomiting, her p.o. intake is somewhat poor. Patient notes that her IV has been beeping for at least an hour. This was discussed with nursing staff since IV hydration is important regarding discharge in the setting of JACQUI. I reassured the patient that her renal numbers are improved and that we need input from the application packaging specialist in hospitalist regarding a plan for today. Physical Exam 2 Vital Signs: Vital Signs: Last Vital Signs Temp 98.7 F 12/12/22 03:43 Pulse 79 12/12/22 03:43 Resp 14 12/12/22 03:43 BP 140/64 H 12/12/22 03:43 Pulse Ox 95 12/12/22 03:43 O2 Del Method Room Air 12/12/22 03:43 O2 Flow Rate 2 12/10/22 23:39 FiO2 31.5 12/09/22 10:39 Oxygen Flow Rate 1 12/10/22 10:51 BMI result Body Mass Index 32.2 On exam she is anicteric and nontoxic Patient is out of bed in chair Appropriate incisional tenderness is noted and dressings are intact Abdomen has no significant tenderness or peritoneal irritation to percussion. Objective Data Active Medications Acetaminophen (Acetaminophen 325 Mg Tablet) 975 mg PO Q6H PRN PRN Reason: Pain, Mild (Pain Scale 1-3) Last Admin: 12/10/22 22:04 Dose: 975 mg Documented By: CAROL Amlodipine Besylate (Amlodipine Besylate 5 Mg Tablet) 5 mg PO DAILY [facility]; Protocol Last Admin: 12/11/22 08:48 Dose: 5 mg Documented By: JUSTYN Atenolol (Atenolol 100 Mg Tablet) 100 mg PO DAILY [facility]; Protocol Last Admin: 12/11/22 08:47 Dose: 100 mg Documented By: JUSTYN Dextrose (Dextrose 50 % 25 Gm/50 Ml Syringe) 25 gm IVPUSH Q15M PRN; Protocol PRN Reason: per Hypoglycemia Standing Ord. Docusate Sodium (Docusate Sodium 100 Mg Capsule) 200 mg PO BID [facility] Last Admin: 12/11/22 20:20 Dose: 200 mg Documented By: FABIOLA Glucose (Glucose Gel 15 Gm Gel..Gram.) 15 gm PO Q15M PRN; Protocol PRN Reason: per Hypoglycemia Standing Ord. Hydromorphone HCl (Hydromorphone Hcl 0.5 Mg/0.5 Ml Syringe) 0.25 mg IVPUSH Q2H PRN; Protocol PRN Reason: Pain, Moderate(Pain Scale 4-6) Last Admin: 12/09/22 11:39 Dose: 0.25 mg Documented By: VAIBHAV Sodium Chloride (Ns) 1,000 mls @ 75 mls/hr IVCONT .[id number] [facility] Last Admin: 12/11/22 20:23 Dose: 75 mls/hr Documented By: FABIOLA Insulin Glargine (Insulin Glargine,Hum.Rec.Anlog 100 Unit/Ml 10 Ml Vial) 10 unit SUBCUT BEDTIME [facility] Last Admin: 12/11/22 20:20 Dose: 10 unit Documented By: FABIOLA Insulin Human Lispro (Insulin Lispro 100 Unit/Ml 3 Ml Vial) 0 unit SUBCUT QIDACHS [facility]; Protocol Last Admin: 12/11/22 20:24 Dose: Not Given Documented By: FABIOLA Non-Admin Reason: No Insulin Coverage Isosorbide Mononitrate (Isosorbide Mononitrate 30 Mg Tab.Er.24h) 30 mg PO DAILY [facility]; Protocol Last Admin: 12/11/22 08:47 Dose: 30 mg Documented By: JUSTYN Lorazepam (Lorazepam 0.5 Mg Tablet) 0.5 mg PO BID PRN PRN Reason: Anxiety Last Admin: 12/10/22 16:21 Dose: 0.5 mg Documented By: DOBROSaul Omeprazole (Omeprazole 20 Mg Capsule.) 20 mg PO BID@0630,1630 [facility] Last Admin: 12/12/22 05:11 Dose: 20 mg Documented By: FABIOLA Ondansetron HCl (Ondansetron Hcl 4 Mg/2 Ml Vial) 4 mg IVPUSH Q6H PRN PRN Reason: Nausea and Vomiting Last Admin: 12/10/22 23:22 Dose: 4 mg Documented By: CAROL Oxycodone HCl (Oxycodone Hcl Immed Release 5 Mg Tablet) 5 mg PO Q4H PRN PRN Reason: Pain, Moderate(Pain Scale 4-6) Last Admin: 12/11/22 19:00 Dose: 5 mg Documented By: JUSTYN Oxycodone HCl (Oxycodone Hcl Immed Release 5 Mg Tablet) 10 mg PO Q4H PRN PRN Reason: Pain, Severe (Pain Scale 7-10) Last Admin: 12/12/22 05:52 Dose: 10 mg Documented By: SAMMI Rivaroxaban (Rivaroxaban 15 Mg Tablet) 15 mg PO DAILY@1800 [facility] Last Admin: 12/11/22 17:29 Dose: 15 mg Documented By: JUSTYN Sodium Chloride (0.9 % Sodium Chloride Flush 3 Ml Syringe) 3 ml IVFLUSH [facility] Last Admin: 12/11/22 20:24 Dose: Not Given Documented By: FABIOLA Non-Admin Reason: IV Running Sodium Chloride (0.9 % Sodium Chloride Flush 3 Ml Syringe) 3 ml IVFLUSH [facility] Last Admin: 12/11/22 20:25 Dose: Not Given Documented By: FABIOLA Non-Admin Reason: IV Running Labs 12/12/22 05:23 12/12/22 05:23 Labs: Laboratory Results - last 24 hr 12/11/22 12/11/22 12/11/22 07:41 11:21 15:02 MCV MCH MCHC RDW Plt Count MPV Absolute Nucleated RBC Nucleated RBC % (auto) Anion Gap Estim Creat Clear Calc Estimated GFR POC Glucose 148 H 148 H Random Glucose Fasting Glucose Calcium Urine Color Dark Yellow Urine Appearance Clear Urine pH 5.5 Ur Specific [place] 1.020 Urine Protein 30 (1+) H Urine Glucose (UA) Negative Urine Ketones Negative Urine Blood Negative Urine Nitrite Negative Ur Leukocyte Esterase Trace H Urine RBC 0-2 Urine WBC 0-5 Ur Squamous Epith Cells 6-10 Urine Bacteria None Seen Hyaline Casts 3-5 U Random Total Protein 40 H Ur Random Sodium < 20.0 Urine Creatinine 140.34 12/11/22 12/11/22 12/12/22 16:12 19:54 05:23 MCV 84.6 MCH 26.9 L MCHC 31.8 RDW 14.6 Plt Count 241 MPV 10.6 Absolute Nucleated RBC 0.000 Nucleated RBC % (auto) 0.0 Anion Gap Cancelled Estim Creat Clear Calc Estimated GFR POC Glucose 160 H 103 Random Glucose Fasting Glucose Calcium Urine Color Urine Appearance Urine pH Ur Specific [place] Urine Protein Urine Glucose (UA) Urine Ketones Urine Blood Urine Nitrite Ur Leukocyte Esterase Urine RBC Urine WBC Ur Squamous Epith Cells Urine Bacteria Hyaline Casts U Random Total Protein Ur Random Sodium Urine Creatinine 12/12/22 12/12/22 12/12/22 05:23 05:23 05:23 MCV MCH MCHC RDW Plt Count MPV Absolute Nucleated RBC Nucleated RBC % (auto) Anion Gap 13 Estim Creat Clear Calc Cancelled 23.1 Estimated GFR Cancelled 28 POC Glucose Random Glucose 92 Fasting Glucose Cancelled Calcium Cancelled Urine Color Urine Appearance Urine pH Ur Specific [place] Urine Protein Urine Glucose (UA) Urine Ketones Urine Blood Urine Nitrite Ur Leukocyte Esterase Urine RBC Urine WBC Ur Squamous Epith Cells Urine Bacteria Hyaline Casts U Random Total Protein Ur Random Sodium Urine Creatinine 12/12/22 05:23 MCV MCH MCHC RDW Plt Count MPV Absolute Nucleated RBC Nucleated RBC % (auto) Anion Gap Estim Creat Clear Calc Estimated GFR POC Glucose Random Glucose Fasting Glucose Calcium 8.2 L Urine Color Urine Appearance Urine pH Ur Specific [place] Urine Protein Urine Glucose (UA) Urine Ketones Urine Blood Urine Nitrite Ur Leukocyte Esterase Urine RBC Urine WBC Ur Squamous Epith Cells Urine Bacteria Hyaline Casts U Random Total Protein Ur Random Sodium Urine Creatinine Procedures Date of Service Date of Service: 12/12/22 Progress Note: A&P Assessment and plan (1) S/P laparoscopic cholecystectomy: Status: Acute (2) Dehydration: Status: Acute (3) JACQUI (acute kidney injury): Status: Acute (4) Frailty syndrome in geriatric patient: Status: Acute (5) Protein calorie malnutrition: Status: Acute (6) Irritable bowel syndrome with diarrhea: Status: Acute (7) NIDDY (non-insulin dependent diabetes mellitus in young): Status: Acute (8) CKD (chronic kidney disease) stage 3, GFR 30-59 ml/min: Status: Acute Plan IV concerns worse discussed with the nursing staff Patient is encouraged to take p.o. including at least 2 container water her bedside picture. Input from nephrology and hospitalist regarding her improved renal function will be forthcoming later today. New Patient is tolerating her diet, her hemoglobin and CBC are stable as well as her LFTs. Surgically, when she meets discharge criteria regarding her medical issues, she should be stable for discharge and outpatient follow-up. Time Spent With Patient Time: Total time managing care of this patient today ____ minutes. Quality Stroke Does the patient have a stroke diagnosis?: No VTE Prior VTE?: No VTE Risk Level:: Surgical - moderate VTE Device Contraindication: N/A - Device Ordered VTE Drug Contraindication: Treatment Not Indicated
[2022-12-12 07:24] VITALS: BP 154/66; PULSE 81; RESP 18; TEMP 36.7; O2SAT 95
[2022-12-12 07:48] LABS: Glucose, Whole Blood 82 mg/dL (60-115)
[2022-12-12] MEDS: amLODIPine Besylate 5 MG TABLET PO (08:59)
[2022-12-12] MEDS: Isosorbide Mononitrate 30 MG TAB.ER.24H PO (08:59)
[2022-12-12] MEDS: atenoloL 100 MG TABLET PO (08:59)
[2022-12-12] MEDS: Docusate Sodium 100 MG CAPSULE 200 MG PO (08:59)
[2022-12-12 10:09] VITALS: BP 154/66; PULSE 81; O2SAT 95
--- NOTE | 2022-12-12 10:18 | HO.PM.IMPN ---
Subjective Subjective Date of Service: 12/12/22 Interval History: no new complaints Physical Exam Vital Signs: Vital Signs: Last Vital Signs Temp 98.0 F 12/12/22 07:24 Pulse 81 12/12/22 10:09 Resp 18 12/12/22 07:24 BP 154/66 H 12/12/22 10:09 Pulse Ox 95 12/12/22 10:09 O2 Del Method Room Air 12/12/22 07:24 O2 Flow Rate 2 12/10/22 23:39 FiO2 31.5 12/09/22 10:39 Oxygen Flow Rate 1 12/10/22 10:51 BMI result Body Mass Index 32.2 On exam she is anicteric and nontoxic Patient is out of bed in chair Appropriate incisional tenderness is noted and dressings are intact Abdomen has no significant tenderness or peritoneal irritation to percussion. Objective Data Active Medications Acetaminophen (Acetaminophen 325 Mg Tablet) 975 mg PO Q6H PRN PRN Reason: Pain, Mild (Pain Scale 1-3) Last Admin: 12/10/22 22:04 Dose: 975 mg Documented By: CAROL Amlodipine Besylate (Amlodipine Besylate 5 Mg Tablet) 5 mg PO DAILY [facility]; Protocol Last Admin: 12/12/22 08:59 Dose: 5 mg Documented By: KALEN Atenolol (Atenolol 100 Mg Tablet) 100 mg PO DAILY [facility]; Protocol Last Admin: 12/12/22 08:59 Dose: 100 mg Documented By: KALEN Dextrose (Dextrose 50 % 25 Gm/50 Ml Syringe) 25 gm IVPUSH Q15M PRN; Protocol PRN Reason: per Hypoglycemia Standing Ord. Docusate Sodium (Docusate Sodium 100 Mg Capsule) 200 mg PO BID [facility] Last Admin: 12/12/22 08:59 Dose: 200 mg Documented By: KALEN Glucose (Glucose Gel 15 Gm Gel..Gram.) 15 gm PO Q15M PRN; Protocol PRN Reason: per Hypoglycemia Standing Ord. Hydromorphone HCl (Hydromorphone Hcl 0.5 Mg/0.5 Ml Syringe) 0.25 mg IVPUSH Q2H PRN; Protocol PRN Reason: Pain, Moderate(Pain Scale 4-6) Last Admin: 12/09/22 11:39 Dose: 0.25 mg Documented By: VAIBHAV Sodium Chloride (Ns) 1,000 mls @ 75 mls/hr IVCONT .[id number] [facility] Last Admin: 12/11/22 20:23 Dose: 75 mls/hr Documented By: FABIOLA Insulin Glargine (Insulin Glargine,Hum.Rec.Anlog 100 Unit/Ml 10 Ml Vial) 10 unit SUBCUT BEDTIME [facility] Last Admin: 12/11/22 20:20 Dose: 10 unit Documented By: FABIOLA Insulin Human Lispro (Insulin Lispro 100 Unit/Ml 3 Ml Vial) 0 unit SUBCUT QIDACHS [facility]; Protocol Last Admin: 12/12/22 07:59 Dose: Not Given Documented By: KALEN Non-Admin Reason: No Insulin Coverage Isosorbide Mononitrate (Isosorbide Mononitrate 30 Mg Tab.Er.24h) 30 mg PO DAILY [facility]; Protocol Last Admin: 12/12/22 08:59 Dose: 30 mg Documented By: KALEN Lorazepam (Lorazepam 0.5 Mg Tablet) 0.5 mg PO BID PRN PRN Reason: Anxiety Last Admin: 12/10/22 16:21 Dose: 0.5 mg Documented By: BROSaul Omeprazole (Omeprazole 20 Mg Capsule.Dr) 20 mg PO BID@0630,1630 [facility] Last Admin: 12/12/22 05:11 Dose: 20 mg Documented By: FABIOLA Ondansetron HCl (Ondansetron Hcl 4 Mg/2 Ml Vial) 4 mg IVPUSH Q6H PRN PRN Reason: Nausea and Vomiting Last Admin: 12/10/22 23:22 Dose: 4 mg Documented By: CAROL Oxycodone HCl (Oxycodone Hcl Immed Release 5 Mg Tablet) 5 mg PO Q4H PRN PRN Reason: Pain, Moderate(Pain Scale 4-6) Last Admin: 12/11/22 19:00 Dose: 5 mg Documented By: JUSTYN Oxycodone HCl (Oxycodone Hcl Immed Release 5 Mg Tablet) 10 mg PO Q4H PRN PRN Reason: Pain, Severe (Pain Scale 7-10) Last Admin: 12/12/22 05:52 Dose: 10 mg Documented By: SAMMI Rivaroxaban (Rivaroxaban 15 Mg Tablet) 15 mg PO DAILY@1800 [facility] Last Admin: 12/11/22 17:29 Dose: 15 mg Documented By: JUSTYN Sodium Chloride (0.9 % Sodium Chloride Flush 3 Ml Syringe) 3 ml IVFLUSH [facility] Last Admin: 12/12/22 08:59 Dose: Not Given Documented By: KALEN Non-Admin Reason: IV Running Sodium Chloride (0.9 % Sodium Chloride Flush 3 Ml Syringe) 3 ml IVFLUSH [facility] Last Admin: 12/12/22 09:00 Dose: Not Given Documented By: KALEN Non-Admin Reason: Duplicate Order Labs 12/12/22 05:23 12/12/22 05:23 Labs: Laboratory Results - last 24 hr 12/11/22 12/11/22 12/11/22 11:21 15:02 16:12 MCV MCH MCHC RDW Plt Count MPV Absolute Nucleated RBC Nucleated RBC % (auto) Anion Gap Estim Creat Clear Calc Estimated GFR POC Glucose 148 H 160 H Random Glucose Fasting Glucose Calcium Urine Color Dark Yellow Urine Appearance Clear Urine pH 5.5 Ur Specific [place] 1.020 Urine Protein 30 (1+) H Urine Glucose (UA) Negative Urine Ketones Negative Urine Blood Negative Urine Nitrite Negative Ur Leukocyte Esterase Trace H Urine RBC 0-2 Urine WBC 0-5 Ur Squamous Epith Cells 6-10 Urine Bacteria None Seen Hyaline Casts 3-5 U Random Total Protein 40 H Ur Random Sodium < 20.0 Urine Creatinine 140.34 12/11/22 12/12/22 12/12/22 19:54 05:23 05:23 MCV 84.6 MCH 26.9 L MCHC 31.8 RDW 14.6 Plt Count 241 MPV 10.6 Absolute Nucleated RBC 0.000 Nucleated RBC % (auto) 0.0 Anion Gap Cancelled 13 Estim Creat Clear Calc Cancelled Estimated GFR POC Glucose 103 Random Glucose Fasting Glucose Calcium Urine Color Urine Appearance Urine pH Ur Specific [place] Urine Protein Urine Glucose (UA) Urine Ketones Urine Blood Urine Nitrite Ur Leukocyte Esterase Urine RBC Urine WBC Ur Squamous Epith Cells Urine Bacteria Hyaline Casts U Random Total Protein Ur Random Sodium Urine Creatinine 12/12/22 12/12/22 12/12/22 05:23 05:23 05:23 MCV MCH MCHC RDW Plt Count MPV Absolute Nucleated RBC Nucleated RBC % (auto) Anion Gap Estim Creat Clear Calc 23.1 Estimated GFR Cancelled 28 POC Glucose Random Glucose 92 Fasting Glucose Cancelled Calcium Cancelled 8.2 L Urine Color Urine Appearance Urine pH Ur Specific [place] Urine Protein Urine Glucose (UA) Urine Ketones Urine Blood Urine Nitrite Ur Leukocyte Esterase Urine RBC Urine WBC Ur Squamous Epith Cells Urine Bacteria Hyaline Casts U Random Total Protein Ur Random Sodium Urine Creatinine 12/12/22 07:28 MCV MCH MCHC RDW Plt Count MPV Absolute Nucleated RBC Nucleated RBC % (auto) Anion Gap Estim Creat Clear Calc Estimated GFR POC Glucose 82 Random Glucose Fasting Glucose Calcium Urine Color Urine Appearance Urine pH Ur Specific [place] Urine Protein Urine Glucose (UA) Urine Ketones Urine Blood Urine Nitrite Ur Leukocyte Esterase Urine RBC Urine WBC Ur Squamous Epith Cells Urine Bacteria Hyaline Casts U Random Total Protein Ur Random Sodium Urine Creatinine Assessment and Plan (1) S/P laparoscopic cholecystectomy: Status: Acute Assessment and Plan: 82F PMH DM, hypertension, macular degeneration, CKD stage 3, GERD, IBS, hyperlipidemia, paroxysmal atrial fibrillation , and coronary artery disease admitted to General surgery for management of choledocholithiasis s/p laparoscopic cholecystectomy with consult placed to hospitalist service for medical management and JACQUI. Choledocolithiasis s/p cholecystectomy -plan per General surgery -has been weaned from supplemental O2 Acute kidney injury- likely prerenal from poor PO intake -baseline CKD stage 3 changed to isotonic fluids -Nephrology following -avoid nephrotoxins no obstruction on imaging, creatinine improving insulin-dependent type 2 diabetes insulin hypertension imdur, amlodipine paroxysmal atrial fibrillation- rate controlled Xarelto atenolol IBS resume antidiarrheals per surgery malnutrition due to protein deficiency with gradual weight loss refuses ensure/Glucerna nutrition consult weakness PT eval DVT prophylaxis - xarelto appears medically stable, will sign off for now Time Spent With Patient Time: Total time managing care of this patient today ____ minutes. Quality Stroke Does the patient have a stroke diagnosis?: No VTE Prior VTE?: No VTE Risk Level:: Surgical - moderate VTE Device Contraindication: N/A - Device Ordered VTE Drug Contraindication: Treatment Not Indicated
[2022-12-12 11:20] LABS: Glucose, Whole Blood 177 mg/dL (60-115)
[2022-12-12] MEDS: 0.9 % Sodium Chloride 1,000 ML 75 ML IVCONT (11:20)
[2022-12-12 11:37] VITALS: BP 127/62; PULSE 78; RESP 18; TEMP 36.6; O2SAT 93
[2022-12-12] MEDS: Insulin Lispro 100 UNIT/ML 3 ML VIAL SUBCUT (12:01)
[2022-12-12] MEDS: oxyCODONE HCl Immed Release 5 MG TABLET PO (12:09)
--- NOTE | 2022-12-12 12:39 | PM.DS ---
DS: Providers Provider Date of Service: 12/12/22 Date of admission: 12/11/22 10:48 Primary care physician: Kam Grady MD Consults: 12/10/22 06:51 Consult to Hospitalist Routine Comment: Consulting Provider: Hospitalist Reason For Exam: medical management; renal concerns 12/10/22 06:54 Consult to Nephrology Routine Consulting Provider: Jae Parson Reason for consultation: CKD3 with rising BUN/Cr Hyperkalemia post-op DS: Diagnosis Discharge Diagnosis (1) S/P laparoscopic cholecystectomy: Status: Acute DS: Summary Hospital Course Hospital Course: See H&P for full details. Briefly, this 82-year-old woman with a history of choledocholithiasis, status post ERCP with stent, type 2 diabetes, CKD3, cardiac disease, vascular disease, elder frailty, protein malnutrition underwent laparoscopic cholecystectomy on 12/09/2022. She was slow to wake up from anesthesia and was kept overnight because of bleeding concerns regarding her Xarelto. On postop day 1, her BUN and creatinine started to increase from her baseline and consultation with the hospitalist and Nephrology was obtained. IV hydration and trending of her labs occurred and by 12/12/22 her creatinine had started to trend down. Dr. Sandhu, the spooling supervisor to had seen the patient in consultation and I communicated by telephone and he confirmed that the patient was cleared for discharge with follow-up as an outpatient with her spooling supervisor. Patient was tolerating a low-fat diet and her pain was controlled with oxycodone which she was on previously. Her was over also had been restarted and her labs otherwise remained stable. Follow-up with her spooling supervisor on an outpatient basis with repeat BMP was endorsed by consulting nephrology. Overall condition at the time of discharge is improved. Time Spent with Patient Time attestation: Total time managing care of this patient today ____ minutes. Discharge coordination time: Greater than 30 minutes Quality: Safe Use of Opioids Does Pt have an Active Cancer Diagnosis on the Problem List?: No Quality: Stroke Does the patient have a stroke diagnosis?: No Physical Exam Vital Signs: Vital Signs: Last Vital Signs Temp 97.8 F 12/12/22 11:37 Pulse 78 12/12/22 11:37 Resp 18 12/12/22 11:37 BP 127/62 12/12/22 11:37 Pulse Ox 93 12/12/22 11:37 O2 Del Method Room Air 12/12/22 11:37 O2 Flow Rate 2 12/10/22 23:39 FiO2 31.5 12/09/22 10:39 Oxygen Flow Rate 1 12/10/22 10:51 BMI result Body Mass Index 32.2 DS: Data Data Completed and Pending Completed studies during hospitalization [Text1]: Pending at discharge 12/09/22 09:18 Surgical [PTH] Routine Procedures Dilation of Common Bile Duct with Intraluminal Device, Via Natural or Artificial Opening Endoscopic (09/10/22) Excision of Descending Colon, Via Natural or Artificial Opening Endoscopic, Diagnostic (08/01/20) Excision of Duodenum, Via Natural or Artificial Opening Endoscopic, Diagnostic (08/01/20) Excision of Ileum, Via Natural or Artificial Opening Endoscopic, Diagnostic (08/01/20) Excision of Rectum, Via Natural or Artificial Opening Endoscopic, Diagnostic (08/01/20) Excision of Stomach, Pylorus, Via Natural or Artificial Opening Endoscopic, Diagnostic (08/01/20) Extraction of Common Bile Duct, Via Natural or Artificial Opening Endoscopic, Diagnostic (09/10/22) Labs on day of discharge: Laboratory Results - last 24 hr 12/11/22 12/11/22 12/11/22 15:02 16:12 19:54 WBC RBC Hgb Hct MCV MCH MCHC RDW Plt Count MPV Absolute Nucleated RBC Nucleated RBC % (auto) Sodium Potassium Chloride Carbon Dioxide Anion Gap BUN Creatinine Estim Creat Clear Calc Estimated GFR POC Glucose 160 H 103 Random Glucose Fasting Glucose Calcium Urine Color Dark Yellow Urine Appearance Clear Urine pH 5.5 Ur Specific [place] 1.020 Urine Protein 30 (1+) H Urine Glucose (UA) Negative Urine Ketones Negative Urine Blood Negative Urine Nitrite Negative Ur Leukocyte Esterase Trace H Urine RBC 0-2 Urine WBC 0-5 Ur Squamous Epith Cells 6-10 Urine Bacteria None Seen Hyaline Casts 3-5 U Random Total Protein 40 H Ur Random Sodium < 20.0 Urine Creatinine 140.34 12/12/22 12/12/22 12/12/22 05:23 05:23 05:23 WBC 9.8 RBC 3.57 L Hgb 9.6 L Hct 30.2 L MCV 84.6 MCH 26.9 L MCHC 31.8 RDW 14.6 Plt Count 241 MPV 10.6 Absolute Nucleated RBC 0.000 Nucleated RBC % (auto) 0.0 Sodium Cancelled 134 L Potassium Cancelled 4.6 Chloride Cancelled Carbon Dioxide Anion Gap BUN Creatinine Estim Creat Clear Calc Estimated GFR POC Glucose Random Glucose Fasting Glucose Calcium Urine Color Urine Appearance Urine pH Ur Specific [place] Urine Protein Urine Glucose (UA) Urine Ketones Urine Blood Urine Nitrite Ur Leukocyte Esterase Urine RBC Urine WBC Ur Squamous Epith Cells Urine Bacteria Hyaline Casts U Random Total Protein Ur Random Sodium Urine Creatinine 12/12/22 12/12/22 12/12/22 05:23 05:23 05:23 WBC RBC Hgb Hct MCV MCH MCHC RDW Plt Count MPV Absolute Nucleated RBC Nucleated RBC % (auto) Sodium Potassium Chloride 105 Carbon Dioxide Cancelled 21 L Anion Gap Cancelled 13 BUN Cancelled Creatinine Estim Creat Clear Calc Estimated GFR POC Glucose Random Glucose Fasting Glucose Calcium Urine Color Urine Appearance Urine pH Ur Specific [place] Urine Protein Urine Glucose (UA) Urine Ketones Urine Blood Urine Nitrite Ur Leukocyte Esterase Urine RBC Urine WBC Ur Squamous Epith Cells Urine Bacteria Hyaline Casts U Random Total Protein Ur Random Sodium Urine Creatinine 12/12/22 12/12/22 12/12/22 05:23 05:23 05:23 WBC RBC Hgb Hct MCV MCH MCHC RDW Plt Count MPV Absolute Nucleated RBC Nucleated RBC % (auto) Sodium Potassium Chloride Carbon Dioxide Anion Gap BUN 54 H Creatinine Cancelled 1.73 H Estim Creat Clear Calc Cancelled 23.1 Estimated GFR Cancelled POC Glucose Random Glucose Fasting Glucose Calcium Urine Color Urine Appearance Urine pH Ur Specific [place] Urine Protein Urine Glucose (UA) Urine Ketones Urine Blood Urine Nitrite Ur Leukocyte Esterase Urine RBC Urine WBC Ur Squamous Epith Cells Urine Bacteria Hyaline Casts U Random Total Protein Ur Random Sodium Urine Creatinine 12/12/22 12/12/22 12/12/22 05:23 05:23 07:28 WBC RBC Hgb Hct MCV MCH MCHC RDW Plt Count MPV Absolute Nucleated RBC Nucleated RBC % (auto) Sodium Potassium Chloride Carbon Dioxide Anion Gap BUN Creatinine Estim Creat Clear Calc Estimated GFR 28 POC Glucose 82 Random Glucose 92 Fasting Glucose Cancelled Calcium Cancelled 8.2 L Urine Color Urine Appearance Urine pH Ur Specific [place] Urine Protein Urine Glucose (UA) Urine Ketones Urine Blood Urine Nitrite Ur Leukocyte Esterase Urine RBC Urine WBC Ur Squamous Epith Cells Urine Bacteria Hyaline Casts U Random Total Protein Ur Random Sodium Urine Creatinine 12/12/22 11:14 WBC RBC Hgb Hct MCV MCH MCHC RDW Plt Count MPV Absolute Nucleated RBC Nucleated RBC % (auto) Sodium Potassium Chloride Carbon Dioxide Anion Gap BUN Creatinine Estim Creat Clear Calc Estimated GFR POC Glucose 177 H Random Glucose Fasting Glucose Calcium Urine Color Urine Appearance Urine pH Ur Specific [place] Urine Protein Urine Glucose (UA) Urine Ketones Urine Blood Urine Nitrite Ur Leukocyte Esterase Urine RBC Urine WBC Ur Squamous Epith Cells Urine Bacteria Hyaline Casts U Random Total Protein Ur Random Sodium Urine Creatinine Discharge Plan Discharge Anticipated Discharge Date/Time: 12/12/22 12:29 Patient Disposition: Home, Self-Care Discharge Diagnosis: s/p lap megha; JACQUI (improving) Referrals: Kam Grady MD [Primary Care Provider] - 1 Week Rajesh Alford MD [Physician] - 1 Week Discharge Medications: New oxycodone 5 mg tablet 5 mg PO Q4H PRN (Reason: pain) Qty: 14 0RF Rx Instructions: Partial Fill upon patient request. Continued (DME) pen needle, diabetic 31 gauge x 1/4 needle See Rx Instructions .Route Qty: 100 8RF Rx Instructions: Once a day ascorbate calcium (vitamin C) 500 mg tablet 1 g PO DAILY Qty: 90 1RF amlodipine 5 mg tablet 5 mg PO DAILY Qty: 90 3RF isosorbide mononitrate 30 mg tablet extended release 24 hr 30 mg PO QAM Qty: 90 8RF rivaroxaban 15 mg tablet 15 mg PO QPM 90 Days Qty: 90 2RF Hold Instructions: Resume xarelto on 09/18 Rx Instructions: with supper pantoprazole 40 mg tablet,delayed release (DR/EC) 40 mg PO BID Qty: 180 1RF metformin 850 mg tablet 850 mg PO BID Qty: 120 8RF insulin glargine 100 unit/mL (3 mL) insulin pen 15 unit subcut BEDTIME 30 Days Qty: 5 8RF (DME) OneTouch Ultra Test Strip See Rx Instructions .ROUTE .COMPLEX Qty: 100 0RF Dose Instruction: USE 1 STRIP TO CHECK GLUCOSE THREE TIMES DAILY Rx Instructions: USE 1 STRIP TO CHECK GLUCOSE THREE TIMES DAILY loperamide 2 mg Capsule 2 mg PO Q4H PRN (Reason: Loose Stool) Rx Instructions: administer after each loose stool until symptoms controlled; do not exceed 8 mg per 24 hrs magnesium 250 mg Tablet 250 mg PO DAILY Culturelle 10 billion cell Capsule 1 cap PO DAILY PRN (Reason: Diarrhea) Vyzulta 0.024 % drops 1 drp ophthalmic (eye) DAILY lorazepam 0.5 mg tablet 0.5 mg PO BID PRN (Reason: Anxiety) Qty: 90 2RF atenolol 100 mg tablet 100 mg PO DAILY Qty: 90 3RF mecobalamin (vitamin B12) 1,000 mcg tablet,chewable 1,000 mcg PO DAILY cholecalciferol (vitamin D3) 25 mcg (1,000 unit) tablet 25 mcg PO DAILY pyridoxine (vitamin B6) 50 mg tablet 50 mg PO DAILY 90 Days Qty: 90 3RF colesevelam 625 mg tablet 1,250 mg PO BID Discontinued oxycodone 5 mg tablet 5 mg PO BID PRN (Reason: pain) Qty: 30 0RF Rx Instructions: Partial Fill upon patient request. Discharge Orders: Discharge Order (Routine); Ordered 12/12/22 Ordered By: Rajesh Alford Diet: Low fat, high protein Activity on Discharge: No heavy lifting Activity Restrictions/Additional Instructions: You had a laparoscopic cholecystectomy performed by Dr. Alford. It is normal to experience some neck or shoulder pain from the gas used to inflate your abdomen. It is also normal to have pain or discomfort in your abdomen/belly as well as at the trocar sites (small incisions). This discomfort will resolve over the next 1-3 days, however, if it gets progressively worse, if you should develop worsening pain, nausea, vomiting and cannot keep liquids down, chest pain, difficulty breathing or shortness of breath, fevers over 100F please report to the nearest emergency department. Unless otherwise directed by Dr. Alford, you should resume taking your regular medications. Resume your Xarelto/ anticoagulation. Please contact your spooling supervisor/kidney specialist and PCP for follow-up next week. As Dr. Alford reviewed in the office, you must not lift more than 20 lb for the next 4 weeks. Strenuous activities can tear out your sutures and cause an incisional hernia that would require another operation. Activities to be avoided include: sports, running, bicycling, yoga, lifting more than 20 lb, digging, gardening, splitting/carrying wood, swimming, hiking uphill, and other activities. If you have questions regarding this specific activity, please check with Dr. Alford. If your incisions become red, swollen, tender or draining pus, please contact Dr. Alford or go to the nearest emergency department. Do not shower or bathe for 48 hours. If there are bandages on your incisions, remove them in 48 hours. Do not allow your bandages to become wet for 48 hours. Do not soak in a tub or swimming pool until your incisions have completely sealed, usually 2 or more weeks. After the dressings are removed in 48 hours, you will notice paper tapes called butterflies/Steri-Strips. These tapes will fall off on their own in 1-2 weeks. You do not need to apply another bandage unless your clothing irritates your incisions. If you need to place another Band-Aid on your incisions, be sure to wait until the Steri strip is dry. You have been prescribed narcotic pain medicine that will cause constipation. Please purchase [id number] stool softener known as Colace/docusate, 100 mg. Take 2 tablets with breakfast and the morning and 2 tablets in the evening after dinner until your bowels are moving and urine or longer taking narcotics. Please note that if you are not taking narcotics, the general anesthesia for the procedure can still cause constipation. If you experience diarrhea, stop taking the stool softener medicine. You can take [id number] Tylenol/acetaminophen for pain unless you have an allergy or medical reason you are not not allowed to take these medications, such as peptic ulcers, taking blood thinners or kidney problems. You should also use ice packs to the operative site to help minimize pain and swelling for the first 3 days, or as needed afterwards. Unless there is a medical reason to avoid these medicines, you should take 2 [id number] Tylenol every 6 hours for the first 3 days to help with pain. Remember that the gallbladder helps to to digest fatty foods. If you eat fried foods; rich, creamy sauces; cheese; gravies or other such heavy, greasy foods, you will likely develop gas and bloating and diarrhea. To minimize this risk, eat a high protein, high-fiber, low-fat diet for the next few weeks. Care Plan Goals: Allow adequate healing, follow-up with your spooling supervisor, encourage drinking water and increased protein consumption, follow-up with gastroenterology for choledocholithiasis/stent Health Concerns: Chronic kidney disease, malnutrition, frailty Plan of Treatment: Encourage hydration and high-protein diet, follow-up with Nephrology, Gastroenterology and General surgery Assessment: Status post lap choly for choledocholithiasis with pre existing CKD3 WITH ACUTE WORSENING, improved at the time of discharge
--- NOTE | 2022-12-12 13:54 | MHC.CM.PN ---
Addendum entered by Poonam Garcia 12/12/22 14:37: CM MET WITH PT AND DAUGHTER TO DISCUSS DC PT INITIALLY UNSURE IF SHE WANTS VNA PER DISCUSSION, VNA WILL BE ARRANGED AND PT IS AWARE SHE CAN CANCEL AT ANY TIME Original Note: PT WILL DC HOME TODAY WITH [facility] TO TRANSPORT
--- NOTE | 2022-12-12 14:47 | W.MHC.F2F ---
Service Date Service Date: 12/12/22 Encounter Date of encounter: 12/12/22 Reasons for Services Signs and symptoms assessed: Postoperative deconditioning and elder frailty Reason for physical therapy: home safety and mobility, therapeutic exercises and other (frailty & deconditioning) Homebound: Leaving the home is medically contraindicated at this time without the asist of a device and/or another person due th the listed conditions above and below. Reason homebound: unsteady gait / fall risk and poor balance / fall risk Certification: Based on the above findings, I certify that this patient is confined to the home and needs intermittent mcc care, physical therapy and/or speech therapy, or continues to need occupational therapy. The patient is under my care, and I have initiated the establishment of the plan of care. The patient will be followed by a physician who will periodically review the plan of care. Time Spent With Patient Time: Total time managing care of this patient today ____ minutes.
--- NOTE | 2022-12-15 11:17 | CONS_ITS ---
DATE OF SERVICE: 12/10/2022 REASON FOR CONSULTATION: Consult requested by the medical team to evaluate and help in management of patient with acute kidney injury. HISTORY OF PRESENT ILLNESS: Patient is an 82-year-old female with past medical history history of type 2 diabetes mellitus, hypertension, macular degeneration, stage 3 CKD at baseline, who presented to the hospital with choledocholithiasis status post laparoscopic cholecystectomy. She was admitted in the surgery and medical team was consulted. Her baseline creatinine was around 1-1.2, which increased to 1.5 and a potassium level of 5.7. Apparently, she has not been eating well. She does not drink much and is complaining of dry mouth. She has history of irritable bowel syndrome and frequent diarrheas. She has lost some weight over the last 2 years. Her daughter was at the bedside to help with the history. She was being receiving gentle hydration, looks like the IV is not running very well due to occlusive issues. There is no NSAID use. REVIEW OF SYSTEMS: As noted above. Other systems are negative. PAST MEDICAL HISTORY: History of COVID infection; anxiety; macular degeneration; type 2 diabetes mellitus; hypertension: Stage 2 CKD at baseline, baseline creatinine ranging around 1.1-1.2; history of GERD; irritable bowel syndrome; hyperlipidemia; paroxysmal atrial fibrillation, on anticoagulation with Xarelto; coronary artery disease; history of recent choledocholithiasis, status post cholecystectomy during this admission, which was laparoscopic. FAMILY HISTORY: Significant for father and mother who are , exact reason is unclear. PAST SURGICAL HISTORY: Includes history of bilateral cataract surgery, history of hip replacement total, colonoscopy, and cardiac cath. SOCIAL HISTORY: Patient does not smoke. Does not drink. Has a supportive family. ALLERGIES: NO KNOWN DRUG ALLERGIES. MEDICATIONS: As an outpatient, inpatient reviewed in detail. PHYSICAL EXAMINATION: GENERAL: Patient is resting in the chair, awake, alert, oriented x3. VITAL SIGNS: Blood pressure was 132/62, pulse 62, afebrile. HEENT: Shows pupils equal, round, reactive bilaterally to light. NECK: No jugular venous distention. Neck was supple. No thyromegaly is noted. CARDIOVASCULAR SYSTEM: S1, S2 without rub. RESPIRATORY SYSTEM: Mildly decreased in bases without any crepitation. ABDOMEN: Soft with tenderness in the right upper quadrant. Bowel sounds present. EXTREMITIES: Showed no edema. NEURO: Patient is awake, alert, oriented x3. LABORATORY DATA: Done recently. WBC is 15.8, hemoglobin 9.1, hematocrit 29.2, platelets 241. Sodium 136, potassium 5.7, chloride 107, CO2 of 23, BUN 36, creatinine 1.5, glucose 178. IMPRESSION: 1. 82-year-old female with acute kidney injury. Acute kidney injury in this patient is likely secondary to prerenal azotemia in the setting of decreased p.o. intake and the patient being n.p.o. Patient also has renal hypoperfusion, status post surgery. Patient had laparoscopic cholecystectomy. 2. Chronic kidney disease stage 3 at baseline. Baseline creatinine ranging between 1.1-1.3. 3. Hyperkalemia in the setting of acute kidney injury/chronic kidney disease. 4. Choledocholithiasis, status post cholecystectomy. RECOMMENDATIONS: At this juncture, I have taken liberty to order spot urine for electrolytes, protein, creatinine. I agree with IV fluids with normal saline and discussed with the patient and nursing staff that she needs a better IV access to make sure she gets IV as ordered. She needs to be on low-potassium diet and Lokelma as needed. Repeat potassium has been ordered. I would recommend checking renal function again in a.m. Above plan was discussed with the surgical team. Thank you for allowing me to participate in medical management of the patient. MD JAIMIE Graves/QUE / [id number]
== END 2022-12-12 17:00 | disposition home health service (06) | DRG 418 ==
LOC: HO.SSSA 10:48 → HO.S3 13:18
PROVIDERS: Internal Medicine; Admitting Provider Surgery; PCP Internal Medicine; Visit Provider Surgery
PROC: 0FT44ZZ Resection of Gallbladder, Percutaneous Endoscopic Approach (ICD-10-PCS; CPT 47562; principal; 2022-12-09 07:30)
DX: K80.50 Calculus of bile duct without cholangitis or cholecystitis without obstruction (principal); E46 Unspecified protein-calorie malnutrition; N17.9 Acute kidney failure, unspecified; I12.9 Hypertensive chronic kidney disease with stage 1 through stage 4 chronic kidney disease, or unspecified chronic kidney disease; E86.0 Dehydration; E87.5 Hyperkalemia; N18.30 Chronic kidney disease, stage 3 unspecified; I48.0 Paroxysmal atrial fibrillation; E78.5 Hyperlipidemia, unspecified; R01.1 Cardiac murmur, unspecified; K58.0 Irritable bowel syndrome with diarrhea; E11.22 Type 2 diabetes mellitus with diabetic chronic kidney disease; I25.10 Atherosclerotic heart disease of native coronary artery without angina pectoris; Z79.4 Long term (current) use of insulin; Z79.01 Long term (current) use of anticoagulants; Z79.84 Long term (current) use of oral hypoglycemic drugs; Z79.899 Other long term (current) drug therapy; Z68.32 Body mass index [BMI] 32.0-32.9, adult
CPT/HCPCS: 36415; 71045; 74176; 76775; 80048; 80053; 81001; 82570; 82947; 84156; 84300; 85025; 85027; 88304; 93306; 97116; 97162; 97530; 99221; J0690; J1170; J2371; J2405; J3010; Q9957

== ENCOUNTER 2022-12-09 10:34 | Outpatient (BNV) | payer MEDICARE, MEDICAID, SELFPAY | END 2022-12-10 07:00 | PROVIDERS: Admitting Provider Surgery; PCP Internal Medicine; Visit Provider Internal Medicine Cardiovascular Disease | DX: I34.0 Nonrheumatic mitral (valve) insufficiency (principal); I36.1 Nonrheumatic tricuspid (valve) insufficiency | CPT/HCPCS: 93306 ==

== ENCOUNTER → 2022-12-09 10:34 | Outpatient (BNV) | payer MEDICARE, MEDICAID, SELFPAY | PROVIDERS: Admitting Provider Surgery; PCP Internal Medicine; Visit Provider Physician Assistant | DX: Z90.49 Acquired absence of other specified parts of digestive tract (principal) | CPT/HCPCS: 99222; 99232 ==

== ENCOUNTER 2022-12-17 14:30 | Outpatient (REF) | payer MEDICARE, MEDICAID, SELFPAY ==
[2022-12-17 16:00] LABS: MANUAL DIFF FLAG NO
[2022-12-17 16:42] LABS: Basophils Percent Auto 0.2 % (0-2); Eosinophils Absolute Auto 0.1 X10*3/uL (0.0-0.4); Eosinophils Percent Auto 0.9 % (0-4); Hematocrit 30.1 % (37.0-47.0); Hemoglobin 9.6 g/dl (12.0-16.0); Imm Gran Abs Auto 0.17 X10*3/uL (0.00-0.03); Imm Gran Pct Auto 1.2 % (0.0-0.4); Lymphocytes Absolute Auto 2.2 X10*3/uL (1.2-4.9); Lymphocytes Percent Auto 15.8 % (20-40); Mean Corpuscular HGB Conc 31.9 g/dl (31.0-35.0); Mean Corpuscular Hemoglobin 26.5 pg (27.0-33.0); Mean Corpuscular Volume 83.1 fL (80.0-98.0); Monocytes Absolute Auto 1.1 X10*3/uL (0.1-1.2); Monocytes Percent Auto 7.8 % (2-11); Neutrophils Absolute Auto 10.3 x10*3/uL (2.0-8.3); Neutrophils Percent Auto 74.1 % (45-73); Platelet Count 332 X10*3/uL (160-400); Red Blood Count 3.62 X10*6/uL (4.20-5.50); Red Cell Distribution Width 15.2 % (11.0-16.0); White Blood Count 13.9 X10*3/uL (4.8-10.8)
[2022-12-17 17:07] LABS: Alanine Aminotransferase 11 U/L (0-31); Alkaline Phosphatase 85 U/L (39-117); Anion Gap 13 (12-20); Aspartate Amino Transferase 17 U/L (5-31); Bilirubin Total 0.7 mg/dL (0.0-1.0); Blood Urea Nitrogen 16 mg/dL (9-16); Calcium 8.7 mg/dL (8.4-10.2); Carbon Dioxide 22 mmol/L (22-29); Chloride 105 mmol/L (96-108); Estimated Glomerular Filt Rate 53; Glucose Random 198 mg/dL (60-115); Sodium 136 mmol/L (135-145); Total Protein 5.6 g/dL (6.5-8.0)
== END 2022-12-17 14:31 | disposition home or self-care (01) ==
LOC: HO.LAB 14:30
PROVIDERS: PCP Internal Medicine; Visit Provider Surgery
DX: E66.9 Obesity, unspecified (principal); T81.49XA Infection following a procedure, other surgical site, initial encounter; N17.9 Acute kidney failure, unspecified; E46 Unspecified protein-calorie malnutrition; R54 Age-related physical debility; Z79.01 Long term (current) use of anticoagulants; Z90.49 Acquired absence of other specified parts of digestive tract; Z79.899 Other long term (current) drug therapy
CPT/HCPCS: 10060; 36415; 80053; 84134; 85025; 87070; 87205

== ENCOUNTER 2022-12-17 14:30 | Outpatient (AMB) | payer MEDICARE, MEDICAID, SELFPAY ==
--- NOTE | 2022-12-17 14:43 | A.OFFVIS_ITS ---
Intake Vital Signs 12/17/22 14:48 Height 5 ft 1 in Weight 176 lb 5.917 oz BMI 33.3 BP 171/68 H Blood Pressure Location Rt brachial Position Sitting Pulse 80 Temp 97.6 F Temp Source Tympanic Pulse Oximetry (%) 98 Oxygen Delivery Method Room Air Intake Visit Reasons: S/P lap megha Service Unit Operator Oil Well Required: No Grit Blaster: Grit Blaster Present Allergies No Known Allergies [No Known Allergies*] Allergy (Verified 11/28/22 10:36) Medication List - Last Reconciled 12/17/22 by Rajesh Alford MD, FACS, FASMBS amlodipine 5 mg PO DAILY ascorbate calcium (vitamin C) 1 g (2 x 500 mg) PO DAILY atenolol 100 mg PO DAILY blood sugar diagnostic ([employer] Ultra Test strips) USE 1 STRIP TO CHECK GLUCOSE THREE TIMES DAILY cholecalciferol (vitamin D3) 25 mcg PO DAILY colesevelam 1,250 mg PO BID insulin glargine 15 units (0.15 mL) subcut BEDTIME 30 days isosorbide mononitrate ER 30 mg PO QAM Lactobacillus rhamnosus GG (Culturelle) 1 cap PO DAILY PRN latanoprostene bunod 0.024% (Vyzulta) 1 drp ophthalmic (eye) DAILY loperamide 2 mg PO Q4H PRN lorazepam 0.5 mg PO BID PRN magnesium 250 mg PO DAILY mecobalamin (vitamin B12) 1,000 mcg PO DAILY metformin 850 mg PO BID oxycodone 5 mg PO Q4H PRN pantoprazole 40 mg PO BID pen needle, diabetic Once a day pyridoxine (vitamin B6) 50 mg PO DAILY 90 days rivaroxaban (Xarelto) 15 mg PO QPM HPI HPI Comments History of Present Illness Details The patient returned to the office at my request. She had a follow-up appointment for her laparoscopic cholecystectomy done on 12/09/2022, but her daughter contacted the office noting that there was drainage that was malodorous from the umbilicus. The patient came in today and reports she has not been consuming any food or a significant amount and is not taking any protein shakes. She noted that drainage started earlier today and denies any fevers. She denies any chest pain, difficulty breathing or shortness of breath. [facility] Medical History (Updated 12/17/22 @ 15:28 by Rajesh Alford MD, FACS, [facility]) White coat syndrome with hypertension History of COVID-19 Anxiety Macular degeneration Renal calculi Diarrhea Hypertension Diabetes mellitus with coincident hypertension Obesity, diabetes, and hypertension syndrome Weight loss Biliary dyskinesia Paroxysmal atrial fibrillation GERD (gastroesophageal reflux disease) Irritable bowel syndrome with diarrhea CAD (coronary artery disease) CKD (chronic kidney disease) stage 3, GFR 30-59 ml/min High cholesterol Surgical History (Updated 12/17/22 @ 09:25 by Graciela Morales [facility]) Hx laparoscopic cholecystectomy Hx of bilateral cataract extraction History of ERCP History of hip replacement, total History of esophagogastroduodenoscopy (EGD) Hx of colonoscopy History of cardiac cath Family History Father No problems noted. Mother Diabetes Sister Diabetes Daughter Anemia Diabetes Social History Household Members: Children Household Members Other:: daughter and her fiancee Housing: House Are you a primary healthcare management consultant to a significant other at home: No Do you presently have visiting nurse or other home services: No Alcohol intake: never Patient Tobacco Use Status: Never used Tobacco e-Cigarette/Vaping Use: Never Used Second Hand Smoke Exposure: No Advance Directives Date on File: 08/01/20 service: No Current occupational status: retired Cognitive needs: Yes Hearing needs: No Vision needs: Yes Review of Systems Const All systems reviewed & are unremarkable except as noted in HPI and below Physical Exam Vital Signs: Last Vital Signs Temp 97.6 F 12/17/22 14:48 Pulse 80 12/17/22 14:48 BP 171/68 H 12/17/22 14:48 Pulse Ox 98 12/17/22 14:48 Oxygen Delivery Method Room Air 12/17/22 14:48 BMI result Body Mass Index 33.3 On exam, the patient is elderly, frail and nontoxic She is obese She is in no acute respiratory distress She is anicteric Abdomen is obese with expected ecchymosis and at the supraumbilical midline, a tense, erythematous incision is noted that readily expresses malodorous drainage. Office Procedures I&D Drain [id number] of Skin Abscess, simple All charges added?: Procedure code (CPT) selection complete Results Reviewed Results Reviewed: Pathology specimen from 12/09/2022 demonstrating acute and chronic calculous cholecystitis with no evidence of malignancy was discussed Gram stain and culture from the eye and eat abscess is pending. Assessment & Plan Assessment & Plan (1) S/P laparoscopic cholecystectomy: Code(s): Z90.49 - Acquired absence of other specified parts of digestive tract (2) JACQUI (acute kidney injury): Code(s): N17.9 - Acute kidney failure, unspecified (3) Protein calorie malnutrition: Code(s): E46 - Unspecified protein-calorie malnutrition (4) Frailty syndrome in geriatric patient: Code(s): R54 - Age-related physical debility (5) Anticoagulated: Code(s): Z79.01 - police lieutenant patrol (current) use of anticoagulants (6) Obesity (BMI 30.0-34.9): Code(s): E66.9 - Obesity, unspecified (7) Wound infection after surgery: Code(s): T81.49XA - Infection following a procedure, other surgical site, initial encounter Plan Following informed consent detailing the risks of bleeding, infection or need for additional procedures, I recommended incision and drainage of the umbilical abscess given the grossly malodorous drainage. Procedure note The skin was prepped with Betadine that was allowed to dry. A 15 blade was used to open the incision and malodorous drainage demonstrated. G stain and culture was obtained and 30 cc of local was used to irrigate the subcutaneous pocket until it returned clear. The area was probed with forceps and is a simple pocket that allow placement of half-inch plain gauze. He was dressed with 4x4s and an ABD. Instructions to remove the gauze in the shower tomorrow and wash the area in the shower twice a day was reviewed. Given the patient is housebound and needs a walker or wheelchair, will make arrangements regarding VNA The importance of protein to help fight infection and heal was again reviewed Patient has nonfasting labs including a CBC, CMP, Gram stain of the surgical site infection in the subcutaneous tissues, pre-albumin and renal function blood work ordered. I will see her again next week. Orders: Orders Comprehensive Met. Panel Today E46 - Unspecified protein-calorie malnutrition, E66.9 - Obesity, unspecified, N17.9 - Acute kidney failure, unspecified, R54 - Age-related physical debility, T81.49XA - Infection following a procedure, other surgical site, initial encounter, Z79.01 - skilled nursing (current) use of anticoagulants, Z90.49 - Acquired absence of other specified parts of digestive tract Routine Culture w Gram Stain Today E46 - Unspecified protein-calorie malnutrition, E66.9 - Obesity, unspecified, N17.9 - Acute kidney failure, unspecified, R54 - Age-related physical debility, T81.49XA - Infection following a procedure, other surgical site, initial encounter, Z79.01 - skilled nursing (current) use of anticoagulants, Z90.49 - Acquired absence of other specified parts of digestive tract Complete Blood Count Auto Diff Today E46 - Unspecified protein-calorie malnutrition, E66.9 - Obesity, unspecified, N17.9 - Acute kidney failure, unspecified, R54 - Age-related physical debility, T81.49XA - Infection following a procedure, other surgical site, initial encounter, Z79.01 - police lieutenant patrol (current) use of anticoagulants, Z90.49 - Acquired absence of other specified parts of digestive tract Prealbumin Today E46 - Unspecified protein-calorie malnutrition, E66.9 - Obesity, unspecified, N17.9 - Acute kidney failure, unspecified, R54 - Age- related physical debility, T81.49XA - Infection following a procedure, other surgical site, initial encounter, Z79.01 - police lieutenant patrol (current) use of anticoagulants, Z90.49 - Acquired absence of other specified parts of digestive tract Coding Level of Care Code Global (18107) Diagnoses S/P laparoscopic cholecystectomy Z90.49 JACQUI (acute kidney injury) N17.9 Protein calorie malnutrition E46 Frailty syndrome in geriatric patient R54 Anticoagulated Z79.01 Obesity (BMI 30.0-34.9) E66.9 Wound infection after surgery T81.49XA CPT Codes I&D Drain - Drain 1: [id number] of Skin Abscess, simple ([id number])
[2022-12-17 14:48] VITALS: BP 171/68; PULSE 80; TEMP 36.4; O2SAT 98; BMI 33.3
== END 2022-12-17 15:47 | disposition home or self-care (01) ==
PROVIDERS: PCP Internal Medicine; Visit Provider Surgery
DX: T81.49XA Infection following a procedure, other surgical site, initial encounter (principal); Z48.89 Encounter for other specified surgical aftercare
CPT/HCPCS: 10060; 99024

== ENCOUNTER 2022-12-22 12:09 | Outpatient (AMB) | payer MEDICARE, MEDICAID, SELFPAY ==
[2022-12-22 12:21] VITALS: BP 169/74; PULSE 69; TEMP 36.3; O2SAT 95; BMI 32.7
--- NOTE | 2022-12-22 12:21 | A.OFFVIS_ITS ---
Intake Vital Signs 12/22/22 12:21 Height 5 ft 1 in Weight 172 lb 13.478 oz BMI 32.7 BP 169/74 H Blood Pressure Location Rt brachial Position Sitting Pulse 69 Pulse Source Pulse Oximeter Temp 97.3 F Temp Source Tympanic Pulse Oximetry (%) 95 Oxygen Delivery Method Room Air Intake Visit Reasons: S/P lap megha Allergies No Known Allergies [No Known Allergies*] Allergy (Verified 12/22/22 12:32) HPI HPI Comments History of Present Illness Details The patient returned to the office at my request. She had a follow-up appointment for her laparoscopic cholecystectomy done on 12/09/2022. She developed an umbilical postoperative infection in her incision that was drained in the office last week. She was started on Levaquin after discussion with her supervisor welding equipment repairer. Gram stain and culture grew out polymicrobial infection with no identified organism due to the extensive polymicrobial nature. Patient is accompanied by her daughter and reports she is doing better. Her diarrhea/irritable bowel syndrome is at its baseline continue day is her last day of a 5 day course of Levaquin, 500 mg. She continues to deny any dysphagia, odynophagia, chest pain or shortness of breath. She is having no fevers. [facility] Medical History (Updated 12/20/22 @ 00:02 by Judy Angel) White coat syndrome with hypertension History of COVID-19 Anxiety Macular degeneration Renal calculi Diarrhea Hypertension Diabetes mellitus with coincident hypertension Obesity, diabetes, and hypertension syndrome Weight loss Biliary dyskinesia Paroxysmal atrial fibrillation GERD (gastroesophageal reflux disease) Irritable bowel syndrome with diarrhea CAD (coronary artery disease) CKD (chronic kidney disease) stage 3, GFR 30-59 ml/min High cholesterol Surgical History Hx laparoscopic cholecystectomy Hx of bilateral cataract extraction History of ERCP History of hip replacement, total History of esophagogastroduodenoscopy (EGD) Hx of colonoscopy History of cardiac cath Family History Father No problems noted. Mother Diabetes Sister Diabetes Daughter Anemia Diabetes Social History Household Members: Children Household Members Other:: daughter and her fiancee Housing: House Are you a primary campground caretaker to a significant other at home: No Do you presently have visiting nurse or other home services: No Alcohol intake: never Patient Tobacco Use Status: Never used Tobacco e-Cigarette/Vaping Use: Never Used Second Hand Smoke Exposure: No Advance Directives Date on File: 08/01/20 service: No Current occupational status: retired Cognitive needs: Yes Hearing needs: No Vision needs: Yes Physical Exam Vital Signs: Last Vital Signs Temp 97.3 F 12/22/22 12:21 Pulse 69 12/22/22 12:21 BP 169/74 H 12/22/22 12:21 Pulse Ox 95 12/22/22 12:21 Oxygen Delivery Method Room Air 12/22/22 12:21 BMI result Body Mass Index 32.7 On exam, she is anicteric and nontoxic She is having no respiratory difficulty Patient is examined supine and the erythema has resolved. There is some periumbilical fibrin is exudate at her opened incision in serous drainage but the area is nontender and there is no evidence of ongoing infection. Results Reviewed Results Reviewed: Gram stain showed mixed to polymicrobial infection including GPC, GNR Assessment & Plan Assessment & Plan (1) Wound infection after surgery: Code(s): T81.49XA - Infection following a procedure, other surgical site, initial encounter (2) S/P laparoscopic cholecystectomy: Code(s): Z90.49 - Acquired absence of other specified parts of digestive tract (3) Frailty syndrome in geriatric patient: Code(s): R54 - Age-related physical debility (4) Anticoagulated: Code(s): Z79.01 - intermediate (current) use of anticoagulants (5) Obesity, diabetes, and hypertension syndrome: Code(s): E11.69 - Type 2 diabetes mellitus with other specified complication; E11.59 - Type 2 diabetes mellitus with other circulatory complications; E66.9 - Obesity, unspecified; I15.2 - Hypertension secondary to endocrine disorders Plan The patient is doing much better. She was reassured that no additional antibiotics are needed and daily washing with dressing changes as needed should suffice for now. She will contact me if the redness or pain returns. Patient has VNA this Thursday. Patient and her daughter will contact me if there are new concerns, otherwise I will see the patient back in 1 week. The importance of working on her protein intake was again reviewed and apparently understood. Coding Level of Care Code Global (31958) Diagnoses Wound infection after surgery T81.49XA S/P laparoscopic cholecystectomy Z90.49 Frailty syndrome in geriatric patient R54 Anticoagulated Z79.01 Obesity, diabetes, and hypertension syndrome E11.69; E11.59; E66.9; I15.2
== END 2022-12-22 12:39 | disposition home or self-care (01) ==
PROVIDERS: PCP Internal Medicine; Visit Provider Surgery
DX: T81.49XA Infection following a procedure, other surgical site, initial encounter (principal); Z90.49 Acquired absence of other specified parts of digestive tract; R54 Age-related physical debility; Z79.01 Long term (current) use of anticoagulants; E11.69 Type 2 diabetes mellitus with other specified complication; E11.59 Type 2 diabetes mellitus with other circulatory complications; E66.9 Obesity, unspecified; I15.2 Hypertension secondary to endocrine disorders
CPT/HCPCS: 99024

== ENCOUNTER → 2022-12-22 12:09 | Outpatient (BNVA) | payer MEDICARE, MEDICAID, SELFPAY | PROVIDERS: PCP Internal Medicine; Visit Provider Surgery | DX: Z90.49 Acquired absence of other specified parts of digestive tract (principal); N17.9 Acute kidney failure, unspecified; E46 Unspecified protein-calorie malnutrition; R54 Age-related physical debility; Z79.01 Long term (current) use of anticoagulants; E66.9 Obesity, unspecified; T81.49XA Infection following a procedure, other surgical site, initial encounter ==

== ENCOUNTER 2022-12-30 11:05 | Outpatient (AMB) | payer MEDICARE, MEDICAID, SELFPAY ==
--- NOTE | 2022-12-30 11:26 | MHC.OFFVIS ---
Intake Vital Signs 12/30/22 11:34 Height 5 ft 1 in Weight 170 lb 10.205 oz BMI 32.2 BP 148/62 H Blood Pressure Location Rt brachial Position Sitting Pulse 73 Pulse Source Pulse Oximeter Temp 97.1 F Temp Source Tympanic Pulse Oximetry (%) 96 Oxygen Delivery Method Room Air Intake Visit Reasons: S/P lap megha Vice President Of Customer Service Required: No Translator: Translator offered & declined Accompanied by: Daughter Allergies No Known Allergies [No Known Allergies*] Allergy (Verified 12/30/22 11:36) Medication List - Last Reconciled 12/30/22 by Rajesh Alford MD, FACS, FASMBS amlodipine 5 mg PO DAILY ascorbate calcium (vitamin C) 1 g (2 x 500 mg) PO DAILY atenolol 100 mg PO DAILY blood sugar diagnostic ([employer] Ultra Test strips) USE 1 STRIP TO CHECK GLUCOSE THREE TIMES DAILY cholecalciferol (vitamin D3) 25 mcg PO DAILY colesevelam 1,250 mg (2 x 625 mg) PO BID insulin glargine 15 units (0.15 mL) subcut BEDTIME 30 days isosorbide mononitrate ER 30 mg PO QAM Lactobacillus rhamnosus GG (Culturelle) 1 cap PO DAILY PRN latanoprostene bunod 0.024% (Vyzulta) 1 drp ophthalmic (eye) DAILY levofloxacin 500 mg PO DAILY 5 days loperamide 2 mg PO Q4H PRN lorazepam 0.5 mg PO BID PRN magnesium 250 mg PO DAILY mecobalamin (vitamin B12) 1,000 mcg PO DAILY metformin 850 mg PO BID oxycodone 5 mg PO Q4H PRN pantoprazole 40 mg PO BID pen needle, diabetic Once a day pyridoxine (vitamin B6) 50 mg PO DAILY 90 days rivaroxaban (Xarelto) 15 mg PO QPM HPI HPI Comments History of Present Illness Details The patient returned to the office at my request. She had a follow-up appointment for her laparoscopic cholecystectomy done on 12/09/2022. She developed an umbilical postoperative infection in her incision that was drained in the office last week. She was started on Levaquin after discussion with her aircraft maintenance director. Gram stain and culture grew out polymicrobial infection with no identified organism due to the extensive polymicrobial nature. Patient is accompanied by her daughter and reports she is doing better. Her diarrhea/irritable bowel syndrome is at its baseline continue day is her last day of a 5 day course of Levaquin, 500 mg. She continues to deny any dysphagia, odynophagia, chest pain or shortness of breath. She is having no fevers. The patient had some questions regarding her irritable bowel syndrome and diarrhea and noted that she took some Imodium with good effect today. She asked for my opinion on this treatment which seems reasonable but I have encouraged her to contact Dr. Levi or 1 of the GI practitioners who evaluated her before to make sure that she can self medicate with this option [facility] Medical History (Updated 12/20/22 @ 00:02 by Judy Angel) White coat syndrome with hypertension History of COVID-19 Anxiety Macular degeneration Renal calculi Diarrhea Hypertension Diabetes mellitus with coincident hypertension Obesity, diabetes, and hypertension syndrome Weight loss Biliary dyskinesia Paroxysmal atrial fibrillation GERD (gastroesophageal reflux disease) Irritable bowel syndrome with diarrhea CAD (coronary artery disease) CKD (chronic kidney disease) stage 3, GFR 30-59 ml/min High cholesterol Surgical History Hx laparoscopic cholecystectomy Hx of bilateral cataract extraction History of ERCP History of hip replacement, total History of esophagogastroduodenoscopy (EGD) Hx of colonoscopy History of cardiac cath Family History Father No problems noted. Mother Diabetes Sister Diabetes Daughter Anemia Diabetes Social History Household Members: Children Household Members Other:: daughter and her fiancee Housing: House Are you a primary home care attendant to a significant other at home: No Do you presently have visiting nurse or other home services: No Alcohol intake: never Patient Tobacco Use Status: Never used Tobacco e-Cigarette/Vaping Use: Never Used Second Hand Smoke Exposure: No Advance Directives Date on File: 08/01/20 service: No Current occupational status: retired Cognitive needs: Yes Hearing needs: No Vision needs: Yes Physical Exam On exam, she is anicteric and nontoxic She is having no respiratory difficulty Patient is examined supine and the erythema has resolved. There is some periumbilical fibrin is exudate at her opened incision in serous drainage but the area is nontender and there is no evidence of ongoing infection. Results Reviewed Results Reviewed: Gram stain showed mixed to polymicrobial infection including GPC, GNR Assessment & Plan Assessment & Plan (1) S/P laparoscopic cholecystectomy: Code(s): Z90.49 - Acquired absence of other specified parts of digestive tract (2) Wound infection after surgery: Code(s): T81.49XA - Infection following a procedure, other surgical site, initial encounter (3) Frailty syndrome in geriatric patient: Code(s): R54 - Age-related physical debility (4) Anticoagulated: Code(s): Z79.01 - USP (current) use of anticoagulants (5) Obesity, diabetes, and hypertension syndrome: Code(s): E11.69 - Type 2 diabetes mellitus with other specified complication; E11.59 - Type 2 diabetes mellitus with other circulatory complications; E66.9 - Obesity, unspecified; I15.2 - Hypertension secondary to endocrine disorders (6) CKD (chronic kidney disease) stage 3, GFR 30-59 ml/min: Code(s): N18.30 - Chronic kidney disease, stage 3 unspecified (7) CAD (coronary artery disease): Comment: follows w/[facility] Code(s): I25.10 - Atherosclerotic heart disease of [place] coronary artery without angina pectoris (8) NIDDY (non-insulin dependent diabetes mellitus in young): Code(s): E13.9 - Other specified diabetes mellitus without complications (9) Paroxysmal atrial fibrillation: Comment: follows w/[facility] Code(s): I48.0 - Paroxysmal atrial fibrillation (10) Choledocholithiasis: Code(s): K80.50 - Calculus of bile duct without cholangitis or cholecystitis without obstruction Plan The patient will be a little more aggressive regarding dressing changes since the skin is a little macerated. The importance of avoiding skin maceration that could lead to worse infection was reviewed with the patient and her daughter. I will see the patient back in 1 week, sooner if there are problems The importance of protein supplements and protein in her diet was again discussed. I am sending a copy of this note to Dr. Levi regarding her ERCP for stent removal and to hopefully set up a follow-up appointment with 1 of the nurse practitioners regarding the patient's Imodium questions and diarrhea controlled Coding Level of Care Code Global (96934) Diagnoses S/P laparoscopic cholecystectomy Z90.49 Wound infection after surgery T81.49XA Frailty syndrome in geriatric patient R54 Anticoagulated Z79.01 Obesity, diabetes, and hypertension syndrome E11.69; E11.59; E66.9; I15.2 CKD (chronic kidney disease) stage 3, GFR 30-59 ml/min N18.30 CAD (coronary artery disease) I25.10 NIDDY (non-insulin dependent diabetes mellitus in young) E13.9 Paroxysmal atrial fibrillation I48.0 Choledocholithiasis K80.50
[2022-12-30 11:34] VITALS: BP 148/62; PULSE 73; TEMP 36.2; O2SAT 96; BMI 32.2
== END 2022-12-30 11:55 | disposition home or self-care (01) ==
PROVIDERS: PCP Internal Medicine; Visit Provider Surgery
DX: Z90.49 Acquired absence of other specified parts of digestive tract (principal); T81.49XA Infection following a procedure, other surgical site, initial encounter; R54 Age-related physical debility; Z79.01 Long term (current) use of anticoagulants; E11.69 Type 2 diabetes mellitus with other specified complication; E11.59 Type 2 diabetes mellitus with other circulatory complications; E66.9 Obesity, unspecified; I15.2 Hypertension secondary to endocrine disorders; N18.30 Chronic kidney disease, stage 3 unspecified; I25.10 Atherosclerotic heart disease of native coronary artery without angina pectoris; E13.9 Other specified diabetes mellitus without complications; I48.0 Paroxysmal atrial fibrillation; K80.50 Calculus of bile duct without cholangitis or cholecystitis without obstruction
CPT/HCPCS: 99024

== ENCOUNTER → 2022-12-30 11:05 | Outpatient (BNVA) | payer MEDICARE, MEDICAID, SELFPAY | PROVIDERS: PCP Internal Medicine; Visit Provider Surgery | DX: Z90.49 Acquired absence of other specified parts of digestive tract (principal); N17.9 Acute kidney failure, unspecified; E46 Unspecified protein-calorie malnutrition; R54 Age-related physical debility; Z79.01 Long term (current) use of anticoagulants; E66.9 Obesity, unspecified; T81.49XA Infection following a procedure, other surgical site, initial encounter ==

== ENCOUNTER 2023-01-05 13:45 | Outpatient (REF) | payer MEDICARE, MEDICAID, SELFPAY ==
[2023-01-05 14:06] LABS: MANUAL DIFF FLAG NO
[2023-01-05 14:30] LABS: Basophils Percent Auto 0.4 % (0-2); Eosinophils Absolute Auto 0.3 X10*3/uL (0.0-0.4); Eosinophils Percent Auto 3.2 % (0-4); Hemoglobin 9.8 g/dl (12.0-16.0); Imm Gran Abs Auto 0.02 X10*3/uL (0.00-0.03); Imm Gran Pct Auto 0.2 % (0.0-0.4); Lymphocytes Absolute Auto 2.1 X10*3/uL (1.2-4.9); Lymphocytes Percent Auto 25.7 % (20-40); Mean Corpuscular HGB Conc 31.6 g/dl (31.0-35.0); Mean Corpuscular Hemoglobin 26.4 pg (27.0-33.0); Mean Corpuscular Volume 83.6 fL (80.0-98.0); Mean Platelet Volume 10.1 fL (9.4-12.3); Monocytes Absolute Auto 0.8 X10*3/uL (0.1-1.2); Monocytes Percent Auto 10.1 % (2-11); Neutrophils Absolute Auto 4.9 x10*3/uL (2.0-8.3); Neutrophils Percent Auto 60.4 % (45-73); Platelet Count 334 X10*3/uL (160-400); Red Blood Count 3.71 X10*6/uL (4.20-5.50); Red Cell Distribution Width 16.7 % (11.0-16.0); White Blood Count 8.1 X10*3/uL (4.8-10.8)
[2023-01-05 14:44] LABS: Estimated Average Glucose 151 mg/dL; Hemoglobin A1c % 6.9 % (<6.0)
[2023-01-05 15:19] LABS: Alanine Aminotransferase 13 U/L (0-31); Albumin Level 3.5 g/dL (3.5-5.0); Alkaline Phosphatase 68 U/L (39-117); Anion Gap 10 (12-20); Aspartate Amino Transferase 25 U/L (5-31); Bilirubin Total 0.6 mg/dL (0.0-1.0); Blood Urea Nitrogen 20 mg/dL (9-16); Calcium 9.2 mg/dL (8.4-10.2); Carbon Dioxide 27 mmol/L (22-29); Chloride 104 mmol/L (96-108); Cholesterol 114 mg/dL (<200); Estimated Glomerular Filt Rate 50; Glucose Fasting 145 mg/dL (60-99); HDL Cholesterol 39 mg/dL (>40); LDL Cholesterol Calculated 58 mg/dL (<100); Potassium 4.6 mmol/L (3.3-5.1); Sodium 136 mmol/L (135-145); Thyroid Stimulating Hormone 1.36 uIU/mL (0.32-4.0); Total Protein 6.3 g/dL (6.5-8.0); Triglycerides 86 mg/dL (<150)
== END 2023-01-05 13:46 | disposition home or self-care (01) ==
LOC: HO.LAB 13:45
PROVIDERS: PCP Internal Medicine; Visit Provider Internal Medicine Gastroenterology
DX: D64.9 Anemia, unspecified (principal); E03.9 Hypothyroidism, unspecified; E78.5 Hyperlipidemia, unspecified; N28.9 Disorder of kidney and ureter, unspecified; R73.9 Hyperglycemia, unspecified
CPT/HCPCS: 36415; 80053; 80061; 83036; 84443; 85025

== ENCOUNTER 2023-01-06 12:36 | Outpatient (REF) | payer MEDICARE, MEDICAID, SELFPAY ==
[2023-01-06 15:50] LABS: Campylobacter Not Detected (Not Detect.); E. coli EAEC Not Detected (Not Detect.); E. coli EPEC Not Detected (Not Detect.); Plesiomonas shigelloides Not Detected (Not Detect.); Salmonella Not Detected (Not Detect.); Vibrio Not Detected (Not Detect.); Vibrio Cholerae Not Detected (Not Detect.); Yersinia enterocolitica Not Detected (Not Detect.)
[2023-01-06 15:51] LABS: Adenovirus F 40/41 Not Detected (Not Detect.); Astrovirus Not Detected (Not Detect.); Cryptosporidium Not Detected (Not Detect.); Cyclospora cayetanensis Not Detected (Not Detect.); E. coli ETEC Not Detected (Not Detect.); E. coli STEC Not Detected (Not Detect.); Entamoeba histolytica Not Detected (Not Detect.); Giardia lamblia Not Detected (Not Detect.); Norovirus GI/GII Not Detected (Not Detect.); Rotavirus A Not Detected (Not Detect.); Sapovirus Not Detected (Not Detect.); Shigella sp./EIEC Not Detected (Not Detect.)
[2023-01-06 16:25] LABS: CDiff Gene PCR NEGATIVE (Negative)
== END 2023-01-06 12:37 | disposition home or self-care (01) ==
LOC: CF 12:36
PROVIDERS: Internal Medicine Gastroenterology; PCP Internal Medicine; Visit Provider Surgery
DX: Z90.49 Acquired absence of other specified parts of digestive tract (principal); N17.9 Acute kidney failure, unspecified; E46 Unspecified protein-calorie malnutrition; R54 Age-related physical debility; Z79.01 Long term (current) use of anticoagulants; E66.9 Obesity, unspecified; T81.49XA Infection following a procedure, other surgical site, initial encounter
CPT/HCPCS: 87493; 87507

== ENCOUNTER 2023-01-06 12:36 | Outpatient (AMB) | payer MEDICARE, MEDICAID, SELFPAY ==
--- NOTE | 2023-01-06 12:39 | A.OFFVIS_ITS ---
Intake Vital Signs 01/06/23 12:44 Height 5 ft 1 in BP 175/76 H Blood Pressure Location Rt brachial Position Sitting Pulse 67 Pulse Source Pulse Oximeter Temp 98.3 F Temp Source Temporal Artery Scan Pulse Oximetry (%) 98 Oxygen Delivery Method Room Air Intake Visit Reasons: S/P lap megha Allergies No Known Allergies [No Known Allergies*] Allergy (Verified 01/06/23 12:45) HPI HPI Comments History of Present Illness Details The patient returns for follow-up appointment for her laparoscopic cholecystectomy done on 12/09/2022 for choledocholithiasis. She developed an umbilical postoperative incisional infection was drained in the office and is had continued serous drainage. She completed Levaquin after discussion with her protective clothing issuer. Gram stain and culture grew out polymicrobial infection with no identified organism due to the extensive polymicrobial nature. She has had scant serous drainage that is decreasing but notes that she is still not taking much p.o.. Her blood sugars have been stable. The area is getting washed daily and at this point being changed 2-3 times per day. Patient is accompanied by her daughter and reports she is doing better. She continues to deny any dysphagia, odynophagia, chest pain or shortness of breath. She is having no fevers. The patient has ongoing issues regarding her irritable bowel syndrome and diarrhea and noted that she took some Imodium with good effect today. She asked for my opinion on this treatment which seems reasonable but I have encouraged her to contact Dr. Levi or one of the GI practitioners who evaluated her before to make sure that she can self-medicate with this option [facility] Medical History White coat syndrome with hypertension History of COVID-19 Anxiety Macular degeneration Renal calculi Diarrhea Hypertension Diabetes mellitus with coincident hypertension Obesity, diabetes, and hypertension syndrome Weight loss Biliary dyskinesia Paroxysmal atrial fibrillation GERD (gastroesophageal reflux disease) Irritable bowel syndrome with diarrhea CAD (coronary artery disease) CKD (chronic kidney disease) stage 3, GFR 30-59 ml/min High cholesterol Surgical History Hx laparoscopic cholecystectomy Hx of bilateral cataract extraction History of ERCP History of hip replacement, total History of esophagogastroduodenoscopy (EGD) Hx of colonoscopy History of cardiac cath Family History Father No problems noted. Mother Diabetes Sister Diabetes Daughter Anemia Diabetes Household Members: Children Household Members Other:: daughter and her fiancee Housing: House Are you a primary before and after school daycare worker to a significant other at home: No Do you presently have visiting nurse or other home services: No Alcohol intake: never Patient Tobacco Use Status: Never used Tobacco e-Cigarette/Vaping Use: Never Used Second Hand Smoke Exposure: No Advance Directives Date on File: 08/01/20 service: No Current occupational status: retired Cognitive needs: Yes Hearing needs: No Vision needs: Yes Physical Exam On exam, she is anicteric and nontoxic She is having no respiratory difficulty Patient is examined supine and the erythema has resolved. There is some periumbilical fibrin is exudate at her opened incision in serous drainage but the area is nontender and there is no evidence of ongoing erythema or infection/purulence. There was a few cc of serous, non purulence drainage on the gauze pad was reapplied. Patient is using a panty liner to cover the scant drainage Results Reviewed Results Reviewed: Gram stain showed mixed to polymicrobial infection including GPC, GNR Intraoperative pathology dated 12/09/2022 showed acute and chronic calculous cholecystitis and no neoplasia Assessment & Plan Assessment & Plan (1) S/P laparoscopic cholecystectomy: Code(s): Z90.49 - Acquired absence of other specified parts of digestive tract (2) Frailty syndrome in geriatric patient: Code(s): R54 - Age-related physical debility (3) Wound infection after surgery: Code(s): T81.49XA - Infection following a procedure, other surgical site, initial encounter (4) Anticoagulated: Code(s): Z79.01 - FCI (current) use of anticoagulants (5) Dilated intrahepatic bile duct: Code(s): K83.8 - Other specified diseases of biliary tract (6) NIDDY (non-insulin dependent diabetes mellitus in young): Code(s): E13.9 - Other specified diabetes mellitus without complications (7) CKD (chronic kidney disease) stage 3, GFR 30-59 ml/min: Code(s): N18.30 - Chronic kidney disease, stage 3 unspecified (8) CAD (coronary artery disease): Comment: follows w/HCS Code(s): I25.10 - Atherosclerotic heart disease of [place] coronary artery without angina pectoris (9) Paroxysmal atrial fibrillation: Comment: follows w/HCS Code(s): I48.0 - Paroxysmal atrial fibrillation (10) Hypertension: Code(s): I10 - Essential (primary) hypertension Plan Patient will continue changing dressings and continue to work on improving her diet and increasing protein. Sounds like her blood sugars are well controlled, per the patient and her daughter. I offered a [facility], but the wound is slowly closing and the serous drainage scant. I am not sure that they can offer anything other than encourage nutritional management and local wound care. Patient declined a referral at this time noting that her diarrhea is unpredictable and she would prefer to follow up with me next week. Coding Level of Care Code Global (36007) Diagnoses S/P laparoscopic cholecystectomy Z90.49 Frailty syndrome in geriatric patient R54 Wound infection after surgery T81.49XA Anticoagulated Z79.01 Dilated intrahepatic bile duct K83.8 NIDDY (non-insulin dependent diabetes mellitus in young) E13.9 CKD (chronic kidney disease) stage 3, GFR 30-59 ml/min N18.30 CAD (coronary artery disease) I25.10 Paroxysmal atrial fibrillation I48.0 Hypertension I10
[2023-01-06 12:44] VITALS: BP 175/76; PULSE 67; TEMP 36.8; O2SAT 98
== END 2023-01-06 12:56 | disposition home or self-care (01) ==
PROVIDERS: PCP Internal Medicine; Visit Provider Surgery
DX: Z90.49 Acquired absence of other specified parts of digestive tract (principal); R54 Age-related physical debility; T81.49XA Infection following a procedure, other surgical site, initial encounter; Z79.01 Long term (current) use of anticoagulants; K83.8 Other specified diseases of biliary tract; E13.9 Other specified diabetes mellitus without complications; N18.30 Chronic kidney disease, stage 3 unspecified; I25.10 Atherosclerotic heart disease of native coronary artery without angina pectoris; I48.0 Paroxysmal atrial fibrillation; I10 Essential (primary) hypertension
CPT/HCPCS: 99024

== ENCOUNTER 2023-01-14 13:56 | Outpatient (AMB) | payer MEDICARE, MEDICAID, SELFPAY ==
[2023-01-14 13:57] VITALS: BP 164/80; PULSE 70; TEMP 35.7; O2SAT 97; BMI 31.7
--- NOTE | 2023-01-14 13:57 | MHC.OFFVIS ---
Intake Vital Signs 01/14/23 13:57 Height 5 ft 1 in Weight 167 lb 15.876 oz BMI 31.7 BP 164/80 H Blood Pressure Location Rt brachial Position Sitting Pulse 70 Pulse Source Pulse Oximeter Temp 96.3 F L Temp Source Tympanic Pulse Oximetry (%) 97 Oxygen Delivery Method Room Air Intake Visit Reasons: S/P lap megha Automobile Salesman: Automobile Salesman offered & declined Allergies No Known Allergies [No Known Allergies*] Allergy (Verified 01/14/23 14:06) HPI HPI Comments History of Present Illness Details The patient returns for follow-up appointment for her laparoscopic cholecystectomy done on 12/09/2022 for choledocholithiasis. She developed an umbilical postoperative incisional infection was drained in the office and is had continued serous drainage. There is a scant amount of fluid that is non purulent. She continues to deny any dysphagia, odynophagia, chest pain or shortness of breath. She is having no fevers. She continues to report good days and bad days regarding her irritable bowel. Her ERCP for stent removal is tomorrow. PFSH Medical History White coat syndrome with hypertension History of COVID-19 Anxiety Macular degeneration Renal calculi Diarrhea Hypertension Diabetes mellitus with coincident hypertension Obesity, diabetes, and hypertension syndrome Weight loss Biliary dyskinesia Paroxysmal atrial fibrillation GERD (gastroesophageal reflux disease) Irritable bowel syndrome with diarrhea CAD (coronary artery disease) CKD (chronic kidney disease) stage 3, GFR 30-59 ml/min High cholesterol Surgical History Hx laparoscopic cholecystectomy Hx of bilateral cataract extraction History of ERCP History of hip replacement, total History of esophagogastroduodenoscopy (EGD) Hx of colonoscopy History of cardiac cath Family History Father No problems noted. Mother Diabetes Sister Diabetes Daughter Anemia Diabetes Social History Household Members: Children Household Members Other:: daughter and her fiancee Housing: House Are you a primary healthcare network consultant to a significant other at home: No Do you presently have visiting nurse or other home services: No Alcohol intake: never Comment: refusing bed alarms Patient Tobacco Use Status: Never used Tobacco e-Cigarette/Vaping Use: Never Used Second Hand Smoke Exposure: No Advance Directives Date on File: 08/01/20 service: No Current occupational status: retired Cognitive needs: Yes Hearing needs: No Vision needs: Yes Review of Systems Const All systems reviewed & are unremarkable except as noted in HPI and below Physical Exam Vital Signs: Last Vital Signs Temp 96.3 F L 01/14/23 13:57 Pulse 70 01/14/23 13:57 BP 164/80 H 01/14/23 13:57 Pulse Ox 97 01/14/23 13:57 Oxygen Delivery Method Room Air 01/14/23 13:57 BMI result Body Mass Index 31.7 On exam, she is anicteric and nontoxic She is having no respiratory difficulty Her umbilical incision has a scant amount of serous drainage on the gauze. Patient notes that she is continuing local care with soap and water and changing the bandage twice a day and having less than half a tsp. There is no redness or fever or pain Assessment & Plan Assessment & Plan (1) Wound infection after surgery: Code(s): T81.49XA - Infection following a procedure, other surgical site, initial encounter (2) S/P laparoscopic cholecystectomy: Code(s): Z90.49 - Acquired absence of other specified parts of digestive tract (3) Frailty syndrome in geriatric patient: Code(s): R54 - Age-related physical debility (4) Anticoagulated: Code(s): Z79.01 - terminal operations supervisor (current) use of anticoagulants (5) Dilated intrahepatic bile duct: Code(s): K83.8 - Other specified diseases of biliary tract Plan The patient notes that she is somewhat overwhelmed with multiple doctor appointments and asked if it was safe to stop seeing me. Since she is making progress and reliable, the patient and her daughter will call me if there are changes, but I expect that the umbilicus should be completely healed in 1-2 weeks. The importance of protein intake was discussed. Patient's questions regarding other physicians taking care of her including urologist, and director of outpatient services seemed to be satisfactorily answered. Patient will contact me if she has problems such as umbilical redness, tenderness or pain, purulence drainage or if a new surgical issue arises. Coding Level of Care Code Global (80430) Diagnoses Wound infection after surgery T81.49XA S/P laparoscopic cholecystectomy Z90.49 Frailty syndrome in geriatric patient R54 Anticoagulated Z79.01 Dilated intrahepatic bile duct K83.8
== END 2023-01-14 14:29 | disposition home or self-care (01) ==
PROVIDERS: PCP Internal Medicine; Visit Provider Surgery
DX: T81.49XA Infection following a procedure, other surgical site, initial encounter (principal); Z90.49 Acquired absence of other specified parts of digestive tract; R54 Age-related physical debility; Z79.01 Long term (current) use of anticoagulants; K83.8 Other specified diseases of biliary tract
CPT/HCPCS: 99024

== ENCOUNTER → 2023-01-14 13:56 | Outpatient (BNVA) | payer MEDICARE, MEDICAID, SELFPAY | PROVIDERS: PCP Internal Medicine; Visit Provider Surgery | DX: Z90.49 Acquired absence of other specified parts of digestive tract (principal); N17.9 Acute kidney failure, unspecified; E46 Unspecified protein-calorie malnutrition; R54 Age-related physical debility; Z79.01 Long term (current) use of anticoagulants; E66.9 Obesity, unspecified; T81.49XA Infection following a procedure, other surgical site, initial encounter; K83.8 Other specified diseases of biliary tract; E13.9 Other specified diabetes mellitus without complications; N18.30 Chronic kidney disease, stage 3 unspecified; I25.10 Atherosclerotic heart disease of native coronary artery without angina pectoris; I48.0 Paroxysmal atrial fibrillation; I10 Essential (primary) hypertension ==

== ENCOUNTER 2023-01-15 12:22 | Day surgery (SDC) | payer MEDICARE, MEDICAID, SELFPAY ==
[2023-01-13 07:05] VITALS: BMI 31.7
--- NOTE | 2023-01-14 09:24 | HO.ANESPROP2 ---
Documented by User: Emily Belcher NP 01/14/23 09:56 HPI - Anesthesia Eval Consult details Narrative: 82yo F for ERCP w/spyglass s/p lap megha 12/09/22 with GA-ETT 7.5 s/p ERCP 08/2022 with GA-ETT (repeat ERCP at [facility] 10/2022) - biliary stents in situ Follows [facility] cardiology for afib (xarelto), CAD - stable at last office visit 04/2022 Last PCP visit 11/2022 - all stable [facility] Active Problems Active Problems: All Active Problems (Updated 12/20/22 @ 00:02 by Background Stanley) Wound infection after surgery (Acute) S/P laparoscopic cholecystectomy (Acute) Frailty syndrome in geriatric patient (Acute) Anticoagulated (Acute) COVID-19 (Acute) Choledocholithiasis (Acute) Dilated intrahepatic bile duct (Acute) Left knee pain (Acute) Obesity (BMI 30.0-34.9) (Acute) Macular degeneration of left eye (Acute) Cataract (Acute) Preoperative clearance (Acute) Diastolic dysfunction (Acute) Obesity, diabetes, and hypertension syndrome (Acute) Thrush (Acute) Physical exam (Acute) SOB (shortness of breath) on exertion (Acute) Obesity (Acute) Cough (Acute) Duodenitis (Acute) Cholecystitis (Acute) Irritable bowel syndrome with diarrhea (Acute) Anal lesion (Acute) Duodenitis (Acute) Atrophic gastritis (Acute) Varices, esophageal (Acute) Dyskinesia of gallbladder (Acute) Nephrolithiasis (Acute) Gallstones (Acute) Abdominal bloating (Acute) Diarrhea (Acute) Nephrolithiasis (Acute) NIDDY (non-insulin dependent diabetes mellitus in young) (Acute) CKD (chronic kidney disease) stage 3, GFR 30-59 ml/min (Acute) CAD (coronary artery disease) (Acute) Hypertension (Acute) Diabetes mellitus with coincident hypertension (Acute) Obesity, diabetes, and hypertension syndrome (Acute) Paroxysmal atrial fibrillation (Acute) Past Medical History Medical History (Reviewed 01/14/23 @ 14:26 by Rajesh Alford MD, FACS, [facility] [place] White coat syndrome with hypertension History of COVID-19 Anxiety Macular degeneration Renal calculi Diarrhea Hypertension Diabetes mellitus with coincident hypertension Obesity, diabetes, and hypertension syndrome Weight loss Biliary dyskinesia Paroxysmal atrial fibrillation GERD (gastroesophageal reflux disease) Irritable bowel syndrome with diarrhea CAD (coronary artery disease) CKD (chronic kidney disease) stage 3, GFR 30-59 ml/min High cholesterol Family History Family History (Reviewed 01/14/23 @ 14:26 by Rajesh Alford MD, [place], [facility] [place]) Father No problems noted. Mother Diabetes Sister Diabetes Daughter Anemia Diabetes Family history of problems with anesthesia: No Surgical History Surgical History (Reviewed 01/14/23 @ 14:26 by Rajesh Alford MD, [place], [facility] [place]) Hx laparoscopic cholecystectomy Hx of bilateral cataract extraction History of ERCP History of hip replacement, total History of esophagogastroduodenoscopy (EGD) Hx of colonoscopy History of cardiac cath History of Problems with Anesthesia: No Social History Social History (Reviewed 01/14/23 @ 14:26 by Rajesh Alford MD, [place], [facility] [place] Household Members: Children Household Members Other:: daughter and her fiancee Housing: House Are you a primary college and career counselor to a significant other at home: No Do you presently have visiting nurse or other home services: No Alcohol intake: never Comment: refusing bed alarms Patient Tobacco Use Status: Never used Tobacco e-Cigarette/Vaping Use: Never Used Second Hand Smoke Exposure: No Have you been hit, kicked, punched, or otherwise hurt by someone within the past year? If so, by whom?: No Are you DNR?: No Advance Directives: No Advance Directives Information Provided: Yes Advance Directives Date on File: 08/01/20 Recently lost weight without trying: No Nutrition Risks: No Nutritional Risk Patient : No service: No Current occupational status: retired Cognitive needs: Yes Hearing needs: No Vision needs: Yes Meds Allergies Allergy/AdvReac Type Severity Reaction Status Date / Time No Known Allergies Allergy Verified 01/14/23 14:06 [No Known Allergies*] Home Medications Medication Instructions Recorded Confirmed Last Taken Type mecobalamin (vitamin B12) 1,000 1,000 mcg PO DAILY 04/05/20 12/30/22 2 Weeks Ago History mcg chewable tablet ~08/27/22 cholecalciferol (vitamin D3) 25 25 mcg PO DAILY 02/21/22 12/30/22 2 Weeks Ago History mcg (1,000 unit) tablet ~08/27/22 Lactobacillus rhamnosus GG 10 1 cap PO DAILY PRN Diarrhea 09/10/22 12/30/22 Unknown History billion cell capsule (Culturelle) latanoprostene bunod 0.024 % eye 1 drp ophthalmic (eye) DAILY 09/10/22 12/30/22 09/10/22 History drops (Vyzulta) loperamide 2 mg capsule 2 mg PO Q4H PRN Loose Stool 09/10/22 12/30/22 Unknown History magnesium 250 mg tablet 250 mg PO DAILY 09/10/22 12/30/22 2 Weeks Ago History ~08/27/22 Exam Height,Weight and Vital Signs: Height 5 ft 1 in Weight 76.204 kg Narrative Narrative: EKG 05/2022 Vent. Rate : 064 BPM Atrial Rate : 064 BPM P-R Int : 150 ms QRS Dur : 090 ms QT Int : 422 ms P-R-T Axes : 048 -45 039 degrees QTc Int : 435 ms Normal sinus rhythm Left anterior fascicular block Abnormal ECG When compared with ECG of 01-AUG-2020 08:16, No significant change was found ECHO 2022 Conclusions: - 1. Normal LV systolic function with mild LVH with grade 2 diastolic dysfunction with LVEF of 60 65% 2. Moderately dilated left atrium 3. Xkze-li-rwnivplp mitral regurgitation 4. Moderate to severe elevation of right ventricular systolic pressure 5. No gross pericardial effusion MR MRCP 08/2022 IMPRESSION: 1. Probable choledocholithiasis with 2 calculi distally in the common bile duct as detailed above. There is a focal stricture in this region as well at the level the pancreatic head is smooth margins, possibly benign. Associated biliary ductal and gallbladder dilatation. Mild sludge in the gallbladder without evidence for acute cholecystitis. GI consultation is recommended. 2. Mild to moderate generalized pancreatic atrophy without overt focal abnormality. Assessment and Plan Assessment Anesthesia Assessment: Chart Reviewed Final Anesthetic Review Family History of Problems with Anesthesia: No History of Problems with Anesthesia: No Documented by User: Jose Alfredo Chiang MD 01/15/23 14:29 [facility] Past Medical History Medical History (Reviewed 01/14/23 @ 14:26 by Rajesh Alford MD, [place], [facility]) White coat syndrome with hypertension History of COVID-19 Anxiety Macular degeneration Renal calculi Diarrhea Hypertension Diabetes mellitus with coincident hypertension Obesity, diabetes, and hypertension syndrome Weight loss Biliary dyskinesia Paroxysmal atrial fibrillation GERD (gastroesophageal reflux disease) Irritable bowel syndrome with diarrhea CAD (coronary artery disease) CKD (chronic kidney disease) stage 3, GFR 30-59 ml/min High cholesterol Family History Family History Father No problems noted. Mother Diabetes Sister Diabetes Daughter Anemia Diabetes Surgical History Surgical History (Reviewed 01/14/23 @ 14:26 by Rajesh Alford MD, [place], [facility]) Hx laparoscopic cholecystectomy Hx of bilateral cataract extraction History of ERCP History of hip replacement, total History of esophagogastroduodenoscopy (EGD) Hx of colonoscopy History of cardiac cath Social History Social History (Reviewed 01/14/23 @ 14:26 by Rajesh Alford MD, [place], [facility] [place] Household Members: Children Household Members Other:: daughter and her fiancee Housing: House Are you a primary college and career counselor to a significant other at home: No Do you presently have visiting nurse or other home services: No Alcohol intake: never Comment: refusing bed alarms Patient Tobacco Use Status: Never used Tobacco e-Cigarette/Vaping Use: Never Used Second Hand Smoke Exposure: No Have you been hit, kicked, punched, or otherwise hurt by someone within the past year? If so, by whom?: No Are you DNR?: No Advance Directives: No Advance Directives Information Provided: Yes Advance Directives Date on File: 08/01/20 Recently lost weight without trying: No Nutrition Risks: No Nutritional Risk Patient : No service: No Current occupational status: retired Cognitive needs: Yes Hearing needs: No Vision needs: Yes Meds Allergies Allergy/AdvReac Type Severity Reaction Status Date / Time No Known Allergies Allergy Verified 01/14/23 14:06 [No Known Allergies*] Home Medications Medication Instructions Recorded Confirmed Last Taken Type mecobalamin (vitamin B12) 1,000 1,000 mcg PO DAILY 04/05/20 12/30/22 2 Weeks Ago History mcg chewable tablet ~07/12/23 cholecalciferol (vitamin D3) 25 25 mcg PO DAILY 02/21/22 12/30/22 2 Weeks Ago History mcg (1,000 unit) tablet ~08/27/22 Lactobacillus rhamnosus GG 10 1 cap PO DAILY PRN Diarrhea 09/10/22 12/30/22 Unknown History billion cell capsule (Culturelle) latanoprostene bunod 0.024 % eye 1 drp ophthalmic (eye) DAILY 09/10/22 12/30/22 09/10/22 History drops (Vyzulta) loperamide 2 mg capsule 2 mg PO Q4H PRN Loose Stool 09/10/22 12/30/22 Unknown History magnesium 250 mg tablet 250 mg PO DAILY 09/10/22 12/30/22 2 Weeks Ago History ~08/27/22 Exam Airway Mallampati Class: III TM Dist: >3cm Neck ROM: Full Loose/Missing/Broken Teeth: Yes ( two remaining teeth at the front) Assessment and Plan Assessment Anesthesia Assessment: Anesthesia Plan Discussed Final Anesthetic Review NPO: Yes ASA Class: III Final Preanesthetic Review: No Changes in Pt Med Stat, Meds/Allgs Chart Reviewed, Consent Obtained/Reviewed and Anes Risks/Benef Reviewed Patient Risk: Intermediate Procedure Risk: Low Anesthetic Plan Anesthetic Plan: GA Disposition: Standard PACU
[2023-01-15] VITALS (8 sets, daily range): BP systolic 97–155; BP diastolic 57–69; PULSE 60–68; RESP 14–18; TEMP 36.6–37.1; O2SAT 95–98
--- NOTE | ~2023-01-15 | FL_ITS ---
EXAMINATION: XR FLUOROSCOPY WITH IMAGES CLINICAL INFORMATION: ERCP. COMPARISON: None available. TECHNIQUE: Fluoroscopy Supervised By: Dr. Soy Levi. Fluoroscopy Time: 1.8 minutes. Cumulative Dose: 36.2 mGy. DAP: 9.87 Gycm2. Images: 9. FINDINGS: Initial image demonstrates an endoscope and plastic internal stent. Later images demonstrate opacification of the biliary system which is dilated. The common bile duct is very irregular appearing. There is question of filling defects in the distal common bile duct. Final images demonstrate decreased intra and extrahepatic biliary duct dilatation. FL/FL guidance in OR IMPRESSION: Fluoroscopy guidance for ERCP
--- NOTE | 2023-01-15 13:26 | MHC.SHP ---
Pre-Procedural Eval Section A Date of Service: 01/15/23 Section B Chief Complaint: Calculus of bile duct without cholangitis or megha Relevant Family History (Specify if Yes): No Relevant Social History: None Present Medications: see Short Stay Collaborative assessment Medical History: Significant History (White coat syndrome with hypertension History of COVID-19 Anxiety Macular degeneration Renal calculi Diarrhea Hypertension Diabetes mellitus with coincident hypertension Obesity, diabetes, and hypertension syndrome Weight loss Biliary dyskinesia Paroxysmal atrial fibrillation GERD (gastroesophageal ) History of Previous Operations: Relevant previous surgery/procedure and date(s) (Hx laparoscopic cholecystectomy Hx of bilateral cataract extraction History of ERCP History of hip replacement, total History of esophagogastroduodenoscopy (EGD) Hx of colonoscopy History of cardiac cath) Allergies: Allergies Allergy/AdvReac Type Severity Reaction Status Date / Time No Known Allergies Allergy Verified 01/14/23 14:06 [No Known Allergies*] Review of Systems Sugical H&P ROS: Negative: Constitution, Cardiovascular, Respiratory, Neurological, Psychiatric, Hem-Onc, Allergic/Immunologic, Gastrointestinal, Genitourinary, Musculoskeletal, Integumentary, Endocrine and Eyes/Ears/Nose/Throat Exam Surgical H&P Exam: Normal: HEENT, Normal: Heart, Normal: Lungs, Normal: Extremities, Normal: Abdomen, Normal: Skin and Normal: Neurological Plan Diagnosis/Plan: Unchanged I have reviewed the history and physical and performed a pertinent physical examination on my patient. No changes have occurred unless specified. Time Spent With Patient Time: Total time managing care of this patient today ____ minutes.
[2023-01-15 13:38] LABS: Glucose, Whole Blood 128 mg/dL (60-115)
[2023-01-15] MEDS: Lactated Ringers 1,000 ML 100 ML IVCONT (13:44)
--- NOTE | 2023-01-15 15:31 | W.PM.OPN ---
Operative Note Operative Note Date of Service: 01/15/23 Narrative: Description: Endoscopic retrograde cholangiopancreatography (ERCP) with stent removal and clearance of duct, cholangiogram and interpretation PROCEDURE: Endoscopic retrograde cholangiopancreatography INDICATION FOR THE PROCEDURE: Patient with a history of stent placement for choledocholithiasis s/p cholecystectomy, MEDICATIONS: General anesthesia, The risks of the procedure were made aware to the patient and consisted of medication reaction, bleeding, perforation, aspiration, and post ERCP pancreatitis. DESCRIPTION OF PROCEDURE: After informed consent and appropriate sedation, the duodenoscope was inserted into the oropharynx, down the esophagus, and into the stomach. The scope was then advanced through the pylorus to the ampulla. The stent was noted and removed using a snare. The ampulla was then accessed using a tome and over the wire a dilation balloon was placed and the ampulla dilated to 8 mm. Some sludge and debris came out. The extraction balloon was then placed and sweeped with removal of sludge and stone debris. An occlusion cholangiogram did not reveal any filling defects. There was some minor oozing which had ceased by the end of the procedure. The stomach was then decompressed and the endoscope was withdrawn. FINDINGS: 1. sludge and debris in CBD RECOMMENDATIONS: 1. clears today and advance diet tomorrow as tolerated. 2. return if any fever, worsening abdominal pain, nausea, vomiting
== END 2023-01-15 16:45 | disposition home or self-care (01) ==
PROVIDERS: PCP Internal Medicine; Visit Provider Internal Medicine Gastroenterology
PROC: (CPT 43260; principal; 2023-01-15 14:30)
DX: K80.50 Calculus of bile duct without cholangitis or cholecystitis without obstruction (principal); K83.8 Other specified diseases of biliary tract; R54 Age-related physical debility; I12.9 Hypertensive chronic kidney disease with stage 1 through stage 4 chronic kidney disease, or unspecified chronic kidney disease; E11.22 Type 2 diabetes mellitus with diabetic chronic kidney disease; N18.30 Chronic kidney disease, stage 3 unspecified; Z79.84 Long term (current) use of oral hypoglycemic drugs; F41.9 Anxiety disorder, unspecified; I25.10 Atherosclerotic heart disease of native coronary artery without angina pectoris; I48.0 Paroxysmal atrial fibrillation; E78.00 Pure hypercholesterolemia, unspecified; Z79.01 Long term (current) use of anticoagulants; Z79.899 Other long term (current) drug therapy; E66.9 Obesity, unspecified; Z68.31 Body mass index [BMI] 31.0-31.9, adult; Z66 Do not resuscitate; Z86.16 Personal history of COVID-19; Z90.49 Acquired absence of other specified parts of digestive tract
CPT/HCPCS: 43277; 43275; 43273; 82947; C1769; J1610; J2371; J3010; Q9967

== ENCOUNTER → 2023-01-15 12:22 | Outpatient (BNV) | payer MEDICARE, MEDICAID, SELFPAY | PROVIDERS: PCP Internal Medicine; Visit Provider Internal Medicine Gastroenterology | DX: K83.5 Biliary cyst (principal) | CPT/HCPCS: 43275; 43277 ==

== ENCOUNTER 2023-03-03 13:08 | Outpatient (AMB) | payer MEDICARE, MEDICAID, SELFPAY ==
--- NOTE | 2023-03-03 13:09 | MHC.PC.OV ---
Vital Signs 03/03/23 13:10 Height 5 ft 1 in Weight 166 lb BMI 31.4 BP 142/70 H Blood Pressure Location Lt brachial Position Sitting Pulse 70 Pulse Source Pulse Oximeter Pulse Oximetry (%) 99 Oxygen Delivery Method Room Air Intake Visit Reasons: 3 month f/u Hand Compositor Required: No Automatic Pilot Mechanic: Not Required per policy Accompanied by: Self / Same As Patient Allergies No Known Allergies [No Known Allergies*] Allergy (Verified 03/03/23 13:10) Medication List - Last Reconciled 03/03/23 by Kam Grady MD amlodipine 5 mg PO DAILY ascorbate calcium (vitamin C) 1 g (2 x 500 mg) PO DAILY atenolol 100 mg PO DAILY blood sugar diagnostic ([employer] Ultra Test strips) USE 1 STRIP TO CHECK GLUCOSE THREE TIMES DAILY cholecalciferol (vitamin D3) 25 mcg PO DAILY colesevelam 1,250 mg (2 x 625 mg) PO BID insulin glargine 15 units (0.15 mL) subcut BEDTIME 30 days isosorbide mononitrate ER 30 mg PO QAM Lactobacillus rhamnosus GG (Culturelle) 1 cap PO DAILY PRN latanoprostene bunod 0.024% (Vyzulta) 1 drp ophthalmic (eye) DAILY levofloxacin 500 mg PO DAILY 5 days loperamide 2 mg PO Q4H PRN lorazepam 0.5 mg PO BID PRN magnesium 250 mg PO DAILY mecobalamin (vitamin B12) 1,000 mcg PO DAILY metformin 850 mg PO BID oxycodone 5 mg PO Q12H PRN pantoprazole 40 mg PO BID pen needle, diabetic Once a day pyridoxine (vitamin B6) 50 mg PO DAILY 90 days rivaroxaban (Xarelto) 15 mg PO QPM Tobacco use date assessed: 03/03/23 Fall risk assessment: No Falls in past year Last assessed Fall Risk: 03/03/23 Dental Screening Dental Screen Date: 03/03/23 Did you have a dental visit in the last 12 months?: Yes Did you have a dental problem in the last 6 months where you did not have access to dental care?: No Was dental information given to patient?: Patient has dentist HPI 3 month f/u HPI Details HTN on Rx; doing well; compliant [facility] Medical History White coat syndrome with hypertension History of COVID-19 Anxiety Macular degeneration Renal calculi Diarrhea Hypertension Diabetes mellitus with coincident hypertension Obesity, diabetes, and hypertension syndrome Weight loss Biliary dyskinesia Paroxysmal atrial fibrillation GERD (gastroesophageal reflux disease) Irritable bowel syndrome with diarrhea CAD (coronary artery disease) CKD (chronic kidney disease) stage 3, GFR 30-59 ml/min High cholesterol Surgical History Hx laparoscopic cholecystectomy Hx of bilateral cataract extraction History of ERCP History of hip replacement, total History of esophagogastroduodenoscopy (EGD) Hx of colonoscopy History of cardiac cath Family History Father No problems noted. Mother Diabetes Sister Diabetes Daughter Anemia Diabetes Social History Household Members: Children Household Members Other:: daughter and her fiancee Housing: House Are you a primary healthcare recruiter to a significant other at home: No Do you presently have visiting nurse or other home services: No Alcohol intake: never Comment: refusing bed alarms Patient Tobacco Use Status: Never used Tobacco e-Cigarette/Vaping Use: Never Used Second Hand Smoke Exposure: No Advance Directives Date on File: 08/01/20 service: No Current occupational status: retired Cognitive needs: Yes Hearing needs: No Vision needs: Yes Questionnaire PHQ-9 Over the last 2 weeks, how often have you been bothered by any of the following problems? 1. Little interest or pleasure in doing things: several days 2. Feeling down, depressed, or hopeless: several days 3. Trouble falling or staying asleep, or sleeping too much: several days 4. Feeling tired or having little energy: several days 5. Poor appetite or overeating: several days 6. Feeling bad about yourself - or that you are a failure or have let yourself or your family down: several days 7. Trouble concentrating on things, such as reading the newspaper or watching television: several days 8. Moving or speaking so slowly that other people could have noticed. Or the opposite - being so fidgety or restless that you have been moving around a lot more than usual: not at all 9. Thoughts that you would be better off or of hurting yourself in some way: not at all Total score: 7 Depression Screening Interpretation: Positive Depression Screening Done: Yes 17949 - PHQ-9 Billing: Yes Source: Developed by Drs. Ruben Aleman, Siena Dougherty, Spencer De La Fuente and colleagues, with an educational jessica from [employer]. Thrive Questionnaire Date Thrive assessed: 03/03/23 I am a: Patient What is your living situation today?: I have a steady place to live Within the past 12 months, did the food you bought not last and you didn't have the money to get more?: Never true Within the past 12 months, did you worry whether your food would run out before you got money to buy more?: Never true Do you have trouble paying for medicines?: No Do you have trouble getting transportation to medical appointments?: No Do you have trouble paying your heating and electricity bill?: No Do you have trouble taking care of your child, family member or friend?: No Do you have trouble with day-to-day activities such as bathing, preparing meals, shopping, managing finances, etc.?: No Are you currently unemployed and looking for a job?: No Are you interested in more education?: No Please select the resources that you would like help with: None AUDIT C Alcohol Use Questionnaire (AUDIT-C) 1. How often do you have a drink containing alcohol?: Never 3. How often do you have six or more drinks on one occasion?: Never Total Score: 0 Score Reviewed/Action Taken: No SOLEDAD-7 AMB Questionnaire SOLEDAD-7 Date SOLEDAD - 7 assessed: 03/03/23 Feeling nervous, anxious, or on edge: 0 = Not at all Not being able to stop or control worryin = Not at all Worrying too much about different things: 0 = Not at all Trouble relaxin = Not at all Being so restless that it is hard to sit still: 0 = Not at all Becoming easily annoyed or irritable: 0 = Not at all Feeling afraid as if something awful might happen: 0 = Not at all Total SOLEDAD-7 score (0-4 normal; 5-9 mild; 10-14 moderate; 15-21 severe): 0 Source: Developed by Siena Mao B.W. Farhat, Spencer De La Fuente and colleagues, with an educational jessica from [employer]. Review of Systems Const Denies chills, Denies headache(s) and Denies weight loss ENT Denies headache(s) Card Denies chest pain, Denies syncope, Denies irregular heart rhythm and Denies dyspnea Resp Denies chest congestion, Denies cough and Denies dyspnea GI Denies abdominal pain, Denies change in stool character, Denies nausea and Denies vomiting Musc Denies deformity and Denies joint swelling Neuro Denies syncope and Denies headache(s) Physical exam (Primary Care) Vital Signs: Last Vital Signs Pulse 70 03/03/23 13:10 BP 142/70 H 03/03/23 13:10 Pulse Ox 99 03/03/23 13:10 Oxygen Delivery Method Room Air 03/03/23 13:10 BMI result Body Mass Index 31.4 Tobacco/Smoking Status: Tobacco use Status Tobacco use date assessed 03/03/23 03/03/23 13:12 Patient Tobacco Use Status Never used Tobacco 03/03/23 13:12 e-Cigarette/Vaping Use Never Used 03/03/23 13:12 PHQ-9: PHQ-9 Score PHQ-9: Total score 7 03/03/23 13:19 Depression Screening Interpretation: Positive Thrive Assessment: Date of Thrive Assessment Date Thrive assessed 03/03/23 03/03/23 13:12 Const General: cooperative, comfortable, no acute distress and alert Neck Neck: Yes no lymphadenopathy Thyroid: Thyroid normal Resp Effort & Inspection: normal respiratory effort Auscultation: clear to auscultation bilaterally Percussion: percussion normal Cardio Jugular venous distension: no JVD Palpation: normal PMI Rate: regular rate Rhythm: regular rhythm Heart sounds: S1 normal heart sound present and S2 normal heart sound present GI Inspection: Yes normal to inspection Palpation (GI): No hepatosplenomegaly present Skin General skin exam: no rashes or lesions noted Extrem General: Yes no clubbing, cyanosis or edema Assessment and Plan Assessment & Plan (1) Hypertension: Code(s): I10 - Essential (primary) hypertension Plan: stable; same rx Orders: Orders Hemoglobin A1c Today R73.9 - Hyperglycemia, unspecified Comprehensive [place]. Panel Fast Today N28.9 - Disorder of kidney and ureter, unspecified Medications: Changed From oxycodone Partial Fill upon patient request. 5 mg PO Q4H PRN 14 tabs 0RF pain To oxycodone Partial Fill upon patient request. 5 mg PO Q12H PRN 30 tabs 0RF pain Coding Level of Care Code Est Pt Level 3 (39892) Diagnoses Hypertension I10
[2023-03-03 13:10] VITALS: BP 142/70; PULSE 70; O2SAT 99; BMI 31.4
== END 2023-03-03 13:41 | disposition home or self-care (01) ==
PROVIDERS: PCP Internal Medicine; Visit Provider Internal Medicine
DX: I10 Essential (primary) hypertension (principal)
CPT/HCPCS: 99213

== ENCOUNTER 2023-03-23 12:13 | Outpatient (REF) | payer MEDICARE, MEDICAID, SELFPAY ==
--- NOTE | ~2023-03-23 | US_ITS ---
EXAMINATION: US RETROPERITONEAL LIMITED (RENAL ONLY) CLINICAL INFORMATION: Calculus of kidney. COMPARISON: Renal ultrasound 12/11/2022 and 03/17/2022. TECHNIQUE: Real-time imaging of the kidneys. FINDINGS: RIGHT KIDNEY: 9.9 x 5.5 x 4.2 cm (SAG x AP x TRV). The kidney is normal in size, contour, and echogenicity. Renal cortical thickness is normal. No focal parenchymal lesions or hydronephrosis. A few punctate cortical hyperechoic foci. LEFT KIDNEY: 10.0 x 4.5 x 4.2 cm (SAG x AP x TRV). The kidney is normal in size, contour, and echogenicity. Renal cortical thickness is normal. No focal parenchymal lesions or hydronephrosis. A few punctate cortical hyperechoic foci. US/US renal BI IMPRESSION: 1. A few punctate cortical hyperechoic foci in both kidneys which could be related with nonobstructive calculi or vascular calcifications. 2. No hydronephrosis.
== END 2023-03-23 12:14 | disposition home or self-care (01) ==
LOC: HO.US 12:13
PROVIDERS: PCP Internal Medicine; Visit Provider Urology
DX: N20.0 Calculus of kidney (principal)
CPT/HCPCS: 76775

== ENCOUNTER 2023-03-25 13:26 | Outpatient (AMB) | payer MEDICARE, MEDICAID, SELFPAY ==
--- NOTE | 2023-03-25 13:36 | A.OFFVIS_ITS ---
Intake Intake Visit Reasons: 1Y (03/23) Intake Note: Patient presents today for a yearly follow-up Meds- Vitamin B6, Allergies to Antibiotic- No Known Allergies Blood Thinner- Xarelto Ornamental Metal Fabricator Apprentice Required: No Accompanied by: Daughter Allergies No Known Allergies [No Known Allergies*] Allergy (Verified 03/25/23 13:38) Medication List - Last Reconciled 03/25/23 by Hoang Jones MD amlodipine 5 mg PO DAILY ascorbate calcium (vitamin C) 1 g (2 x 500 mg) PO DAILY atenolol 100 mg PO DAILY blood sugar diagnostic ([employer] Ultra Test strips) USE 1 STRIP TO CHECK GLUCOSE THREE TIMES DAILY cholecalciferol (vitamin D3) 25 mcg PO DAILY colesevelam 1,250 mg (2 x 625 mg) PO BID insulin glargine 15 units (0.15 mL) subcut BEDTIME 30 days isosorbide mononitrate ER 30 mg PO QAM Lactobacillus rhamnosus GG (Culturelle) 1 cap PO DAILY PRN latanoprostene bunod 0.024% (Vyzulta) 1 drp ophthalmic (eye) DAILY loperamide 2 mg PO Q4H PRN lorazepam 0.5 mg PO BID PRN magnesium 250 mg PO DAILY mecobalamin (vitamin B12) 1,000 mcg PO DAILY metformin 850 mg PO BID oxycodone 5 mg PO Q12H PRN pantoprazole 40 mg PO BID pen needle, diabetic Once a day pyridoxine (vitamin B6) 50 mg PO DAILY 90 days rivaroxaban (Xarelto) 15 mg PO QPM HPI HPI Comments History of Present Illness Details Shirlene is a pleasant female. She is a patient of Dr. Webber. She is seen for following urologic conditions - nephrolithiasis Twelve month nephrolithiasis follow-up Stone burden reduced secondary to vitamin B6 and maintaining fluid intake Has gastroparesis secondary to diabetes and minimal appetite Encouraged target fluid intake 48 oz Continue to follow yearly for 5 years Nephrolithiasis Found incidentally during evaluation May 2020 Left side discomfort Currently resolved Imaging - 06/06 CT - mild left hydronephrosis, 3 mm stone left lower pole, question of small stone in bladder - 03/09 renal ultrasound 4 mm left stone - 09/06 renal ultrasound 7 mm right, 3 mm left - 03/10 renal ultrasound apparent resolut ion of stones - 04/[address] ones Discussed increase in fluid intake Medications include - B6 - 50mg daily Plan for follow-up imaging 12 months [facility] Medical History White coat syndrome with hypertension History of COVID-19 Anxiety Macular degeneration Renal calculi Diarrhea Hypertension Diabetes mellitus with coincident hypertension Obesity, diabetes, and hypertension syndrome Weight loss Biliary dyskinesia Paroxysmal atrial fibrillation GERD (gastroesophageal reflux disease) Irritable bowel syndrome with diarrhea CAD (coronary artery disease) CKD (chronic kidney disease) stage 3, GFR 30-59 ml/min High cholesterol Surgical History Hx laparoscopic cholecystectomy Hx of bilateral cataract extraction History of ERCP History of hip replacement, total History of esophagogastroduodenoscopy (EGD) Hx of colonoscopy History of cardiac cath Family History Father No problems noted. Mother Diabetes Sister Diabetes Daughter Anemia Diabetes Social History Household Members: Children Household Members Other:: daughter and her fiancee Housing: House Are you a primary healthcare network consultant to a significant other at home: No Do you presently have visiting nurse or other home services: No Alcohol intake: never Comment: refusing bed alarms Patient Tobacco Use Status: Never used Tobacco e-Cigarette/Vaping Use: Never Used Second Hand Smoke Exposure: No Advance Directives Date on File: 08/01/20 service: No Current occupational status: retired Cognitive needs: Yes Hearing needs: No Vision needs: Yes Review of Systems Const Denies chills and Denies fever(s) Card Reports no additional complaints and Denies syncope Resp Denies cough GI Denies abdominal pain and Denies heartburn Reports as per HPI and Denies change in libido Neuro Denies syncope Psych Denies change in libido Endo Denies change in libido Physical Exam Const General: cooperative, healthy appearing, comfortable and no acute distress Orientation/consciousness: patient oriented x3 HEENT Face and sinus: Yes normal facial exam Mouth: moist mucous membranes Neck Neck: Yes normal visual inspection, Yes full ROM and Yes trachea midline Chest Chest palpation & inspection: normal inspection of the chest Resp Effort & Inspection: normal respiratory effort, able to speak in complete sentences and no respiratory distress GI Inspection: Yes normal to inspection Back/Spine/Pelvis Cervical Spine: normal cervical lordosis Thoracic/Lumbar Spine: thoracic and lumbar spine normal to inspection Skin General skin exam: no rashes or lesions noted Neuro General: patient oriented x3, gait normal, tone normal and moves all extremities Extrem General: Yes normal to inspection and Yes capillary refill normal Assessment & Plan Assessment & Plan (1) Nephrolithiasis: Code(s): N20.0 - Calculus of kidney Plan Twelve month follow-up renal ultrasound Orders: Orders US renal BI 364 Days N20.0 - Calculus of kidney Patient Instructions: Imaging studies, laboratory and physical exam results were discussed and reviewed in detail. No major barriers to patient understanding were identified. An opportunity to ask questions regarding the treatment plan was provided. All questions were answered. The patient expressed understanding and agreement with the above treatment plan. The patient is aware they should contact our office by phone for worsening of their current condition or the appearance of new urologic symptoms. Compliance is encouraged with any medications and followup testing that is ordered. It is a privilege to participate in the urologic care of your patient. If you have any questions or concerns regarding treatment for the above conditions, or other urologic issues, please do not hesitate to contact me. The office telephone contact is [phone]. This note is constructed using voice recognition software. While every effort h as been made to ensure accuracy game trapper errors may have been included. Yours sincerely, Dr Hoang Jones MD, [facility] - Urology Providers of Expert, Compassionate Care for the Genitourinary System Coding Level of Care Code Est Pt Level 4 (87979) Diagnoses Nephrolithiasis N20.0
== END 2023-03-25 14:01 | disposition home or self-care (01) ==
PROVIDERS: Visit Provider Urology
DX: N20.0 Calculus of kidney (principal)
CPT/HCPCS: 99213

== ENCOUNTER → 2023-03-25 13:26 | Outpatient (BNVA) | payer MEDICARE, MEDICAID, SELFPAY | PROVIDERS: Visit Provider Urology | DX: N20.0 Calculus of kidney (principal) | CPT/HCPCS: 99212 ==

== ENCOUNTER 2023-04-03 11:23 | Outpatient (AMB) | payer MEDICARE, MEDICAID, SELFPAY ==
--- NOTE | 2023-04-03 11:24 | MHC.OFFVIS ---
Intake Intake Visit Reasons: 4mth follow up Intake Note: patient follow up for Endoscopy results. Patient cc: chronic diarrhea everyday and denies any other GI issues or problems for today. Employee Relations Manager Required: No Allergies No Known Allergies [No Known Allergies*] Allergy (Verified 04/03/23 11:23) HPI 4mth follow up HPI Details 82 yo female with hx of IBS, DM, HTN, PAF on xarelto who I am seeing for f/u for abdo pain RECAP: seen as in patient 07/2020 She has had 2-3 months of crampy lower abdominal pain 08/25 in severity worse with food. She also noted worsening nausea and bilious non bloody emesis. She also has early satiety and poor appetite with weight loss of 15#. She has noted tete difficulty in swallowing even fluids. She denies any fever, chills, rash, shortness of breath or chest pain. She has longstanding diarrhea with 5-6 loose stools daily attributed to 'IBS'. She is on daily oxycodone for back pain and metformin and tried on creon and viberzi for diarrhea with variable effect. She did have work up by Sofía Edward in the GI office with imaging suggestive of chronic cholecystitis and GB dyskinsia, mild hydronephrosis, enlarged heart and coronary calcification. I did EGD/colonoscopy 07/2020: Endoscopy Findings: erosive duodenitis atrophic gastritis upper esophageal varices Colonoscopy Findings: polyps internal hemorrhoids diverticular disease anal rectal lesion, ?inflammed skin tag, papilloma , neoplasia or adenoma Path: chronic erosive duodenitis, moderate chronic inflammation, tubular adenoma CT chest done due to concern for isolated varices- no mediastinal mass, coronary calcifications noted she saw Dr Jones for her kidney stones and hydronephrosis, being monitored She was admitted with bilary obstruction and she ERCP 08/2022 with removal of stones, also had EUS at [facility] due to concern for neoplasia which was neg I did the ERCP 01/08 and removed the stent and there were no complications INTERIM: no issues with abdominal pain she still has diarrhea issues she has only been using half dose of colveselam peptobismol helps better no abdo pain EXAM: GENERAL: The patient is well developed and nontoxic. A/P: 1/ chronic loose stools suspected most likely due to high dose metformin? ddx: med effects- e.g diarrhea, CHO intolerance, BAM, SIBO, food allergies, less likely hormonal cause or IBD, IBS possible, improved now, off viberzi due to biliary issues PLAN: 1/ cont with welchol, try to take one QID, can take imodium in the morning and peptobismol as needed 2/ c diff was already neg x 2 PFSH Medical History (Updated 04/03/23 @ 11:50 by Soy Levi MD) Diarrhea White coat syndrome with hypertension History of COVID-19 Anxiety Macular degeneration Renal calculi Hypertension Diabetes mellitus with coincident hypertension Obesity, diabetes, and hypertension syndrome Weight loss Biliary dyskinesia Paroxysmal atrial fibrillation GERD (gastroesophageal reflux disease) Irritable bowel syndrome with diarrhea CAD (coronary artery disease) CKD (chronic kidney disease) stage 3, GFR 30-59 ml/min High cholesterol Surgical History Hx laparoscopic cholecystectomy Hx of bilateral cataract extraction History of ERCP History of hip replacement, total History of esophagogastroduodenoscopy (EGD) Hx of colonoscopy History of cardiac cath Family History Father No problems noted. Mother Diabetes Sister Diabetes Daughter Anemia Diabetes Social History Household Members: Children Household Members Other:: daughter and her fiancee Housing: House Are you a primary home day care provider to a significant other at home: No Do you presently have visiting nurse or other home services: No Alcohol intake: never Comment: refusing bed alarms Patient Tobacco Use Status: Never used Tobacco e-Cigarette/Vaping Use: Never Used Second Hand Smoke Exposure: No Advance Directives Date on File: 08/01/20 service: No Current occupational status: retired Cognitive needs: Yes Hearing needs: No Vision needs: Yes Assessment & Plan Assessment & Plan (1) Diarrhea: Code(s): R19.7 - Diarrhea, unspecified Qualifiers: Diarrhea type: unspecified type Qualified Code(s): R19.7 - Diarrhea, unspecified Plan: as above Telehealth Telehealth Location of provider rendering services: practice address Location of patient: address on file Patient Identification confirmed using: Name, : Yes Telehealth method: video Patient verbally consented to treatment: Yes Patient verbally consented to billing insurance company: Yes Patient informed of any privacy concerns related to visit: Yes Minutes spent on Phone/Video with Pt.: 9 Coding Level of Care Code Tele Est Pt Level 3 (45836) Diagnoses Diarrhea, unspecified type R19.7 Diarrhea type: unspecified type
== END 2023-04-03 15:28 | disposition home or self-care (01) ==
LOC: HO.HGI 11:23
PROVIDERS: PCP Internal Medicine; Visit Provider Internal Medicine Gastroenterology
DX: R19.7 Diarrhea, unspecified (principal)
CPT/HCPCS: 99442

== ENCOUNTER → 2023-04-03 11:23 | Outpatient (BNVA) | payer MEDICARE, MEDICAID, SELFPAY | PROVIDERS: PCP Internal Medicine; Visit Provider Internal Medicine Gastroenterology ==

== ENCOUNTER 2023-05-15 09:44 | Outpatient (AMB) | payer MEDICARE, MEDICAID, SELFPAY ==
--- NOTE | 2023-05-15 09:44 | MHC.OFFVIS ---
Intake Intake Visit Reasons: 6 week follow up Intake Note: Shirlene presents as a video call today 8 week follow up. CC: She is not having any concerns today. Allergies No Known Allergies [No Known Allergies*] Allergy (Verified 05/15/23 09:45) HPI 6 week follow up HPI Details 82 yo female with hx of IBS, DM, HTN, PAF on xarelto who I am seeing for f/u for abdo pain RECAP: seen as in patient 07/2020 She has had 2-3 months of crampy lower abdominal pain 7/10 in severity worse with food. She also noted worsening nausea and bilious non bloody emesis. She also has early satiety and poor appetite with weight loss of 15#. She has noted tete difficulty in swallowing even fluids. She denies any fever, chills, rash, shortness of breath or chest pain. She has longstanding diarrhea with 5-6 loose stools daily attributed to 'IBS'. She is on daily oxycodone for back pain and metformin and tried on creon and viberzi for diarrhea with variable effect. She did have work up by Sofía Edward in the GI office with imaging suggestive of chronic cholecystitis and GB dyskinsia, mild hydronephrosis, enlarged heart and coronary calcification. I did EGD/colonoscopy 07/2020: Endoscopy Findings: erosive duodenitis atrophic gastritis upper esophageal varices Colonoscopy Findings: polyps internal hemorrhoids diverticular disease anal rectal lesion, ?inflammed skin tag, papilloma , neoplasia or adenoma Path: chronic erosive duodenitis, moderate chronic inflammation, tubular adenoma CT chest done due to concern for isolated varices- no mediastinal mass, coronary calcifications noted (CT scan A/P 12/08-- did not show any intra abdominal varices) she saw Dr Jones for her kidney stones and hydronephrosis, being monitored She was admitted with bilary obstruction and she ERCP 08/2022 with removal of stones, also had EUS at [facility] due to concern for neoplasia which was neg I did the ERCP 01/08 and removed the stent and there were no complications c diff was neg x 2 INTERIM: she is eating more normally she has been taking colesevelam for diarrhea, not really sure it has helped but at same time she is reluctant to stop! she feels the imodium is better there is no nausea appetite is good, gaining weight EXAM: GENERAL: The patient is well developed and nontoxic. looks well A/P: 1/ chronic loose stools suspected most likely due to high dose metformin ddx: med effects- e.g diarrhea, CHO intolerance, BAM, SIBO, food allergies, less likely hormonal cause or IBD, IBS possible, improved now, off viberzi due to biliary issues PLAN: 1/ advised to talk to PCP abt stopping metformin or using dealyed release or another agent, and see if helps 2/ otherwise cont with imodium and pepto, --if welchol not helping then stop she will f/u prn [facility] Medical History (Updated 04/03/23 @ 11:50 by Soy Levi MD) Diarrhea White coat syndrome with hypertension History of COVID-19 Anxiety Macular degeneration Renal calculi Hypertension Diabetes mellitus with coincident hypertension Obesity, diabetes, and hypertension syndrome Weight loss Biliary dyskinesia Paroxysmal atrial fibrillation GERD (gastroesophageal reflux disease) Irritable bowel syndrome with diarrhea CAD (coronary artery disease) CKD (chronic kidney disease) stage 3, GFR 30-59 ml/min High cholesterol Surgical History Hx laparoscopic cholecystectomy Hx of bilateral cataract extraction History of ERCP History of hip replacement, total History of esophagogastroduodenoscopy (EGD) Hx of colonoscopy History of cardiac cath Family History Father No problems noted. Mother Diabetes Sister Diabetes Daughter Anemia Diabetes Social History Household Members: Children Household Members Other:: daughter and her fiancee Housing: House Are you a primary workforce investment act career manager to a significant other at home: No Do you presently have visiting nurse or other home services: No Alcohol intake: never Comment: refusing bed alarms Patient Tobacco Use Status: Never used Tobacco e-Cigarette/Vaping Use: Never Used Second Hand Smoke Exposure: No Advance Directives Date on File: 08/01/20 service: No Current occupational status: retired Cognitive needs: Yes Hearing needs: No Vision needs: Yes Assessment & Plan Assessment & Plan (1) Diarrhea: Code(s): R19.7 - Diarrhea, unspecified Qualifiers: Diarrhea type: unspecified type Qualified Code(s): R19.7 - Diarrhea, unspecified Plan: as above Telehealth Telehealth Location of provider rendering services: practice address Location of patient: address on file Patient Identification confirmed using: Name, : Yes Telehealth method: video Patient verbally consented to treatment: Yes Patient verbally consented to billing insurance company: Yes Patient informed of any privacy concerns related to visit: Yes Minutes spent on Phone/Video with Pt.: 8 Coding Level of Care Code Tele Est Pt Level 3 (04259) Diagnoses Diarrhea, unspecified type R19.7 Diarrhea type: unspecified type
== END 2023-05-15 12:48 | disposition home or self-care (01) ==
LOC: HO.HGI 09:44
PROVIDERS: PCP Internal Medicine; Visit Provider Internal Medicine Gastroenterology
DX: R19.7 Diarrhea, unspecified (principal)
CPT/HCPCS: 99213

== ENCOUNTER → 2023-05-15 09:44 | Outpatient (BNVA) | payer MEDICARE, MEDICAID, SELFPAY | PROVIDERS: PCP Internal Medicine; Visit Provider Internal Medicine Gastroenterology ==

== ENCOUNTER 2023-05-25 08:03 | Outpatient (REF) | payer MEDICARE, MEDICAID, SELFPAY ==
[2023-05-25 09:23] LABS: Estimated Average Glucose 163 mg/dL; Hemoglobin A1c % 7.3 % (<6.0)
[2023-05-25 09:27] LABS: Alanine Aminotransferase 13 U/L (0-31); Albumin Level 3.7 g/dL (3.5-5.0); Alkaline Phosphatase 63 U/L (39-117); Anion Gap 10 (12-20); Aspartate Amino Transferase 17 U/L (5-31); Bilirubin Total 0.5 mg/dL (0.0-1.0); Blood Urea Nitrogen 31 mg/dL (9-16); Calcium 9.3 mg/dL (8.4-10.2); Carbon Dioxide 27 mmol/L (22-29); Chloride 110 mmol/L (96-108); Estimated Glomerular Filt Rate 39; Glucose Fasting 96 mg/dL (60-99); Potassium 4.7 mmol/L (3.3-5.1); Sodium 142 mmol/L (135-145); Total Protein 6.4 g/dL (6.5-8.0)
== END 2023-05-25 08:04 | disposition home or self-care (01) ==
LOC: HO.LAB 08:03
PROVIDERS: PCP Internal Medicine; Visit Provider Internal Medicine
DX: N28.9 Disorder of kidney and ureter, unspecified (principal); R73.9 Hyperglycemia, unspecified
CPT/HCPCS: 36415; 80053; 83036

== ENCOUNTER 2023-06-03 12:59 | Outpatient (AMB) | payer MEDICARE, SELFPAY ==
[2023-06-03 13:01] VITALS: BP 148/72; PULSE 66; O2SAT 97; BMI 31.9
--- NOTE | 2023-06-03 13:01 | MHC.PC.OV ---
Vital Signs 06/03/23 13:01 Height 5 ft 1 in Weight 169 lb 0.2 oz BMI 31.9 BP 148/72 H Blood Pressure Location Lt brachial Position Sitting Pulse 66 Pulse Source Pulse Oximeter Pulse Oximetry (%) 97 Oxygen Delivery Method Room Air Intake Visit Reasons: 3mth f/u Weight Loss Centre Manager Required: No Allergies No Known Allergies [No Known Allergies*] Allergy (Verified 06/03/23 13:02) Medication List - Last Reconciled 06/04/23 by Kam Grady MD amlodipine 5 mg PO DAILY ascorbate calcium (vitamin C) 1 g (2 x 500 mg) PO DAILY atenolol 100 mg PO DAILY blood sugar diagnostic (Stratoscale Ultra Test strips) USE 1 STRIP TO CHECK GLUCOSE THREE TIMES DAILY cholecalciferol (vitamin D3) 25 mcg PO DAILY colesevelam 1,250 mg (2 x 625 mg) PO BID insulin glargine 15 units (0.15 mL) subcut BEDTIME 30 days isosorbide mononitrate ER 30 mg PO QAM Lactobacillus rhamnosus GG (Culturelle) 1 cap PO DAILY PRN latanoprostene bunod 0.024% (Vyzulta) 1 drp ophthalmic (eye) DAILY loperamide 2 mg PO Q4H PRN lorazepam 0.5 mg PO BID PRN magnesium 250 mg PO DAILY mecobalamin (vitamin B12) 1,000 mcg PO DAILY metformin 850 mg PO BID oxycodone 5 mg PO Q12H PRN pantoprazole 40 mg PO BID pen needle, diabetic Once a day pyridoxine (vitamin B6) 50 mg PO DAILY 90 days rivaroxaban (Xarelto) 15 mg PO QPM Tobacco use date assessed: 06/03/23 Fall risk assessment: No Falls in past year Last assessed Fall Risk: 06/03/23 Dental Screening Dental Screen Date: 03/03/23 HPI 3mth f/u HPI Details DM HTN and afib; diarrhea on metformin PFSH Medical History (Updated 04/03/23 @ 11:50 by Soy Levi MD) Diarrhea White coat syndrome with hypertension History of COVID-19 Anxiety Macular degeneration Renal calculi Hypertension Diabetes mellitus with coincident hypertension Obesity, diabetes, and hypertension syndrome Weight loss Biliary dyskinesia Paroxysmal atrial fibrillation GERD (gastroesophageal reflux disease) Irritable bowel syndrome with diarrhea CAD (coronary artery disease) CKD (chronic kidney disease) stage 3, GFR 30-59 ml/min High cholesterol Surgical History Hx laparoscopic cholecystectomy Hx of bilateral cataract extraction History of ERCP History of hip replacement, total History of esophagogastroduodenoscopy (EGD) Hx of colonoscopy History of cardiac cath Family History Father No problems noted. Mother Diabetes Sister Diabetes Daughter Anemia Diabetes Social History Household Members: Children Household Members Other:: daughter and her fiancee Housing: House Are you a primary child care team lead to a significant other at home: No Do you presently have visiting nurse or other home services: No Alcohol intake: never Comment: refusing bed alarms Patient Tobacco Use Status: Never used Tobacco e-Cigarette/Vaping Use: Never Used Second Hand Smoke Exposure: No Advance Directives Date on File: 08/01/20 service: No Current occupational status: retired Cognitive needs: Yes Hearing needs: No Vision needs: Yes Questionnaire PHQ-9 Over the last 2 weeks, how often have you been bothered by any of the following problems? 1. Little interest or pleasure in doing things: not at all 2. Feeling down, depressed, or hopeless: not at all 3. Trouble falling or staying asleep, or sleeping too much: not at all 4. Feeling tired or having little energy: not at all 5. Poor appetite or overeating: not at all 6. Feeling bad about yourself - or that you are a failure or have let yourself or your family down: not at all 7. Trouble concentrating on things, such as reading the newspaper or watching television: not at all 8. Moving or speaking so slowly that other people could have noticed. Or the opposite - being so fidgety or restless that you have been moving around a lot more than usual: not at all 9. Thoughts that you would be better off or of hurting yourself in some way: not at all Total score: 0 Depression Screening Interpretation: Negative Depression Screening Done: Yes 73456 - PHQ-9 Billing: Yes Source: Developed by Drs. Ruben Aleman, Siena Dougherty, Spencer De La Fuente and colleagues, with an educational jessica from [employer]. Thrive Questionnaire Date Thrive assessed: 03/03/23 AUDIT C Alcohol Use Questionnaire (AUDIT-C) 1. How often do you have a drink containing alcohol?: Never 3. How often do you have six or more drinks on one occasion?: Never Total Score: 0 Score Reviewed/Action Taken: No SOLEDAD-7 AMB Questionnaire SOLEDAD-7 Date SOLEDAD - 7 assessed: 03/03/23 Source: Developed by Drs. Ruben Aleman, Siena Dougherty, Spencer De La Fuente and colleagues, with an educational jessica from [employer]. Review of Systems Const Denies chills, Denies headache(s) and Denies weight loss ENT Denies headache(s) Card Denies chest pain, Denies syncope, Denies irregular heart rhythm and Denies dyspnea Resp Denies chest congestion, Denies cough and Denies dyspnea GI Denies abdominal pain, Denies change in stool character, Denies nausea and Denies vomiting Musc Denies deformity and Denies joint swelling Neuro Denies syncope and Denies headache(s) Physical exam (Primary Care) Vital Signs: Last Vital Signs Pulse 66 06/03/23 13:01 BP 148/72 H 06/03/23 13:01 Pulse Ox 97 06/03/23 13:01 Oxygen Delivery Method Room Air 06/03/23 13:01 BMI result Body Mass Index 31.9 Tobacco/Smoking Status: Tobacco use Status Tobacco use date assessed 06/03/23 06/03/23 13:02 Patient Tobacco Use Status Never used Tobacco 06/03/23 13:02 e-Cigarette/Vaping Use Never Used 06/03/23 13:02 PHQ-9: PHQ-9 Score PHQ-9: Total score 0 06/03/23 13:13 Depression Screening Interpretation: Negative Thrive Assessment: Date of Thrive Assessment Date Thrive assessed 03/03/23 06/03/23 13:02 Const General: cooperative, comfortable, no acute distress and alert Neck Neck: Yes no lymphadenopathy Thyroid: Thyroid normal Resp Effort & Inspection: normal respiratory effort Auscultation: clear to auscultation bilaterally Percussion: percussion normal Cardio Jugular venous distension: no JVD Palpation: normal PMI Rate: regular rate Rhythm: regular rhythm Heart sounds: S1 normal heart sound present and S2 normal heart sound present GI Inspection: Yes normal to inspection Palpation (GI): No hepatosplenomegaly present Skin General skin exam: no rashes or lesions noted Extrem General: Yes no clubbing, cyanosis or edema Assessment and Plan Assessment & Plan (1) Hypertension: Code(s): I10 - Essential (primary) hypertension Plan: stable; same rx (2) Diabetes mellitus with coincident hypertension: Code(s): E11.9 - Type 2 diabetes mellitus without complications; I10 - Essential (primary) hypertension Plan: hold metformin (3) Paroxysmal atrial fibrillation: Comment: follows w/HCS Code(s): I48.0 - Paroxysmal atrial fibrillation Plan: stable; same rx Orders: Orders Hemoglobin A1c Today R73.9 - Hyperglycemia, unspecified Glucose Fasting Today R73.9 - Hyperglycemia, unspecified Medications: Refilled oxycodone Partial Fill upon patient request. 5 mg PO Q12H PRN 30 tabs 0RF pain On Hold metformin Hold Comment: Doctor's Order 850 mg PO BID 120 tabs 8RF Coding Level of Care Code Est Pt Level 4 (29723) Diagnoses Hypertension I10 Diabetes mellitus with coincident hypertension E11.9; I10 Paroxysmal atrial fibrillation I48.0
== END 2023-06-03 13:33 | disposition home or self-care (01) ==
PROVIDERS: PCP Internal Medicine; Visit Provider Internal Medicine
DX: I10 Essential (primary) hypertension (principal); E11.9 Type 2 diabetes mellitus without complications; I48.0 Paroxysmal atrial fibrillation
CPT/HCPCS: 99214

== ENCOUNTER → 2023-08-12 12:34 | Outpatient (REF) | payer MEDICARE, SELFPAY ==
--- NOTE | 2023-08-12 12:37 | CA_ITS ---
Transthoracic Echocardiogram Patient (Last, First, Middle): Shirlene Chowdary, Gender: Female Date of : 1940 Age: 82 Procedure Date: 08/12/2023 Procedure Type: Transthoracic Echocardiogram Location: OP Height: 154.94 cm Weight: 79.38 kg BSA: 1.78 m2 Heart Rate: bpm BP: 166 / 78 mmHg Warehouse Worker: TO Referring MD: Fransisco Doss MD Social Work Instructor: Fransisco Doss MD Symptoms: I48.0 - Paroxysmal atrial fibrillation Study Quality: Fair/Contrast ECG Rhythm: Sinus Conclusions: - 1. Normal LV ejection fraction 60 65% with at least grade 2 diastolic dysfunction 2. Severely dilated left atrium 3. Severe mitral calcification with mild mitral regurgitation noted 4. Severely elevated right ventricular systolic pressure 5. No gross pericardial effusion Findings Procedure Information Contrast agent, definity, is being given per protocol without apparent complications. Left Ventricle Normal left ventricular size, thickness, and systolic function. The visually estimated ejection fraction is between 60-65%. Spectral Doppler is indicative of a pseudonormal filling pattern. Elevated left atrial and left ventricular end-diastolic pressures. E/E prime ratio is >15, consistent with elevated filling pressures. Evidence suggests grade II (moderate) diastolic dysfunction. Right Ventricle Normal right ventricular cavity size and systolic function. Atria The left atrium is severely dilated. Interatrial shunt cannot be excluded. The right atrium is moderately dilated. Aortic Valve The aortic valve structure and function is likely normal. There is no aortic valve stenosis. There is no aortic valve regurgitation. Mitral Valve There is mild anterior and severe posterior mitral leaflet thickening. There is severe mitral annular calcification. There is mild mitral valve regurgitation. There is no mitral valve stenosis. Pulmonic Valve The pulmonic valve was not well visualized. Tricuspid Valve Normal tricuspid valve structure. There is mild tricuspid valve regurgitation. Normal right atrial pressure. Severe pulmonary hypertension is present. Great Vessels All visible segments of the aorta are normal in size. The pulmonary artery was not well visualized. There is no dilatation of the ascending aorta measuring 3.10 cm. Venous The inferior vena cava is normal in size and collapses greater than 50% with inspiration. Pericardium/Pleural There is no evidence of pericardial effusion. Prior Study Comparison Changes noted compared to prior study dated: 12/10/2022. RV systolic pressure is further elevated Measurements 2D Linear Measurements IVSd: 1.17 0.6-0.9/0.6-1.0 cm LVIDd: 4.67 3.9-5.3/4.2-5.9 cm LVIDd Index: 2.62 2.4-3.2/2.2-3.1 cm/m2 LVIDs: 2.68 2.0-3.6 cm LVPWd: 0.89 0.7-1.1 cm LA Diam: 4.50 2.7-3.8/3.0-4.0 cm LAIDs Index: 2.53 1.5-2.3 cm/m2 LV Mass: 210.81 67-162/88-224 g LV Mass Index: 118.43 43-95/49-115 g/m2 LVOT Diam: 2.10 3.0+(-)1.3 cm 2D Systolic Function EF 4C: 65.20 >55% Mitral Valve MV VTI: 0.56 MV Pk Ronnie: 1.83 MV Mn Ronnie: 0.87 MV Pk Grad: 13.00 MV Mn Grad: 4.00 MV Pk E: 1.54 MV PK A: 0.82 MV Decel Time: 296.00 E/A: 1.90 E'Lateral: 4.68 E'Medial: 2.83 E/E' Med: 54.40 E/E' Lat: 32.90 PHT: 87.00 MVA PHT: 2.53 MVA Continuity: 1.39 Decel Nelson: 5.19 Aortic Valve AoV Pk Ronnie: 1.51 AoV Mn Ronnie: 0.95 AoV VTI: 0.37 AoV Pk Grad: 9.00 Aov Mn Grad: 4.00 KENDELL Cont.VTI: 2.11 LVOT LVOT Pk Ronnie: 0.84 LVOT Mn Ronnie: 0.56 LVOT VTI: 0.22 LVOT Pk Grad: 3.00 LVOT Mn Grad: 1.00 LVOT Diam: 2.10 LVOT Area: 3.46 Diastolic Function MV Pk E: 1.54 MV Pk A: 0.82 E/A: 1.90 E'Medial: 2.83 E/E' Med: 54.40 E' Laterial: 4.68 E/E' Lat: 32.90 Right Ventricle TAPSE (mm): 25.60 TVS' Ronnie: 17.20 Tricuspid Valve TR Pk Ronnie: 4.01 TR Pk Grad: 64.00 RA Press: 3.00 RVSP: 67.00 Great Vessels Aorta Sinus of Valsalva: 3.45 2.0-3.5 cm Ao Asc: 3.10 2.1-3.4 cm Updated in Other Vendor System with Status of Final Fransisco Doss MD electronically signed on 08/13/2023 8:09:44 AM with status of Final
== END ==
LOC: HO.CARD 12:34
PROVIDERS: PCP Internal Medicine; Visit Provider Internal Medicine Cardiovascular Disease
DX: I48.0 Paroxysmal atrial fibrillation (principal)
CPT/HCPCS: 93306; Q9957

== ENCOUNTER → 2023-08-12 12:37 | Outpatient (BNV) | payer MEDICARE, MEDICAID, SELFPAY | PROVIDERS: PCP Internal Medicine; Visit Provider Internal Medicine Cardiovascular Disease | DX: I34.81 Nonrheumatic mitral (valve) annulus calcification (principal); I34.0 Nonrheumatic mitral (valve) insufficiency; I36.1 Nonrheumatic tricuspid (valve) insufficiency | CPT/HCPCS: 93306 ==

== ENCOUNTER 2023-08-18 10:17 | Outpatient (AMB) | payer MEDICARE, SELFPAY ==
[2023-08-18 10:19] VITALS: BP 136/60; PULSE 66; BMI 34.2
--- NOTE | 2023-08-18 10:19 | MHC.OFFVIS ---
Vital Signs 08/18/23 10:19 Height 5 ft 1 in Weight 180 lb 12.465 oz BMI 34.2 BP 136/60 Blood Pressure Location Lt brachial Position Sitting Pulse 66 Intake Visit Reasons: f/u after Echo Intake Note: Follow-up with ekg after echo c/o fatigue Brand Sales Consultant Required: No International Project Engineer: International Project Engineer Present Accompanied by: Daughter Allergies No Known Allergies [No Known Allergies*] Allergy (Verified 06/03/23 13:02) Medication List - Last Reconciled 08/18/23 by Fransisco Doss MD amlodipine 5 mg PO DAILY ascorbate calcium (vitamin C) 1 g (2 x 500 mg) PO DAILY atenolol 100 mg PO DAILY blood sugar diagnostic ([employer] [place] Ultra Test strips) USE 1 STRIP TO CHECK GLUCOSE THREE TIMES DAILY cholecalciferol (vitamin D3) 25 mcg PO DAILY colesevelam 1,250 mg (2 x 625 mg) PO BID insulin glargine 15 units (0.15 mL) subcut BEDTIME 30 days isosorbide mononitrate ER 30 mg PO QAM Lactobacillus rhamnosus GG (Culturelle) 1 cap PO DAILY PRN latanoprostene bunod 0.024% (Vyzulta) 1 drp ophthalmic (eye) DAILY loperamide 2 mg PO Q4H PRN lorazepam 0.5 mg PO BID PRN magnesium 250 mg PO DAILY mecobalamin (vitamin B12) 1,000 mcg PO DAILY metformin 850 mg PO BID oxycodone 5 mg PO Q12H PRN pantoprazole 40 mg PO BID pen needle, diabetic Once a day pyridoxine (vitamin B6) 50 mg PO DAILY 90 days rivaroxaban (Xarelto) 15 mg PO QPM HPI Comments Details: Shirlene comes for follow-up, accompanied by her daughter. She has been getting increasing shortness of breath with walking also noticing increasing leg edema also now more prominent on the right lower extremity. She has had chronic left lower extremity edema. Denies any prolonged palpitation irregular heartbeat. Has had about 10 lb weight gain recently. Maybe mild abdominal distention although she has not very clear about it. Denies any clear orthopnea, PND. No exertional chest pain. No bleeding issues or neurologic events. She comes after a long gap. Echocardiogram recently shows normal LV ejection fraction but grade 2 diastolic dysfunction with severely elevated right ventricular systolic pressure. [facility] Medical History Diarrhea White coat syndrome with hypertension History of COVID-19 Anxiety Macular degeneration Renal calculi Hypertension Diabetes mellitus with coincident hypertension Obesity, diabetes, and hypertension syndrome Weight loss Biliary dyskinesia Paroxysmal atrial fibrillation GERD (gastroesophageal reflux disease) Irritable bowel syndrome with diarrhea CAD (coronary artery disease) CKD (chronic kidney disease) stage 3, GFR 30-59 ml/min High cholesterol Surgical History Hx laparoscopic cholecystectomy Hx of bilateral cataract extraction History of ERCP History of hip replacement, total History of esophagogastroduodenoscopy (EGD) Hx of colonoscopy History of cardiac cath Family History Father No problems noted. Mother Diabetes Sister Diabetes Daughter Anemia Diabetes Social History Household Members: Children Household Members Other:: daughter and her fiancee Housing: House Are you a primary managed care coordinator to a significant other at home: No Do you presently have visiting nurse or other home services: No Alcohol intake: never Comment: refusing bed alarms Patient Tobacco Use Status: Never used Tobacco e-Cigarette/Vaping Use: Never Used Second Hand Smoke Exposure: No Advance Directives Date on File: 08/01/20 service: No Current occupational status: retired Cognitive needs: Yes Hearing needs: No Vision needs: Yes Review of Systems Const Denies chills, Denies fatigue, Denies fever(s), Denies frequent falls, Denies weakness, Denies weight gain and Denies weight loss ENT Denies dizziness Card Denies chest pain, Denies leg edema, Denies lightheadedness, Denies palpitations, Denies dyspnea, Denies dyspnea on exertion, Denies orthopnea and Denies other (loss of consciousness) Resp Denies cough, Denies dyspnea and Denies dyspnea on exertion GI Denies hematochezia and Denies change in stool character Musc Denies abnormal gait, Denies muscle weakness, Denies numbness, Denies radiating pain into limb and Denies tingling Neuro Denies abnormal gait, Denies dizziness, Denies frequent falls, Denies numbness, Denies tingling and Denies weakness Endo Denies fatigue and Denies palpitations Physical Exam Vital Signs: Last Vital Signs Pulse 66 08/18/23 10:19 BP 136/60 08/18/23 10:19 BMI result Body Mass Index 34.2 Const General: cooperative, comfortable, no acute distress, alert and awake Nutritional Appearance: obese Orientation/consciousness: patient oriented x3 Limitations: ambulation with cane Neck Neck: Yes normal visual inspection and Yes no JVD Resp Effort & Inspection: normal respiratory effort Auscultation: clear to auscultation bilaterally, no crackles, no rales, no rhonchi and no wheezes Cardio Jugular venous distension: no JVD Rate: regular rate Rhythm: regular rhythm Heart sounds: S1 normal heart sound present, S2 normal heart sound present, no gallops, no murmurs and no rubs Peripheral pulses: Peripheral pulses 2+ throughout GI Inspection: Yes normal to inspection Neuro General: patient oriented x3 Extrem General: No clubbing, No cyanosis and Yes edema (Left below knee edema, 1 to 2+) Office Procedures EKG Details: EKG shows normal sinus rhythm with left anterior fascicular block at 62 beats per minute [id number], Complete Assessment & Plan Assessment & Plan (1) Congestive heart failure: Code(s): I50.9 - Heart failure, unspecified Category: Medical Plan: Patient having signs or symptoms of predominantly right heart failure related to diastolic dysfunction worsening pulmonary hypertension. This is most suggestive of heart failure preserved ejection fraction. Clinically getting more short of breath. Recent 10 lb weight gain is most likely due to fluid gain. Will suggest a BNP and BMP today. If BNP is also suggestive of worsening heart failure will start on loop diuretic therapy. This was discussed. Most likely choose Bumex for better GI absorption with right heart failure syndrome. Advised daily weight monitoring avoidance of salt loading. Expect weight loss with diuretic therapy. Management of heart failure were discussed. She was pretty dejected with the news but we discussed management plan including avoidance of hospitalization. It started on diuretic therapy will need to follow her renal function closely (2) CAD (coronary artery disease): Comment: follows w/[facility] Code(s): I25.10 - Atherosclerotic heart disease of [place] coronary artery without angina pectoris Category: Medical Plan: CAD with no recent symptoms of angina. Currently on full oral anticoagulation Xarelto and would therefore avoid antiplatelet therapy. Continue aggressive risk factor modification. Currently on triple antianginal therapy with atenolol, isosorbide as well as amlodipine therapy. Continue the same. No symptoms of angina continue medical management. Continue aggressive blood pressure control which currently appears to be well optimized. (3) Paroxysmal atrial fibrillation: Comment: follows w/[facility] Code(s): I48.0 - Paroxysmal atrial fibrillation Category: Medical Plan: Paroxysmal atrial fibrillation which has not recurred. Continue atenolol therapy. Currently on full oral anticoagulation, renally adjusted dose of Xarelto. Quarterly renal function test should be pursued. Avoidance of stimulants was discussed. Advised to call me with worsening symptoms that may require antiarrhythmic drug therapy. Will follow up in the clinic in 4 weeks time, sooner p.r.n.. Thank you for allowing me to partake in her care Orders: Orders Basic Metabolic Panel Today I50.9 - Heart failure, unspecified B Type Natriuretic Peptide Today I50.9 - Heart failure, unspecified Coding Level of Care Code Est Pt Level 4 (61751) Diagnoses Congestive heart failure I50.9 CAD (coronary artery disease) I25.10 Paroxysmal atrial fibrillation I48.0 CPT Codes EKG - CPT: 98940-[id number], Complete ([id number])
== END 2023-08-18 10:52 | disposition home or self-care (01) ==
PROVIDERS: PCP Internal Medicine; Visit Provider Internal Medicine Cardiovascular Disease
DX: I50.9 Heart failure, unspecified (principal); I25.10 Atherosclerotic heart disease of native coronary artery without angina pectoris; I48.0 Paroxysmal atrial fibrillation
CPT/HCPCS: 93010; 99214

== ENCOUNTER 2023-08-18 10:17 | Outpatient (REF) | payer MEDICARE, OTHER, SELFPAY ==
[2023-08-18 12:13] LABS: B Type Natriuretic Peptide 442 pg/mL (<100)
[2023-08-18 12:17] LABS: Anion Gap 11 (12-20); Blood Urea Nitrogen 26 mg/dL (9-16); Calcium 9.3 mg/dL (8.4-10.2); Carbon Dioxide 26 mmol/L (22-29); Chloride 107 mmol/L (96-108); Estimated Glomerular Filt Rate 38; Glucose Random 154 mg/dL (60-115); Potassium 4.9 mmol/L (3.3-5.1); Sodium 139 mmol/L (135-145)
== END 2023-08-18 10:18 | disposition home or self-care (01) ==
LOC: HO.LAB 10:17
PROVIDERS: PCP Internal Medicine; Visit Provider Internal Medicine Cardiovascular Disease
DX: I50.9 Heart failure, unspecified (principal); I25.10 Atherosclerotic heart disease of native coronary artery without angina pectoris; I48.0 Paroxysmal atrial fibrillation
CPT/HCPCS: 36415; 80048; 83880; 93005; 99212

== ENCOUNTER 2023-09-07 10:24 | Outpatient (REF) | payer MEDICARE, SELFPAY ==
[2023-09-07 11:12] LABS: B Type Natriuretic Peptide 172 pg/mL (<100)
[2023-09-07 11:16] LABS: Anion Gap 16 (12-20); Blood Urea Nitrogen 51 mg/dL (9-16); Calcium 9.8 mg/dL (8.4-10.2); Carbon Dioxide 28 mmol/L (22-29); Chloride 104 mmol/L (96-108); Estimated Glomerular Filt Rate 26; Glucose Random 124 mg/dL (60-115); Potassium 4.5 mmol/L (3.3-5.1); Sodium 143 mmol/L (135-145)
== END 2023-09-07 10:25 | disposition home or self-care (01) ==
LOC: HO.LAB 10:24
PROVIDERS: PCP Internal Medicine; Visit Provider Internal Medicine Cardiovascular Disease
DX: I50.9 Heart failure, unspecified (principal)
CPT/HCPCS: 36415; 80048; 83880

== ENCOUNTER 2023-09-14 14:44 | Outpatient (AMB) | payer MEDICARE, SELFPAY ==
[2023-09-14 15:18] VITALS: BP 140/62; PULSE 64; BMI 32.7
--- NOTE | 2023-09-14 15:18 | MHC.OFFVIS ---
Vital Signs 09/14/23 15:18 Height 5 ft 1 in Weight 173 lb 4.533 oz BMI 32.7 BP 140/62 H Blood Pressure Location Rt brachial Position Sitting Pulse 64 Pulse Source Pulse Oximeter Intake Visit Reasons: 4 wk s/p labs/ NS Senior Power Plant Operator Required: No Hydroelectric Station Operator Chief: Hydroelectric Station Operator Chief Present Allergies No Known Allergies [No Known Allergies*] Allergy (Verified 09/14/23 15:21) Medication List - Last Reconciled 09/14/23 by DORCAS Jenkins amlodipine 5 mg PO DAILY ascorbate calcium (vitamin C) 1 g (2 x 500 mg) PO DAILY atenolol 100 mg PO DAILY blood sugar diagnostic ([place] Ultra Test strips) USE 1 STRIP TO CHECK GLUCOSE THREE TIMES DAILY bumetanide 0.5 mg (1/2 x 1 mg) PO DAILY cholecalciferol (vitamin D3) 25 mcg PO DAILY colesevelam 1,250 mg (2 x 625 mg) PO BID insulin glargine 15 units (0.15 mL) subcut BEDTIME 30 days isosorbide mononitrate ER 30 mg PO QAM Lactobacillus rhamnosus GG (Culturelle) 1 cap PO DAILY PRN latanoprostene bunod 0.024% (Vyzulta) 1 drp ophthalmic (eye) DAILY loperamide 2 mg PO Q4H PRN lorazepam 0.5 mg PO BID PRN magnesium 250 mg PO DAILY mecobalamin (vitamin B12) 1,000 mcg PO DAILY metformin 850 mg PO BID oxycodone 5 mg PO Q12H PRN pantoprazole 40 mg PO BID pen needle, diabetic Once a day pyridoxine (vitamin B6) 50 mg PO DAILY 90 days rivaroxaban (Xarelto) 15 mg PO QPM HPI HPI 4 wk s/p labs/ NS: Details: Shirlene is an 83-year-old female with past medical history hypertension, hyperlipidemia, diabetes, chronic kidney disease, CAD, paroxysmal atrial fibrillation, pulmonary hypertension, right heart failure who was started on diuretic therapy last visit. Follow-up lab work showed elevation in creatinine and her Bumex dose was decreased. Today she reports that her breathing and leg edema has improved some. She has no PND, orthopnea. No chest discomfort at rest or with activity. No heart palpitations, lightheadedness, presyncope, syncope, falls. She ambulates with a walker. Family member present. [facility] Medical History Diarrhea White coat syndrome with hypertension History of COVID-19 Anxiety Macular degeneration Renal calculi Hypertension Diabetes mellitus with coincident hypertension Obesity, diabetes, and hypertension syndrome Weight loss Biliary dyskinesia Paroxysmal atrial fibrillation GERD (gastroesophageal reflux disease) Irritable bowel syndrome with diarrhea CAD (coronary artery disease) CKD (chronic kidney disease) stage 3, GFR 30-59 ml/min High cholesterol Surgical History Hx laparoscopic cholecystectomy Hx of bilateral cataract extraction History of ERCP History of hip replacement, total History of esophagogastroduodenoscopy (EGD) Hx of colonoscopy History of cardiac cath Family History Father No problems noted. Mother Diabetes Sister Diabetes Daughter Anemia Diabetes Social History Household Members: Children Household Members Other:: daughter and her fiancee Housing: House Are you a primary transitional care liaison to a significant other at home: No Do you presently have visiting nurse or other home services: No Alcohol intake: never Comment: refusing bed alarms Patient Tobacco Use Status: Never used Tobacco e-Cigarette/Vaping Use: Never Used Second Hand Smoke Exposure: No Advance Directives Date on File: 08/01/20 service: No Current occupational status: retired Cognitive needs: Yes Hearing needs: No Vision needs: Yes Review of Systems Const All systems reviewed & are unremarkable except as noted in HPI and below ENT Denies dizziness Card Denies chest pain, Denies chest pain at rest, Denies chest pain with activity, Denies rapid heart rate, Denies pedal edema, Denies edema, Denies leg edema, Denies lightheadedness, Denies palpitations, Denies dyspnea, Denies dyspnea on exertion and Denies orthopnea Resp Denies cough, Denies dyspnea and Denies dyspnea on exertion GI Denies hematochezia and Denies change in stool character Musc Reports abnormal gait (uses walker), Denies limited range of motion, Denies muscle cramps, Reports muscle weakness, Denies numbness, Denies radiating pain into limb, Denies stiffness and Denies tingling Neuro Reports abnormal gait (uses walker), Denies dizziness, Denies numbness and Denies tingling Endo Denies palpitations Physical Exam Vital Signs: Last Vital Signs Pulse 64 09/14/23 15:18 BP 140/62 H 09/14/23 15:18 BMI result Body Mass Index 32.7 Const General: cooperative, healthy appearing, comfortable and no acute distress Orientation/consciousness: patient oriented x3 Neck Neck: Yes normal visual inspection and Yes no JVD Resp Effort & Inspection: normal respiratory effort Auscultation: clear to auscultation bilaterally, no crackles, no rales, no rhonchi and no wheezes Cardio Jugular venous distension: no JVD Rate: regular rate Rhythm: regular rhythm Heart sounds: S1 normal heart sound present, S2 normal heart sound present, no murmurs and no rubs Neuro General: patient oriented x3 Extrem General: Yes normal to inspection and No no pedal edema Psych Appearance: grossly normal Mental Status: mental status grossly normal Speech and movement: Normal speech and movement present Assessment & Plan Assessment & Plan (1) Congestive heart failure: Code(s): I50.9 - Heart failure, unspecified Category: Medical Plan: On last visit findings suggestive of right heart failure. She has a known history of diastolic dysfunction and pulmonary hypertension. Labs done that day had shown BNP 442, creatinine 1.33. She was started on Bumex 1 mg daily. Repeat labs done 09/07/2023 showed BNP 172, creatinine 1.84. Her Bumex dose was cut back to 0.5 mg daily. An echocardiogram had been done 08/12/2023 showing EF 60-65%, grade 2 diastolic dysfunction, severe left atrial dilation, severe mitral annular calcification, mild MR, severely elevated RV systolic pressure. On exam today she does not appear fluid overloaded. She has some mild nonpitting edema, lungs are clear, no reported abdominal distention/bloating. Her weight is down 7 lb from last visit. Instructed to continue on Bumex at current dose. She has repeat labs due in another week. Signs and symptoms of heart failure reviewed with her. Instructed on home weight monitoring, low-salt diet. Cardiology follow-up in 3 months, sooner if needed (2) CAD (coronary artery disease): Comment: follows w/[facility] Code(s): I25.10 - Atherosclerotic heart disease of [place] coronary artery without angina pectoris Category: Medical Plan: History of CAD. No reports of anginal sounding symptoms. She is not on aspirin as she is on Xarelto. She is not on statin for unclear reason. Last LDL 58 on 01/05/2023. Will recheck lipid profile with upcoming labs. She is on triple antianginal therapy with atenolol, isosorbide and amlodipine. Signs and symptoms of angina reviewed. (3) Hypertension: Code(s): I10 - Essential (primary) hypertension Category: Medical Plan: Slight elevation today 140/62. Blood pressure last visit 136/60. She is on diuretics and recently lost 7 lb. At this time will continue her med management. If blood pressure remains elevated at follow-up visit then her meds can be further titrated at that time. (4) Paroxysmal atrial fibrillation: Comment: follows w/[facility] Code(s): I48.0 - Paroxysmal atrial fibrillation Category: Medical Plan: History of paroxysmal atrial fibrillation. EKG done last visit showing normal sinus rhythm, rate 62. She denies any recent heart palpitations. She is on atenolol for heart rate control. She is on Xarelto, renal dose, for anticoagulation. No Bleeding issues reported Plan Time spent on chart review, documentation, interview and assessment Orders: Orders Lipid Panel Today I25.10 - Atherosclerotic heart disease of [place] coronary artery without angina pectoris Basic Metabolic Panel Today I50.9 - Heart failure, unspecified Medications: New bumetanide dose reduced 0.5 mg PO DAILY 30 tabs 2RF Coding Level of Care Code Est Pt Level 3 (44664) Diagnoses Congestive heart failure I50.9 CAD (coronary artery disease) I25.10 Hypertension I10 Paroxysmal atrial fibrillation I48.0 Time Spent (min) 24
== END 2023-09-14 15:59 | disposition home or self-care (01) ==
PROVIDERS: PCP Internal Medicine; Visit Provider Nurse Practitioner Family
DX: I50.9 Heart failure, unspecified (principal); I25.10 Atherosclerotic heart disease of native coronary artery without angina pectoris; I10 Essential (primary) hypertension; I48.0 Paroxysmal atrial fibrillation
CPT/HCPCS: 99213

== ENCOUNTER → 2023-09-14 14:44 | Outpatient (BNVA) | payer MEDICARE, SELFPAY | PROVIDERS: PCP Internal Medicine; Visit Provider Nurse Practitioner Family | DX: I25.10 Atherosclerotic heart disease of native coronary artery without angina pectoris (principal); I48.0 Paroxysmal atrial fibrillation; I50.9 Heart failure, unspecified; E78.5 Hyperlipidemia, unspecified; E11.22 Type 2 diabetes mellitus with diabetic chronic kidney disease; N18.9 Chronic kidney disease, unspecified; I27.20 Pulmonary hypertension, unspecified | CPT/HCPCS: 99212 ==

== ENCOUNTER 2023-09-24 11:04 | Outpatient (REF) | payer MEDICARE, MEDICAID, SELFPAY ==
[2023-09-24 11:37] LABS: Estimated Average Glucose 203 mg/dL; Hemoglobin A1c % 8.7 % (<6.0)
[2023-09-24 11:48] LABS: Glucose Fasting 172 mg/dL (60-99)
[2023-09-24 11:53] LABS: Anion Gap 12 (12-20); Blood Urea Nitrogen 35 mg/dL (9-16); Calcium 9.5 mg/dL (8.4-10.2); Carbon Dioxide 27 mmol/L (22-29); Chloride 106 mmol/L (96-108); Cholesterol 111 mg/dL (<200); Estimated Glomerular Filt Rate 33; Glucose Random 172 mg/dL (60-115); HDL Cholesterol 41 mg/dL (>40); LDL Cholesterol Calculated 55 mg/dL (<100); Potassium 5.1 mmol/L (3.3-5.1); Sodium 140 mmol/L (135-145); Triglycerides 75 mg/dL (<150)
== END 2023-09-24 11:05 | disposition home or self-care (01) ==
LOC: HO.LAB 11:04
PROVIDERS: PCP Internal Medicine; Visit Provider Nurse Practitioner Family
DX: I25.10 Atherosclerotic heart disease of native coronary artery without angina pectoris (principal); I50.9 Heart failure, unspecified; R73.9 Hyperglycemia, unspecified
CPT/HCPCS: 36415; 80048; 80061; 82947; 83036

== ENCOUNTER 2023-12-03 12:58 | Outpatient (AMB) | payer MEDICARE, SELFPAY ==
[2023-12-03 12:59] VITALS: BP 144/72; PULSE 69; O2SAT 98; BMI 33.3
--- NOTE | 2023-12-03 12:59 | A.OFFPC_ITS ---
Vital Signs 12/03/23 12:59 Height 5 ft 1 in Weight 176 lb BMI 33.3 BP 144/72 H Blood Pressure Location Lt brachial Position Sitting Pulse 69 Pulse Source Pulse Oximeter Pulse Oximetry (%) 98 Oxygen Delivery Method Room Air Intake Visit Reasons: 6mth f/u Intake Note: Pt c/o lump above belly button, it is not causing any pain. Home Theater Experience Expert Required: No Accompanied by: Daughter Allergies No Known Allergies [No Known Allergies*] Allergy (Verified 12/03/23 13:02) Medication List - Last Reconciled 12/04/23 by Kam Grady MD amlodipine 5 mg PO DAILY ascorbate calcium (vitamin C) 1 g (2 x 500 mg) PO DAILY atenolol 100 mg PO DAILY blood sugar diagnostic ([employer] Ultra Test strips) USE 1 STRIP TO CHECK GLUCOSE THREE TIMES DAILY bumetanide 0.5 mg PO DAILY cholecalciferol (vitamin D3) 25 mcg PO DAILY colesevelam 1,250 mg (2 x 625 mg) PO BID insulin glargine 15 units (0.15 mL) subcut BEDTIME 30 days isosorbide mononitrate ER 30 mg PO QAM Lactobacillus rhamnosus GG (Culturelle) 1 cap PO DAILY PRN latanoprostene bunod 0.024% (Vyzulta) 1 drp ophthalmic (eye) DAILY loperamide 2 mg PO Q4H PRN lorazepam 0.5 mg PO BID PRN magnesium 250 mg PO DAILY mecobalamin (vitamin B12) 1,000 mcg PO DAILY metformin 850 mg PO BID oxycodone 5 mg PO Q12H PRN pantoprazole 40 mg PO BID pen needle, diabetic Once a day pyridoxine (vitamin B6) 50 mg PO DAILY 90 days rivaroxaban (Xarelto) 15 mg PO QPM Tobacco use date assessed: 06/03/23 Fall risk assessment: 1 Fall in past year Last assessed Fall Risk: 12/03/23 Dental Screening Dental Screen Date: 03/03/23 HPI 6mth f/u HPI Details HTN on Rx; doing well and compliant [facility] Medical History Diarrhea White coat syndrome with hypertension History of COVID-19 Anxiety Macular degeneration Renal calculi Hypertension Diabetes mellitus with coincident hypertension Obesity, diabetes, and hypertension syndrome Weight loss Biliary dyskinesia Paroxysmal atrial fibrillation GERD (gastroesophageal reflux disease) Irritable bowel syndrome with diarrhea CAD (coronary artery disease) CKD (chronic kidney disease) stage 3, GFR 30-59 ml/min High cholesterol Surgical History Hx laparoscopic cholecystectomy Hx of bilateral cataract extraction History of ERCP History of hip replacement, total History of esophagogastroduodenoscopy (EGD) Hx of colonoscopy History of cardiac cath Family History Father No problems noted. Mother Diabetes Sister Diabetes Daughter Anemia Diabetes Social History Household Members: Children Household Members Other:: daughter and her fiancee Housing: House Are you a primary career resource specialist to a significant other at home: No Do you presently have visiting nurse or other home services: No Alcohol intake: never Comment: refusing bed alarms Patient Tobacco Use Status: Never used Tobacco e-Cigarette/Vaping Use: Never Used Second Hand Smoke Exposure: No Advance Directives Date on File: 08/01/20 service: No Current occupational status: retired Cognitive needs: Yes Hearing needs: No Vision needs: Yes Questionnaire Thrive Questionnaire Date Thrive assessed: 03/03/23 SOLEDAD-7 AMB Questionnaire SOLEDAD-7 Date SOLEDAD - 7 assessed: 03/03/23 Source: Developed by Drs. Ruben Aleman, Siena Dougherty, Spencer De La Fuente and colleagues, with an educational jessica from [employer]. Review of Systems Const Denies chills, Denies headache(s) and Denies weight loss ENT Denies headache(s) Card Denies chest pain, Denies syncope, Denies irregular heart rhythm and Denies dyspnea Resp Denies chest congestion, Denies cough and Denies dyspnea GI Denies abdominal pain, Denies change in stool character, Denies nausea and Denies vomiting Musc Denies deformity and Denies joint swelling Neuro Denies syncope and Denies headache(s) Physical exam (Primary Care) Vital Signs: Last Vital Signs Pulse 69 12/03/23 12:59 BP 144/72 H 12/03/23 12:59 Pulse Ox 98 12/03/23 12:59 Oxygen Delivery Method Room Air 12/03/23 12:59 BMI result Body Mass Index 33.3 Tobacco/Smoking Status: Tobacco use Status Tobacco use date assessed 06/03/23 12/03/23 13:05 Patient Tobacco Use Status Never used Tobacco 12/03/23 13:05 e-Cigarette/Vaping Use Never Used 12/03/23 13:05 Thrive Assessment: Date of Thrive Assessment Date Thrive assessed 03/03/23 12/03/23 13:05 Const General: cooperative, comfortable, no acute distress and alert Neck Neck: Yes no lymphadenopathy Thyroid: Thyroid normal Resp Effort & Inspection: normal respiratory effort Auscultation: clear to auscultation bilaterally Percussion: percussion normal Cardio Jugular venous distension: no JVD Palpation: normal PMI Rate: regular rate Rhythm: regular rhythm Heart sounds: S1 normal heart sound present and S2 normal heart sound present GI Inspection: Yes normal to inspection Palpation (GI): No hepatosplenomegaly present Skin General skin exam: no rashes or lesions noted Extrem General: Yes no clubbing, cyanosis or edema Coding Level of Care Code Est Pt Level 3 (02174) Diagnoses Hypertension I10 Assessment & Plan Assessment & Plan (1) Hypertension: Code(s): I10 - Essential (primary) hypertension Category: Medical Plan: stable; same rx Orders: Orders Glucose Fasting 12/03/23 R73.9 - Hyperglycemia, unspecified Hemoglobin A1c 12/03/23 R73.9 - Hyperglycemia, unspecified Medications: Refilled oxycodone Partial Fill upon patient request. 5 mg PO Q12H PRN 30 tabs 0RF pain
== END 2023-12-03 13:37 | disposition home or self-care (01) ==
PROVIDERS: PCP Internal Medicine; Visit Provider Internal Medicine
DX: I10 Essential (primary) hypertension (principal)

== ENCOUNTER → 2023-12-03 12:58 | Outpatient (BNVA) | payer MEDICARE, OTHER, SELFPAY | PROVIDERS: PCP Internal Medicine; Visit Provider Internal Medicine | DX: I10 Essential (primary) hypertension (principal) | CPT/HCPCS: 99212 ==

== ENCOUNTER 2023-12-31 13:46 | Outpatient (REF) | payer MEDICARE, SELFPAY ==
[2023-12-31 15:52] LABS: Estimated Average Glucose 183 mg/dL; Hemoglobin A1C 173.9317 umol/L; Total Hemoglobin (HGBA1C) 2722.9203 umol/L
[2023-12-31 16:53] LABS: Anion Gap 14 (12-20); Blood Urea Nitrogen 34 mg/dL (9-16); Calcium 9.2 mg/dL (8.4-10.2); Carbon Dioxide 25 mmol/L (22-29); Chloride 106 mmol/L (96-108); Estimated Glomerular Filt Rate 29; Glucose Fasting 153 mg/dL (60-99); Glucose Random 153 mg/dL (60-115); Potassium 4.6 mmol/L (3.3-5.1); Sodium 140 mmol/L (135-145)
== END 2023-12-31 13:47 | disposition home or self-care (01) ==
LOC: HO.LAB 13:46
PROVIDERS: PCP Internal Medicine; Visit Provider Internal Medicine Cardiovascular Disease
DX: I50.30 Unspecified diastolic (congestive) heart failure (principal); R73.9 Hyperglycemia, unspecified; I48.0 Paroxysmal atrial fibrillation; I25.10 Atherosclerotic heart disease of native coronary artery without angina pectoris
CPT/HCPCS: 36415; 80048; 82947; 83036; 99212

== ENCOUNTER 2023-12-31 13:46 | Outpatient (AMB) | payer MEDICARE, SELFPAY ==
--- NOTE | 2023-12-31 14:15 | MHC.OFFVIS ---
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 Required: No Allergies No Known Allergies [No Known Allergies*] Allergy (Verified 12/03/23 13:02) Medication List - Last Reconciled 12/31/23 by Fransisco Doss MD amlodipine 5 mg PO DAILY ascorbate calcium (vitamin C) 1 g (2 x 500 mg) PO DAILY atenolol 100 mg PO DAILY blood sugar diagnostic (Greenhouse App[employer] Ultra Test strips) USE 1 STRIP TO CHECK GLUCOSE THREE TIMES DAILY bumetanide 0.5 mg PO DAILY cholecalciferol (vitamin D3) 25 mcg PO DAILY colesevelam 1,250 mg (2 x 625 mg) PO BID insulin glargine 15 units (0.15 mL) subcut BEDTIME 30 days isosorbide mononitrate ER 30 mg PO QAM Lactobacillus rhamnosus GG (Culturelle) 1 cap PO DAILY PRN latanoprostene bunod 0.024% (Vyzulta) 1 drp ophthalmic (eye) DAILY loperamide 2 mg PO Q4H PRN lorazepam 0.5 mg PO BID PRN magnesium 250 mg PO DAILY mecobalamin (vitamin B12) 1,000 mcg PO DAILY metformin 850 mg PO BID oxycodone 5 mg PO Q12H PRN pantoprazole 40 mg PO BID pen needle, diabetic Once a day pyridoxine (vitamin B6) 50 mg PO DAILY 90 days rivaroxaban (Xarelto) 15 mg PO QPM HPI Comments Details: Shirlene comes for follow-up. She has done well over the last 3 months. She has had no worsening heart failure symptoms. She says her shortness of breath is improved. Leg edema has removed well on low-dose Bumex. She denies any clear orthopnea, PND. Weight has remained stable. No prolonged palpitation irregular heartbeat. No chest pain. No lightheadedness, syncope. Her creatinine had improved to 1.5. [facility] Medical History (HFpEF) heart failure with preserved ejection fraction Diarrhea White coat syndrome with hypertension History of COVID-19 Anxiety Macular degeneration Renal calculi Hypertension Diabetes mellitus with coincident hypertension Obesity, diabetes, and hypertension syndrome Weight loss Biliary dyskinesia Paroxysmal atrial fibrillation GERD (gastroesophageal reflux disease) Irritable bowel syndrome with diarrhea CAD (coronary artery disease) CKD (chronic kidney disease) stage 3, GFR 30-59 ml/min High cholesterol Surgical History Hx laparoscopic cholecystectomy Hx of bilateral cataract extraction History of ERCP History of hip replacement, total History of esophagogastroduodenoscopy (EGD) Hx of colonoscopy History of cardiac cath Family History Father No problems noted. Mother Diabetes Sister Diabetes Daughter Anemia Diabetes Social History Household Members: Children Household Members Other:: daughter and her fiancee Housing: House Are you a primary direct care specialist to a significant other at home: No Do you presently have visiting nurse or other home services: No Alcohol intake: never Comment: refusing bed alarms Patient Tobacco Use Status: Never used Tobacco e-Cigarette/Vaping Use: Never Used Second Hand Smoke Exposure: No Advance Directives Date on File: 08/01/20 service: No Current occupational status: retired Cognitive needs: Yes Hearing needs: No Vision needs: Yes Review of Systems Const Denies chills, Denies fatigue, Denies fever(s), Denies frequent falls, Denies weakness, Denies weight gain and Denies weight loss ENT Denies dizziness Card Denies chest pain, Denies leg edema, Denies lightheadedness, Denies palpitations, Denies dyspnea, Denies dyspnea on exertion, Denies orthopnea and Denies other (loss of consciousness) Resp Denies cough, Denies dyspnea and Denies dyspnea on exertion GI Denies hematochezia and Denies change in stool character Musc Denies abnormal gait, Denies muscle weakness, Denies numbness, Denies radiating pain into limb and Denies tingling Neuro Denies abnormal gait, Denies dizziness, Denies frequent falls, Denies numbness, Denies tingling and Denies weakness Endo Denies fatigue and Denies palpitations Physical Exam Vital Signs: Last Vital Signs Pulse 68 12/31/23 14:16 BP 128/74 12/31/23 14:16 BMI result Body Mass Index 33.7 Const General: cooperative, healthy appearing, comfortable and no acute distress Orientation/consciousness: patient oriented x3 Neck Neck: Yes normal visual inspection and Yes no JVD Resp Effort & Inspection: normal respiratory effort Auscultation: clear to auscultation bilaterally, no crackles, no rales, no rhonchi and no wheezes Cardio Jugular venous distension: no JVD Rate: regular rate Rhythm: regular rhythm Heart sounds: S1 normal heart sound present, S2 normal heart sound present, no murmurs and no rubs Neuro General: patient oriented x3 Extrem General: Yes normal to inspection and No no pedal edema Psych Appearance: grossly normal Mental Status: mental status grossly normal Speech and movement: Normal speech and movement present Assessment & Plan Assessment & Plan (1) (HFpEF) heart failure with preserved ejection fraction: Code(s): I50.30 - Unspecified diastolic (congestive) heart failure Category: Medical Plan: Heart failure preserved ejection fraction multiple comorbidities including advanced age, frailty, chronic kidney disease, pulmonary hypertension, CAD as well as paroxysmal atrial fibrillation diabetes. Clinically currently doing well. She is currently not participate in much physical activity. Encouraged to increase activity level. Continue current bumetanide dose. Heart failure management discussed in details. Daily weight monitoring avoidance of salt loading was discussed additional diuretics as need be. Advise to continue aggressive blood pressure control which is currently well optimized. Follow-up blood work today. Consider switching metformin to SGLT2 inhibitor such as Jardiance (2) Paroxysmal atrial fibrillation: Comment: follows Nanorex/[email or web address] Code(s): I48.0 - Paroxysmal atrial fibrillation Category: Medical Plan: Paroxysmal atrial fibrillation without any obvious clinical recurrence at this point time. Continue rhythm control approach which has helped her significantly. Continue current full oral anticoagulation currently on Xarelto 15 mg daily, renally dose adjusted. Quarterly renal function test should be pursued. Avoidance of stimulants was discussed. (3) CAD (coronary artery disease): Comment: follows [employer]x/[email or web address] Code(s): I25.10 - Atherosclerotic heart disease of [place] coronary artery without angina pectoris Category: Medical Plan: CAD with branch vessel disease without any symptoms angina on dual antianginal therapy. Continue the same. Continue aggressive risk factor modification. Diabetes under your care with goal hemoglobin A1c less than 7%. Goal LDL less than 70 mg/dL. Currently on oral anticoagulation therapy and therefore would avoid aspirin therapy. Will follow up in the clinic in 6 months time, sooner p.r.n.. Thank you for allowing me to partake in his care. Orders: Orders Basic Metabolic Panel Today I50.30 - Unspecified diastolic (congestive) heart failure Coding Level of Care Code Est Pt Level 4 (39816) Complex EM visit Add On G2211 Diagnoses (HFpEF) heart failure with preserved ejection fraction I50.30 Paroxysmal atrial fibrillation I48.0 CAD (coronary artery disease) I25.10
[2023-12-31 14:16] VITALS: BP 128/74; PULSE 68; BMI 33.7
== END 2023-12-31 14:50 | disposition home or self-care (01) ==
PROVIDERS: PCP Internal Medicine; Visit Provider Internal Medicine Cardiovascular Disease
DX: I50.30 Unspecified diastolic (congestive) heart failure (principal); I48.0 Paroxysmal atrial fibrillation; I25.10 Atherosclerotic heart disease of native coronary artery without angina pectoris
CPT/HCPCS: 99214; G2211

== ENCOUNTER 2024-03-15 12:30 | Outpatient (REF) | payer MEDICARE, SELFPAY ==
--- NOTE | ~2024-03-15 | US_ITS ---
CLINICAL HISTORY: N20.0 - Calculus of kidney US Renal Comparison: US/LA/SR - US RENAL BI - 03/23/23 12:31 EST US/SR - US RENAL BI - 12/11/22 10:31 EDT Findings: Right kidney normal size and echotexture, 9.0 cm length. Left kidney normal size and echotexture, 10.2 cm length. Multiple echogenic foci seen within bilateral kidneys. No collecting system dilatation of either kidney. Normal color Doppler. IMPRESSION: 1. Nonobstructing bilateral nephrolithiasis. This document has been electronically signed by: Lauren Gutierrez MD on 03/15/2024 20:58:56
--- OUTSIDE RECORDS SUMMARY | 2024-03-15 13:24 | XMS_ITS | Encounter Summary ---
Author Organization [employer] Address [address] [place] [address] Care Team Providers Care Surgical Sales Representative Name Role Phone Unavailable Primary Care Provider Unavailabl e Reason for Visit * Reason Onset Date Comments appt 05/11/2023 Encounter Details Date Type Department Care Team ([facility] st Contact Info) Description 05/11/2023 Telephone [facility] ADULT DENTAL [address] [place] [address] Jonathan Aguilar DDS [address] [place] [address] appt Social History Tobacco Use Types Packs/Day Years Used Date Smoking Tobacco: Never Smokeless Tobacco: Never Alcohol Use Standard Drinks/Week Comments Never 0 (1 standard drink = 0.6 oz pur e alcohol) Comments Unknown Sex and Gender Information Value Date Recorded Sex Assigned at Female 12/16/2021 10:37 AM EDT Legal Sex Female 10:37 AM EDT Gender Identity Female 12/16/2021 10:37 AM EDT Sexual Orientation Straight 12/16/2021 10 :37 AM EDT documented as of this encounter Miscellaneous Notes * Telephone Encounter - Mariann Yeager - 05/11/2023 2:10 PM EDT Patient states that she was told at last visit that she has to come in within a week for dentures She was referred back to Dr. Russo. * Telephone Encounter - Mariann Yeager - 05/11/2023 2:08 PM EDT Patient states that she was told at last visit that she has to come in within a week for dentures DR documented in this encounter Plan of Treatment Not on file documented as of this encounter Visit Diagnoses Not on filedocumented in this encounter
--- OUTSIDE RECORDS SUMMARY | 2024-03-15 13:25 | XMS_ITS | Patient Health Record ---
Author Organization [facility] Address [address] [place] [address] Care Team Providers Care Steam Pan Sponger Name Role Phone Miguel A [place], Kam Primary Care Provider Orestes Chase Jr Unavailable ALLERGIES No Known Allergies REASON FOR REFERRAL No Information MEDICATIONS Medication SIG (Take, Route, Frequency, Duration) Notes Start Date End Date Status metFORMIN HCl 850 MG Oral for 60 Active Calcium 1 tab Oral for 14 days 01/05/2023 Active Lantus SoloStar 100 UNIT/ML Subcutaneous for 90 Active immodium 1 tab Oral for 14 days Active Culturelle - as directed Orally Active Colesevelam HCl 625 MG TAKE 2 TABLETS BY MOUTH TWICE DAILY Oral for 45 Active Vitamin B-6 50 MG TAKE 1 TABLET BY ANAID TH ONCE DAILY Oral for 90 Active Magnesium 250 MG 1 tablet with a meal Orally Once a day for 30 day(s) 01/05/2023 Active OneTouch Ultra - USE 1 STRIP TO CHECK GLUCOSE THREE TIMES DAILY In Vitro for 30 Active Vitamin B 12 500 MCG 1 tablet Orally Onc e a day for 30 day(s) 01/05/2023 Active Pantoprazole Sodium 40 MG TAKE 1 TABLET BY MOUTH TWICE DAILY Oral for 90 Active Vitamin C Adult Gummies 125 MG as directed Orally 01/05/2023 Active Isosorbide Mononitrate ER 30 MG Oral for 90 Active Atenolol 100 MG Oral for 90 Ac tive LORazepam 0.5 MG TAKE 1 TABLET BY ANAID TH TWICE DAILY NEEDED FOR ANXIETY Oral for 45 Active Xarelto 15 MG TAKE 1 TABLET BY ANAID TH IN THE EVENING Oral for 90 Active Vitamin D (Cholecalciferol) 25 MCG (1000 UT) TAKE 1 TABLET BY MOUTH ONCE DAILY Oral for 90 Active amLODIPine Besylate 5 MG TAKE 1 TABLET B Y MOUTH ONCE DAILY Oral for 90 Active IMMUNIZATIONS Vaccine Route Administration Date Status Comme nts Influenza Unknown 12/17/2022 Administered SOCIAL HISTORY Tobacco Use: Social History Observation Description Date Details (start date - stop date) Never Smoker NA - NA Sex Assigned At : Social History Observation Description Sex Assigned At Unknown Tobacco Use/Smoking Question Answer Notes Patient is a nonsmoker Alcohol Screen Question Answer Notes Did you have a drink containing alcohol in the p ast year? No Points 0 Interpretation Negative PROBLEMS Problem Type ICD Code Onset Dates Problem Status W/U Status Risk SNOMED Code Notes Problem Common bile duct stone (K80.50) Active confirmed [id number] PLAN OF TREATMENT No Information Insurance Providers Payer Name Payer Address Payer Phone Subscriber Number Group Number Insured Name Patient Relationship to Insured Coverage Start Date Coverage End Date MEDICARE OF [place] [address] [place] [id number] [phone] [id number] HÉCTOR HALL Self - patient is the insured MEDICAID OF [facility] [address] [place] [address] [phone] [id number] HÉCTOR HALL Self - patient is the insured MEDICAL (GENERAL) HISTORY Medical History History ICD Code IBS with diarrhea predominance Atrial fibrillation Coronary artery disease Chronic kidney disease Diabetes mellitus Hyperlipidemia IBS with diarrhea Hyperlipidemia Gastroesophageal reflux disease Surgical History Surgery Date(Month/Year) Cardiac catheterization Total hip replacement
--- OUTSIDE RECORDS SUMMARY | 2024-03-15 13:25 | XMS_ITS | Clinical Summary ---
Author Organization [employer] Address [address] [place] [address] Care Team Providers Care Planer Offbearer Name Role Phone Unavailable Primary Care Provider Unavailabl e Allergies No known active allergies Medications amLODIPine (Norvasc) 5 MG tablet Take 5 mg by mouth. Active ascorbic acid (Vitamin C Adult Gummies) 125 mg chewable tablet as directed Orally 3 Active atenolol (Tenormin) 100 MG tablet Take 100 mg by mouth in the morning. 4 Active Calcium Carb-Cholecalcif hayden 600-10 MG-MCG tablet Active colesevelam (Welchol) 625 MG tablet Take 1,250 mg by mouth 2 times daily. 3 Active cyanocobalamin (Vitamin B-12) 500 MCG tablet 1 tablet in the morning. 3 Active metFORMIN (Glucophage) 850 MG tablet Take 850 mg by mouth. 4 Active pantoprazole (ProtoNix) 40 MG EC tablet Take 40 mg by mouth 2 times daily. 4 Active Xarelto 15 MG tablet Take 15 mg by mouth at bedtime. 4 Active pyridoxine (Vitamin B-6) 50 MG tablet Take 50 mg by mouth in the morning. 3 Active LORazepam (Ativan) 0.5 MG tablet Take 0.5 mg by mouth if needed in the morning and at bedtime. 3 Active isosorbide mononitrate ER (Imdur) 30 MG 24 hr tablet 4 Active Active Problems Problem Noted Date Diagnosed Date Periodontal disease 04/21/2023 Social History Tobacco Use Types Packs/Day Years Used Date Smoking Tobacco: Never Smokeless Tobacco: Never Tobacco Cessation:Counseling Given: Not Answered Alcohol Use Standard Drinks/Week Comments Never 0 (1 standard drink = 0.6 oz pur e alcohol) Comments Unknown Sex and Gender Information Value Date Recorded Sex Assigned at Female 12/16/2021 10:37 AM EDT Legal Sex Female 10:37 AM EDT Gender Identity Female 12/16/2021 10:37 AM EDT Sexual Orientation Straight 12/16/2021 10 :37 AM EDT Last Filed Vital Signs Vital Sign Reading Time Taken Comments Blood Pressure 146/74 07/21/2023 10:54 AM EDT Pulse - - Temperature - - Respiratory Rate - - Oxygen Saturation - - Inhaled Oxygen Concentration - - Weight - - Height - - Body Mass Index - - Plan of Treatment Health Maintenance Due Date Last Done Comments Dental Oral Exam 1940 Dental Prophylaxis 1939 Dental X-Ray: Bitewings 1939 Depression Screening 1939 SDOH Screening 1939 Alcohol/Substance Use Screening 1951 DTaP/Tdap/Td Vaccines (1 - Tdap) 09/10/1958 Zoster Vaccines (1 of 2) 09/10/1989 Pneumococcal Vaccine: 65+ Years (1 of 1 - PCV) 09/10/2004 RSV Patients and Patients Aged 60 years or older (1 - 1-dose 75+ series) 09/10/2014 COVID-19 Vaccine ( season) 2023 11/23/2022, 11/13/2021, 07/27/2021, Additional history exists Influenza Vaccine (#1) 2023 , 11/06/2022, 11/13/2021, Additional history exists Tobacco Screening 09/16/2024 09/17/2023 Dental X-Ray: Full Mouth 03/27/2026 03/26/2023 HIB Vaccines Aged Out No longer eligi ble based on patient's age to complete this topic HPV Vaccines Aged Out No longer eligi ble based on patient's age to complete this topic Hepatitis A Vaccines Aged Out No long er eligible based on patient's age to complete this topic Hepatitis B Vaccines Aged Out No long er eligible based on patient's age to complete this topic IPV Vaccines Aged Out No longer eligi ble based on patient's age to complete this topic Meningococcal Vaccine Aged Out No arvind dalila eligible based on patient's age to complete this topic RSV under 20 months Aged Out No longe r eligible based on patient's age to complete this topic Rotavirus Vaccines Aged Out No longer eligible based on patient's age to complete this topic Procedures Procedure Name Priority Date/Time Associated Diagnosis Comments PANORAMIC RADIOGRAPHIC IMAGE Routine 03/26/2023 11:30 AM EST from Last 3 Months or Most Recently Relevant to Health Maintenance Insurance DENTAL - [facility] FULL (MEDICAID)
--- OUTSIDE RECORDS SUMMARY | 2024-03-15 13:25 | XMS_ITS | Clinical Summary ---
Author Organization [facility] Address [address] [place] [address] Care Team Providers Care Enrobing Machine Operator Name Role Phone Unavailable Primary Care Provider Unavailabl e Allergies No known active allergies Medications Xarelto 15 MG tablet Take 15 mg by mouth 1 (one) time each day in the evening 12/16/19 23 Active pyridoxine (VITAMIN B-6) 50 MG tablet Take 50 mg by mouth 1 (one) time each day 12/24/19 23 Active pantoprazole (PROTONIX) 40 MG EC tablet Take 40 mg by mouth in the morning and 40 mg in the evening. 12/26/19 23 Active oxyCODONE (ROXICODONE) 5 MG immediate release tablet TAKE 1 TABLET BY MOUTH EVERY 4 HOURS NEEDED FOR PAIN 12/16/19 23 Active metFORMIN (GLUCOPHAGE) 850 MG tablet Take 850 mg by mouth in the morning and 850 mg in the evening. 12/31/19 23 Active LORazepam (ATIVAN) 0.5 MG tablet Take 0.5 mg by mouth 2 (two) times a day if needed 11/22/19 23 Active isosorbide mononitrate (IMDUR) 30 MG 24 hr tablet Take 30 mg by mouth every morning 10/26/19 23 Active Lantus SoloStar 100 UNIT/ML injection INJECT 15 UNITS SUBCUTANEOUSLY AT BEDTIME 01/03/20 23 Active OneTouch Ultra test strip USE 1 STRIP TO CHECK GLUCOSE THREE TIMES DAILY 12/26/19 23 Active colesevelam (WELCHOL) 625 MG tablet Take 1,250 mg by mouth in the morning and 1,250 mg in the evening. 11/03/20 23 Active atenolol (TENORMIN) 100 MG tablet Take 100 mg by mouth 1 (one) time each day 10/29/19 Active amLODIPine (NORVASC) 5 MG tablet Take 5 mg by mouth 1 (one) time each day Active Magnesium 250 MG tablet Take by mouth Active Calcium 250 MG capsule Take by mouth Active Active Problems Problem Noted Date Diagnosed Date Obese class I 01/14/2023 01/14/2023 Common bile duct calculus 01/14/20232022 Immunizations Name Administration Dates Next Due Influenza, Unspecified 11/27/2022 Pfizer SARS-COV-2 04/17/2020,03/27/2020 Family History Relation Status Comments Father Mother Social History Tobacco Use Types Packs/Day Years Used Date Smoking Tobacco: Never Smokeless Tobacco: Never Tobacco Cessation:Counseling Given: Not Answered Alcohol Use Standard Drinks/Week Comments Never 0 (1 standard drink = 0.6 oz pur e alcohol) Comments Unknown Sex and Gender Information Value Date Recorded Sex Assigned at Not on file Legal Sex Female 4:40 PM EST Gender Identity Not on file Sexual Orientation Not on file Last Filed Vital Signs Vital Sign Reading Time Taken Comments Blood Pressure 142/65 01/14/2023 2:54 PM EST Pulse 66 01/14/2023 2:54 PM EST Temperature - - Respiratory Rate - - Oxygen Saturation 97% 01/14/2023 2:54 PM EST Inhaled Oxygen Concentration - - Weight 76.5 kg (168 lb 9.6 oz) 01/14/2023 2:54 P M EST Height - - Body Mass Index - - Plan of Treatment Health Maintenance Due Date Last Done Comments Pneumococcal Vaccine: 65+ Ye ars (1 of 2 - PCV) 09/10/1946 Influenza Vaccine (#1) 2023 11/27/2022 Hepatitis B Vaccine Aged Out No longe r eligible based on patient's age to complete this topic Insurance [place]
--- OUTSIDE RECORDS SUMMARY | 2024-03-15 13:25 | XMS_ITS ---
Author Organization [facility] Address [address] [place] [address] Care Team Providers Care Block Hand Name Role Phone Miguel A [place], Kam Primary Care Provider Orestes Chase Jr Unavailable ALLERGIES No Known Allergies REASON FOR VISIT Patient presents today for CALCULUS OF BILE DUCT MEDICATIONS Medication SIG (Take, Route, Frequency, Duration) Notes Start Date End Date Status Magnesium 250 MG 1 tablet with a meal Orally Once a day for 30 day(s) 01/05/2023 Active Vitamin B 12 500 MCG 1 tablet Orally Onc e a day for 30 day(s) 01/05/2023 Active Vitamin C Adult Gummies 125 MG as directed Orally 01/05/2023 Active Vitamin D (Cholecalciferol) 25 MCG (1000 UT) TAKE 1 TABLET BY MOUTH ONCE DAILY Oral for 90 Active Calcium 1 tab Oral for 14 days 01/05/2023 Active Isosorbide Mononitrate ER 30 MG Oral for 90 Active Atenolol 100 MG Oral for 90 Ac tive LORazepam 0.5 MG TAKE 1 TABLET BY ANAID TH TWICE DAILY NEEDED FOR ANXIETY Oral for 45 Active Xarelto 15 MG TAKE 1 TABLET BY ANAID TH IN THE EVENING Oral for 90 Active amLODIPine Besylate 5 MG TAKE 1 TABLET B Y MOUTH ONCE DAILY Oral for 90 Active Colesevelam HCl 625 MG TAKE 2 TABLETS BY MOUTH TWICE DAILY Oral for 45 Active Vitamin B-6 50 MG TAKE 1 TABLET BY ANAID TH ONCE DAILY Oral for 90 Active OneTouch Ultra - USE 1 STRIP TO CHECK GLUCOSE THREE TIMES DAILY In Vitro for 30 Active Pantoprazole Sodium 40 MG TAKE 1 TABLET BY MOUTH TWICE DAILY Oral for 90 Active metFORMIN HCl 850 MG Oral for 60 Active Lantus SoloStar 100 UNIT/ML Subcutaneous for 90 Active immodium 1 tab Oral for 14 days Active Culturelle - as directed Orally Active SOCIAL HISTORY Tobacco Use: Social History Observation [...] Common bile duct stone (K80.50) Active confirmed [id number] VITAL SIGNS BMI 33.06 kg/m2 01/05/2023 Blood pressure systolic 000 mm Hg 01/06/20 23 Blood pressure diastolic 00 mm Hg 023 Height 5 ft 1 in in 01/05/2023 Temperature 99.1 degrees Fahrenheit 01/06/20 23 Weight 175 lbs 01/05/2023 Encounters Encounter Location Date Provider Diagnosis [facility] [address] [place] [id number] 01/05/2023 Orestes Cota Jr Common bile duct stone K80.50 ASSESSMENTS Encounter Date Diagnosis Assessment Notes Treatment Notes Treatment Clinical Notes 01/05/2023 Common bile duct stone (ICD-10 - K80.50) Abdominal MRI scan material was printed PLAN OF TREATMENT Treatment Notes Assessment Notes Common bile duct stone Abdominal MRI sca n material was printed Next Appt Details Follow Up: prn, Reason:
--- OUTSIDE RECORDS SUMMARY | 2024-03-15 13:25 | XMS_ITS ---
Author Organization [facility] Address [address] [place] [address] Care Team Providers Care Anesthesiology Physician Assistant Name Role Phone Miguel A [place], Kam Primary Care Provider Orestes Chase Jr REASON FOR VISIT BIOPSY RESULTS Encounters Encounter Location Date Provider Diagnosis [facility] [address] [place] [phone] 09/18/2022 Orestes Cota Jr PLAN OF TREATMENT No Information
--- OUTSIDE RECORDS SUMMARY | 2024-03-15 13:26 | XMS_ITS ---
Author Organization [facility] Address [address] [place] [address] Care Team Providers Care Logistics/Shipper Name Role Phone Miguel A [place], Kam Primary Care Provider Orestes Chase Jr REASON FOR VISIT BILIARY OBSTRUCTION Encounters Encounter Location Date Provider Diagnosis [facility] Inpatient [address] [place] [id number] 09/12/2022 Orestes Cota Jr PLAN OF TREATMENT No Information
== END 2024-03-15 12:31 | disposition home or self-care (01) ==
LOC: HO.US 12:30
PROVIDERS: PCP Internal Medicine; Visit Provider Urology
DX: N20.0 Calculus of kidney (principal)
CPT/HCPCS: 76775

== ENCOUNTER → 2024-03-15 12:32 | Outpatient (BNV) | payer MEDICARE, SELFPAY | PROVIDERS: PCP Internal Medicine; Visit Provider Radiology Diagnostic Radiology | DX: N20.0 Calculus of kidney (principal) | CPT/HCPCS: 76775 ==

== ENCOUNTER 2024-03-25 13:01 | Outpatient (AMB) | payer MEDICARE, MEDICAID, SELFPAY ==
--- NOTE | 2024-03-25 13:09 | A.OFFVIS_ITS ---
Intake Visit Reasons: 1y/US(set) Intake Note: Patient presents today for a yearly follow-up US Meds- Vitamin B6,VITAMIN B12 Allergies to Antibiotic- No Known Allergies Blood Thinner- Xarelto Research And Development Technician Required: No Accompanied by: Daughter Allergies No Known Allergies [No Known Allergies*] Allergy (Verified 03/25/24 13:11) HPI Comments Details: Shirlene is a pleasant female. She is a patient of Dr. Webber. She is seen for following urologic conditions - nephrolithiasis in setting of diabetes Twelve month nephrolithiasis follow-up Stone burden reduced secondary to vitamin B6 and maintaining fluid intake Has gastroparesis secondary to diabetes and minimal appetite Encouraged target fluid intake 48 oz Continue to follow yearly for 5 years Nephrolithiasis Found incidentally during evaluation May 2020 Left side discomfort Currently resolved Imaging - 06/06 CT - mild left hydronephrosis, 3 mm stone left lower pole, question of small stone in bladder - 03/09 renal ultrasound 4 mm left stone - 09/06 renal ultrasound 7 mm right, 3 mm left - 03/10 renal ultrasound apparent resolution of stones - 04/11 renal ultrasound resolution of stones - 04/12 renal ultrasound small stones bilateral Discussed increase in fluid intake Medications include - B6 - 50mg daily Plan for follow-up imaging 12 months COUNT INCLUDES THE [facility] Medical History (HFpEF) heart failure with preserved ejection fraction Diarrhea White coat syndrome with hypertension History of COVID-19 Anxiety Macular degeneration Renal calculi Hypertension Diabetes mellitus with coincident hypertension Obesity, diabetes, and hypertension syndrome Weight loss Biliary dyskinesia Paroxysmal atrial fibrillation GERD (gastroesophageal reflux disease) Irritable bowel syndrome with diarrhea CAD (coronary artery disease) CKD (chronic kidney disease) stage 3, GFR 30-59 ml/min High cholesterol Surgical History Hx laparoscopic cholecystectomy Hx of bilateral cataract extraction History of ERCP History of hip replacement, total History of esophagogastroduodenoscopy (EGD) Hx of colonoscopy History of cardiac cath Family History Father No problems noted. Mother Diabetes Sister Diabetes Daughter Anemia Diabetes Social History Household Members: Children Household Members Other:: daughter and her fiancee Housing: House Are you a primary hiv/aids care nurse to a significant other at home: No Do you presently have visiting nurse or other home services: No Alcohol intake: never Comment: refusing bed alarms Patient Tobacco Use Status: Never used Tobacco e-Cigarette/Vaping Use: Never Used Second Hand Smoke Exposure: No Advance Directives Date on File: 08/01/20 service: No Current occupational status: retired Cognitive needs: Yes Hearing needs: No Vision needs: Yes Review of Systems Const Denies chills and Denies fever(s) Card Reports no additional complaints and Denies syncope Resp Denies cough GI Denies abdominal pain and Denies heartburn Reports as per HPI and Denies change in libido Neuro Denies syncope Psych Denies change in libido Endo Denies change in libido Physical Exam Const General: cooperative, healthy appearing, comfortable and no acute distress Orientation/consciousness: patient oriented x3 HEENT Face and sinus: Yes normal facial exam Mouth: moist mucous membranes Neck Neck: Yes normal visual inspection, Yes full ROM and Yes trachea midline Chest Chest palpation & inspection: normal inspection of the chest Resp Effort & Inspection: normal respiratory effort, able to speak in complete sentences and no respiratory distress GI Inspection: Yes normal to inspection Back/Spine/Pelvis Cervical Spine: normal cervical lordosis Thoracic/Lumbar Spine: thoracic and lumbar spine normal to inspection Skin General skin exam: no rashes or lesions noted Neuro General: patient oriented x3, gait normal, tone normal and moves all extremities Extrem General: Yes normal to inspection and Yes capillary refill normal Assessment & Plan Assessment & Plan (1) Nephrolithiasis: Code(s): N20.0 - Calculus of kidney Category: Medical Plan Twelve month follow-up renal ultrasound Orders: Orders US renal BI 12 Months N20.0 - Calculus of kidney Patient Instructions: This note is constructed using voice recognition software. While every effort has been made to ensure accuracy wedding coordinator errors may have been included. Imaging studies, laboratory and physical exam results were discussed and reviewed in detail. No major barriers to patient understanding were identified. An opportunity to ask questions regarding the treatment plan was provided. All questions were answered. The patient expressed understanding and agreement with the above treatment plan. The patient is aware they should contact our office by phone for worsening of their current condition or the appearance of new urologic symptoms. Compliance is encouraged with any medications and followup testing that is ordered. It is a privilege to participate in the urologic care of your patient. If you have any questions or concerns regarding treatment for the above conditions, or other urologic issues, please do not hesitate to contact me. The office telephone contact is [phone]. Sincerely, Dr Hoang Jones MD, [facility] - Urology Compassionate Specialist Care for the Genitourinary System Coding Level of Care Code Est Pt Level 4 (95327) Diagnoses Nephrolithiasis N20.0
--- OUTSIDE RECORDS SUMMARY | 2024-03-25 13:37 | XMS_ITS | Patient Health Record ---
Author Organization [facility] Address [address] [place] [address] Care Team Providers Care Poolroom Table Attendant Name Role Phone Miguel A [place], Kam Primary Care Provider Orestes Chase Jr Unavailable [phone] ALLERGIES No Known Allergies REASON FOR REFERRAL [...] Common bile duct stone (K80.50) Active confirmed [id number] PLAN OF TREATMENT No Information Insurance Providers Payer Name Payer Address Payer Phone Subscriber Number Group Number Insured Name Patient Relationship to Insured Coverage Start Date Coverage End Date MEDICARE OF [place] [address] [place] [phone] [id number] HÉCTOR HALL Self - patient is the insured MEDICAID OF [facility] [address] [place] [address] [phone] [id number] HÉCTOR HALL Self - patient is the insured MEDICAL (GENERAL) HISTORY Medical History History ICD Code IBS with diarrhea predominance Atrial fibrillation Coronary artery disease Chronic kidney disease Diabetes mellitus Hyperlipidemia IBS with diarrhea Hyperlipidemia Gastroesophageal reflux disease Surgical History Surgery Date(Month/Year) Cardiac catheterization Total hip replacement
--- OUTSIDE RECORDS SUMMARY | 2024-03-25 13:38 | XMS_ITS | Clinical Summary ---
Author Organization [facility] Facility Address [address] [place] [id number] Care Team Providers Care Six Color Press Operator Name Role Phone Unavailable Primary Care [...]
--- OUTSIDE RECORDS SUMMARY | 2024-03-25 13:38 | XMS_ITS ---
Author Organization [facility] Address [address] [place] [address] Care Team Providers Care Reconnaissance Man Name Role Phone Miguel A [place], Kam [...] Common bile duct stone (K80.50) Active confirmed [id number] VITAL SIGNS BMI 33.06 kg/m2 01/05/2023 Blood pressure systolic 000 mm Hg 01/06/20 23 Blood pressure diastolic 00 mm Hg 023 Height 5 ft 1 in in 01/05/2023 Temperature 99.1 degrees Fahrenheit 01/06/20 23 Weight 175 lbs 01/05/2023 Encounters Encounter Location Date Provider Diagnosis [facility] [address] [place] [id number] 01/05/2023 Orestes Cota Jr Common bile duct [...]
== END 2024-03-25 13:32 | disposition home or self-care (01) ==
PROVIDERS: PCP Internal Medicine; Visit Provider Urology
DX: N20.0 Calculus of kidney (principal)
CPT/HCPCS: 99214

== ENCOUNTER → 2024-03-25 13:01 | Outpatient (BNVA) | payer MEDICARE, MEDICAID, SELFPAY | PROVIDERS: PCP Internal Medicine; Visit Provider Urology | DX: N20.0 Calculus of kidney (principal); E11.9 Type 2 diabetes mellitus without complications | CPT/HCPCS: 99212 ==

== ENCOUNTER 2024-04-04 13:25 | Outpatient (AMB) | payer MEDICARE, MEDICAID, SELFPAY ==
--- OUTSIDE RECORDS SUMMARY | 2024-04-04 13:27 | XMS_ITS | Patient Health Record ---
Author Organization [facility] Address [address] [place] [address] Care Team Providers Care Medical Equipment Repair Technician Name Role Phone Miguel A [place], Kam [...] Common bile duct stone (K80.50) Active confirmed [id number] PLAN OF TREATMENT No Information Insurance Providers Payer Name Payer Address Payer Phone Subscriber Number Group Number Insured Name Patient Relationship to Insured Coverage Start Date Coverage End Date MEDICARE OF [place] [address] [place] [id number] HÉCTOR HALL Self - patient is the insured MEDICAID OF [facility] [address] [place] [address] [phone] [id number] HÉCTOR HALL Self - patient is the insured MEDICAL (GENERAL) HISTORY Medical History History ICD Code IBS with diarrhea predominance Atrial fibrillation Coronary artery disease Chronic kidney disease Diabetes mellitus Hyperlipidemia IBS with diarrhea Hyperlipidemia Gastroesophageal reflux disease Surgical History Surgery Date(Month/Year) Cardiac catheterization Total hip replacement
--- NOTE | 2024-04-04 13:28 | A.OFFPC_ITS ---
Vital Signs 04/04/24 13:31 Height 5 ft 1 in Weight 178 lb 8 oz BMI 33.7 BP 128/70 Blood Pressure Location Lt brachial Position Sitting Pulse 68 Pulse Source Pulse Oximeter Temp 97.3 F Temp Source Temporal Artery Scan Pulse Oximetry (%) 97 Oxygen Delivery Method Room Air Intake Visit Reasons: 4 month follow up Intake Note: Patient is here to follow up on CKD, HTN, DM,. Plastic Process Technician Required: No Blind Hooker: Present Accompanied by: Daughter Allergies No Known Allergies [No Known Allergies*] Allergy (Verified 04/04/24 13:30) Medication List - Last Reconciled 04/05/24 by Kam Grady MD amlodipine 5 mg PO DAILY ascorbate calcium (vitamin C) 1 g (2 x 500 mg) PO DAILY atenolol 100 mg PO DAILY blood sugar diagnostic ([employer] Ultra Test strips) USE 1 STRIP TO CHECK GLUCOSE THREE TIMES DAILY bumetanide 0.5 mg PO DAILY cholecalciferol (vitamin D3) 25 mcg PO DAILY colesevelam 1,250 mg (2 x 625 mg) PO BID isosorbide mononitrate ER 30 mg PO QAM Lactobacillus rhamnosus GG (Culturelle) 1 cap PO DAILY PRN Lantus Solostar U-100 Insulin (insulin glargine) 15 units (0.15 mL) subcut BEDTIME 30 days NS latanoprostene bunod 0.024% (Vyzulta) 1 drp ophthalmic (eye) DAILY loperamide 2 mg PO Q4H PRN lorazepam 0.5 mg PO BID PRN magnesium 250 mg PO DAILY mecobalamin (vitamin B12) 1,000 mcg PO DAILY metformin 850 mg PO BID oxycodone 5 mg PO Q12H PRN pantoprazole 40 mg PO BID pen needle, diabetic Once a day pyridoxine (vitamin B6) 50 mg PO DAILY 90 days rivaroxaban (Xarelto) 15 mg PO QPM Tobacco use date assessed: 04/04/24 Fall risk assessment: No Falls in past year Last assessed Fall Risk: 04/04/24 Dental Screening Dental Screen Date: 04/04/24 Did you have a dental visit in the last 12 months?: Yes Did you have a dental problem in the last 6 months where you did not have access to dental care?: No Was dental information given to patient?: Patient has dentist HPI 4 month follow up HPI Details DM and HTN on rx; compliant; due for labs [facility] Medical History (HFpEF) heart failure with preserved ejection fraction Diarrhea White coat syndrome with hypertension History of COVID-19 Anxiety Macular degeneration Renal calculi Hypertension Diabetes mellitus with coincident hypertension Obesity, diabetes, and hypertension syndrome Weight loss Biliary dyskinesia Paroxysmal atrial fibrillation GERD (gastroesophageal reflux disease) Irritable bowel syndrome with diarrhea CAD (coronary artery disease) CKD (chronic kidney disease) stage 3, GFR 30-59 ml/min High cholesterol Surgical History Hx laparoscopic cholecystectomy Hx of bilateral cataract extraction History of ERCP History of hip replacement, total History of esophagogastroduodenoscopy (EGD) Hx of colonoscopy History of cardiac cath Family History Father No problems noted. Mother Diabetes Sister Diabetes Daughter Anemia Diabetes Social History Household Members: Children Household Members Other:: daughter and her fiancee Housing: House Are you a primary live in caregiver to a significant other at home: No Do you presently have visiting nurse or other home services: No Alcohol intake: never Comment: refusing bed alarms Patient Tobacco Use Status: Never used Tobacco e-Cigarette/Vaping Use: Never Used Second Hand Smoke Exposure: No Advance Directives Date on File: 08/01/20 service: No Current occupational status: retired Cognitive needs: Yes (Walker) Hearing needs: No Vision needs: Yes Questionnaire PHQ-9 Over the last 2 weeks, how often have you been bothered by any of the following problems? 1. Little interest or pleasure in doing things: not at all 2. Feeling down, depressed, or hopeless: not at all 3. Trouble falling or staying asleep, or sleeping too much: not at all 4. Feeling tired or having little energy: not at all 5. Poor appetite or overeating: not at all 6. Feeling bad about yourself - or that you are a failure or have let yourself or your family down: not at all 7. Trouble concentrating on things, such as reading the newspaper or watching television: not at all 8. Moving or speaking so slowly that other people could have noticed. Or the opposite - being so fidgety or restless that you have been moving around a lot more than usual: not at all 9. Thoughts that you would be better off or of hurting yourself in some way: not at all Total score: 0 Depression Screening Interpretation: Negative Depression Screening Done: Yes Source: Developed by Drs. Ruben Aleman, Siena Dougherty, Spencer De La Fuente and colleagues, with an educational jessica from [employer]. Thrive Questionnaire Date Thrive assessed: 04/04/24 I am a: Patient What is your living situation today?: I have a steady place to live Within the past 12 months, did the food you bought not last and you didn't have the money to get more?: Never true Within the past 12 months, did you worry whether your food would run out before you got money to buy more?: Never true Do you have trouble paying for medicines?: No Do you have trouble getting transportation to medical appointments?: No Do you have trouble paying your heating and electricity bill?: No Do you have trouble taking care of your child, family member or friend?: No Do you have trouble with day-to-day activities such as bathing, preparing meals, shopping, managing finances, etc.?: No Are you currently unemployed and looking for a job?: No Are you interested in more education?: No Please select the resources that you would like help with: None Currently or been in a relationship where the following occur: No concerns reported THRIVE Score: 0 AUDIT C Alcohol Use Questionnaire (AUDIT-C) 1. How often do you have a drink containing alcohol?: Never Total Score: 0 SOLEDAD-7 AMB Questionnaire SOLEDAD-7 Date SOLEDAD - 7 assessed: 04/04/24 Feeling nervous, anxious, or on edge: 0 = Not at all Not being able to stop or control worryin = Not at all Worrying too much about different things: 0 = Not at all Trouble relaxin = Not at all Being so restless that it is hard to sit still: 0 = Not at all Becoming easily annoyed or irritable: 0 = Not at all Feeling afraid as if something awful might happen: 0 = Not at all Total SOLEDAD-7 score (0-4 normal; 5-9 mild; 10-14 moderate; 15-21 severe): 0 Source: Developed by Drs. Ruben Aleman, Siena Dougherty, Spencer De La Fuente and colleagues, with an educational jessica from [employer]. Review of Systems Const Denies chills, Denies headache(s) and Denies weight loss ENT Denies headache(s) Card Denies chest pain, Denies syncope, Denies irregular heart rhythm and Denies dyspnea Resp Denies chest congestion, Denies cough and Denies dyspnea GI Denies abdominal pain, Denies change in stool character, Denies nausea and Denies vomiting Musc Denies deformity and Denies joint swelling Neuro Denies syncope and Denies headache(s) Physical exam (Primary Care) Vital Signs: Last Vital Signs Temp 97.3 F 04/04/24 13:31 Pulse 68 04/04/24 13:31 BP 128/70 04/04/24 13:31 Pulse Ox 97 04/04/24 13:31 Oxygen Delivery Method Room Air 04/04/24 13:31 BMI result Body Mass Index 33.7 Tobacco/Smoking Status: Tobacco use Status Tobacco use date assessed 04/04/24 04/04/24 13:31 Patient Tobacco Use Status Never used Tobacco 04/04/24 13:28 e-Cigarette/Vaping Use Never Used 04/04/24 13:28 PHQ-9: PHQ-9 Score PHQ-9: Total score 0 04/04/24 13:31 Depression Screening Interpretation: Negative Thrive Assessment: Date of Thrive Assessment Date Thrive assessed 04/04/24 04/04/24 13:31 Currently or been in a relationship where the following occur: No concerns reported Const General: cooperative, comfortable, no acute distress and alert Neck Neck: Yes no lymphadenopathy Thyroid: Thyroid normal Resp Effort & Inspection: normal respiratory effort Auscultation: clear to auscultation bilaterally Percussion: percussion normal Cardio Jugular venous distension: no JVD Palpation: normal PMI Rate: regular rate Rhythm: regular rhythm Heart sounds: S1 normal heart sound present and S2 normal heart sound present GI Inspection: Yes normal to inspection Palpation (GI): No hepatosplenomegaly present Skin General skin exam: no rashes or lesions noted Extrem General: Yes no clubbing, cyanosis or edema Results AMB Hemoglobin A1c AMB Hemoglobin A1c 8.6 % Last Edit by RORO Jacob on 04/04/24 13:43 Results Reviewed Results Reviewed: Laboratory Last Values Hgb A1c (Clinic) 8.6 % (4.0-6.0) H 04/04/24 13:32 Coding Level of Care Code Est Pt Level 4 (04988) Diagnoses Hypertension I10 Diabetes mellitus with coincident hypertension E11.9; I10 Paroxysmal atrial fibrillation I48.0 Assessment & Plan Assessment & Plan (1) Hypertension: Code(s): I10 - Essential (primary) hypertension Category: Medical Plan: stable; same rx (2) Diabetes mellitus with coincident hypertension: Code(s): E11.9 - Type 2 diabetes mellitus without complications; I10 - Essential (primary) hypertension Category: Medical Plan: stable (3) Paroxysmal atrial fibrillation: Comment: follows w/HCS Code(s): I48.0 - Paroxysmal atrial fibrillation Category: Medical Plan: on Xarelto; sees cardiology Orders: Orders AMB Hemoglobin A1c 04/04/24 E11.9 - Type 2 diabetes mellitus without complications, I10 - Essential (primary) hypertension
--- OUTSIDE RECORDS SUMMARY | 2024-04-04 13:28 | XMS_ITS | Clinical Summary ---
Author Organization [facility] Facility Address [address] [place] [id number] Care Team Providers Care Trauma Program Manager Name Role Phone Unavailable Primary Care Provider [...]
--- OUTSIDE RECORDS SUMMARY | 2024-04-04 13:28 | XMS_ITS ---
Author Organization [facility] Address [address] [place] [address] Care Team Providers Care Director Of Physical Security Name Role Phone Miguel A [place], Kam [...] Common bile duct stone (K80.50) Active confirmed [id number] VITAL SIGNS BMI 33.06 kg/m2 01/05/2023 Blood pressure systolic 000 mm Hg 01/06/20 23 Blood pressure diastolic 00 mm Hg 023 Height 5 ft 1 in in 01/05/2023 Temperature 99.1 degrees Fahrenheit 01/06/20 23 Weight 175 lbs 01/05/2023 Encounters Encounter Location Date Provider Diagnosis [facility] [address] [place] [phone] 01/05/2023 Orestes Cota Jr Common bile duct [...]
[2024-04-04 13:31] VITALS: BP 128/70; PULSE 68; TEMP 36.3; O2SAT 97; BMI 33.7
== END 2024-04-04 14:06 | disposition home or self-care (01) ==
PROVIDERS: PCP Internal Medicine; Visit Provider Internal Medicine
DX: I10 Essential (primary) hypertension (principal); E11.9 Type 2 diabetes mellitus without complications; I48.0 Paroxysmal atrial fibrillation

== ENCOUNTER → 2024-04-04 13:25 | Outpatient (BNVA) | payer MEDICARE, MEDICAID, SELFPAY | PROVIDERS: PCP Internal Medicine; Visit Provider Internal Medicine | DX: I10 Essential (primary) hypertension (principal); E11.9 Type 2 diabetes mellitus without complications; I48.0 Paroxysmal atrial fibrillation | CPT/HCPCS: 83036; 99212 ==

== ENCOUNTER 2024-07-12 13:04 | Outpatient (AMB) | payer MEDICARE, MEDICAID, SELFPAY ==
--- OUTSIDE RECORDS SUMMARY | 2024-07-12 13:08 | XMS_ITS | Encounter Summary ---
Author Organization [facility] Address [address] [place] [address] Care Team Providers Care Membership Director Name Role Phone Unavailable Primary Care Provider Unavailabl e Reason for Visit * Reason Onset Date Comments appt 05/11/2023 Encounter Details Date Type Department Care Team ([facility] st Contact Info) Description 05/11/2023 Telephone [facility] [address] [place] [address] Jonathan Aguilar DDS [address] [place] [address] appt Social History Tobacco Use Types Packs/Day [...]
[2024-07-12 13:22] VITALS: BP 122/78; PULSE 66; BMI 33.3
--- NOTE | 2024-07-12 13:22 | MHC.OFFVIS ---
Vital Signs 07/12/24 13:22 Height 5 ft 1 in Weight 176 lb 5.917 oz BMI 33.3 BP 122/78 Blood Pressure Location Lt brachial Position Sitting Pulse 66 Intake Visit Reasons: 6m follow up Intake Note: 6 month follow-up hearts doing ok Electronic System Engineer: Electronic System Engineer Present Accompanied by: Daughter Allergies No Known Allergies [No Known Allergies*] Allergy (Verified 04/04/24 13:30) Medication List - Last Reconciled 07/12/24 by Fransisco Doss MD amlodipine 5 mg PO DAILY ascorbate calcium (vitamin C) 1 g (2 x 500 mg) PO DAILY atenolol 100 mg PO DAILY blood sugar diagnostic ([employer] Ultra Test strips) USE 1 STRIP TO CHECK GLUCOSE THREE TIMES DAILY bumetanide 0.5 mg PO DAILY cholecalciferol (vitamin D3) 25 mcg PO DAILY colesevelam 1,250 mg (2 x 625 mg) PO BID isosorbide mononitrate ER 30 mg PO QAM Lactobacillus rhamnosus GG (Culturelle) 1 cap PO DAILY PRN Lantus Solostar U-100 Insulin (insulin glargine) 15 units (0.15 mL) subcut BEDTIME 30 days NS latanoprostene bunod 0.024% (Vyzulta) 1 drp ophthalmic (eye) DAILY loperamide 2 mg PO Q4H PRN lorazepam 0.5 mg PO BID PRN magnesium 250 mg PO DAILY mecobalamin (vitamin B12) 1,000 mcg PO DAILY metformin 850 mg PO BID oxycodone 5 mg PO Q12H PRN pantoprazole 40 mg PO BID pen needle, diabetic Once a day pyridoxine (vitamin B6) 50 mg PO DAILY 90 days rivaroxaban (Xarelto) 15 mg PO QPM HPI Comments Details: Shirlene comes for follow-up, accompanied by her daughter. From cardiac perspective she has been doing well. She is not very active only active around the house. She has no new cardiac symptoms. Denies any prolonged palpitation irregular heartbeat. No bleeding issues or neurologic events. Denies worsening shortness of breath, orthopnea, PND. No exertional chest pain. Her main complaint currently is related to her IBS. She takes all her medications regularly. [facility] Medical History (HFpEF) heart failure with preserved ejection fraction Diarrhea White coat syndrome with hypertension History of COVID-19 Anxiety Macular degeneration Renal calculi Hypertension Diabetes mellitus with coincident hypertension Obesity, diabetes, and hypertension syndrome Weight loss Biliary dyskinesia Paroxysmal atrial fibrillation GERD (gastroesophageal reflux disease) Irritable bowel syndrome with diarrhea CAD (coronary artery disease) CKD (chronic kidney disease) stage 3, GFR 30-59 ml/min High cholesterol Surgical History Hx laparoscopic cholecystectomy Hx of bilateral cataract extraction History of ERCP History of hip replacement, total History of esophagogastroduodenoscopy (EGD) Hx of colonoscopy History of cardiac cath Family History Father No problems noted. Mother Diabetes Sister Diabetes Daughter Anemia Diabetes Social History Household Members: Children Household Members Other:: daughter and her fiancee Housing: House Are you a primary care management specialist to a significant other at home: No Do you presently have visiting nurse or other home services: No Alcohol intake: never Comment: refusing bed alarms Patient Tobacco Use Status: Never used Tobacco e-Cigarette/Vaping Use: Never Used Second Hand Smoke Exposure: No Advance Directives Date on File: 08/01/20 service: No Current occupational status: retired Cognitive needs: Yes (Walker) Hearing needs: No Vision needs: Yes Review of Systems Const Denies chills, Denies fatigue, Denies fever(s), Denies frequent falls, Denies weakness, Denies weight gain and Denies weight loss ENT Denies dizziness Card Denies chest pain, Denies leg edema, Denies lightheadedness, Denies palpitations, Denies dyspnea, Denies dyspnea on exertion, Denies orthopnea and Denies other (loss of consciousness) Resp Denies cough, Denies dyspnea and Denies dyspnea on exertion GI Denies hematochezia and Denies change in stool character Musc Denies abnormal gait, Denies muscle weakness, Denies numbness, Denies radiating pain into limb and Denies tingling Neuro Denies abnormal gait, Denies dizziness, Denies frequent falls, Denies numbness, Denies tingling and Denies weakness Endo Denies fatigue and Denies palpitations Physical Exam Vital Signs: Last Vital Signs Pulse 66 07/12/24 13:22 BP 122/78 07/12/24 13:22 BMI result Body Mass Index 33.3 Const General: cooperative, healthy appearing, comfortable and no acute distress Orientation/consciousness: patient oriented x3 Neck Neck: Yes normal visual inspection and Yes no JVD Resp Effort & Inspection: normal respiratory effort Auscultation: clear to auscultation bilaterally, no crackles, no rales, no rhonchi and no wheezes Cardio Jugular venous distension: no JVD Rate: regular rate Rhythm: regular rhythm Heart sounds: S1 normal heart sound present, S2 normal heart sound present, no murmurs and no rubs Neuro General: patient oriented x3 Extrem General: Yes normal to inspection and No no pedal edema Psych Appearance: grossly normal Mental Status: mental status grossly normal Speech and movement: Normal speech and movement present Assessment & Plan Assessment & Plan (1) (HFpEF) heart failure with preserved ejection fraction: Code(s): I50.30 - Unspecified diastolic (congestive) heart failure Category: Medical Plan: Heart failure preserved ejection fraction, clinically euvolemic and well compensated in this elderly woman. Continue rhythm control approach. Continue current diuretic regimen. Discussed with her about management of heart failure. Daily weight monitoring avoidance salt loading was discussed. Symptoms associated progressive congestive heart failure were discussed. Additional diuretics as need be. Continue aggressive blood pressure control which is currently well optimized. (2) Paroxysmal atrial fibrillation: Comment: follows [place] Code(s): I48.0 - Paroxysmal atrial fibrillation Category: Medical Plan: Paroxysmal atrial fibrillation without any obvious clinical recurrence at this point time. Continue current therapy with Xarelto and atenolol which is renally dose adjusted. Continue monitor renal function at least every 6 months. Continue rhythm control approach. No indication for antiarrhythmic drug therapy. (3) CAD (coronary artery disease): Comment: follows [place] [place]/[employer] Code(s): I25.10 - Atherosclerotic heart disease of rampart coronary artery without angina pectoris Category: Medical Plan: Branch vessel disease without any symptoms of angina. Continue current dual antianginal therapy with isosorbide as well as amlodipine and atenolol. Currently on full oral anticoagulation has been therefore would avoid aspirin therapy. Continue statin therapy. Will follow up in the clinic in 6 months time, sooner p.r.n.. Thank you for allowing me to partake in his care Orders: Orders Basic Metabolic Panel Today I50.30 - Unspecified diastolic (congestive) heart failure Coding Level of Care Code Est Pt Level 4 (95873) Complex EM visit Add On G2211 Diagnoses (HFpEF) heart failure with preserved ejection fraction I50.30 Paroxysmal atrial fibrillation I48.0 CAD (coronary artery disease) I25.10
== END 2024-07-12 13:59 | disposition home or self-care (01) ==
PROVIDERS: PCP Internal Medicine; Visit Provider Internal Medicine Cardiovascular Disease
DX: I50.30 Unspecified diastolic (congestive) heart failure (principal); I48.0 Paroxysmal atrial fibrillation; I25.10 Atherosclerotic heart disease of native coronary artery without angina pectoris
CPT/HCPCS: 99214; G2211

== ENCOUNTER 2024-07-12 13:04 | Outpatient (REF) | payer MEDICARE, MEDICAID, SELFPAY ==
[2024-07-12 15:21] LABS: Anion Gap 15 (12-20); Blood Urea Nitrogen 30 mg/dL (9-16); Calcium 9.4 mg/dL (8.4-10.2); Carbon Dioxide 26 mmol/L (22-29); Chloride 105 mmol/L (96-108); Estimated Glomerular Filt Rate 33; Glucose Random 140 mg/dL (60-115); Potassium 4.7 mmol/L (3.3-5.1); Sodium 141 mmol/L (135-145)
== END 2024-07-12 13:05 | disposition home or self-care (01) ==
LOC: HO.LAB 13:04
PROVIDERS: PCP Internal Medicine; Visit Provider Internal Medicine Cardiovascular Disease
DX: I50.30 Unspecified diastolic (congestive) heart failure (principal); I48.0 Paroxysmal atrial fibrillation; I25.10 Atherosclerotic heart disease of native coronary artery without angina pectoris
CPT/HCPCS: 36415; 80048; 99212

== ENCOUNTER 2024-08-03 13:31 | Outpatient (AMB) | payer MEDICARE, SELFPAY ==
--- NOTE | 2024-08-03 13:38 | A.OFFPC_ITS ---
Vital Signs 08/03/24 13:47 Height 5 ft 1 in Weight 179 lb BMI 33.8 BP 136/62 Blood Pressure Location Lt brachial Position Sitting Intake Visit Reasons: Transfer from [facility]- 4 months Liquefied Natural Gas Operator Required: No Accompanied by: Daughter Allergies No Known Allergies (No Known Allergies*) Allergy (Verified 08/03/24 14:00) Medication List - Last Reconciled 08/03/24 by Kathryn Collins MD amlodipine 5 mg PO DAILY ascorbate calcium (vitamin C) 1 g (2 x 500 mg) PO DAILY atenolol 100 mg PO DAILY blood sugar diagnostic ([employer] Ultra Test strips) USE 1 STRIP TO CHECK GLUCOSE THREE TIMES DAILY bumetanide 0.5 mg PO DAILY cholecalciferol (vitamin D3) 25 mcg PO DAILY colesevelam 1,250 mg (2 x 625 mg) PO BID isosorbide mononitrate ER 30 mg PO QAM Lactobacillus rhamnosus GG (Culturelle) 1 cap PO DAILY PRN Lantus Solostar U-100 Insulin (insulin glargine) 15 units (0.15 mL) subcut BEDTIME 30 days NS latanoprostene bunod 0.024% (Vyzulta) 1 drp ophthalmic (eye) DAILY loperamide 2 mg PO Q4H PRN lorazepam 0.5 mg PO BID PRN magnesium 250 mg PO DAILY mecobalamin (vitamin B12) 1,000 mcg PO DAILY metformin 850 mg PO BID oxycodone 5 mg PO Q12H PRN pantoprazole 40 mg PO BID pen needle, diabetic Once a day pyridoxine (vitamin B6) 50 mg PO DAILY 90 days rivaroxaban (Xarelto) 15 mg PO QPM Tobacco use date assessed: 04/04/24 Fall risk assessment: No Falls in past year Last assessed Fall Risk: 08/03/24 Dental Screening Dental Screen Date: 04/04/24 HPI HPI Comments History of Present Illness Details This is an 83-year-old female with diabetes mellitus type 2 on long- term current use of insulin, paroxysmal atrial fibrillation, heart failure with preserved ejection fraction, lumbar degenerative disc disease and chronic opiate use, anxiety on benzodiazepines, hypertension and chronic kidney disease stage 3 that comes today accompanied by son for transfer of care. A1c still elevated but has improved. She complains of diarrhea and I will decrease metformin to 500 mg once a day and increase insulin. Atrial fibrillation and her failure follow by cardiology. On chronic anticoagulation. Aware that oxycodone and lorazepam cause addiction. Walks with a walker. Denies any chest pain or shortness of breath. Chronic kidney disease has been stable and she stopped seeing Nephrology. [facility] Medical History (Updated 08/03/24 @ 21:07 by Kathryn Collins MD) Irritable bowel syndrome with diarrhea Obesity, diabetes, and hypertension syndrome NIDDY (non-insulin dependent diabetes mellitus in young) (HFpEF) heart failure with preserved ejection fraction Diarrhea White coat syndrome with hypertension History of COVID-19 Anxiety Macular degeneration Renal calculi Hypertension Diabetes mellitus with coincident hypertension Obesity, diabetes, and hypertension syndrome Weight loss Biliary dyskinesia Paroxysmal atrial fibrillation GERD (gastroesophageal reflux disease) CAD (coronary artery disease) CKD (chronic kidney disease) stage 3, GFR 30-59 ml/min High cholesterol Surgical History Hx laparoscopic cholecystectomy Hx of bilateral cataract extraction History of ERCP History of hip replacement, total History of esophagogastroduodenoscopy (EGD) Hx of colonoscopy History of cardiac cath Family History Father No problems noted. Mother Diabetes Sister Diabetes Daughter Anemia Diabetes Social History Household Members: Children Household Members Other:: daughter and her fiancee Housing: House Are you a primary personal care aid to a significant other at home: No Do you presently have visiting nurse or other home services: No Alcohol intake: never Comment: refusing bed alarms Patient Tobacco Use Status: Never used Tobacco e-Cigarette/Vaping Use: Never Used Second Hand Smoke Exposure: No Advance Directives Date on File: 08/01/20 service: No Current occupational status: retired Cognitive needs: Yes (Walker) Hearing needs: No Vision needs: Yes Questionnaire PHQ-9 Over the last 2 weeks, how often have you been bothered by any of the following problems? 1. Little interest or pleasure in doing things: more than half the days 2. Feeling down, depressed, or hopeless: several days 3. Trouble falling or staying asleep, or sleeping too much: several days 4. Feeling tired or having little energy: several days 5. Poor appetite or overeating: several days 6. Feeling bad about yourself - or that you are a failure or have let yourself or your family down: several days 7. Trouble concentrating on things, such as reading the newspaper or watching television: several days 8. Moving or speaking so slowly that other people could have noticed. Or the opposite - being so fidgety or restless that you have been moving around a lot more than usual: several days 9. Thoughts that you would be better off or of hurting yourself in some way: not at all Total score: 9 Depression Screening Interpretation: Positive Depression Screening Follow-up: Existing condition and Follow-up Visit Requested Depression Screening Done: Yes 53383 - PHQ-9 Billing: Yes Source: Developed by Drs. Ruben Aleman, Siena Dougherty, Spencer De La Fuente and colleagues, with an educational jessica from [employer]. Thrive Questionnaire Date Thrive assessed: 04/04/24 I am a: Patient What is your living situation today?: I have a steady place to live Within the past 12 months, did the food you bought not last and you didn't have the money to get more?: Never true Within the past 12 months, did you worry whether your food would run out before you got money to buy more?: Never true Do you have trouble paying for medicines?: No Do you have trouble getting transportation to medical appointments?: No Do you have trouble paying your heating and electricity bill?: No Do you have trouble taking care of your child, family member or friend?: No Do you have trouble with day-to-day activities such as bathing, preparing meals, shopping, managing finances, etc.?: Yes Are you currently unemployed and looking for a job?: No Are you interested in more education?: No Please select the resources that you would like help with: None Currently or been in a relationship where the following occur: No concerns reported THRIVE Score: 0 AUDIT C Alcohol Use Questionnaire (AUDIT-C) 1. How often do you have a drink containing alcohol?: Never Total Score: 0 SOLEDAD-7 AMB Questionnaire SOLEDAD-7 Date SOLEDAD - 7 assessed: 04/04/24 Feeling nervous, anxious, or on edge: 2 = More than half the days Not being able to stop or control worryin = More than half the days Worrying too much about different things: 2 = More than half the days Trouble relaxin = More than half the days Being so restless that it is hard to sit still: 0 = Not at all Becoming easily annoyed or irritable: 1 = Several days Feeling afraid as if something awful might happen: 1 = Several days Total SOLEDAD-7 score (0-4 normal; 5-9 mild; 10-14 moderate; 15-21 severe): 10 Source: Developed by Drs. Ruben Aleman, Siena Dougherty, Spencer De La Fuente and colleagues, with an educational jessica from [employer]. SOLEDAD-7 Assessment Billing SOLEDAD-7 Assessment Tool: SOLEDAD-7 Assessment 05678 Review of Systems Const All systems reviewed & are unremarkable except as noted in HPI and below Card Denies chest pain at rest, Denies chest pain with activity, Denies edema, Denies irregular heart rhythm, Denies claudication, Denies dyspnea, Denies dyspnea on exertion, Denies orthopnea, Denies paroxysmal nocturnal dyspnea and Denies slow heart rate Resp Denies cough, Denies dyspnea and Denies dyspnea on exertion GI Denies abdominal pain, Denies change in bowel habits, Denies excessive flatus, Denies nausea and Denies vomiting Denies urinary incontinence, Denies urinary hesitancy and Denies urinary urgency Musc Denies abnormal gait, Denies atrophy, Denies deformity and Denies limited range of motion Skin/Breast Denies bleeding lesions, Denies changing lesions and Denies rash Neuro Denies abnormal gait, Denies behavioral changes and Denies lack of coordination Psych Denies behavioral changes Endo Denies cold intolerance Physical exam (Primary Care) Vital Signs: Last Vital Signs BP 136/62 08/03/24 13:47 BMI result Body Mass Index 33.8 BMI Assessment/Plan discussion: High BMI High, discussed plan: lifestyle, weight reduction, dietary and physical activity Tobacco/Smoking Status: Tobacco use Status Tobacco use date assessed 04/04/24 08/03/24 13:40 Patient Tobacco Use Status Never used Tobacco 08/03/24 13:40 e-Cigarette/Vaping Use Never Used 08/03/24 13:40 PHQ-9: PHQ-9 Score PHQ-9: Total score 9 08/03/24 18:55 Depression Screening Interpretation: Positive Depression Screening Follow-up: Existing condition and Follow-up Visit Requested Thrive Assessment: Date of Thrive Assessment Date Thrive assessed 04/04/24 08/03/24 13:40 Currently or been in a relationship where the following occur: No concerns reported Const Limitations: ambulation with walker Resp Effort & Inspection: normal respiratory effort Auscultation: clear to auscultation bilaterally Cardio Jugular venous distension: no JVD Rate: regular rate Rhythm: regular rhythm Heart sounds: S1 normal heart sound present and S2 normal heart sound present Extrem General: Yes full ROM Results AMB Hemoglobin A1c AMB Hemoglobin A1c 7.7 % Last Edit by RORO Case on 08/03/24 13:5 8 Results Reviewed Results Reviewed: Laboratory Last Values Hgb A1c (Clinic) 7.7 % (4.0-6.0) H 08/03/24 13:37 Coding Level of Care Code Est Pt Level 4 (97995) Complex EM visit Add On G2211 Diagnoses Paroxysmal atrial fibrillation I48.0 (HFpEF) heart failure with preserved ejection fraction I50.30 CKD (chronic kidney disease) stage 3, GFR 30-59 ml/min N18.30 Diabetes mellitus with hyperglycemia, with long-term current use of insulin E11.65; Z79.4 Hypertension I10 Anxiety F41.9 Irritable bowel syndrome with diarrhea K58.0 Lumbar degenerative disc disease M51.369 Opiate use F11.90 Additional Codes SOLEDAD-7 Assessment Billing - SOLEDAD-7 Assessment Tool: SOLEDAD-7 Assessment 42833 ([id number]) PHQ-9 - 86499 - PHQ-9 Billing: Yes ([id number]) Time Spent (min) 25 Assessment & Plan Assessment & Plan (1) Paroxysmal atrial fibrillation: Comment: follows w/HCS Code(s): I48.0 - Paroxysmal atrial fibrillation Category: Medical (2) (HFpEF) heart failure with preserved ejection fraction: Code(s): I50.30 - Unspecified diastolic (congestive) heart failure Category: Medical (3) CKD (chronic kidney disease) stage 3, GFR 30-59 ml/min: Code(s): N18.30 - Chronic kidney disease, stage 3 unspecified Category: Medical (4) Diabetes mellitus with hyperglycemia, with long-term current use of insulin: Code(s): E11.65 - Type 2 diabetes mellitus with hyperglycemia; Z79.4 - exterminator termite (current) use of insulin Category: Medical (5) Hypertension: Code(s): I10 - Essential (primary) hypertension Category: Medical (6) Anxiety: Code(s): F41.9 - Anxiety disorder, unspecified Category: Medical (7) Irritable bowel syndrome with diarrhea: Code(s): K58.0 - Irritable bowel syndrome with diarrhea Category: Medical (8) Lumbar degenerative disc disease: Code(s): M51.369 - Other intervertebral disc degeneration, lumbar region without mention of lumbar back pain or lower extremity pain Category: Medical (9) Opiate use: Code(s): F11.90 - Opioid use, unspecified, uncomplicated Category: Medical Plan Continue current med. Decrease metformin. Increase insulin. Labs order for the next office visit. Orders: Orders AMB Hemoglobin A1c Today E11.9 - Type 2 diabetes mellitus without complications, I10 - Essential (primary) hypertension Lipid Panel 4 Months E78.5 - Hyperlipidemia, unspecified Microalbumin, Random (w Creat) 4 Months R80.9 - Proteinuria, unspecified Vitamin D 25-OH Total 4 Months E55.9 - Vitamin D deficiency, unspecified Comprehensive [place]. Panel Fast 4 Months E11.9 - Type 2 diabetes mellitus without complications, I10 - Essential (primary) hypertension Medications: New metformin 500 mg PO DAILY 90 tabs 1RF 90 days leg brace (AMEENA Knee Brace) As directed 1 ea 0RF M17.12 - Unilateral primary osteoarthritis, left knee Changed From Lantus Solostar U-100 Insulin (insulin glargine) 18 units (0.18 mL) subcut BEDTIME 90 days 16.2 mL 3RF NS To Lantus Solostar U-100 Insulin (insulin glargine) 23 units (0.23 mL) subcut BEDTIME 20.7 mL 3RF 90 days NS From Lantus Solostar U-100 Insulin (insulin glargine) 15 units (0.15 mL) subcut BEDTIME 30 days 3 mL 8RF NS To Lantus Solostar U-100 Insulin (insulin glargine) 18 units (0.18 mL) subcut BEDTIME 90 days 16.2 mL 3RF NS From oxycodone Partial Fill upon patient request. 5 mg PO Q12H PRN 30 tabs 0RF pain To oxycodone 5 mg PO Q12H PRN 30 tabs 0RF pain 30 days Discontinued metformin Discontinued Reason: Patient Completed Course 850 mg PO BID 120 tabs 0RF
[2024-08-03 13:47] VITALS: BP 136/62; BMI 33.8
--- OUTSIDE RECORDS SUMMARY | 2024-08-03 15:29 | XMS_ITS | Encounter Summary ---
Author Organization [employer] Address [address] [place] [address] [address] [place] [address] Care Team Providers Care Take Away Worker Name Role Phone Unavailable Primary Care Provider Unavailabl e Reason for Visit * Reason Onset Date Comments appt 05/11/2023 Encounter Details Date Type Department Care Team ([facility] st Contact Info) Description 05/11/2023 Telephone [facility] [address] [place] [address] Jonathan Aguilar DDS [address] [place] [address] appt Social History Tobacco Use Types Packs/Day [...]
== END 2024-08-03 14:24 | disposition home or self-care (01) ==
LOC: HO.HMCH 13:32
PROVIDERS: PCP Internal Medicine; Visit Provider Internal Medicine
DX: I12.9 Hypertensive chronic kidney disease with stage 1 through stage 4 chronic kidney disease, or unspecified chronic kidney disease (principal); I48.0 Paroxysmal atrial fibrillation; I50.30 Unspecified diastolic (congestive) heart failure; N18.30 Chronic kidney disease, stage 3 unspecified; E11.65 Type 2 diabetes mellitus with hyperglycemia; Z79.4 Long term (current) use of insulin; F41.9 Anxiety disorder, unspecified; K58.0 Irritable bowel syndrome with diarrhea; M51.369 Other intervertebral disc degeneration, lumbar region without mention of lumbar back pain or lower extremity pain; F11.90 Opioid use, unspecified, uncomplicated

== ENCOUNTER → 2024-08-03 13:31 | Outpatient (BNVA) | payer MEDICARE, SELFPAY | PROVIDERS: PCP Internal Medicine; Visit Provider Internal Medicine | DX: I48.0 Paroxysmal atrial fibrillation (principal); I13.0 Hypertensive heart and chronic kidney disease with heart failure and stage 1 through stage 4 chronic kidney disease, or unspecified chronic kidney disease; E11.22 Type 2 diabetes mellitus with diabetic chronic kidney disease; N18.30 Chronic kidney disease, stage 3 unspecified; I50.30 Unspecified diastolic (congestive) heart failure; F41.9 Anxiety disorder, unspecified; K58.0 Irritable bowel syndrome with diarrhea; F11.90 Opioid use, unspecified, uncomplicated; M51.369 Other intervertebral disc degeneration, lumbar region without mention of lumbar back pain or lower extremity pain; Z79.4 Long term (current) use of insulin | CPT/HCPCS: 83036; 96127; 99212 ==

== ENCOUNTER 2024-11-21 10:47 | Outpatient (REF) | payer MEDICARE, MEDICAID, SELFPAY ==
[2024-11-21 12:47] LABS: Alanine Aminotransferase 11 U/L (0-31); Albumin Level 3.6 g/dL (3.5-5.0); Anion Gap 9 (12-20); Aspartate Amino Transferase 21 U/L (5-31); Blood Urea Nitrogen 30 mg/dL (9-16); Calcium 8.8 mg/dL (8.4-10.2); Carbon Dioxide 30 mmol/L (22-29); Chloride 104 mmol/L (96-108); Estimated Glomerular Filt Rate 32; Potassium 4.5 mmol/L (3.3-5.1); Sodium 138 mmol/L (135-145); Total Protein 6.3 g/dL (6.5-8.0); Triglycerides 95 mg/dL (<150)
[2024-11-21 12:48] LABS: Alkaline Phosphatase 75 U/L (39-117); Cholesterol 126 mg/dL (<200); HDL Cholesterol 35 mg/dL (>40)
--- OUTSIDE RECORDS SUMMARY | 2024-11-21 13:00 | XMS_ITS | Patient Health Record ---
Author Organization [facility] Address [address] [place] [address] Care Team Providers Care Sleever Name Role Phone Miguel A [place], Kam Primary Care Provider Orestes Chase Jr Unavailable Allergies No Known Allergies Reason For Referral No Information Medications Medication SIG (Take, Route, Frequency, Duration) Notes [...] MOUTH ONCE DAILY Oral for 90 Active Immunizations Vaccine Route Administration Date Status Comme nts Influenza Unknown 12/17/2022 Administered Social History Tobacco Use: Social History Observation Description Date Details (start date - stop date) Never Smoker NA - NA Tobacco Use/Smoking Question Answer Notes Patient is a nonsmoker Alcohol Screen Question Answer Notes Did you have a drink containing alcohol in the p ast year? 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) Active confirmed Plan Of Treatment No Information Insurance Providers Payer Name Payer Address Payer Phone Subscriber Number Group Number Insured Name Patient Relationship to Insured Coverage Start Date Coverage End Date MEDICARE OF [place] [address] [place] [id number] [phone] [id number] HÉCTOR HALL Self - patient is the insured MEDICAID OF [facility] [address] [place] [phone] [id number] HÉCTOR HALL Self - patient is the insured Medical (General) History Medical History History ICD Code IBS with diarrhea predominance Atrial fibrillation Coronary artery disease Chronic kidney disease Diabetes mellitus Hyperlipidemia IBS with diarrhea Hyperlipidemia Gastroesophageal reflux disease Surgical History Surgery Date(Month/Year) Cardiac catheterization Total hip replacement
--- OUTSIDE RECORDS SUMMARY | 2024-11-21 13:00 | XMS_ITS | Clinical Summary ---
Author Organization [employer] Address [address] [place] [address] Care Team Providers Care Paint Line Supervisor Name Role Phone Unavailable Primary Care Provider [...] 1952 DTaP/Tdap/Td Vaccines (1 - Tdap) 09/10/1958 Pneumococcal Vaccine: 50+ Years (1 of 1 - PCV) 09/10/1989 Zoster Vaccines (1 of 2) 09/10/1989 RSV Patients and Patients Aged 60 years or older (1 - 1-dose 75+ series) 09/10/2014 Tobacco Screening 09/16/2024 09/17/2023 COVID-19 Vaccine ( season) 2024 11/23/2022, 11/13/2021, 07/27/2021, Additional history exists Influenza Vaccine (#1) 2024 , 11/06/2022, 11/13/2021, Additional history exists Dental X-Ray: Full Mouth 03/27/2026 03/26/2023 HIB [...] patient's age to complete this topic Meningococcal B Vaccine Aged Out No l onger eligible based on patient's age to complete [...]
--- OUTSIDE RECORDS SUMMARY | 2024-11-21 13:00 | XMS_ITS | Encounter Summary ---
Author Organization [employer] Address [address] [place] [address] [address] [place] [address] Care Team Providers Care Editor City Name Role Phone Unavailable Primary Care Provider Unavailabl e Reason for Visit * Reason Onset Date Comments appt 05/11/2023 Encounter Details Date Type Department Care Team ([facility] st Contact Info) Description 05/11/2023 Telephone [facility] ADULT DENTAL [address] [place] [address] Jonathan Aguilar DDS [address] [place] [address] appt Social History Tobacco Use Types Packs/Day [...]
--- OUTSIDE RECORDS SUMMARY | 2024-11-21 13:01 | XMS_ITS | Clinical Summary ---
Author Organization [facility] Facility Address [address] [place] [id number] Care Team Providers Care Personnel Recruiter Name Role Phone Unavailable Primary Care Provider [...] 01/14/2023 Common bile duct calculus 01/14/20232022 Immunizations Immunization Administration Dates Next Due Influenza, Unspecified 11/27/2022 [...] Due Date Last Done Comments Pneumococcal Vaccine: 50+ Ye ars (1 of 2 - PCV) 09/10/1959 Influenza Vaccine (#1) 2024 11/27/2022 Hepatitis B Vaccine Aged Out No longe r eligible based on patient's age to complete this topic Insurance Medicare Medicaid [place]
[2024-11-21 18:26] LABS: Microalbum/Creatinine Ratio Ur 32.0 ug/mg cr (<30)
== END 2024-11-21 10:48 | disposition home or self-care (01) ==
LOC: HO.LAB 10:47
PROVIDERS: PCP Internal Medicine; Visit Provider Internal Medicine
DX: I10 Essential (primary) hypertension (principal); R80.9 Proteinuria, unspecified; E55.9 Vitamin D deficiency, unspecified; E78.5 Hyperlipidemia, unspecified; E11.9 Type 2 diabetes mellitus without complications
CPT/HCPCS: 36415; 80053; 80061; 82043; 82306; 82570

== ENCOUNTER 2024-12-06 14:48 | Outpatient (AMB) | payer MEDICARE, MEDICAID, SELFPAY ==
[2024-12-06 15:09] VITALS: BP 146/62; PULSE 76; RESP 18; TEMP 36.2; O2SAT 94; BMI 33.8
--- NOTE | 2024-12-06 15:09 | MHC.PC.OV ---
Vital Signs 12/06/24 15:09 Height 5 ft 1 in Weight 179 lb BMI 33.8 BP 146/62 H Blood Pressure Location Lt brachial Position Sitting Respiration 18 Pulse 76 Pulse Source Pulse Oximeter Temp 97.1 F Temp Source Temporal Artery Scan Pulse Oximetry (%) 94 Oxygen Delivery Method Room Air Intake Visit Reasons: dm Neurological Physiotherapist Required: No Accompanied by: Self / Same As Patient Allergies No Known Allergies (No Known Allergies*) Allergy (Verified 12/06/24 15:27) Medication List - Last Reconciled 12/06/24 by Kathryn Collins MD amlodipine 5 mg PO DAILY ascorbate calcium (vitamin C) 1 g (2 x 500 mg) PO DAILY atenolol 100 mg PO DAILY blood sugar diagnostic ([employer] Ultra Test strips) USE 1 STRIP TO CHECK GLUCOSE THREE TIMES DAILY bumetanide 0.5 mg PO DAILY cholecalciferol (vitamin D3) 25 mcg PO DAILY colesevelam 1,250 mg (2 x 625 mg) PO BID isosorbide mononitrate ER 30 mg PO QAM Lactobacillus rhamnosus GG (Culturelle) 1 cap PO DAILY PRN Lantus Solostar U-100 Insulin (insulin glargine) 23 units (0.23 mL) subcut BEDTIME 90 days NS latanoprostene bunod 0.024% (Vyzulta) 1 drp ophthalmic (eye) DAILY leg brace (AMEENA Knee Brace) As directed loperamide 2 mg PO Q4H PRN lorazepam 0.5 mg PO BID PRN magnesium 250 mg PO DAILY mecobalamin (vitamin B12) 1,000 mcg PO DAILY metformin 500 mg PO DAILY 90 days oxycodone 5 mg PO Q12H PRN 30 days pantoprazole 40 mg PO BID pen needle, diabetic Once a day pyridoxine (vitamin B6) 50 mg PO DAILY 90 days rivaroxaban (Xarelto) 15 mg PO QPM Tobacco use date assessed: 12/06/24 Fall risk assessment: 1 Fall in past year Last assessed Fall Risk: 12/06/24 Dental Screening Dental Screen Date: 12/06/24 Did you have a dental visit in the last 12 months?: Yes Did you have a dental problem in the last 6 months where you did not have access to dental care?: No Was dental information given to patient?: Patient has dentist HPI HPI Comments History of Present Illness Details The patient is an 84-year-old female presenting with Type 2 Diabetes Mellitus management. Her Hemoglobin A1c is currently 8.2%, indicating suboptimal control. She has recently adjusted her insulin regimen to 23 units at night, which has improved her morning glucose levels but not her afternoon levels. The patient also has Chronic Kidney Disease Stage 3, with a GFR of 32, which has been stable over recent measurements. She follows up with a biomedical equipment support specialist regularly and has had an ultrasound as part of her ongoing evaluation. Hypertension is managed with amlodipine and atenolol, and her blood pressure is well-controlled. She also has a history of valvular heart disease and atrial fibrillation, for which she takes Xarelto. The patient reports a vitamin D deficiency, with a recent level of 23.5 ng/mL, and she takes vitamin D supplements. She does not go outside often, which may contribute to her deficiency. Her hyperlipidemia is well-managed, with a total cholesterol of 126 mg/dL and an LDL of 72 mg/dL. She takes Welchol for this condition. The patient experiences anxiety and takes lorazepam as needed. She also reports diarrhea, which has improved with medication adjustments, although it persists to some extent. She has gastroesophageal reflux disease, managed with pantoprazole, which she finds necessary for symptom control. [facility] Medical History Irritable bowel syndrome with diarrhea Obesity, diabetes, and hypertension syndrome NIDDY (non-insulin dependent diabetes mellitus in young) (HFpEF) heart failure with preserved ejection fraction Diarrhea White coat syndrome with hypertension History of COVID-19 Anxiety Macular degeneration Renal calculi Hypertension Diabetes mellitus with coincident hypertension Obesity, diabetes, and hypertension syndrome Weight loss Biliary dyskinesia Paroxysmal atrial fibrillation GERD (gastroesophageal reflux disease) CAD (coronary artery disease) CKD (chronic kidney disease) stage 3, GFR 30-59 ml/min High cholesterol Surgical History Hx laparoscopic cholecystectomy Hx of bilateral cataract extraction History of ERCP History of hip replacement, total History of esophagogastroduodenoscopy (EGD) Hx of colonoscopy History of cardiac cath Family History Father No problems noted. Mother Diabetes Sister Diabetes Daughter Anemia Diabetes Social History Household Members: Children Household Members Other:: daughter and her fiancee Housing: House Are you a primary medical care manager to a significant other at home: No Do you presently have visiting nurse or other home services: No Alcohol intake: never Comment: refusing bed alarms Patient Tobacco Use Status: Never used Tobacco e-Cigarette/Vaping Use: Never Used Second Hand Smoke Exposure: No Advance Directives Date on File: 08/01/20 service: No Current occupational status: retired Cognitive needs: Yes (Walker) Hearing needs: No Vision needs: Yes Questionnaire Thrive Questionnaire Date Thrive assessed: 08/03/24 I am a: Patient What is your living situation today?: I have a steady place to live Within the past 12 months, did the food you bought not last and you didn't have the money to get more?: Never true Within the past 12 months, did you worry whether your food would run out before you got money to buy more?: Never true Do you have trouble paying for medicines?: No Do you have trouble getting transportation to medical appointments?: No Do you have trouble paying your heating and electricity bill?: No Do you have trouble taking care of your child, family member or friend?: No Do you have trouble with day-to-day activities such as bathing, preparing meals, shopping, managing finances, etc.?: Yes Are you currently unemployed and looking for a job?: No Are you interested in more education?: No Please select the resources that you would like help with: None Currently or been in a relationship where the following occur: No concerns reported THRIVE Score: 0 SOLEDAD-7 AMB Questionnaire SOLEDAD-7 Date SOLEDAD - 7 assessed: 04/04/24 Source: Developed by Drs. Ruben Aleman, Siena Dougherty, Spencer De La Fuente and colleagues, with an educational jessica from [employer]. Review of Systems Const All systems reviewed & are unremarkable except as noted in HPI and below Card Denies chest pain at rest, Denies chest pain with activity, Denies edema, Denies irregular heart rhythm, Denies claudication, Denies dyspnea, Denies dyspnea on exertion, Denies orthopnea, Denies paroxysmal nocturnal dyspnea and Denies slow heart rate Resp Denies cough, Denies dyspnea and Denies dyspnea on exertion GI Denies abdominal pain, Denies change in bowel habits, Denies excessive flatus, Denies nausea and Denies vomiting Physical exam (Primary Care) Vital Signs: Last Vital Signs Temp 97.1 F 12/06/24 15:09 Pulse 76 12/06/24 15:09 Resp 18 12/06/24 15:09 BP 146/62 H 12/06/24 15:09 Pulse Ox 94 12/06/24 15:09 Oxygen Delivery Method Room Air 12/06/24 15:09 BMI result Body Mass Index 33.8 BMI Assessment/Plan discussion: High BMI High, discussed plan: lifestyle, weight reduction, dietary and physical activity Tobacco/Smoking Status: Tobacco use Status Tobacco use date assessed 12/06/24 12/06/24 15:18 Patient Tobacco Use Status Never used Tobacco 12/06/24 15:09 e-Cigarette/Vaping Use Never Used 12/06/24 15:09 Thrive Assessment: Date of Thrive Assessment Date Thrive assessed 08/03/24 12/06/24 15:09 Currently or been in a relationship where the following occur: No concerns reported Resp Effort & Inspection: normal respiratory effort Auscultation: clear to auscultation bilaterally Cardio Jugular venous distension: no JVD Rate: regular rate Rhythm: regular rhythm Heart sounds: S1 normal heart sound present and S2 normal heart sound present Extrem General: Yes full ROM Coding Level of Care Code Est Pt Level 4 (49215) Complex EM visit Add On G2211 Diagnoses Diabetes mellitus with hyperglycemia, with long-term current use of insulin E11.65; Z79.4 CKD (chronic kidney disease) stage 3, GFR 30-59 ml/min N18.30 Hypertension I10 Anxiety F41.9 Paroxysmal atrial fibrillation I48.0 Time Spent (min) 23 Assessment & Plan Assessment & Plan (1) Diabetes mellitus with hyperglycemia, with long-term current use of insulin: Code(s): E11.65 - Type 2 diabetes mellitus with hyperglycemia; Z79.4 - terminal carman (current) use of insulin Category: Medical (2) CKD (chronic kidney disease) stage 3, GFR 30-59 ml/min: Code(s): N18.30 - Chronic kidney disease, stage 3 unspecified Category: Medical (3) Hypertension: Code(s): I10 - Essential (primary) hypertension Category: Medical (4) Anxiety: Code(s): F41.9 - Anxiety disorder, unspecified Category: Medical (5) Paroxysmal atrial fibrillation: Comment: follows w/[facility] Code(s): I48.0 - Paroxysmal atrial fibrillation Category: Medical Plan Plan 1. Type 2 Diabetes Mellitus The patient's diabetes management includes adjusting her insulin regimen to 23 units at night, which has improved her morning glucose levels. The plan is to continue monitoring her glucose levels and consider further medication adjustments if afternoon levels remain elevated. 2. Chronic Kidney Disease Stage 3 The patient is advised to continue regular follow-ups with her biomedical equipment support specialist and maintain current management strategies. 3. Hypertension Hypertension is managed with amlodipine and atenolol, and the patient is advised to continue her current regimen. 4. Atrial fibrillation The patient is advised to continue taking Xarelto and follow up with her labor specialist regularly. 5. Vitamin D Deficiency The patient is advised to continue taking vitamin D supplements and consider dietary sources of vitamin D. 6. Atrial Fibrillation The patient is advised to continue taking Xarelto and follow up with her labor specialist regularly. 7. Hyperlipidemia The patient is advised to continue taking Welchol and maintain her current lipid management strategy. 8. Anxiety The patient is advised to continue taking lorazepam as needed for anxiety management. 9. Diarrhea The patient is advised to continue current management strategies and monitor symptoms. 10. Gastroesophageal Reflux Disease The patient is advised to continue taking pantoprazole for symptom control. Orders: Orders AMB Hemoglobin A1c Today E11.65 - Type 2 diabetes mellitus with hyperglycemia, Z79.4 - skilled nursing (current) use of insulin Complete Blood Count Auto Diff 4 Months D64.9 - Anemia, unspecified Vitamin D 25-OH Total 4 Months E55.9 - Vitamin D deficiency, unspecified Vitamin B12 and Folate 4 Months E53.8 - Deficiency of other specified B group vitamins Lipid Panel 4 Months E78.5 - Hyperlipidemia, unspecified Microalbumin, Random (w Creat) 4 Months R80.9 - Proteinuria, unspecified Comprehensive [place]. Panel Fast 4 Months E11.65 - Type 2 diabetes mellitus with hyperglycemia, Z79.4 - terminal carman (current) use of insulin IRON PROFILE 4 Months D64.9 - Anemia, unspecified Medications: Changed From cholecalciferol (vitamin D3) 25 mcg PO DAILY To cholecalciferol (vitamin D3) 25 mcg PO DAILY 90 tabs 3RF 90 days From metformin 500 mg PO DAILY 90 days 90 tabs 1RF To metformin 500 mg PO BID 180 tabs 1RF 90 days Refilled lorazepam 0.5 mg PO BID PRN 90 tabs 0RF Anxiety oxycodone 5 mg PO Q12H PRN 30 tabs 0RF pain 30 days
--- OUTSIDE RECORDS SUMMARY | 2024-12-06 20:01 | XMS_ITS | Encounter Summary ---
Author Organization [employer] Address [address] [place] [address] [address] [place] [address] Care Team Providers Care Broach Operator Name Role Phone Unavailable Primary Care Provider Unavailabl e Reason for Visit * Reason Onset Date Comments appt 05/11/2023 Encounter Details Date Type Department Care Team ([facility] st Contact Info) Description 05/11/2023 Telephone [facility] [address] [place] [address] Jonathan Aguilar DDS [address] [place] [address] appt Social History Tobacco Use Types Packs/Day [...]
--- OUTSIDE RECORDS SUMMARY | 2024-12-06 20:01 | XMS_ITS | Patient Health Record ---
Author Organization [facility] Address [address] [place] [address] Care Team Providers Care [place] Man Name Role Phone Miguel A [place], a[place]m Primary Care Provider Orestes Chase Jr [phone] Allergies No Known Allergies Reason For Referral No Information Medications Medication SIG (Take, Route, Frequency, Duration) Notes Start Date End Date Status metFORMIN HCl 850 MG Oral; Duration: 60 Active Calcium 1 tab Oral; Duration : 14 days 01/05/2023 Active Lantus SoloStar 100 UNIT/ML Subcutaneous ; Duration: 90 Active immodium 1 tab Oral; Duration : 14 days Active Culturelle - as directed Orally Active Colesevelam HCl 625 MG TAKE 2 TABLETS BY MOUTH TWICE DAILY Oral; Duration: 45 Active Vitamin B-6 50 MG TAKE 1 TABLET BY ANAID TH ONCE DAILY Oral; Duration: 90 Active Magnesium 250 MG 1 tablet with a meal Orally Once a day; Duration: 30 day(s) 01/05/2023 Active OneTouch Ultra - USE 1 STRIP TO CHECK GLUCOSE THREE TIMES DAILY In Vitro; Duration: 30 Active Vitamin B 12 500 MCG 1 tablet Orally Onc e a day; Duration: 30 day(s) 01/05/2023 Active Pantoprazole Sodium 40 MG TAKE 1 TABLET BY MOUTH TWICE DAILY Oral; Duration: 90 Active Vitamin C Adult Gummies 125 MG as directed Orally 01/05/2023 Active Isosorbide Mononitrate ER 30 MG Oral; Duration: 90 Active Atenolol 100 MG Oral; Duration: 90 Active LORazepam 0.5 MG TAKE 1 TABLET BY ANAID TH TWICE DAILY NEEDED FOR ANXIETY Oral; Duration: 45 Active Xarelto 15 MG TAKE 1 TABLET BY ANAID TH IN THE EVENING Oral; Duration: 90 Active Vitamin D (Cholecalciferol) 25 MCG (1000 UT) TAKE 1 TABLET BY MOUTH ONCE DAILY Oral; Duration: 90 Active amLODIPine Besylate 5 MG TAKE 1 TABLET B Y MOUTH ONCE DAILY Oral; Duration: 90 Active Immunizations Vaccine Route Administration Date [...] Problem Status W/U Status Risk Notes Problem Common bile duct stone ([id number]) Common bile duct stone (K80.50) Active confirmed Plan Of Treatment No Information Insurance Providers Payer Name Payer Address Payer Phone Subscriber Number Group Number Insured Name Patient Relationship to Insured Coverage Start Date Coverage End Date MEDICARE OF [place] [address] [place] [id number] HÉCTOR HALL Self - patient is the insured MEDICAID OF [facility] [address] [place] [address] [id number] HÉCTOR HALL Self - patient is the insured Medical (General) History Medical History History ICD Code IBS with diarrhea predominance Atrial fibrillation Coronary artery disease Chronic kidney disease Diabetes mellitus Hyperlipidemia IBS with diarrhea Hyperlipidemia Gastroesophageal reflux disease Surgical History Surgery Date(Month/Year) Cardiac catheterization Total hip replacement
--- OUTSIDE RECORDS SUMMARY | 2024-12-06 20:01 | XMS_ITS | Clinical Summary ---
Author Organization [employer] Address [address] [facility] [address] [place] [address] Care Team Providers Care Vegetable Preparer Name Role Phone Unavailable Primary Care Provider [...]
== END 2024-12-06 15:46 | disposition home or self-care (01) ==
LOC: HO.HMCH 14:49
PROVIDERS: PCP Internal Medicine; Visit Provider Internal Medicine
DX: E11.65 Type 2 diabetes mellitus with hyperglycemia (principal); I12.9 Hypertensive chronic kidney disease with stage 1 through stage 4 chronic kidney disease, or unspecified chronic kidney disease; Z79.4 Long term (current) use of insulin; N18.30 Chronic kidney disease, stage 3 unspecified; I48.0 Paroxysmal atrial fibrillation; F41.9 Anxiety disorder, unspecified

== ENCOUNTER → 2024-12-06 14:48 | Outpatient (BNVA) | payer MEDICARE, MEDICAID, SELFPAY | PROVIDERS: PCP Internal Medicine; Visit Provider Internal Medicine | DX: I12.9 Hypertensive chronic kidney disease with stage 1 through stage 4 chronic kidney disease, or unspecified chronic kidney disease (principal); E11.22 Type 2 diabetes mellitus with diabetic chronic kidney disease; E11.65 Type 2 diabetes mellitus with hyperglycemia; N18.30 Chronic kidney disease, stage 3 unspecified; E55.9 Vitamin D deficiency, unspecified; E78.5 Hyperlipidemia, unspecified; K21.9 Gastro-esophageal reflux disease without esophagitis; F41.9 Anxiety disorder, unspecified; I48.0 Paroxysmal atrial fibrillation; R19.7 Diarrhea, unspecified; Z79.899 Other long term (current) drug therapy | CPT/HCPCS: 83036; 99212 ==